=== PATIENT | female | born 1965 | race Caucasian/White ===

== ENCOUNTER 2022-09-21 17:17 | Emergency (ER) | payer OTHER, SELFPAY ==
[2022-09-21 17:24] VITALS: BP 185/97; PULSE 76; RESP 14; TEMP 37.1; O2SAT 98; BMI 38.3
--- NOTE | 2022-09-21 17:30 | ED_ITS ---
HPI - Fall General Chief Complaint: Fall Stated Complaint: RT ANKLE INJURY Time Seen by Provider: 09/21/22 17:30 Source: patient Mode of arrival: Wheelchair History of Present Illness HPI Narrative: Patient presents to emergency department complaining of right ankle pain. Patient states she tripped over a hole and inverted the right foot causing pain and swelling to the lateral malleolus on the right. She denies any pain at the base of the 5th. She denies any paresthesias, weakness. She didn't did not hit her head did not have loss of consciousness. She has an abrasion to the left knee states he does not have any knee pain. Immunizations are up-to-date. Anything at home for pain. Related Data Home Medications Medication Instructions Recorded Confirmed atorvastatin 40 mg tablet 40 mg PO DAILY 09/21/22 09/21/22 clonazepam 1 mg tablet 1 mg PO BID 09/21/22 09/21/22 hyoscyamine sulfate 0.125 mg tablet 0.125 mg sublingual Q4H PRN pain 09/21/22 09/21/22 insulin aspart U-100 100 unit/mL continuous subcutaneous infusion 09/21/22 subcutaneous solution (Novolog DAILY U-100 Insulin aspart) levothyroxine 125 mcg tablet 125 mcg PO DAILY 09/21/22 09/21/22 losartan 100 mg tablet 100 mg PO DAILY 09/21/22 09/21/22 nadolol 20 mg tablet 20 mg PO BID 09/21/22 09/21/22 Previous Rx's Medication Instructions Recorded hydrocodone 5 mg-acetaminophen 325 1 tab PO Q6H PRN pain #10 tabs 09/21/22 mg tablet Allergies Allergy/AdvReac Type Severity Reaction Status Date / Time acetaminophen [From Percocet] Allergy Severe Verified 09/21/22 17:23 adhesive Allergy Severe Verified 09/21/22 17:23 amoxicillin [From Augmentin] Allergy Severe Verified 09/21/22 17:23 clavulanic acid Allergy Severe Verified 09/21/22 17:23 [From Augmentin] oxycodone [From Percocet] Allergy Severe Verified 09/21/22 17:23 pentazocine [From Talwin] Allergy Severe Verified 09/21/22 17:23 sulfamethoxazole Allergy Severe Verified 09/21/22 17:23 [From Bactrim] trimethoprim [From Bactrim] Allergy Severe Verified 09/21/22 17:23 ct dye Allergy Severe Uncoded 09/21/22 17:23 Review of Systems ROS Status of ROS 10 or more systems reviewed and unremarkable except as noted in history and below [facility] Medical History (Updated 09/21/22 @ 18:11 by Acacia Beaulieu MD) Exam Narrative Exam Narrative: Nurses notes and vital signs reviewed and patient is not hypoxic. General: Nontoxic, Well-appearing and in no apparent distress. Skin: Warm, dry, no pallor noted. No Rash Head: Normocephalic, atraumatic. Neck: Supple, non-tender. Eye: Pupils are equal, round and EOMI. No scleral icterus. Ears, Nose, Mouth, and Throat: TM clear, no posterior oropharynx erythema or nasal mucosal hypertrophy, uvula is mid-line Oral mucosa is moist Cardiovascular: Regular Rate and Rhythm without murmur, gallop or rub. Respiratory: No accessory muscle use or respiratory distress. Lungs are clear to auscultation, no wheezing, rales or rhonchi Chest Wall: no tenderness Back: No midline thoracic or lumbar vertebral tenderness. No CVA tenderness Musculoskeletal: Right lateral malleolus with edema, ecchymosis, and tenderness to palpation. There is no pain at the base of the 5th. DP +2, tuberculosis +2, capillary refill is brisk. Range of motion is limited by pain at the ankle only. There is no pain or tenderness to the proximal fibula. Left knee without anterior 2 cm abrasion. No effusion, no tenderness to palpation. normal ROM, no calf or popliteal tenderness, no lower extremity edema/swelling GI: Abdomen is soft, non-distended. Normal bowel sounds. No masses appreciated. No tenderness to palpation. No rebound, guarding, or rigidity noted. Neurological: A&O x4. No cranial nerve dysfunction observed. No truncal ataxia. Moves all extremities. Sensation intact. Psychiatric: Cooperative and interactive. Normal mood and affect. Constitutional Vital Signs - 24 hr 09/21/22 17:24 Temperature 98.7 F Pulse Rate [Monitor] 76 Respiratory Rate 14 Blood Pressure [Left Arm] 185/97 H Pulse Oximetry 98 Oxygen Delivery Method Room Air Course Vital Signs Vital signs: Vital Signs Temperature 98.7 F 09/21/22 17:24 Pulse Rate 76 09/21/22 17:24 Respiratory Rate 14 09/21/22 17:24 Blood Pressure 185/97 H 09/21/22 17:24 Pulse Oximetry 98 09/21/22 17:24 Oxygen Delivery Method Room Air 09/21/22 17:24 Temperature 98.7 F 09/21/22 17:24 Pulse Rate 76 09/21/22 17:24 Respiratory Rate 14 09/21/22 17:24 Blood Pressure 185/97 H 09/21/22 17:24 Pulse Oximetry 98 09/21/22 17:24 Oxygen Delivery Method Room Air 09/21/22 17:24 MDM - Fall MDM Narrative Medical decision making narrative: X-rays were done.She is placed on a walking boot. She is advised to rest, ice, elevate, given Dinosaur, and crutches. She is to follow-up with Dr. murrell.Wound care instructions provided to the abrasion. At this time the patient is without objective evidence of an acute process requiring hospitalization or inpatient management. The patient has remained hemodynamically stable. No additional indication for emergent studies at this time. I answered all questions. Discussed discharge instructions including standard anticipatory guidance and what should prompt a return to the emergency department, including if they get worse are not getting better or develops any new or concerning symptoms. I've given them specific time frame in which to follow-up, and who to follow-up with. The patient demonstrates understanding. Patient is nontoxic and stable for discharge with outpatient follow-up. This note was created with the assistance of a speech recognition program. Although the intention is to generate documents that actually reflects the content of the visit, no guarantees can be provided that every mistake has been identified and corrected by editing. Discharge Plan Discharge Chief Complaint: Fall Clinical Impression: Fracture of lateral malleolus of right ankle Patient Disposition: Home, Self-Care Time of Disposition Decision: 18:10 Condition: Good Mode of Transportation: Private Vehicle Prescriptions / Home Meds: New hydrocodone-acetaminophen 5-325 mg tablet 1 tab PO Q6H PRN (Reason: pain) Qty: 10 0RF Rx Instructions: s82 No Action atorvastatin 40 mg tablet 40 mg PO DAILY clonazepam 1 mg tablet 1 mg PO BID hyoscyamine sulfate 0.125 mg tablet 0.125 mg sublingual Q4H PRN (Reason: pain) insulin aspart U-100 [Novolog U-100 Insulin aspart] 100 unit/mL solution continuous subcutaneous infusion DAILY levothyroxine 125 mcg tablet 125 mcg PO DAILY losartan 100 mg tablet 100 mg PO DAILY nadolol 20 mg tablet 20 mg PO BID Instructions: Ankle Fracture (ED) Additional Instructions: Given discharge instructions with visitor. To car in w/c per her . Has wan and ankle brace. Denies need for crutches. Stand Alone Forms: Portal Instructions Referrals: Ksotas Gauthier MD [Primary Care Provider] - 1 week Kota Murrell MD [Physician] - 1 week Discharge Date/Time: 09/21/22 18:48
--- NOTE | 2022-09-21 17:45 | XR_ITS ---
The [address] [address] Patient Name: LINO SIU MRN: [id number] date: 1965 Sex: F Assigned Patient Location: ER Current Patient Location: .MAIN Accession/Order Number: [id number] Exam Date: 09/21/2022 17:55 Report Date: 09/21/2022 18:30 At the request of: DRE THOMAS Procedure: XR ankle RT min 3V PROCEDURE: XR ankle RT min 3V DATE: 09/21/2022 4:55 PM CDT COMPARISONS: 07/24/2022 CLINICAL INDICATION: ankle pain FINDINGS: Transverse lucency of the distal metaphysis of the fibula is again identified. This suggests that the fracture that was previously noted is not yet healed or that there has been a refracture in the same place. As before, the osseous structures remain in good position and alignment. The ankle mortise is intact. Prominent soft tissue swelling is noted lateral and anterior to the ankle, more than on previous exam. IMPRESSION: Lucency persists of the distal metaphysis of the fibula. This implies that this previously noted fracture is not completely healed. Osseous structures are in perfect alignment and stable. It is possible that there is sufficient osseous bridging across this lucency. There is now prominent soft tissue swelling implying reinjury of this area. Correlation with clinical history and physical exam necessary in this regard.. Electronically authenticated by: KARISSA PERAZA Date: 09/21/2022 18:30
== END 2022-09-21 18:48 | disposition home or self-care (01) ==
PROVIDERS: Emergency Provider Emergency Medicine; PCP Family Medicine
DX: S82.61XA Displaced fracture of lateral malleolus of right fibula, initial encounter for closed fracture (principal); W18.42XA Slipping, tripping and stumbling without falling due to stepping into hole or opening, initial encounter; Z79.899 Other long term (current) drug therapy; Z79.890 Hormone replacement therapy
CPT/HCPCS: 73610; 99283

== ENCOUNTER 2022-09-30 09:51 | Outpatient (OUT) | payer OTHER, SELFPAY ==
--- NOTE | 2022-09-30 10:30 | CT_ITS ---
[address] [address] Patient Name: LINO SIU MRN: [id number] date: 1965 Sex: F Assigned Patient Location: CT Current Patient Location: CT Accession/Order Number: [id number] Exam Date: 09/30/2022 10:23 Report Date: 10/01/2022 06:26 At the request of: KATHY HAMMOND Procedure: CT ankle RT wo con EXAMINATION: CT ankle RT wo con HISTORY: M85.60 COMPARISON: No relevant comparison available. TECHNIQUE: Multi-planar CT images were created without IV contrast. Dose reduction techniques were achieved by using automated exposure control and/or adjustment of mA and/or kV according to patient size and/or use of iterative reconstruction technique. FINDINGS: BONES: Transverse fracture distal fibula/lateral malleolus. Ill-defined fracture margins consistent with a subacute fracture. Incomplete bony bridging. No distraction or angulation. No additional fracture or dislocation. Degenerative changes with marginal osteophyte formation and joint space narrowing SOFT TISSUES: Mild diffuse soft tissue swelling EFFUSION: None visible. OTHER: Vascular calcifications IMPRESSION: Subacute nondisplaced nonangulated transverse distal fibular fracture at the level of the epiphysis with incomplete bony bridging Electronically authenticated by: JAMEY SANDHU Date: 10/01/2022 06:26
== END 2022-09-30 09:52 ==
PROVIDERS: PCP Family Medicine; Visit Provider Physician Assistant
DX: M85.60 Other cyst of bone, unspecified site (principal); S82.831K Other fracture of upper and lower end of right fibula, subsequent encounter for closed fracture with nonunion
CPT/HCPCS: 73700

== ENCOUNTER 2022-10-23 10:12 | Outpatient (OUT) | payer OTHER, SELFPAY ==
--- NOTE | 2022-10-23 10:19 | XR_ITS ---
The [address] [address] Patient Name: LINO SIU MRN: [id number] date: 1965 Sex: F Assigned Patient Location: [facility] Current Patient Location: [facility] Accession/Order Number: [id number] Exam Date: 10/23/2022 10:19 Report Date: 10/23/2022 17:37 At the request of: INDY SIDDIQUI Procedure: XR ankle RT min 3V PROCEDURE: XR ankle RT min 3V HISTORY: RIGHT ANKLE PAIN COMPARISON: XR ankle right 09/21/2022 back through 03/13/2022 FINDINGS: BONES:Persistent thin curvilinear lucency through the lateral malleolus consistent with incomplete osseous healing of remote fracture. No significant size changer past several studies suggesting no significant ongoing healing process. SOFT TISSUES:Mild soft tissue swelling. EFFUSION:None visible. OTHER: Negative. XR/XR ankle RT min 3V IMPRESSION: 1. Stable, normal alignment, chronic incomplete osseous healing of remote lateral malleolus fracture. Electronically authenticated by: ADRIANNE RUANO Date: 10/23/2022 17:37
== END 2022-10-23 10:13 | disposition home or self-care (01) ==
LOC: RAD 10:12
PROVIDERS: PCP Family Medicine; Visit Provider Podiatrist Foot & Ankle Surgery
DX: M25.571 Pain in right ankle and joints of right foot (principal)
CPT/HCPCS: 73610

== ENCOUNTER 2023-01-08 13:52 | Outpatient (OUT) | payer OTHER, SELFPAY ==
[2023-01-08 15:25] LABS: Alanine Aminotransferase 48 U/L (14-59); Albumin Globulin Ratio 0.9; Albumin Level 3.4 g/dL (3.4-5.0); Alkaline Phosphatase 77 U/L (46-116); Anion Gap 10.7; Aspartate Amino Transferase 29 U/L (15-37); BUN Creatinine Ratio 14.3; Bilirubin Total 0.6 mg/dL (0.2-1.0); Calcium 8.5 mg/dL (8.5-10.1); Carbon Dioxide 29.3 mmol/L (21.0-32.0); Chloride 104 mmol/L (98-107); Estimated GFR (African America >60 (>=60); Estimated GFR (Non-African Ame >60 (>=60); Glucose 139 mg/dL (74-106); Sodium 140 mmol/L (136-145); Total Protein 7.4 g/dL (6.4-8.2)
== END 2023-01-08 13:53 | disposition home or self-care (01) ==
LOC: LAB 13:59
PROVIDERS: PCP Family Medicine; Visit Provider Family Medicine
DX: F40.01 Agoraphobia with panic disorder (principal)
CPT/HCPCS: 36415; 80053

== ENCOUNTER 2023-10-10 08:16 | Outpatient (OUT) | payer OTHER, SELFPAY ==
[2023-10-10 08:48] LABS: Basophils Absolute Auto 0.1 10^3/uL (0.0-0.1); Basophils Percent Auto 0.9 % (0.2-2.0); Eosinophils Absolute Auto 0.6 10^3/uL (0.0-0.7); Eosinophils Percent Auto 8.1 % (0.9-7.0); Hematocrit 43.1 % (36.0-48.0); Hemoglobin 13.8 g/dL (12.0-16.0); Immature Granulocytes Abs Auto 0.01 10^3/uL (0.00-0.03); Immature Granulocytes Pct Auto 0.1 % (0.0-0.5); Lymphocytes Absolute Auto 1.6 10^3/uL (1.2-3.8); Lymphocytes Percent Auto 22.9 % (20.5-60.0); Mean Corpuscular Hemoglobin 27.3 pg (26.7-34.0); Mean Corpuscular Volume 85.2 fL (81.0-99.0); Mean Platelet Volume 10.5 fL (9.5-13.5); Monocytes Absolute Auto 0.7 10^3/uL (0.3-0.8); Monocytes Percent Auto 10.7 % (1.7-12.0); Neutrophils Percent Auto 57.3 % (43.0-75.0); Platelet Count 212 10^3/uL (150-450); Red Blood Count 5.06 10^6/uL (4.20-5.40); White Blood Count 6.9 10^3/uL (4.0-11.0)
[2023-10-10 09:06] LABS: Estimated Average Glucose 146 mg/dL; Glycohemoglobin A1C 6.7 % (4.5-6.2)
[2023-10-10 09:31] LABS: Alanine Aminotransferase 36 U/L (14-59); Albumin Globulin Ratio 0.8; Albumin Level 3.3 g/dL (3.4-5.0); Alkaline Phosphatase 73 U/L (46-116); Anion Gap 12.6; Aspartate Amino Transferase 20 U/L (15-37); BUN Creatinine Ratio 13.1; Bilirubin Total 0.7 mg/dL (0.2-1.0); Calcium 8.8 mg/dL (8.5-10.1); Carbon Dioxide 28.2 mmol/L (21.0-32.0); Chloride 104 mmol/L (98-107); Chol HDL Ratio 3.4; Cholesterol 180 mg/dL (<=200); Estimated GFR (African America >60 (>=60); Estimated GFR (Non-African Ame 58 (>=60); Free T3 2.88 pg/mL (2.18-3.98); Globulin 3.9 g/dL; Glucose 168 mg/dL (74-106); HDL Cholesterol 53 mg/dL (40-60); Potassium 3.8 mmol/L (3.5-5.1); Sodium 141 mmol/L (136-145); Thyroid Stimulating Hormone 0.061 uIU/mL (0.358-3.740); Total Protein 7.2 g/dL (6.4-8.2); Triglycerides 221 mg/dL (<=150); VLDL CHOLESTEROL 44.2 mg/dL
== END 2023-10-10 08:17 | disposition home or self-care (01) ==
LOC: LAB 08:19
PROVIDERS: PCP Family Medicine; Visit Provider Family Medicine
DX: D64.9 Anemia, unspecified (principal); E11.9 Type 2 diabetes mellitus without complications; Z79.899 Other long term (current) drug therapy; I48.0 Paroxysmal atrial fibrillation; I10 Essential (primary) hypertension; R53.83 Other fatigue; E55.9 Vitamin D deficiency, unspecified; Z12.11 Encounter for screening for malignant neoplasm of colon
CPT/HCPCS: 36415; 80053; 80061; 83036; 84436; 84443; 84481; 85025

== ENCOUNTER 2023-12-11 15:00 | Outpatient (REF) | payer OTHER, SELFPAY | END 2023-12-11 15:01 | LOC: LAB 15:00 | PROVIDERS: PCP Family Medicine; Visit Provider Family Medicine | DX: L82.1 Other seborrheic keratosis (principal) | CPT/HCPCS: 88305 ==

== ENCOUNTER 2024-02-24 13:12 | Outpatient (OUT) | payer OTHER, SELFPAY ==
--- NOTE | 2024-02-24 13:18 | MM_ITS ---
Patient Name: LINO SIU MR#: [id number] : 1965 Exam Date: 02/24/2024 Ordering Doctor: DR UMA NEGRO . RADIOLOGY REPORT PROCEDURE: MM TOMOSYNTHESIS SCREENING BI COMPARISON: MG MAMM SCREEN KASSANDRA W CAD, 02/16/2019. MG MAMM SCREEN 3D KASSANDRA CAD, 11/23/2020. INDICATIONS: Screening Calculator Name NCI Breast Cancer Risk Assessment Tool 5 Year Breast Cancer Risk 1.80% Lifetime Breast Cancer Risk 10.00% Personal Breast Cancer No Personal Ovarian Cancer No Treatments None Family Cancers None LOCATION: [facility] BREAST COMPOSITION: The breasts are heterogeneously dense,which may obscure small masses. FINDINGS: DIAGNOSTIC CATEGORY 2--BENIGN FINDING. NO CHANGE FROM COMPARISON. Multiple areas of focal asymmetry in both breasts, stable from prior exam. Scattered benign-appearing calcifications are present. Scattered benign-appearing lymph nodes are present. RIGHT BREAST: No significant suspicious finding. LEFT BREAST: No significant suspicious finding. Loop recorder, stable RECOMMENDATIONS: ROUTINE MAMMOGRAM AND CLINICAL EVALUATION IN 12 MONTHS. PLEASE NOTE: A NORMAL MAMMOGRAM DOES NOT EXCLUDE THE POSSIBILITY OF BREAST CANCER. A CLINICALLY SUSPICIOUS PALPABLE LUMP SHOULD BE BIOPSIED. Dictated by: Jj Guerra MD on 02/25/2024 at 08:59 Approved by: Jj Guerra MD on 02/25/2024 at 09:01
--- OUTSIDE RECORDS SUMMARY | 2024-02-24 13:35 | XMS_ITS | CCD ---
Author Organization [facility] CliniSynv Care Team Providers Care Compressor Station Engineer Name Role Phone MARKY ., DR EATON Admitting Unavailable HOY ., DR EATON Attending Unavailable HOY ., DR EATON Primary Care Unavailable HOY ., DR EATON Consulting Unavailable MANISH, KATHY Admitting Unavailable MANISHKATHY Attending Unavailable HOY ., DR EATON Primary Care Unavailable ZIEBER, DR ADRIANNE Daily Consulting Unavailable MANISH, KATHY Consulting Unavailable MANISH, KATHY Admitting Unavailable KATHY HAMMOND Attending Unavailable RADHAY ., DR EATON Primary Care Unavailable SURPRISE, DR JAMEY Mccollum Consulting Unavailable MANISH, KATHY Consulting Unavailable MANISH, KATHY Admitting Unavailable MANISH, KATHY Attending Unavailable HOY ., DR EATON Primary Care Unavailable ALDEN, DR ADRIANNE Dialy Consulting Unavailable KATHY HAMMOND Consulting Unavailable INDY SIDDIQUI Admitting Unavailable INDY SIDDIQUI Attending Unavailable HOY ., DR EATON Primary Care Unavailable ALDEN, DR ADRIANNE Daily Consulting Unavailable INDY SIDDIQUI Consulting Unavailable MARKY ., DR EATON Primary Care Unavailable JUNIE, DR OLIVA Vizcaino Admitting Unavaillucy ZAMAN, DR OLIVA Vizcaino Attending Unavailabl e DEE ., JAYLYN ANDRE Consulting UnavailJAMEY Perales Unavailable MARKY ., DR EATON Admitting Unavailable HOY ., DR EATON Attending Unavailable HOY ., DR EATON Primary Care Unavailable HOY ., DR EATON Consulting Unavailable HOY ., DR EATON Admitting Unavailable HOY ., DR EATON Attending Unavailable MARKY ., DR EATON Primary Care Unavailable Uma Gauthier Primary Care Physician Padmaja Steinberg Attending Alberta Shonna Barahona Attending Unavailable Uma Gauthier Attending Unavailable Uma Gauthier Admitting Unavailable Uma Gauthier MD Primary Care Provider [phone] Isidra Buckley DO Unavailable ARMANDO PEREZ Attending Unavailable DARIO FINNEY Referring Unavailable ISIDRA BUCKLEY Attending Unavailable ISIDRA BUCKLEY Attending Unavailable ISIDRA BUCKLEY Attending Unavailable ISIDRA BUCKLEY Attending Unavailable Allergies Allergy Classification Reported Allergen(s) Allergy Type Date of Onset Reaction(s) Facility (1 source) Adhesive agent Drug allergy (disorder) 7 [facility] (1 source) Codeine Drug Allergy [facility] (1 source) Iodine (And Iodine Containting Drugs) Drug allergy (disorder) 7 [facility] (1 source) Pentazocine Drug Allergy 7 [facility] (2 sources) Sulfamethoxazole / Trimethoprim; Translations: [Bactrim] Drug Allergy 7 [facility] Rep[facility] (5 sources) Sulfamethoxazole / Trimethoprim; Translations: [sulfamethoxazole-tr imethoprim] Drug Allergy 3 [facility] (4 sources) Radiographic iodinated contrast medium (product); Translations: [Radiographic iodinated contrast medium] Drug allergy [facility] (2 sources) Amoxicillin Drug Allergy 3 [facility] (2 sources) levoFLOXacin Drug Allergy 3 [facility] (2 sources) metroNIDAZOLE Drug Allergy 3 [facility] (2 sources) Pentazocine Drug Allergy 3 [facility] (2 sources) Pravastatin Drug Allergy [address] [facility] (2 sources) Iodinated Contrast Media Drug Allergy 3 [facility] (2 sources) Wound Dressing Adhesive Drug Allergy 3 [facility] Medications Current Medications Medication Drug Class(es) Dates Sig (Normalized) Sig (Original) ascorbic acid 60 mg / beta carotene 5000 unt / copper sulfate 40 mg / dl-alpha tocopheryl acetate 30 unt / sodium selenite 0.04 mg / zinc oxide 40 mg oral tablet (2 sources) Vitamin C Multiple Vitamin (Multivitamin Adult) tablet Active aspirin 81 mg delayed release oral tablet (2 sources) Platelet Aggregation Inhibitor, Nonsteroidal Anti-inflammatory Drug aspirin (ASPIR) 81 MG EC tablet 1 (one) time each day at the same time. Active atorvastatin 40 mg oral tablet (5 sources) HMG-CoA Reductase Inhibitor Start: 01-18-2015 take 1 tablet by mouth once daily at bedtime atorvastatin 40 mg Tab 40 mg = 1 tab(s), Oral, Once a day (at bedtime), Refills(s) 0, High cholesterol Start Date: 01/18/15 Status: Ordered biotin 1 mg oral capsule (2 sources) biotin 1 MG caps ule 1 (one) time each day at the same time. Active Blood Glucose Monitoring Suppl (Accu-Chek Guide) w/Device kit (2 sources) Start: 02-17-2024 Blood Glucose Monitoring Suppl (Accu-Chek Guide) w/Device kit Indications: Type 1 diabetes mellitus without complication (CMS/HCC) 1 each See administration instructions 1 kit 02/17/2024 Active Calcium Carbonate / Vitamin D (2 sources) Calcium Carbonate-Vitamin D (CALCIUM PLUS VITAMIN D PO) Take by mouth. Active cholestyramine resin 4000 mg powder for oral suspension (4 sources) Bile Acid Sequestrant Start: 12-19-2023 take 1 dose by mouth once daily cholestyramine (Questran) 4 g packet Take 1 packet by mouth Daily 12/19/2023 Active Start: 12-19-2023 Questran 4 g/9 g oral powder = 1 packet(s), Oral, Daily, # 90 EA, Refills(s) 5, Pharmacy: [facility]/pharmacy #[id number], 159, cm, 12/19/23 10:06:00 EDT, Height/Length Dosing, 89, kg, 12/19/23 10:06:00 EDT, Weight Dosing Start Date: 12/19/23 Status: Ordered clonazePAM 1 mg oral tablet (5 sources) Benzodiazepine Start: 01-18-2015 take 0.5 mg by mouth twice daily clonazepam 1 mg Tab 0.5 mg = 0.5 tab(s), Oral, BID, Refills(s) 0, Anxiety Start Date: 01/18/15 Status: Ordered take 1.5 tablets by mouth in the morning clonazePAM (KlonoPIN) 1 MG tablet Take 1.5 tablets by mouth in the morning and 1.5 tablets before bedtime. Active Continuous Blood Gluc Sensor (Dexcom G6 Sensor) misc (2 sources) Continuous Blood Gluc Sensor (Dexcom G6 Sensor) misc Active dicyclomine hydrochloride 10 mg oral capsule (3 sources) Anticholinergic Start: 01-19-20 Bentyl 10 mg Cap 10 mg = 1 cap(s), Oral, As Directed, Refills(s) 0, Spasm Start Date: 01/18/15 Status: Ordered Elderberry preparation (2 sources) ELDERBERRY PO Elderberry Active fenofibrate 160 mg oral tablet (2 sources) Peroxisome Proliferator Receptor alpha Agonist Start: 10-14-19 take 1 tablet by mouth once daily fenofibrate (Triglide) 160 MG tablet TAKE 1 TABLET BY MOUTH EVERY DAY FOR 30 DAYS 10/14/2023 Active fexofenadine hydrochloride 60 mg oral tablet (2 sources) Histamine-1 Receptor Antagonist fexofenadine (Sindy Allergy) 60 MG tablet prn Active Levsin (4 sources) Start: 12-19-19 Levsin See Instructions, as needed, Refills(s) 0 Start Date: 12/19/23 Status: Ordered hyoscyamine (Lev sin) 0.125 MG tablet every 4 (four) hours if needed Active ibuprofen 800 mg oral tablet (2 sources) Nonsteroidal Anti-inflammatory Drug take 1 tablet by mouth four times daily as needed for pain ibuprofen 800 MG tablet TAKE 1 TABLET BY MOUTH 4 TIMES A DAY NEEDED FOR PAIN Active insulin aspart, human 100 unt/ml injectable solution (5 sources) Insulin Analog Start: 2023 inject 1 dose by subcutaneous injection once Insulin Aspart (NovoLOG) 100 UNIT/ML solution Indications: Type 1 diabetes mellitus without complication (CMS/HCC) INJECT 1 DOSE PER PUMP SUBCUTANEOUSLY SEE ADMINISTRATION INSTRUCTIONS, MAX 150 UNITS DAILY 140 mL 2 02/02/2024 Active Start: 01-19-2015 NovoLog See In structions, THIS IS DONE PER PUMP THAT IS ON THE RIGHT SIDE OF ABD., Refills(s) 0, Blood glucose Start Date: 01/19/15 Status: Ordered Insulin Infusion Pump (T:sli m Insulin Pump) device (4 sources) Start: 02-17-2024 Insulin Infusi on Pump (T:slim Insulin Pump) device Indications: Type 1 diabetes mellitus without complication (CMS/HCC) Basal: 12A 2.4, 6A 2.1, 11A 1.85, ICR: 12A 5, ISF: 50, target: 110 1 each 02/17/2024 Active Start: 10-22-2023 End: 02-17-2024 Insulin Infusion Pump (T:sli m Insulin Pump) device Indications: Type 1 diabetes mellitus without complication ([facility]) Basal: 12A 2.4, 6A 2.1, 11A 1.85, ICR: 12A 3, ISF: 50, target: 110 1 each 10/22/2023 02/17/2024 Discontinued (Dose adjustment) levothyroxine sodium 0.15 mg oral tablet (9 sources) l-Thyroxine Start: 12-19-2023 take 1 tablet by mouth once daily levothyroxine 150 mcg (0.15 mg) Tab mcg tab(s), Oral, Daily, Refills(s) 0 Start Date: 12/19/23 Status: Ordered Start: 01-18-2015 take 1 tablet by jose roberto th once daily levothyroxine 125 mcg (0.125 mg) Tab 125 microgram = 1 tab(s), Oral, Daily, Refills(s) 0, Thyroid Start Date: 01/18/15 Status: Ordered take 1 tablet by jose roberto th every other day levothyroxine (Synthroid, Levoxyl) 125 MCG tablet Take 125 mcg by mouth every other day. Active take 1 tablet by joser oberto th every other day levothyroxine (Synthroid, Levoxyl) 150 MCG tablet Take 150 mcg by mouth every other day. Active losartan potassium 50 mg oral tablet (5 sources) Angiotensin 2 Receptor Baron Start: 01-18-2015 take 1 tablet by mouth once daily losartan 50 mg Tab 50 mg = 1 tab(s), Oral, Daily, Refills(s) 0, High blood pressure Start Date: 01/18/15 Status: Ordered losartan (Cozaar ) 100 MG tablet 1 (one) time each day at the same time. Active magnesium gluconate 500 mg oral tablet (2 sources) magnesium 500 (2 7 Mg) MG tablet Magnesium Active methscopolamine bromide 5 mg oral tablet (3 sources) Anticholinergic Start: 015 take 1 tablet by mouth once daily methscopolamine 5 mg Tab 5 mg = 1 tab(s), Oral, Daily, Refills(s) 0, Control of stomach acid Start Date: 01/18/15 Status: Ordered Multiple Vitamins-Minerals (AIRBORNE PO) (2 sources) Multiple Vitamins-Minerals (AIRBORNE PO) Airborne Active Multiple Vitamins-Minerals (Vitamin D3 Complete) tablet (2 sources) Multiple Vitamins-Minerals (Vitamin D3 Complete) tablet Take by mouth Active nadolol 40 mg oral tablet (5 sources) beta-Adrenergic Baron Start: 015 take 1 tablet by mouth once daily nadolol 40 mg Tab 40 mg = 1 tab(s), Oral, Daily, Refills(s) 0, High blood pressure Start Date: 01/18/15 Status: Ordered nadolol (Corgard ) 40 MG tablet every 12 (twelve) hours. Active pantoprazole 40 mg extended release oral tablet (5 sources) Proton Pump Inhibitor Start: 01-18-2015 take 1 tablet by mouth once daily Protonix 40 mg tablet 40 mg, Oral, Daily, Refills(s) 0, Control of stomach acid Start Date: 01/18/15 Status: Ordered pantoprazole (Pr otoNix) 40 MG EC tablet 40 mg in the morning. Take before meals. Active Probiotic Formula (3 sources) Start: 01-18-2015 take 1 capsule by mouth once daily Probiotic Formula 1 cap(s), Oral, Daily, Refill(s) 0, Prophylaxis Start Date: 01/18/15 Status: Ordered Probiotic Product (PROBIOTIC & ACIDOPHILUS EX ST PO) (2 sources) Probiotic Produc t (PROBIOTIC & ACIDOPHILUS EX ST PO) every 12 (twelve) hours. Active Ozempic (2 sources) Start: 12-19-2023 inject 0.25 mg by subcutaneous injection every week Ozempic 0.25 mg, SubCutaneous, qWeek, Refill(s) 0, Other (see comment) Start Date: 12/19/23 Status: Ordered Start: 12-19-2023 Ozempic SubCut aneous, qWeek, Refill(s) 0 Start Date: 12/19/23 Status: Ordered Semaglutide,0.25 or 0.5MG/DO S, (Ozempic, 0.25 or 0.5 MG/DOSE,) 2 MG/3ML solution pen-injector (4 sources) Start: 02-17-2024 Semaglutide,0. 25 or 0.5MG/DOS, (Ozempic, 0.25 or 0.5 MG/DOSE,) 2 MG/3ML solution pen-injector Indications: Type 2 diabetes mellitus without complication, with long-term current use of insulin (CMS/HCC) Inject 0.5 mg under the skin every 7 (seven) days 6 mL 3 02/17/2024 Active Start: 12-22-2022 End: 02-17-2024 Semaglutide,0.25 or 0.5MG/DO S, (Ozempic, 0.25 or 0.5 MG/DOSE,) 2 MG/3ML solution pen-injector Indications: Type 2 diabetes mellitus without complication, with long-term current use of insulin (CMS/HCC) Inject 0.25 mg under the skin every 7 (seven) days. 12/22/2022 02/17/2024 Discontinued (Dose adjustment) Problems Active Problems Problem Classification Problem Date Documented Da te Episodic/Chronic Abdominal pain (1 source) Abdominal pain; Translations: [Unspecified abdominal pain] Onset: 12-18-2023 Episodic Anxiety disorders (4 sources) Anxiety disorder; Translations: [Anxiety disorder, unspecified] Onset: 03-25-2016 09-13-2022 Chronic Cataract (2 sources) Bilateral age-related nuclear cataracts; Translations: [Age-related nuclear cataract, bilateral] Onset: 05-07-2023 05-07-2023 Chronic Deficiency and other anemia (1 source) Anemia, unspecified; Translations: [ANEMIA UNSPECIFIED] Onset: 08-25-2022 Episodic Diabetes mellitus without complication (11 sources) Type 2 diabetes mellitus without complications; Translations: [Type 1 diabetes mellitus] Onset: 03-25-2016 Resolved: 09-13-2022 02-16-2024 Chronic Disorders of lipid metabolism (2 sources) Hyperlipidemia; Translations: [Hyperlipidemia, unspecified] Onset: 03-25-2016 09-13-2022 Chronic Essential hypertension (2 sources) Hypertensive disorder; Translations: [Essential (primary) hypertension] Onset: 03-25-2016 09-13-2022 Chronic Gastrointestinal hemorrhage (3 sources) Hemorrhage of rectum and anus; Translations: [Hemorrhage of anus and rectum] Onset: 12-19-2023 Episodic Malaise and fatigue (1 source) Other fatigue; Translations: [OTHER FATIGUE] Onset: 08-25-2022 Episodic Other aftercare (1 source) Other [facility] (current) drug therapy; Translations: [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] Onset: 08-25-2022 Episodic Other connective tissue disease (4 sources) Pain in right foot; Translations: [PAIN IN RIGHT FOOT] Onset: 07-24-2022 Episodic Other gastrointestinal disorders (3 sources) Irritable bowel syndrome with diarrhea; Translations: [Irritable bowel syndrome with diarrhea] Onset: 12-19-2023 Chronic Other gastrointestinal disorders (1 source) Abnormal feces; Translations: [Other fecal abnormalities] Onset: 12-19-2023 Episodic Other gastrointestinal disorders (2 sources) Loose stool 12-19-2023 Episodic Other injuries and conditions due to external causes (1 source) Unspecified injury of right ankle, subsequent encounter; Translations: [UNSPECIFIED INJURY RT ANKLE SUBSQT] Onset: 07-30-2022 Episodic Other nervous system disorders (2 sources) Mononeuropathy of lower limb; Translations: [Unspecified mononeuropathy of right lower limb] Onset: 08-16-2022 08-16-2022 Chronic Other non-traumatic joint disorders (4 sources) Pain in right ankle and joints of right foot; Translations: [PAIN IN RIGHT ANKLE] Onset: 05-28-2022 Episodic Other nutritional; endocrine; and metabolic disorders (2 sources) Severe obesity; Translations: [Class 2 severe obesity due to excess calories with serious comorbidity and body mass index (BMI) of 35.0 to 35.9 in adult] Onset: 08-16-2022 03-21-2023 Chronic Other screening for suspected conditions (not mental disorders or infectious disease) (2 sources) Encounter for screening for malignant neoplasm of colon; Translations: [Screening for malignant neoplasm of colon done] Onset: 08-25-2022 Episodic Residual codes; unclassified (4 sources) Obstructive sleep apnea (adult) (pediatric); Translations: [OBSTRUCTIVE SLEEP APNEA] Onset: 02-26-2022 Chronic Residual codes; unclassified (1 source) Acquired absence of organ; Translations: [Acquired absence of other specified parts of digestive tract] Onset: 12-19-2023 Episodic Past or Other Problems Problem Classification Problem Date Documented Da te Episodic/Chronic Conditions associated with dizziness or vertigo (2 sources) Dizziness; Translations: [Dizziness and giddiness] Onset: 10-27-2020 09-13-2022 Episodic E Codes: Fall (1 source) Fall (on) (from) unspecified stairs and steps, initial encounter; Translations: [FALL ON FROM UNS STAIRS STEPS INIT] Onset: 03-17-2022 Episodic Fracture of lower limb (7 sources) Displaced fracture of fifth metatarsal bone, right foot, initial encounter for closed fracture; Translations: [Other fracture of upper and lower end of right fibula, subsequent encounter for closed fracture with routine healing] Onset: 03-17-2022 Episodic Other aftercare (1 source) 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; Translations: [USP CURRENT USE OF ASPIRIN] Onset: 03-17-2022 Episodic Other aftercare (1 source) jail (current) use of insulin; Translations: [E MARKETING SPECIALIST CURRENT USE OF INSULIN] Onset: 03-17-2022 Episodic Results Test Name Value Interpretation Reference Range Facility HbA1c (Bld) [Mass fraction]o n 02-17-2024 Interpretation and review of laboratory results Normal [facility] - Hematology and Cell count[facility] 02-17-2024 HbA1c (Bld) [Mass fraction] 7 % [facility] Ambulatory Visit Summaryon 0 12-19-2023 Ambulatory Visit Summary Ambulatory Visit Summary ROSIO SIU :1965 Visit Date:12/19/2023 Ambulatory Visit Instructions Your Diagnosis Screening for colon cancer Abdominal cramps Hx of cholecystectomy Loose stools Irritable bowel syndrome with diarrhea Rectal bleeding Your Care Team Attending Physician - Shonna Minor MD Primary Care Physician - Uma Gauthier MD This Is Your Medications List cholestyramine (Questran 4 g/9 g oral powder) Contact prescribing physician if questions or concerns atorvastatin (atorvastatin 40 mg Tab) bifidobacterium-lacto bacillus (Probiotic Formula) clonazepam (clonazepam 1 mg Tab) dicyclomine (Bentyl 10 mg Cap) hyoscyamine (Levsin) insulin aspart (NovoLog) levothyroxine (levothyroxine 125 mcg (0.125 mg) Tab) levothyroxine (levothyroxine 150 mcg (0.15 mg) Tab) losartan (losartan 50 mg Tab) methscopolamine (methscopolamine 5 mg Tab) nadolol (nadolol 40 mg Tab) pantoprazole (Protonix 40 mg tablet) semaglutide (Ozempic) Procedures Performed Cataract (05/15/2023), Appendectomy, Breast biopsy sample, Breast reduction, section, Gallbladder, Hysterectomy, Trigger finger. Discharge Vitals Heart Rate (Peripheral) 78 Respiratory Rate 16 Blood Pressure 147/83 Height 159 cm Height 63 in Weight 89 kg Weight 195.8 lb BMI 35.2 Medications What How Much When Why Instructions New cholestyramine (Questran 4 g/ 9 g oral powder) 1 Packets By Mouth Every day Screening for colon cancer Abdominal cramps Hx of cholecystectomy Loose stools Refills: 5 Pickup at [facility]/pharmacy #[id number] Unchanged atorvastatin (atorvastatin 40 mg Tab) 1 Tablets By Mouth Once a day (at bedtime) Contact prescribing physician if questions or concerns Unchanged bifidobacterium-lacto bacillus (Probiotic Formula) 1 Capsules By Mouth Every day Contact prescribing physician if questions or concerns Unchanged clonazepam (clonazepam 1 mg Tab) 0.5 Tablets By Mouth 2 times a day Contact prescribing physician if questions or concerns Unchanged dicyclomine (Bentyl 10 mg Cap) 1 Capsules By Mouth As Directed Contact prescribing physician if questions or concerns Unchanged hyoscyamine (Levsin) See instructions as needed Contact prescribing physician if questions or concerns Unchanged insulin aspart (NovoLog) See instructions THIS IS DONE PER PUMP THAT IS ON THE RIGHT SIDE OF ABD. Contact prescribing physician if questions or concerns Unchanged levothyroxine (levothyroxine 125 mcg (0.125 mg) Tab) 1 Tablets By Mouth Every day Contact prescribing physician if questions or concerns Unchanged levothyroxine (levothyroxine 150 mcg (0.15 mg) Tab) By Mouth Every day Contact prescribing physician if questions or concerns Unchanged losartan (losartan 50 mg Tab) 1 Tablets By Mouth Every day Contact prescribing physician if questions or concerns Unchanged methscopolamine (methscopolamine 5 mg Tab) 1 Tablets By Mouth Every day Contact prescribing physician if questions or concerns Unchanged nadolol (nadolol 40 mg Tab) 1 Tablets By Mouth Every day Contact prescribing physician if questions or concerns Unchanged pantoprazole (Protonix 40 mg tablet) 40 Milligram By Mouth Every day Contact prescribing physician if questions or concerns Unchanged semaglutide (Ozempic) Subcutaneous Every week Contact prescribing physician if questions or concerns Pharmacy Information [facility]/pharmacy #[id number]: [address], [place] [id number] [phone] Allergies Bactrim Radiographic iodinated contrast medium Problems Ongoing - Any problem that you are currently receiving treatment for. Hx of cholecystectomy Irritable bowel syndrome with diarrhea Loose stools Rectal bleeding Patient Survey You may receive a survey via text or e-mail asking about your office visit. Please share your experience with us by completing your survey. We appreciate your feedback and thank you for choosing us for your care. Normal [facility] Gastroenterology Office/Clin ic Noteon 12-19-2023 Gastroenterology Office/Clinic Note Gastroenterology Office/Clinic Note Chief Complaint screening colonoscopy HPI Staff This is a 58 year old female who presents today for a screening colonoscopy with c/o abdominal cramping. Denies Blood Thinners. Ozempic weekly. Denies any family history of colon cancer/polyps or IBD. Denies Dysphagia, constipation, or bloody stools. Denies recent imaging or labs. Abdominal cramping- occurs next day after eating nuts/seeds diarrhea Last visit w/ Dr Forde 12/25/15 History of Present Illness: This is a 50-year-old white female who has a history of diabetes mellitus. She was complaining of a lot of bloating. She has had an extensive evaluation which was negative. Initially she was treated with metoclopramide and she did quite well but she did develop dizziness with that and that was stopped. There also she was treated with erythromycin and she did well with it. However recently she had better control over her diabetes and she did not require any erythromycin. No new GI complaints EGD w/ Dr Forde 01/19/15 Impression and Plan EGD: Diagnosis: Normal EGD status post random biopsies from the duodenum to rule out celiac disease. Final Diagnosis (Verified) DUODENUM, BIOPSY: ?DUODENAL MUCOSA WITH NO SIGNIFICANT PATHOLOGIC CHANGES. Colonoscopy w/ Dr Forde 10/30/12 Diagnosis: Sigmoid polyps, status post snare polypectomy Final Diagnosis (Verified) Sigmoid colon, biopsy Hyperplastic polyp LABS 01/19/15 IgA Quant 161 t-Transglutaminase >2 History of Present Illness I have reviewed HPI staff note, most recent labs and imaging, more than 30 minutes spent reviewing the chart, during encounter, placing orders and counseling the patient. pt here to schedule screening colonoscopy last one in 2012 intermittent diarrhea olga in coffee could make it worse pt with several BMs and some blood after eating nuts x 2 times Review of Systems PHQ Score Initial Depression Screen Score: 0 SCORE All systems reviewed, negative except as mentioned above Physical Exam Vitals & Measurements HR: 78(Peripheral) RR: 16 BP: 147/83 HT: 63 in HT: 159 cm WT: 89 kg WT: 195.8 lb BMI: 35.2 General: alert, no acute distress HEENT: atraumatic normocephalic Extremities: no deformity, no trauma Assessment/Plan 1. Screening for colon cancer (Z12.11: Encounter for screening for malignant neoplasm of colon) Ordered: cholestyramine, = 1 packet(s), Oral, Daily, # 90 EA, Refills(s) 5, [id number] 159, cm, 12/19/23 10:06:00 EDT, Height/Length Dosing, 89, kg, 12/19/23 10:06:00 EDT, Weight Dosing Colonoscopy (Hospital Procedure) 2. Abdominal cramps (R10.9: Unspecified abdominal pain) Ordered: cholestyramine, = 1 packet(s), Oral, Daily, # 90 EA, Refills(s) 5, [id number], 159, cm, 12/19/23 10:06:00 EDT, Height/Length Dosing, 89, kg, 12/19/23 10:06:00 EDT, Weight Dosing Colonoscopy (Hospital Procedure) 3. Hx of cholecystectomy (Z90.49: Acquired absence of other specified parts of digestive tract) Ordered: cholestyramine, = 1 packet(s), Oral, Daily, # 90 EA, Refills(s) 5, [id number], 159, cm, 12/19/23 10:06:00 EDT, Height/Length Dosing, 89, kg, 12/19/23 10:06:00 EDT, Weight Dosing Colonoscopy (Hospital Procedure) 4. Loose stools (R19.5: Other fecal abnormalities) Ordered: cholestyramine, = 1 packet(s), Oral, Daily, # 90 EA, Refills(s) 5, [id number], 159, cm, 12/19/23 10:06:00 EDT, Height/Length Dosing, 89, kg, 12/19/23 10:06:00 EDT, Weight Dosing Colonoscopy (Hospital Procedure) 5. Irritable bowel syndrome with diarrhea (K58.0: Irritable bowel syndrome with diarrhea) 6. Rectal bleeding (K62.5: Hemorrhage of anus and rectum) Obtain colonoscopy for screening purposes and to obtain random biopsies to evaluate diarrhea Start Questran and advised to take before meals that can irritate her bowels Advised to avoid nuts since it has been given her symptoms Further recs to be made after colonoscopy Follow-up No qualifying data available Problem List/Past Medical History Ongoing Hx of cholecystectomy Irritable bowel syndrome with diarrhea Loose stools Rectal bleeding Historical No qualifying data Procedure/Surgical History Cataract (05/15/2023), Appendectomy, Breast biopsy sample, Breast reduction, section, Gallbladder, Hysterectomy, Trigger finger. Medications atorvastatin 40 mg Tab, 40 mg= 1 tab(s), Oral, Once a day (at bedtime) Bentyl 10 mg Cap, 10 mg= 1 cap(s), Oral, As Directed clonazepam 1 mg Tab, 0.5 mg= 0.5 tab(s), Oral, BID levothyroxine 125 mcg (0.125 mg) Tab, 125 mcg= 1 tab(s), Oral, Daily levothyroxine 150 mcg (0.15 mg) Tab, Oral, Daily Levsin, See Instructions losartan 50 mg Tab, 50 mg= 1 tab(s), Oral, Daily methscopolamine 5 mg Tab, 5 mg= 1 tab(s), Oral, Daily nadolol 40 mg Tab, 40 mg= 1 tab(s), Oral, Daily NovoLog, See Instructions Ozempic, SubCutaneous, qWeek Probiotic Formula, 1 (more content not included)... Normal [facility] Comment on above: Result Comment: Elec tronically Signed By: Mily YARBROUGH, Shonna Salazar\.br\Date and Time Signed: 12/19/23 10:26 EDT Felipe 12-11-2023 L Specimen: [id number] Received: 12/12/23 Status: SOUT Req Num: [id number] Spec Type: Surgical Subm Dr: Uma Gauthier MD Tissues: A Skin-Other than Cyst, tag, debridement or plastic repair (LEFT SHOULDER) Procedures: HE, Gross/Micro L4 Age/ Patient Sex Location Account Attending Physician Rosio Siu 25/F LABELL [id number] Uma Gauthier MD SPEC NUM: [id number] RECD: 12/12/23 STATUS: DAVID MCCRARY NUM: [id number] [place]: 12/11/[address]: Uma Gauthier MD ENTERED: 12/12/23 [facility] DR: Mya Brooks SPEC TYPE: Surgical DEPT: MERYL DILLON ORDERED: HE, Gross/Micro L4 ORDERED: HE, Gross/Micro L4 Pathological Diagnosis Skin, left shoulder, shave biopsy: -Benign seborrheic keratosis of the slightly irritated and marked hyperkeratotic types -No malignancy or any nevoid atypia or squamous dysplasia identified Clinical Information Mole enlarging, shave biopsy Gross Description Specimen was received in formalin with the patient's name and left shoulder is a royal raised shave biopsy measuring 0.7 x 0.4 x 0.2 cm. The resection margin is inked black. The specimen is trisected and entirely submitted in cassette A1 in multiple serial sections Microscopic Description Microscopic examinations are performed supporting the above interpretation -------- Specimen: [id number] Received: 12/12/23 [facility] Num: [id number] Spec Type: Surgical Subm Dr: Uma Gauthier MD Tissues: A Skin-Other than Cyst, tag, debridement or plastic repair (LEFT SHOULDER) Procedures: Naseem CHAVEZ/Micro L4 -------- Patient: Rosio Siu [id number] (Continued) -------- Specimen: [id number] Received: 12/12/23 (Continued) Signed (signature on file) Jessica Do MD 12/19/23 1045 -------- Specimen: [id number] Received: 12/12/23 Status: DAVID Walker Num: [id number] Spec Type: Surgical Subm Dr: Uma Gauthier MD Tissues: A Skin-Other than Cyst, tag, debridement or plastic repair (LEFT SHOULDER) Procedures: Naseem CHAVEZ/Bob L4 -------- Patient: Rosio Siu [id number] (Continued) -------- Specimen: [id number] Received: 12/12/23 (Continued) CPT Codes 51962 -------- -------- Specimen: [id number] Received: 12/12/23 Status: JOSELYNGulshan Denise Num: [id number] Spec Type: Surgical Subm Dr: Uma Gauthier MD Tissues: A Skin-Other than Cyst, tag, debridement or plastic repair (LEFT SHOULDER) Procedures: Naseem CHAVEZ/Bob Torrez -------- Patient: Rosio Siu [id number] (Continued) -------- Signed (signature on file) Jessica Do MD 12/19/23 1045 Normal [facility] Physician Orderon 05-07-2023 Physician Order [id number]. [id number] Normal [facility] Patient Letter FTon 2022 Patient Letter FT February 05, [address] [place] [address] : 1965 Dear Rosio, This is a SECOND ATTEMPT to remind you that you are due for an appointment with [facility]. Please contact our office at [phone] to schedule an appointment at your earliest convenience. Thank you, [facility] Reminderson 02-05-2023 Reminders - From: Akosua Barkley MA S To: [facility] - Reminders/Recalls; Sent: 12/19/2022 13:40:54 EDT Show up: 12/19/2022 13:41:00 EDT Subject: colon recall Reminder Message 10 year colon recall Eula 10/30/12 first recall letter second recall letter Normal [facility] Patient Letter FTon 2022 Patient Letter FT December 23, 2022 [place] [address] : 1965 Dear Rosio, This is a reminder that you are due for an appointment with [facility]. Please contact our office at [phone] to schedule an appointment at your earliest convenience. Thank you, [facility] Normal [facility] CBC AUTO DIFFon 08-23-2022 BASO # 0.1 103/ul Normal 0.0-0.1 [facility] Comment on above: Performed By: #### C BC ####[facility] [address] [place] [address]Dr. Anton Do Basophils/100 WBC (Bld) 0.9 % Normal 0.2-2.0 [facility] Comment on above: Performed By: #### C BC ####[facility] [address] [place], [place] [address]Dr. Anton Do EO # 0.2 103/ul Normal 0.0-0.7 [facility] Comment on above: Performed By: #### C BC ####[facility] [address] [place], [place] [address]Dr. Maricelbettye Do Eosinophils/100 WBC (Bld) 3.1 % Normal 0.9-7.0 [facility] Comment on above: Performed By: #### C BC ####[facility] [address] [place], [place] [address]Dr. Maricelbettye Do Erythrocyte distribution width (RBC) [Ratio] 14.2 % Normal 11.0-15.0 [facility] Comment on above: Performed By: #### C BC ####[facility] [address] [place], [place] [address]Dr. Maricelbettye Do Hematocrit (Bld) [Volume fraction] 42.3 % Normal 36.0-48.0 [facility] Comment on above: Performed By: #### C BC ####[facility] [address] [place], [place] [address]Dr. Anton Do Hemoglobin (Bld) [Mass/Vol] 13.8 g/dL Normal 12.0-16.0 [facility] Comment on above: Performed By: #### C BC ####[facility] [address] [place], [place] [address]Dr. Maricelbettye Do IG # 0.01 10e3/ul Normal 0.00-0.03 [facility] Comment on above: Performed By: #### C BC ####[facility] [address] [place], [place] [address]Dr. Anton Do IG % 0.2 % Normal 0.0-0.5 [facility] Comment on above: Performed By: #### C BC ####[facility] [address] [place], [place] [address]Dr. Anton Do LYMPH # 1.6 103/ul Normal 1.2-3.8 [facility] Comment on above: Performed By: #### C BC ####[facility] [address] [place] [address]Dr. Maricelbettye Do Lymphocytes/100 WBC (Bld) 27.6 % Normal 20.5-60.0 [facility] Comment on above: Performed By: #### C BC ####[facility] [address] [place] [address]Dr. Anton Do MANUAL DIFF REQ NO Normal [facility] Comment on above: Performed By: #### C BC ####[facility] [address] [place] [id number]. Anton Do MCH (RBC) [Entitic mass] 27.5 pg Normal 26.7-34.0 [facility] Comment on above: Performed By: #### C BC ####[facility] [address] [place], [place] [address]Dr. Anton Do MCHC (RBC) [Mass/Vol] 32.6 g/dL Normal 29.9-35.2 [facility] Comment on above: Performed By: #### C BC ####[facility] [address] [place], [place] [address]Dr. Anton Do MCV (RBC) [Entitic vol] 84.4 fL Normal 81.0-99.0 [facility] Comment on above: Performed By: #### C BC ####[facility] [address] [place] [address]Dr. Anton Do MONO # 0.7 103/ul Normal 0.3-0.8 [facility] Comment on above: Performed By: #### C BC ####[facility] [address] [place], [place] [address]Dr. Anton Do Monocytes/100 WBC (Bld) 11.7 % Normal 1.7-12.0 [facility] Comment on above: Performed By: #### C BC ####[facility] [address] [place], [place] [address]DrChastity Do NEUT # 3.3 103/ul Normal 1.4-6.5 [facility] Comment on above: Performed By: #### C BC ####[facility] [address] [place] [id number]. Anton Do Neutrophils/100 WBC (Bld) 56.5 % Normal 43.0-75.0 [facility] Comment on above: Performed By: #### C BC ####[facility] [address] [place] [id number] Do Platelet mean volume (Bld) [Entitic vol] 10.2 fL Normal 9.5-13.5 [facility] Comment on above: Performed By: #### C BC ####[facility] [address] [place] [address]DrChastity Do PLT 231 103/ul Normal 150-450 [facility] Comment on above: Performed By: #### C BC ####[facility] [address] [place] [id number]. Anton Do RBC 5.01 106/ul Normal 4.20-5.40 [facility] Comment on above: Performed By: #### C BC ####[facility] [address] [place] [id number] Do WBC 5.8 103/ul Normal 4.0-11.0 [facility] Comment on above: Performed By: #### C BC ####[facility] [address] [place] [id number]. Anton Do FREE THYROXINE INDEX T7on FTI 4.45 Normal 1.30-4.50 [facility] Comment on above: Performed By: #### C MP, LIPID, T7, TSH #### [facility] [address] [address] [address] Anton Do T3U 32.0 % Normal 30.0-39.0 [facility] Comment on above: Performed By: #### C MP, LIPID, T7, TSH #### [facility] [id number] Anton Do T4 [Mass/Vol] 13.90 ug/dL Normal 4.80-13.90 [facility] Comment on above: Performed By: #### C MP, LIPID, T7, TSH #### [facility] [address] [address] [address] Anton Do GLYCOHEMOGLOBIN A1Con 2022 ADA RECOMMENDATION SEE BELOW Normal [facility] Comment on above: Result Comment: ADA RECOMMENDED LIMIT 4.0 - 6.0 ADA THERAPEUTIC TARGET < 7.0 ACTION SUGGESTED > 7.0 Performed By: #### A 1C #### [facility] [address] [address] [address] Anton Do Glucose [Mass/Vol] 160 mg/dL Normal [facility] Comment on above: Performed By: #### A 1C #### [facility] [address] [address] [address] Anton Do HbA1c (Bld) [Mass fraction] 7.2 % Critically high 4.5-6.2 [facility] Comment on above: Performed By: #### A 1C #### [facility] [address] [address] [address] Anton Do IRONon 08-23-2022 Iron [Mass/Vol] 71.0 ug/dL Normal 50.0-170.0 [facility] Comment on above: Performed By: #### I GARCÍA SEGAL ####[facility] [address] [address]Dr. Anton Do LIPID PROFILEon 08-23-2022 CHOL-HDL RATIO NORM SEE BELOW Normal [facility] Comment on above: Result Comment: 3.3 - 4.4 LOW RISK 4.4 - 7.1 AVERAGE RISK 7.1 - 11.0 MODERATE RISK >11.0 HIGH RISK Performed By: #### C MP, LIPID, T7, TSH #### [facility] [address] [address] [address] Anton Do Cholesterol [Mass/Vol] 168 mg/dL Normal <=200 [facility] Comment on above: Performed By: #### C MP, LIPID, T7, TSH #### [facility] [address] [address] [address] Anton Do Cholesterol in HDL [Mass/Vol] 46 mg/dL Normal 40-60 [facility] Comment on above: Performed By: #### C MP, LIPID, T7, TSH #### [facility] [address] [address] [address] Anton Do Cholesterol in LDL [Mass/Vol] 91.6 mg/dL Normal [facility] Comment on above: Performed By: #### C MP, LIPID, T7, TSH #### [facility] [address] [address] [address] Anton Do Cholesterol.total/Cho lesterol in HDL [Mass ratio] 3.7 {ratio} Normal [facility] Comment on above: Performed By: #### C MP, LIPID, T7, TSH #### [facility] [address] [address] [address] Anton Do HDL NORMAL > or = 60 mg/dl - LO W CARDIOVASCULAR RISK <40 mg/dl - HIGH CARDIOVASCULAR RISK Normal [facility] Comment on above: Performed By: #### C MP, LIPID, T7, TSH #### [facility] [address] [address] [address] Anton Do LDL CALC NORMAL SEE BELOW Normal [facility] Comment on above: Result Comment: <100 mg/dl OPTIMAL 100 - 129 mg/dl NEAR OR ABOVE OPTIMAL 130 - 159 mg/dl BORDERLINE HIGH 160 - 189 mg/dl HIGH >190 mg/dl VERY HIGH Performed By: #### C MP, LIPID, T7, TSH #### [facility] [address] [address] [address] Anton Do Triglyceride [Mass/Vol] 152 mg/dL Critically high <=150 [facility] Comment on above: Performed By: #### C MP, LIPID, T7, TSH #### [facility] [address] [address] [address] Anton Do VLDL CALC 30.4 mg/dL Normal [facility] Comment on above: Performed By: #### C MP, LIPID, T7, TSH #### [facility] [address] [address] [address] Anton Do PROF 14(COMP METB)on 023 Albumin [Mass/Vol] 3.4 g/dL Normal 3.4-5.0 [facility] Comment on above: Performed By: #### C MP, LIPID, T7, TSH #### [facility] [address] [address] [address] Anton Do Albumin/Globulin [Mass ratio] 0.8 {ratio} Normal [facility] Comment on above: Performed By: #### C MP, LIPID, T7, TSH #### [facility] [address] [address] [address] Anton Do ALP [Catalytic activity/Vol] 85 U/L Normal 46-116 [facility] Comment on above: Performed By: #### C MP, LIPID, T7, TSH #### [facility] [address] [address] [address] Anton Do ALT [Catalytic activity/Vol] 76 U/L Critically high 14-59 [facility] Comment on above: Performed By: #### C MP, LIPID, T7, TSH #### [facility] [address] [address] [address] Anton Do Anion gap [Moles/Vol] 9.4 mmol/L Normal [facility] Comment on above: Performed By: #### C MP, LIPID, T7, TSH #### [facility] [address] [address] [address] Anton Do AST [Catalytic activity/Vol] 30 U/L Normal 15-37 [facility] Comment on above: Performed By: #### C MP, LIPID, T7, TSH #### [facility] [address] [address] [address] Anton Do Bilirubin [Mass/Vol] 0.6 mg/dL Normal 0.2-1.0 [facility] Comment on above: Performed By: #### C MP, LIPID, T7, TSH #### [facility] [address] [address] [address] Anton Do Calcium [Mass/Vol] 9.1 mg/dL Normal 8.5-10.[address] [facility] Comment on above: Performed By: #### C MP, LIPID, T7, TSH #### [facility] [address] [address] [address] Anton Do Chloride [Moles/Vol] 108 mmol/L Critically high 98-107 [facility] Comment on above: Performed By: #### C MP, LIPID, T7, TSH #### [facility] [address] [address] [address] Anton Do CO2 [Moles/Vol] 28.1 mmol/L Normal 21.0-32.0 [facility] Comment on above: Performed By: #### C MP, LIPID, T7, TSH #### [facility] [address] [place] [address] Dr. Anton Do Creatinine [Mass/Vol] 1.49 mg/dL Critically high 0.55-1.02 [facility] Comment on above: Performed By: #### C MP, LIPID, T7, TSH #### [facility] [address] [place] [address] Dr. Anton Do EGFR-AF GUAMANIAN 44 mL/min/1.73m2 Critically low >=60 [facility] Comment on above: Performed By: #### C MP, LIPID, T7, TSH #### [facility] [address] [place] [address] Dr. Anton Do EGFR-NON AF GUAMANIAN 36 mL/min/1.73m2 Critically low >=60 [facility] Comment on above: Performed By: #### C MP, LIPID, T7, TSH #### [facility] [address] [place] [address] Dr. Anton Do Globulin (S) [Mass/Vol] 4.4 g/dL Normal [facility] Comment on above: Performed By: #### C MP, LIPID, T7, TSH #### [facility] [address] [place] [address] Dr. Anton Do Glucose [Mass/Vol] 253 mg/dL Critically high 74-106 [facility] Comment on above: Performed By: #### C MP, LIPID, T7, TSH #### [facility] [address] [place] [address] Dr. Anton Do Potassium [Moles/Vol] 4.7 mmol/L Normal 3.5-5.1 [facility] Comment on above: Performed By: #### C MP, LIPID, T7, TSH #### [facility] [address] [address] [address] Anton Do Protein [Mass/Vol] 7.8 g/dL Normal 6.4-8.[address] [facility] Comment on above: Performed By: #### C MP, LIPID, T7, TSH #### [facility] [address] [address] [address] Anton Do Sodium [Moles/Vol] 143 mmol/L Normal 136-[address] [facility] Comment on above: Performed By: #### C MP, LIPID, T7, TSH #### [facility] [address] [address] [address] Anton Do Urea nitrogen [Mass/Vol] 26.0 mg/dL Critically high 7.0-18.0 [facility] Comment on above: Performed By: #### C MP, LIPID, T7, TSH #### [facility] [address] [address] [address] Anton Do Urea nitrogen/Creatinine [Mass ratio] 17.5 mg/mg Normal [facility] Comment on above: Performed By: #### C MP, LIPID, T7, TSH #### [facility] [address] [address] [address] Anton Do TSHon 08-23-2022 TSH 0.059 uIU/mL Critically low 0.358-3.740 [facility] Comment on above: Performed By: #### C MP, LIPID, T7, TSH #### [facility] [address] [address] [address] Anton Do VITAMIN D 25 OHon 08-23-2022 VIT D 25-OH 45.9 ng/mL Normal [facility] Comment on above: Performed By: #### I LUZMA, VITAD ####[facility] [address] [place] [address]Dr. Anton Do VIT D RANGES SEE BELOW Normal [facility] Comment on above: Result Comment: <20 ng/mL Vit D deficient 20 - <30 ng/mL Vit D insufficient 30 - 100 ng/mL Vit D sufficient >100 ng/mL Potential Toxicity Performed By: #### I LUZMA VITAD ####[facility] [address] [place], [place] [address]UhChastity Do XR ANKLE RT MIN 3 VIEWSon XR ANKLE RT MIN 3 VIEWS EXAM: XR ANKLE RT MIN 3 VIEWS HISTORY: Pain following fall COMPARISON: X-rays 12/26/2020 TECHNIQUE: 3 views FINDINGS: IMPRESSION: Comminuted essentially nondisplaced intra-articular fracture of the lateral malleolus. Diffuse subcutaneous soft tissue edema. The joint space appears maintained. Small talocrural joint effusion. Small dorsal calcaneal enthesophyte. Orthopedic surgical evaluation is necessary Electronically authenticated by: JAMEY AZUL Date: 2022-03-13 16:24 Normal [facility] Vital Signs Date Time Vital Sign Value Performing Clinician Facility 02-17-2024 14:46-0500 Body height 161.3 cm IsidraGecko Work Phone: [facility] 02-17-2024 14:46-0500 Body mass index (BMI) [Ratio] 34 kg/m2 enGene Work Phone: [facility] 02-17-2024 14:46-0500 Body temperature 97.9 [degF] Isidra [employer] [place] Work Phone: [facility] 02-17-2024 14:46-0500 Body weight 88.45 kg IsidraGecko Work Phone: [facility] 02-17-2024 14:46-0500 Diastolic blood pressure 84 mm[Hg] [employer] Work Phone: [facility] 02-17-2024 14:46-0500 Heart rate 64 /min Isidra [employer] [place] Work Phone: [facility] 02-17-2024 14:46-0500 SaO2% (BldA) [Mass fraction] 96 % IsidraGecko Work Phone: [facility] 02-17-2024 14:46-0500 Systolic blood pressure 122 mm[Hg] Isidra Buckley DO Work Phone: [facility] 12-19-2023 10:00-0400 Blood Pressure Location Shonna Minor [facility] 12-19-2023 10:00-0400 Diastolic blood pressure 83 mm[Hg] Shonna Minor [facility] 12-19-2023 10:00-0400 Heart rate 78 /min Shonna Minor [facility] 12-19-2023 10:00-0400 Respiratory rate 16 /min Shonna Minor [facility] 12-19-2023 10:00-0400 Systolic blood pressure 147 mm[Hg] Shonna Minor [facility] Encounters Encounter Date Encounter Type Care Provider Facility Start: 02-17-2024 End: 02-17-2024 Office outpatient visit 25 minutes Isidra Buckley DO Work Phone: [facility] Comment on above: Type 1 diabetes mahendra itus without complication (CMS/HCC); Type 1 diabetes mellitus without complications ([facility]/HCC); Type 2 diabetes mellitus without complication, with long-term current use of insulin ([facility]) Start: 02-17-2024 End: 02-17-2024 ambulatory ISIDRA BUCKLEY Not Available Start: 12-19-2023 End: 01-02-2024 Pre-admission assessment Shonna Minor [facility] Start: 12-19-2023 End: 12-19-2023 ambulatory Shonna Minor Facility:[facility] Start: 12-19-2023 End: 12-19-2023 Patient encounter procedure Shonna Minor [facility] Start: 12-11-2023 End: 12-11-2023 ambulatory Uma Gauthier Facility:[facility] Start: 10-21-2023 End: 10-21-2023 ambulatory ISIDRA Gonzales PETZNICK Not Available Start: 06-20-2023 End: 06-20-2023 ambulatory ISIDRA M PETZNICK Not Available Start: 05-07-2023 End: 05-15-2023 Pre-admission assessment Armando Perez [facility] Start: 05-07-2023 End: 05-07-2023 ambulatory ARMANDO Chou SUECHACHA Not Available Start: 03-21-2023 End: 03-21-2023 ambulatory ISIDRA Gonzales PETZNICK Not Available Start: 12-19-2022 [facility] Start: 08-25-2022 Encounter for genera l adult medical examination without abnormal findings DR UMA GAUTHIER . [facility] Start: 08-23-2022 End: 08-24-[address] UMA GAUTHIER . Facility:[facility] Start: 08-23-2022 End: 08-24-2022 Encounter for general adult medical examination without abnormal findings DR UMA GAUTHIER . Facility:[facility] Start: 07-24-2022 End: 07-25-2022 ambulatory INDY SIDDIQUI Facility:[facility] Start: 05-28-2022 End: 05-29-2022 ambulatory KATHY HAMMOND Facility:[facility] Start: 04-23-2022 End: 04-24-2022 ambulatory KATHY HAMMOND Facility:[facility] Start: 04-02-2022 End: 04-03-2022 ambulatory KATHY HAMMOND Facility:[facility] Start: 03-19-[address] UMA GAUTHIER . Facili ty:[facility] Start: 03-13-2022 End: 03-13-[address] UMA GAUTHIER . Facility:[facility] Start: 02-26-2022 End: 02-27-[address] UMA GAUTHIER . Facility:[facility] Procedures Date Procedure Procedure Detail Performing Clinician Start: 02-17-2024 Hemoglobin glycosyla césar a1c Isidra Buckley DO Work Phone: Start: 05-15-2023 Cataract (disorder) Amy Minor Acquired trigger fin kaley (disorder) Shonna Minor Appendectomy Shonna Minor section Shonna david Comment on above: x2 Gallbladder structur e (body structure) Shonna Minor History of cholecystectomy Hx of cholecystectomy Shonna Minor Hysterectomy Shonna Minor Reduction mammoplasty Kane Minor Specimen from breast obtained by biopsy (specimen) Shonna [facility] Plan of Treatment Date Care Activity Detail Author Start: 05-07-2025 Glaucoma screening Diabetes: R etinopathy Screening [facility] Start: 06-18-2024 End: 06-18-2024 Patient encounter procedure 06/18/2024 2:00 PM EST Office Visit [facility] [address] [place] [id number] Isidra Buckley, DO [address] [place] [address] [facility] [address] Start: 05-19-2024 Hemoglobin A1c measurement Diabetes: Hemoglobin A1C [facility] Start: 2005 Screening for malign ant neoplasm of breast Mammogram [facility] Start: 1995 Screening for malign ant neoplasm of cervix [facility] Start: 1986 Screening for malign ant neoplasm of cervix Pap Smear [facility] Start: 1984 Urine screening for protein Diabetes: Urine Protein Screening [facility] Start: 1965 Screening for malign ant neoplasm of colon [facility] Immunizations Immunization Date Immunization Notes Care Provider Fa cility 02-06-2024 influenza, injectabl e, madin winnie canine kidney, preservative free Isidra Petznick DO Work Phone: [facility] 01-01-2023 Influenza, injectabl e, Madin Fillmore Canine Kidney, preservative free, quadrivalent Isidra Petznick DO Work Phone: [facility] 02-06-2022 influenza virus vacc ine, unspecified formulation Mohamad Mouch[facility] 02-06-2022 Influenza, injectabl e, Madin Fillmore Canine Kidney, preservative free, quadrivalent Isidra Petznick DO Work Phone: [facility] 02-06-2022 tetanus toxoid, redu francis diphtheria toxoid, and acellular pertussis vaccine, adsorbed Mohamad Mouchli [facility] 04-18-2021 SARS-CoV-2 (COVID-19 ) mRNA-1273 vaccine Mohamad Mouchli [facility] Comment on above: Result Comment: 2023: [id number] 01-10-2021 influenza virus vacc ine, unspecified formulation Mohamad Mouchli [facility] 01-10-2021 Influenza, injectabl e, Madin Winnie Canine Kidney, preservative free, quadrivalent Isidra Petznick DO Work Phone: [facility] 12-13-2020 influenza virus vacc ine, unspecified formulation Mohamad Mouchli [facility] 12-13-2020 influenza, injectabl e, quadrivalent, contains preservative Isidra Petznick DO Work Phone: [facility] 08-16-2020 SARS-CoV-2 (COVID-19 ) mRNA-1273 vaccine Mohamad Mouchli [facility] Comment on above: Result Comment: 2023: [id number] 07-12-2020 SARS-CoV-2 (COVID-19 ) mRNA-7550 vaccine Mohamad Mouchli [facility] Comment on above: Result Comment: 2023: [id number] 02-08-2020 influenza virus vacc ine, unspecified formulation Mohamad Mouch[facility] 02-08-2020 influenza, injectabl e, quadrivalent, preservative free Isidra Petznick DO Work Phone: [facility] 01-26-2020 influenza virus vacc ine, unspecified formulation Mohamad Mouch[facility] 01-26-2020 influenza, seasonal, injectable Isidra Petznick DO Work Phone: [facility] 01-11-2019 influenza virus vacc ine, unspecified formulation Mohamad Mouch[facility] 01-11-2019 influenza, injectabl e, madin winnie canine kidney, preservative free Isidra Petznick DO Work Phone: [facility] 03-21-2018 tetanus toxoid, redu francis diphtheria toxoid, and acellular pertussis vaccine, adsorbed Mohamad Mouchli [facility] 01-01-2017 influenza virus vacc ine, H5N1, A/[place] (national stockpile) Isidra Petznick DO Work Phone: [facility] 01-01-2017 influenza virus vacc ine, unspecified formulation Isidra Petznick DO Work Phone: [facility] 01-01-2017 influenza, unspecifi ed formulation Mohamad Mouchli [facility] 01-01-2017 pneumococcal polysaccharide vaccine, 23 valent Mohamad Mouchli [facility] 02-19-2016 influenza virus vacc ine, H5N1, A/[place]/12006/2003 (national stockpile) Isidra Buckley DO Work Phone: [facility] 02-19-2016 influenza virus vacc ine, unspecified formulation Isidra Buckley DO Work Phone: [facility] 02-19-2016 influenza, unspecifi ed formulation Shonna Minor [facility] Payers Date Payer Category Payer Self-pay 2021 Private Health Insurance [employer] [id number] 2015 Unknown [id number] 2015 Unknown 1965 Unknown [id number]. 2.593 1965 Unknown [id number] .[id number]. 2.593 1965 Unknown [id number] .[id number]. 2.593 1965 Unknown [id number] .[id number]. 2.59 1965 Unknown [id number]. 2.593 1965 Unknown [id number]. 2.593 1965 Unknown [id number] 2.16.840.1.293931.3.579. 2.593 1965 Unknown [id number] [id number]. 2.593 1965 Unknown [id number] 2.16.840.1.732469.3.579. 2.727 1965 Unknown [id number] 2.16.840.1.803871.3.579. 2.727 1965 Unknown [id number] 2.16.840.1.496896.3.579. 2.1259 1965 Unknown [id number] 2.16.840.1.012448.3.579. 2.9 1965 Unknown [id number] 2.16.840.1.497693.3.579. 2.9 1965 Unknown [id number] 2.16.840.1.467585.3.579. 2.9 1965 Unknown [id number]. 2.1259 1959 Unknown [id number] Social History Date Type Detail Facility Tobacco smoking status [facility] Start: 09-13-2022 End: 12-20-2022 Sex Assigned At Female [facility] Start: 09-12-2022 End: 12-19-2023 Tobacco smoking status Never smoked tobacco (finding) [facility] Tobacco smoking status Never [facility] Start: 09-12-2022 Tobacco use and exposure Smokeless tobacco non-user [facility] Start: 02-17-2024 Alcoholic beverage intake Ex-drinker (finding) [facility] Start: 09-13-2022 End: 12-20-2022 History of Social function [facility] Within the last year , have you been afraid of your partner or ex-partner? No [facility] Do you belong to any clubs or organizations such as buddhism groups, unions, fraternal or athletic groups, or school groups? Yes [facility] Are you now , , , , never or living with a partner? [facility] How often to you hav e a drink containing alcohol? Never [facility] (I/We) worried wheth er (my/our) food would run out before (I/we) got money to buy more. Never true [facility] Start: 1965 Sex assigned at Female [facility] Start: 09-13-2022 Gender identity Identifies as female gender (finding) [facility] Medical Equipment Procedure Code Equipment Code Equipment Origin al Text Equipment Identifier Dates [id number], [id number] Start: 10-11-2016 End: 02-17-2024 Functional Status Date Assessment Result Facility 12-19-2023 Functional Status N/A [facility] Clinical Notes 04-03-2022 to 02-17-2024 Isidra Buckley DO - 02/17/2024 7:50 PM Brendan Buckley DO - 02/17/2024 3:00 PM EST Note Date & Type Note Facility 02-17-2024 History of Present illness Narrative Associated Problem(s): Type 1 diabetes mellitus without complication (CMS/[facility]) During the appointment today all pertinent labs, imaging, health maintenance, and glucose readings were reviewed. Encouraged to check blood glucose throughout the day with some fasting and some PP readings. They are to bring their glucose meter/cgm in to all appointments. All of the patients questions, treatment options, and current care plan and goals were discussed. A copy of this along with pertinent instructions were given to the patient at the end of the appointment. The patient voices understanding of all of this and is to call in between appointments if they have any problems or questions. Rosio Siu control is stable overall. , The patient is wearing their cgm on a daily basis and making decisions in regards to adjusting insulin daily as well for at least the last 60 days , Instructions given today include: Pump instructions and Dietary education. She is going to keep working on getting up tot he 0.5 mg dose on ozempic. Will loosen her carb ratio to prevent low bg. Will need to keep adjusting her insulin as she goes up on ozempic. Images from the original note were not included. Rosio Siu is a 58 y.o. female presents with chief complaint of Diabetes HPI: Diabetes Mellitus Follow-up: Rosio Siu is here for follow-up evaluation of diabetes mellitus. The initial diagnosis of Type 1 diabetes was made in 1990 Diabetes complications: none She has been checking her blood glucose with a Tandem pump-LINKED- and Dexcom CGM on a daily basis. Overall bg are running smooth and in range. Will sometimes dip down in the afternoon and occasional rise in the evening but nothing is consistent. She has been lowering the carbs she is eating due to dropping too low if she puts the number of carbs in that she eats. Has a lot going on with her daughter being in a motorcycle accident a few months ago. Last A1c: 6.7 (ordered by PCP) on 10-10-23 Last eye exam: 05/07/2023 Current concerns include: State her bg levels are up and down. On occasion she will have a high, not sure why. Morning readings have improved. Has been trying to increase Ozempic- pt states she tried to increase to all at once, but it gaves her diarrhea. 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 Hypoglycemia: On occasion- over correct with high readings. - Would like meter and strips (accu-chek guide) sent to [employer]- that way she can double check with finger sticks. States using [employer] it would be free to her. SUBJECTIVE: PROBLEM LIST SOCIAL ALLERGIES: Patient Active Problem List Diagnosis Class 2 severe obesity due to excess calories with serious comorbidity and body mass index (BMI) of 35.0 to 35.9 in adult (CMS/[facility]) Type 1 diabetes mellitus without complication (CMS/HCC) Unspecified mononeuropathy of right lower limb Dizziness Hyperlipidemia (CMS/HCC) Hypertensive disorder (CMS/HCC) Anxiety disorder Panic disorder (CMS/[facility]) Age-related nuclear cataract of both eyes Social History Tobacco Use Smoking status: Never Smokeless tobacco: Never Substance Use Topics Alcohol use: Not Currently Allergies Allergen Reactions Amoxicillin Other Reaction(s): Unknown Iodinated Contrast Media Levofloxacin Other Reaction(s): Unknown Metronidazole Pentazocine Other Reaction(s): Unknown Pravastatin Unknown Sulfamethoxazole-Trimethoprim Wound Dressing Adhesive Synopsis [facility] 02/17/2024 02/02/2024 00:00 Antidiabetic medications Insulin Aspart 1 Dose See admin instructions Per pump (max daily 150 units) SC (100 UNIT/ML SOLN) -Discontinued Insulin Aspart INJECT 1 DOSE PER PUMP SUBCUTANEOUSLY SEE ADMINISTRATION INSTRUCTIONS, MAX 150 UNITS DAILY (100 UNIT/ML SOLN) INJECT 1 DOSE PER PUMP SUBCUTANEOUSLY SEE ADMINISTRATION INSTRUCTIONS, MAX 150 UNITS DAILY (100 UNIT/ML SOLN) Semaglutide 0.25 mg q7 days SC (2 MG/3ML SOPN)-Discontinued (Dose adjustm) 0.25 mg q7 days SC (2 MG/3ML SOPN) Semaglutide 0.5 mg q7 days SC (2 MG/3ML SOPN) Labs MHPT A1C 7.0 Outpatient prescription Medication marked as long-term REVIEW OF SYMPTOMS: Review of Systems Constitutional: Positive for fatigue. Negative for appetite change and unexpected weight change. Eyes: Negative for visual disturbance. Respiratory: Negative for cough, shortness of breath and wheezing. Cardiovascular: Negative for chest pain, palpitations and leg swelling. Neurological: Negative for numbness. Endocrine: Negative for polydipsia, polyphagia and polyuria. OBJECTIVE: 02/17/2024 2:46 PM 10/21/2023 2:51 PM 06/20/2023 8:30 AM Vitals BMI 34 kg/m2 34.94 kg/m2 35.57 kg/m2 Systolic 122 124 126 Diastolic 84 78 68 Heart Rate 64 73 Temp 97.9 F 97.3 F 97.8 F Height (in) 5' 3.5 5' 3.5 5' 3.5 Weight (lb) 195 200.4 204 Visit Report Report Report Report Physical Exam Constitutional: General: She is not in acute distress. Appearance: Normal appearance. Cardiovascular: Rate and Rhythm: Normal rate and regular rhythm. Heart sounds: No murmur heard. No friction rub. No gallop. Pulmonary: Breath sounds: Normal breath sounds. No wheezing, rhonchi or rales. Musculoskeletal: General: No swelling. Neurological: Mental Status: She is alert. ASSESSMENT AND PLAN: Problem List Items Addressed This Visit Type 1 diabetes mellitus without complication (CMS/[facility]) During the appointment today all pertinent labs, imaging, health maintenance, and glucose readings were reviewed. Encouraged to check blood glucose throughout the day with some fasting and some PP readings. They are to bring their glucose meter/cgm in to all appointments. All of the patients questions, treatment options, and current care plan and goals were discussed. A copy of this along with pertinent instructions were given to the patient at the end of the appointment. The patient voices understanding of all of this and is to call in between appointments if they have any problems or questions. Rosio Siu control is stable overall. , The patient is wearing their cgm on a daily basis and making decisions in regards to adjusting insulin daily as well for at least the last 60 days , Instructions given today include: Pump instructions and Dietary education. She is going to keep working on getting up tot he 0.5 mg dose on ozempic. Will loosen her carb ratio to prevent low bg. Will need to keep adjusting her insulin as she goes up on ozempic. Relevant Medications Blood Glucose Monitoring Suppl (Accu-Chek Guide) w/Device kit glucose blood (Accu-Chek Guide) test strip Insulin Infusion Pump (T:slim Insulin Pump) device Other Relevant Orders POCT glycosylated hemoglobin (Hb A1C) docked device (Completed) Other Visit Diagnoses Type 1 diabetes mellitus without complications ([facility]) Type 2 diabetes mellitus without complication, with long-term current use of insulin ([facility]) Relevant Medications Semaglutide,0.25 or 0.5MG/DOS, (Ozempic, 0.25 or 0.5 MG/DOSE,) 2 MG/3ML solution pen-injector Follow up in about 4 months (around 06/16/2024) for Recheck. Patient's Medications New Prescriptions BLOOD GLUCOSE MONITORING SUPPL (ACCU-CHEK GUIDE) W/DEVICE KIT 1 each See administration instructions Previous Medications ACETONE, URINE, TEST (KETOSTIX) STRIP ASPIRIN (ASPIR) 81 MG EC TABLET 1 (one) time each day at the same time. ATORVASTATIN (LIPITOR) 40 MG TABLET 1 (one) time each day at the same time. BD INSULIN SYRINGE U/F 31G X 5/16 0.5 ML MISC USE WITH INJECTIONS 3 TIMES DAILY BIOTIN 1 MG CAPSULE 1 (one) time each day at the same time. CALCIUM CARBONATE-VITAMIN D (CALCIUM PLUS VITAMIN D PO) Take by mouth. CHOLESTYRAMINE (QUESTRAN) 4 G PACKET Take 1 packet by mouth Daily CLONAZEPAM (KLONOPIN) 1 MG TABLET Take 1.5 tablets by mouth in the morning and 1.5 tablets before bedtime. CONTINUOUS BLOOD GLUC SENSOR (DEXCOM G6 SENSOR) MISC ELDERBERRY PO Elderberry FENOFIBRATE (TRIGLIDE) 160 MG TABLET TAKE 1 TABLET BY MOUTH EVERY DAY FOR 30 DAYS FEXOFENADINE (SINDY ALLERGY) 60 MG TABLET prn HYOSCYAMINE (LEVSIN) 0.125 MG TABLET every 4 (four) hours if needed IBUPROFEN 800 MG TABLET TAKE 1 TABLET BY MOUTH 4 TIMES A DAY NEEDED FOR PAIN INSULIN ASPART (NOVOLOG) 100 UNIT/ML SOLUTION INJECT 1 DOSE PER PUMP SUBCUTANEOUSLY SEE ADMINISTRATION INSTRUCTIONS, MAX 150 UNITS DAILY LEVOTHYROXINE (SYNTHROID, LEVOXYL) 125 MCG TABLET Take 125 mcg by mouth every other day. LEVOTHYROXINE (SYNTHROID, LEVOXYL) 150 MCG TABLET Take 150 mcg by mouth every other day. LOSARTAN (COZAAR) 100 MG TABLET 1 (one) time each day at the same time. MAGNESIUM 500 (27 MG) MG TABLET Magnesium MULTIPLE VITAMIN (MULTIVITAMIN ADULT) TABLET MULTIPLE VITAMINS-MINERALS (AIRBORNE PO) Airborne MULTIPLE VITAMINS-MINERALS (VITAMIN D3 COMPLETE) TABLET Take by mouth NADOLOL (CORGARD) 40 MG TABLET every 12 (twelve) hours. PANTOPRAZOLE (PROTONIX) 40 MG EC TABLET 40 mg in the morning. Take before meals. PROBIOTIC PRODUCT (PROBIOTIC & ACIDOPHILUS EX ST PO) every 12 (twelve) hours. Modified Medications Modified Medication Previous Medication GLUCOSE BLOOD (ACCU-CHEK GUIDE) TEST STRIP Accu-Chek Guide test strip Fsbs daily USE TO TEST FASTING BLOOD SUGAR 6 TIMES A DAY INSULIN INFUSION PUMP (T:SLIM INSULIN PUMP) DEVICE Insulin Infusion Pump (T:slim Insulin Pump) device Basal: 12A 2.4, 6A 2.1, 11A 1.85, ICR: 12A 5, ISF: 50, target: 110 Basal: 12A 2.4, 6A 2.1, 11A 1.85, ICR: 12A 3, ISF: 50, target: 110 SEMAGLUTIDE,0.25 OR 0.5MG/DOS, (OZEMPIC, 0.25 OR 0.5 MG/DOSE,) 2 MG/3ML SOLUTION PEN-INJECTOR Semaglutide,0.25 or 0.5MG/DOS, (Ozempic, 0.25 or 0.5 MG/DOSE,) 2 MG/3ML solution pen-injector Inject 0.5 mg under the skin every 7 (seven) days Inject 0.25 mg under the skin every 7 (seven) days. Discontinued Medications No medications on file I have reviewed and reconciled the history and medication list with the patient today. documented in this encounter [facility] 07-24-2022 Note PROCEDURE: XR ANKLE RT MIN 3 VIEWS, XR FOOT RT MIN 3 VIEWS HISTORY: Pain of right ankle joint ; right foot pain; follow-up right ankle fracture COMPARISON: XR ankle right 05/28/2022 FINDINGS: BONES:Increasing density of transverse fracture line across lateral malleolus consistent with ongoing bone healing. Alignment is maintained. Intact ankle joint. No acute bone abnormality of the foot or significant degenerative joint disease. SOFT TISSUES:No visible soft tissue swelling. EFFUSION:None visible. OTHER: Negative. IMPRESSION: 1. Stable alignment and ongoing bone healing of lateral malleolus fracture. Electronically authenticated by: ADRIANNE RUANO Date: 2022-07-24 15:00 [facility] 07-24-2022 Note PROCEDURE: XR ANKLE RT MIN 3 VIEWS, XR FOOT RT MIN 3 VIEWS HISTORY: Pain of right ankle joint ; right foot pain; follow-up right ankle fracture COMPARISON: XR ankle right 05/28/2022 FINDINGS: BONES:Increasing density of transverse fracture line across lateral malleolus consistent with ongoing bone healing. Alignment is maintained. Intact ankle joint. No acute bone abnormality of the foot or significant degenerative joint disease. SOFT TISSUES:No visible soft tissue swelling. EFFUSION:None visible. OTHER: Negative. IMPRESSION: 1. Stable alignment and ongoing bone healing of lateral malleolus fracture. Electronically authenticated by: ADRIANNE RUANO Date: 2022-07-24 15:00 [facility] 05-28-2022 Note PROCEDURE: XR ANKLE RT MIN 3 VIEWS HISTORY: Pain of right ankle joint ; follow-up fracture COMPARISON: XR ankle right 04/23/2022 FINDINGS: BONES:Stable alignment and ongoing bone healing of lateral malleolus fracture. Increased density of fracture at base of fifth metatarsal. SOFT TISSUES:No visible soft tissue swelling. EFFUSION:None visible. OTHER: Negative. IMPRESSION: 1. Stable alignment and ongoing bone healing of lateral malleolus/distal fibular fracture. 2. Stable alignment and partial bone healing of base of fifth metatarsal fracture. Electronically authenticated by: ADRIANNE RUANO Date: 2022-05-28 14:43 [facility] 04-23-2022 Note PROCEDURE: XR ANKLE RT MIN 3 VIEWS COMPARISON: 04/02/2022 HISTORY: Pain of right ankle joint FINDINGS: BONES:Stable healing transverse fracture distal fibula with partial bony bridging. Lucency noted at the base of the fifth metatarsal SOFT TISSUES:Negative. No visible soft tissue swelling. EFFUSION:None visible. OTHER: Negative. IMPRESSION: Stable healing distal fibular fracture Fracture at the base of the fifth metatarsal Electronically authenticated by: JAMEY SANDHU Date: 2022-04-23 12:08 [facility] 04-03-2022 Note PROCEDURE: XR ANKLE RT MIN 3 VIEWS HISTORY: Pain of right ankle joint COMPARISON: XR ankle right 03/13/2022 FINDINGS: BONES:Transverse fracture through the lateral malleolus with increased lucency compared to prior study. SOFT TISSUES:No visible soft tissue swelling. EFFUSION:Mild soft tissue swelling surrounding the ankle. OTHER: Negative. IMPRESSION: 1. Nondisplaced lateral malleolus fracture. Increased lucency at the fracture line may represent bone resorption changes as part of early bone healing. Electronically authenticated by: ADRIANNE RUANO Date: 2022-04-03 16:49 [facility] Evaluation + Plan note No data available for this section [facility] Evaluation + Plan note Future Appointments Appointment Date:01/01/2024 01:45:00 PM Scheduled Provider: Location:[facility] Surgical Services Appointment Type:Surgery FT [facility] Evaluation note Diagnosis Severe obesity (BMI 35.0-39.9) with comorbidity (CMS/HCC)- Primary Type 1 diabetes mellitus without complication (CMS/HCC) Type I (juvenile type) diabetes mellitus without mention of complication, not stated as uncontrolled Type 2 diabetes mellitus without complication, with long-term current use of insulin (CMS/HCC) Type 1 diabetes mellitus without complications (CMS/HCC) Class 2 severe obesity due to excess calories with serious comorbidity and body mass index (BMI) of 35.0 to 35.9 in adult (CMS/HCC)- Primary Type 1 diabetes mellitus without complication (CMS/HCC) Type I (juvenile type) diabetes mellitus without mention of complication, not stated as uncontrolled Class 2 severe obesity due to excess calories with serious comorbidity and body mass index (BMI) of 35.0 to 35.9 in adult (CMS/HCC)- Primary Type 1 diabetes mellitus without complication (CMS/HCC) Type I (juvenile type) diabetes mellitus without mention of complication, not stated as uncontrolled Type 1 diabetes mellitus without complication (CMS/HCC) Type I (juvenile type) diabetes mellitus without mention of complication, not stated as uncontrolled Type 1 diabetes mellitus without complication (CMS/HCC) Type I (juvenile type) diabetes mellitus without mention of complication, not stated as uncontrolled Type 1 diabetes mellitus without complications ([facility]/HCC) Type 2 diabetes mellitus without complication, with long-term current use of insulin ([facility]) [facility] No data available for this section [facility] No data available for this section [facility] Summary Purpose Family History No Family History Records Found No data available for this section No Family History Records Found No data available for this section No Family History Records FoundNo Family History Records Found No data available for this section No Family History Records Found Advance Directives No Advanced Directives Records FoundNo Advanced Directives Records FoundNo Advanced Directives Records FoundNo Advanced Directives Records FoundNo Advanced Directives Records Found Additional Source Comments INFORMATION SOURCE (unrecogn ized section and content) DATE CREATED AUTHOR 08/26/2022 [facility] DATE CREATED AUTHOR AUTHOR'S ORGANIZ ATION 12/20/2023 [facility] DATE CREATED AUTHOR AUTHOR'S ORGANIZ ATION 12/21/2023 [facility] DATE CREATED AUTHOR AUTHOR'S ORGANIZ ATION 12/23/2023 [facility] DATE CREATED AUTHOR AUTHOR'S ORGANIZ ATION 02/19/2024 [facility] [employer] Patient Care team informatio n (unrecognized section and content) 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 This clinical summary was aggregated from multiple sources. Caution should be exercised in using it in the provision of clinical care. This summary normalizes information from multiple sources, and as a consequence, information in this document may materially change the coding, format and clinical context of patient data. In addition, data may be omitted in some cases. CLINICAL DECISIONS SHOULD BE BASED ON THE PRIMARY CLINICAL RECORDS. [facility] [employer] provides no warranty or guarantee of the accuracy or completeness of information in this document.
== END 2024-02-24 13:13 | disposition home or self-care (01) ==
LOC: MAMMO 13:12
PROVIDERS: PCP Family Medicine; Visit Provider Family Medicine
DX: Z12.31 Encounter for screening mammogram for malignant neoplasm of breast (principal)
CPT/HCPCS: 77063; 77067

== ENCOUNTER 2024-10-22 08:59 | Outpatient (OUT) | payer OTHER, SELFPAY ==
--- OUTSIDE RECORDS SUMMARY | 2024-10-18 12:45 | XMS_ITS ---
Author Organization The [facility] in [place] Address [address] [place] [address] Care Team Providers Care Job Development Specialist Name Role Phone William Gauthier Primary Care Provider Allergies Allergen (clinical drug ingredient) Drug/Non Drug Allergy documented on EMR Reaction Allergy Type Onset Date Status CT dye (uncoded) Unknown Allergy Act luis eduardo sulfamethoxazole / trimethoprim Bactrim Unknown Drug Allergy Active Levaquin Unknown Drug Allergy Active pravastatin Pravachol Unknown Drug Allergy Activ e Talwin Unknown Drug Allergy Active Adhesive Unknown Allergy Active amoxicillin Amoxicillin Unknown Drug Allergy Act luis eduardo Substance with sulfonamide structure and antibacterial mechanism of action (substance) Sulfa Antibiotics Unknown Drug Allergy A ctive REASON FOR VISIT 6 month med check, patient would like to discuss fibromyalgia, 2 dry spots on right arm she would like like looked at Medications Medication SIG (Take, Route, Frequency, Duration) Notes Start Date End Date Status Multivitamin Adult - 1 tablet Orally Onc e a day Active Ozempic (0.25 or 0.5 MG/DOSE) 2 MG/3ML INJECT 0.25 MG SUBCUTANEOUSLY ONCE A WEEK for 28 Active Pantoprazole Sodium 40 MG TAKE 1 TABLET BY MOUTH EVERY DAY for 90 Active Probiotic Active Vitamin D Active Losartan Potassium 100 MG TAKE 1 TABLET BY MOUTH EVERY DAY for 90 Active Magnesium 250 MG 2 tablets with meal Orally Once a day 06/22/2024 Not-Taking Metoprolol Succinate ER 50 MG TAKE 1 TABLET BY MOUTH EVERY DAY FOR 30 DAYS for 30 Active Levothyroxine Sodium 125 MCG TAKE 1 TABLET BY MOUTH EVERY MORNING OF ODD DAYS ON AN EMPTY STOMACH for 90 Active Levothyroxine Sodium 150 MCG TAKE 1 TABLET BY MOUTH ON EVEN DAYS for 90 days Active Fenofibrate 160 MG 1 tablet Orally Once a day for 30 days 10/14/2023 Not-Taking Hyoscyamine Sulfate 0.125 MG TAKE 1 TABLET BY MOUTH EVERY 4 HOURS NEEDED FOR 30 DAYS for 30 PRN Active Ibuprofen 800 MG 1 tablet with food o r milk as needed Orally every 8 hrs PRN Active Insulin Aspart PUMP Activ e Insulin Pump Disposable max does 150 uni ts daily of insulin lispro Dx: Diabetes Type II Active Biotin 1 MG Take 1 tablet Orally once daily 06/22/2024 Active Cholestyramine 4 GM 1 packet mixed with water or non-carbonated drink Orally Once a day 06/22/2024 Not-Taki ng clonazePAM 1 MG TAKE 1 AND 1/2 TABLE TS BY MOUTH TWICE DAILY NEEDED for 30 09/15/2024 Active Elderberry Active tiZANidine HCl 4 MG 2 tabs Orally qhs fo r 30 days 10/18/2024 Active Sindy Allergy 60 MG 1 tablet Swallow w hole with water; do not take with fruit juices. Orally Once a day Active Aspirin 81 81 MG 1 tablet Orally Once a day Active Atorvastatin Calcium 40 MG TAKE 1 TABLET BY MOUTH EVERY DAY for 90 days Active Social History Tobacco Use: Social History Observation Description Date Details (start date - stop date) Never Smoker NA - NA Tobacco Use/Smoking Question Answer Notes Patient is a nonsmoker AUDIT-C (Standard) Question Answer Notes Did you have a drink containing alcohol in the p ast year? No Points 0 Interpretation Negative Section Notes: never smoker Vital Signs Blood pressure systolic 118 mm Hg 10/19/19 25 Blood pressure diastolic 70 mm Hg 025 Height 63 in 10/18/2024 Weight 193.4 lbs 10/18/2024 BMI 34.26 kg/m2 10/18/2024 Encounters Encounter Location Date Provider Diagnosis [facility] [address] [place] [address] 10/18/2024 William Gauthier Well adult Z00.0 0 Assessments Encounter Date Diagnosis (ICD Code) Assessment Notes Treatment Notes Treatment Clinical Notes Section Notes 10/18/2024 Well adult (ICD-10 - Z00.00) Plan Of Treatment Medication Medication Name Sig Start Date Stop Date Notes tiZANidine HCl 4 MG 2 tabs Orally qhs for 30 days 10/19/19 25 Pending Test Test Name Order Date HEMOGLOBIN A1C (GLYCO) 10/18/2024 IRON, TOTAL 10/18/2024 LIPID PANEL (CHOL/TRIG/HDL/LDL) 10/19/19 25 VITAMIN D, 25 LEVEL (TOTAL) 10/18/2024 RHEUMATOID PANEL 10/18/2024 THYROID PANEL (T4/TSH/FREE T3) 5 CMP (COMP MET LUZ) w/eGFR CKD-EPI 2024 CBC WITH DIFF 10/18/2024 Progress Notes * Rosio [facility] MDOB: [birth year] (59 yo F)Acc No.[id number]:10/18/2024 Progress Note Patient: Gigi LOPEZ Rosio Janet Provider: Effie Gauthier ([facility])MD :1965 A ge:59 Y S ex:Female Date:10/18/2024 Address:[address] [place], [place] [id number] Check In:04:37 PM ESTCheck O ut:05:27 PM EST Subjective: * Chief Complaints: * 6 month med checkPatient would like to discuss fibromyalgia2 dry spots on right arm she would like like looked at * HPI: G eneral: Fibromyalgia - jheat making it wirse well adult check up. * ROS: E ENT: hearing changes d enies. v isual changes d enies.?non-healing mouth sores d enies. s wollen glands or neck lumps d enies. h oarseness d enies. s ore throat d enies. d ifficulty swallowing d enies. n ose bleeds d enies. n elizabeth congestion d enies. e ar ache d enies. e ar discharge?denies. r inging in ears d enies. l ight sensitivity d enies. e ye pain d enies. b lurring d enies. e ye irritation d enies. d ouble vision d enies.?vision loss d enies. G eneral/Constitutional: Sweats: D enies. F atigue d enies. S leep problems d enies. A norexia d enies. M alaise d enies. W eight loss d enies.?Fatigue or Weakness d enies. F ever or Chills d enies. C ardiovascular: Shortness of Breath w/lying flat d enies. L ightheadedness/dizziness d enies. C hest tightness/ heavy pressure d enies. S welling of legs, ankles, or feet d enies. W aking up with shortness of breath d enies. C hest pain denies. P alpitations d enies. W eight gain d enies. R espiratory: Chronic or frequent cough d enies. C oughing up blood?denies. D ifficulty breathing d enies. P roductive cough d enies. S noring?denies. S hortness of breath that awakens from sleep (PND) d enies. C hest pain d enies. S putum production d enies. W heezing d enies. M usculoskeletal: Joint pain d enies. J oint Fluid d enies. B ack pain d enies. K nee pain d enies. N mckenna pain d enies. J oint Stiffness d enies. M uscle cramps d enies. W eakness of muscles d enies. A rthritis d enies. M uscle aches d enies. P ain in shoulder(s) d enies. S wollen joints d enies. 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, bilateral Modified On:08/13/2022 Status:confirmed J01.11 Acute recurrent fron rebecca sinusitis Modified On:08/13/2022 Status:confirmed K30 Functional dyspepsia Modified On:08/13/2022 Status:confirmed N60.99 Unspecified benign m ammary dysplasia of unspecified breast Modified On:08/13/2022 Status:confirmed R00.2 Palpitations Modified On:08/13/2022 Status:confirmed E78.5 Hyperlipidemia Modified On:08/13/2022 Status:confirmed I10 Hypertension Modified On:08/23/2022 Status:confirmed M54.12 Cervical radiculopat hy Modified On:08/13/2022 Status:confirmed E66.9 Obesity Modified On:08/13/2022 Status:confirmed R00.1 Bradycardia Modified On:08/13/2022 Status:confirmed G47.00 Insomnia Modified On:08/13/2022 Status:confirmed K44.9 Hiatal hernia Modified On:08/13/2022 Status:confirmed E55.9 Vitamin D deficiency Modified On:08/13/2022 Status:confirmed I48.0 Paroxysmal atrial fi brillation Modified On:03/20/2023 Status:confirmed L72.3 Sebaceous cyst Modified On:08/13/2022 Status:confirmed Z00.00 Well adult Modified On:08/13/2022 Status:confirmed K58.9 Irritable bowel synd bharat Modified On:08/13/2022 Status:confirmed M41.9 Scoliosis Modified On:08/13/2022 Status:confirmed R47.1 Dysarthria Modified On:08/13/2022 Status:confirmed F41.9 Anxiety disorder Modified On:08/13/2022 Status:confirmed R41.3 Poor short term keily ry Modified On:08/13/2022 Status:confirmed M72.2 Plantar fasciitis Modified On:08/13/2022 Status:confirmed I47.1 PSVT (paroxysmal sup raventricular tachycardia) Modified On:08/13/2022 Status:confirmed K57.32 Diverticulitis large intestine Modified On:08/13/2022 Status:confirmed M25.571 Ankle pain, right Modified On:10/30/2022 Status:confirmed M50.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 Modified On:08/13/2022 Status:confirmed D22.9 Nevus Modified On:08/13/2022 Status:confirmed E06.3 Wandy's thyroidi tis Modified On:08/23/2022 Status:confirmed K21.9 Gastro-esophageal re flux disease Modified On:08/13/2022 Status:confirmed E10.69 Type I (juvenile typ e) diabetes mellitus with other specified manifestations, not stated as uncontrolled Modified On:08/13/2022 Status:confirmed Z51.81 Encounter for medica tion monitoring Modified On:08/13/2022 Status:confirmed H25.9 Senile cataract, uns pecified Modified On:08/13/2022 Status:confirmed M65.342 Acquired trigger fin kaley of left ring finger Modified On:08/13/2022 Status:confirmed R51.9 Headache, unspecifie d Modified On:08/13/2022 Status:confirmed Q21.12 Patent foramen ovale Modified On:08/13/2022 Status:confirmed 790.5 Abnormal liver enzym es Modified On:08/13/2022 Status:confirmed B07.8 Other viral warts Modified On:08/13/2022 Status:confirmed E10.40 Type 1 diabetes mahendra itus with diabetic neuropathy, unspecified Modified On:08/13/2022 Status:confirmed E11.9 Type 2 diabetes mahendra itus without complications Modified On:08/23/2022 Status:confirmed E55.9 Vitamin D deficiency , unspecified Modified On:08/09/2022 Status:confirmed S82.891A Other fracture of ri ght lower leg, initial encounter for closed fracture Modified On:10/25/2022U Status:confirmed S93.491A Sprain of other liga ment of right ankle, initial encounter Modified On:10/30/2022 Status:confirmed F40.01 Agoraphobia with luz ic attacks Modified On:03/20/2023 Status:confirmed U07.1 COVID-19 Modified On:04/09/2023 Status:confirmed J21.9 Acute bronchiolitis Modified On:06/13/2023 Status:confirmed E78.1 Hypertriglyceridemia Modified On:07/02/2024W/U Status:confirmed E78.00 Hypercholesteremia Modified On:10/14/2023W/U Status:confirmed * Medical History: * Surgical History: b reast reduction 1994c-section x2 herniorrhaphy appendectomy cholecystectomy cervical discectomy cervical spine fusion hysterectomy Cataract Surgery- Bilateral * Hospitalization/Major Diagno stic Procedure: s ee above * Family History: F ather: , Hypercholesterolemia, diagnosed with Unspecified heart disease. M other: alive, hypothyroidism, Hypercholesterolemia, diagnosed with Unspecified essential hypertension. Brother(s): alive. S ister(s): alive. D aughter(s): alive. 3 brother(s) , 1 sister(s) - healthy. 2 daughter(s) - healthy. . * Social History: T obacco Use: T obacco Use/Smoking P atient is a n onsmoker D rug/Alcohol: A NARDA-C (Standard) D id you have a drink containing alcohol in the past year? N o P oints 0 I nterpretation N egative n ever smoker. * Medications: T akingAllegra Allergy(Fexofenadine HCl) 60 MG Tablet 1 tablet Swallow whole with water; do not take with fruit juices. Orally Once a day Aspirin 81(Aspirin) 81 MG Tablet Delayed Release 1 tablet Orally Once a day Atorvastatin Calcium 40 MG Tablet TAKE 1 TABLET BY MOUTH EVERY DAY Biotin 1 MG Capsule Take 1 tablet Orally once daily clonazePAM 1 MG Tablet TAKE 1 AND 1/2 TABLETS BY MOUTH TWICE DAILY NEEDED Elderberry Hyoscyamine Sulfate 0.125 MG Tablet TAKE 1 TABLET BY MOUTH EVERY 4 HOURS NEEDED FOR 30 DAYS , Notes to Pharmacist: PRNIbuprofen 800 MG Tablet 1 tablet with food or milk as needed Orally every 8 hrs , Notes to Pharmacist: PRNInsulin Aspart , Notes to Pharmacist: PUMPInsulin Pump Disposable max does 150 units daily of insulin lispro Dx: Diabetes Type II Levothyroxine Sodium 125 MCG Tablet TAKE 1 TABLET BY MOUTH EVERY MORNING OF ODD DAYS ON AN EMPTY STOMACH Levothyroxine Sodium 150 MCG Tablet TAKE 1 TABLET BY MOUTH ON EVEN DAYS Losartan Potassium 100 MG Tablet TAKE 1 TABLET BY MOUTH EVERY DAY Metoprolol Succinate ER 50 MG Tablet Extended Release 24 Hour TAKE 1 TABLET BY MOUTH EVERY DAY FOR 30 DAYS Multivitamin Adult(Multiple Vitamin) - Tablet 1 tablet Orally Once a day Ozempic (0.25 or 0.5 MG/DOSE)(Semaglutide(0.25 or 0.5MG/DOS)) 2 MG/3ML Solution Pen-injector INJECT 0.25 MG SUBCUTANEOUSLY ONCE A WEEK Pantoprazole Sodium 40 MG Tablet Delayed Release TAKE 1 TABLET BY MOUTH EVERY DAY Probiotic Vitamin D Taking Sindy Allergy(Fexofenadine HCl) 60 MG Tablet 1 tablet Swallow whole with water; do not take with fruit juices. Orally Once a day Taking Aspirin 81(Aspirin) 81 MG Tablet Delayed Release 1 tablet Orally Once a day Taking Atorvastatin Calcium 40 MG Tablet TAKE 1 TABLET BY MOUTH EVERY DAY Taking Biotin 1 MG Capsule Take 1 tablet Orally once daily Taking clonazePAM 1 MG Tablet TAKE 1 AND 1/2 TABLETS BY MOUTH TWICE DAILY NEEDED Taking Elderberry Taking Hyoscyamine Sulfate 0.125 MG Tablet TAKE 1 TABLET BY MOUTH EVERY 4 HOURS NEEDED FOR 30 DAYS , Notes to Pharmacist: PRNTaking Ibuprofen 800 MG Tablet 1 tablet with food or milk as needed Orally every 8 hrs , Notes to Pharmacist: PRNTaking Insulin Aspart , Notes to Pharmacist: PUMPTaking Insulin Pump Disposable max does 150 units daily of insulin lispro Dx: Diabetes Type II Taking Levothyroxine Sodium 125 MCG Tablet TAKE 1 TABLET BY MOUTH EVERY MORNING OF ODD DAYS ON AN EMPTY STOMACH Taking Levothyroxine Sodium 150 MCG Tablet TAKE 1 TABLET BY MOUTH ON EVEN DAYS Taking Losartan Potassium 100 MG Tablet TAKE 1 TABLET BY MOUTH EVERY DAY Taking Metoprolol Succinate ER 50 MG Tablet Extended Release 24 Hour TAKE 1 TABLET BY MOUTH EVERY DAY FOR 30 DAYS Taking Multivitamin Adult(Multiple Vitamin) - Tablet 1 tablet Orally Once a day Taking Ozempic (0.25 or 0.5 MG/DOSE)(Semaglutide(0.25 or 0.5MG/DOS)) 2 MG/3ML Solution Pen-injector INJECT 0.25 MG SUBCUTANEOUSLY ONCE A WEEK Taking Pantoprazole Sodium 40 MG Tablet Delayed Release TAKE 1 TABLET BY MOUTH EVERY DAY Taking Probiotic Taking Vitamin D Not-Taking/PRNCholestyramine 4 GM Packet 1 packet mixed with water or non-carbonated drink Orally Once a day Fenofibrate 160 MG Tablet 1 tablet Orally Once a day Magnesium 250 MG Tablet 2 tablets with meal Orally Once a day Medication List reviewed and reconciled with the patientNot- Taking/PRN Cholestyramine 4 GM Packet 1 packet mixed with water or non-carbonated drink Orally Once a day Not-Taking/PRN Fenofibrate 160 MG Tablet 1 tablet Orally Once a day Not-Taking/PRN Magnesium 250 MG Tablet 2 tablets with meal Orally Once a day Medication List reviewed and reconciled with the patient * Allergies: A dhesiveTalwinBactrimCT dyePravachol - Criticality HighSulfa AntibioticsLevaquinAmoxicillinno[Allergies Verified] Objective: * Vitals: W t:193.4lbs, Ht: 63 in, BP:118/70mm Hg, BMI:34.26Index, Ht-cm: 160.02 cm, Wt-k.73 kg. * Examination: P hysical Exam: GENERAL: w ell developed, well nourished, in no acute distress. HEAD: n ormocephalic/atraumatic. EYES: p upils equal, round and reactive to light, conjunctivae and sclerae normal. EARS: n o deformity or lesion of external ear, canals and TM appear normal bilaterally, TM's intact, not inflamed with normal light reflex, hearing grossly normal to conversational speech. NOSE: n o deformity, discharge, inflammation, or lesions.? MOUTH: m ucous membranes moist, normal oropharynx and posterior pharynx without lesions or exudates, tongue normal, dentition normal. NECK: n mckenna supple, no masses or palpable cervical nodes, trachea midline, thyroid without nodules, masses, tenderness, or enlargement. CHEST: n o chest wall deformity, no chest wall tenderness.? LUNGS: n ormal respiratory effort and clear to auscultation, no wheezes, rales, or rhonchi, good air exchange. CARDIO: r egular rate and rhythm, normal S1 and S2, nor murmur, rub, or gallop. PULSES: n ormal capillary refill. ABDOMEN: s oft, non-distended, non-tender, no masses. MUSCULOSKELETAL: n o deformity or scoliosis noted, normal range of motion, joints normal, no erythema, edema, effusion, or ecchymosis. EXTREMITY: n o clubbing, cyanosis, edema, or deformity with normal ROM in both upper and lower bilateral extremities. NEUROLOGIC: g rossly normal. SKIN: n o rashes, ulcerations, or suspicious lesions. LYMPH NODES: n o cervical adenopathy, nodes normal. MENTAL STATUS: a lert and oriented x3, normal mood and affect. Assessment: * Assessment: 1. W ell adult - Z00.00 (Primary) Plan: * Treatment: * Procedure Codes: * Preventive Medicine: Screenings/Counseling: B NC ACTION PLAN Above Normal BMI Follow-up D ietary management education, guidance, and counseling * * Sign off status: Completed Visit Status: C HK (Check Out) true * Provider: Effie Gauthier ([facility])MD Date: 10/18/2024 Generated for Printi ng/Faxing/eTransmitting on: 10/22/2024 09:07 AM EDT History and Physical Notes * HPI (History of Present Illness) Category Sub-Category Detail Notes Category Not es General Fibromyalgia - jheat making it wirse well adult check up Examination Category Sub-Category Detail Notes Category Not es Physical Exam GENERAL: well developed, well nourished, in no acute distress HEAD: normocephalic/atraum atic EYES: pupils equal, round and reactive to light, conjunctivae and sclerae normal EARS: no deformity or lesi on of external ear, canals and TM appear normal bilaterally, TM's intact, not inflamed with normal light reflex, hearing grossly normal to conversational speech NOSE: no deformity, discha rge, inflammation, or lesions MOUTH: mucous membranes paris st, normal oropharynx and posterior pharynx without lesions or exudates, tongue normal, dentition normal NECK: neck supple, no mass es or palpable cervical nodes, trachea midline, thyroid without nodules, masses, tenderness, or enlargement CHEST: no chest wall deform ity, no chest wall tenderness LUNGS: normal respiratory e ffort and clear to auscultation, no wheezes, rales, or rhonchi, good air exchange CARDIO: regular rate and rhy thm, normal S1 and S2, nor murmur, rub, or gallop PULSES: normal capillary ref ill ABDOMEN: soft, non-distended, non-tender, no masses RECTAL: MUSCULOSKELETAL: no deformity or scol iosis noted, normal range of motion, joints normal, no erythema, edema, effusion, or ecchymosis EXTREMITY: no clubbing, cyanosi s, edema, or deformity with normal ROM in both upper and lower bilateral extremities NEUROLOGIC: grossly normal SKIN: no rashes, ulceratio ns, or suspicious lesions LYMPH NODES: no cervical adenopat hy, nodes normal MENTAL STATUS: alert and oriented x 3, normal mood and affect
--- OUTSIDE RECORDS SUMMARY | 2024-10-18 13:21 | XMS_ITS ---
Author Organization The [facility] in [place] Address [address] [place] [address] Care Team Providers Care Cork Cutter Name Role Phone AbrahanWilliam Primary Care Provider [phone] Reason For Referral Diagnosis 1 Screening for colon cancer (Z12.11) Referral Organization [facility] Referring Provider First Name William Referring Provider Last Name Abrahan Referring Provider [facility] tye Referred Provider Dony Garcia Referred Provider Specialty General Surg shona Referral Priority Routine REASON FOR VISIT colonoscopy Encounters Encounter Location Date Provider Diagnosis [facility] [address] [place] [address] 10/18/2024 William Gauthier Screening for colon cancer Z12.11 Assessments Encounter Date Diagnosis (ICD Code) Assessment Notes Treatment Notes Treatment Clinical Notes Section Notes 10/18/2024 Screening for colon cancer (ICD-10 - Z12.11) Plan Of Treatment Referrals Referral Date Details 10/20/2024 10/20/2024Dony Progress Notes * Rosio [facility] MDOB: [birth year] (59 yo F)Acc No.[id number]:10/18/2024 Patient: Gigi LOPEZ Rosio Gonzales :1965 A ge:59 Y S ex:Female Address:[address] [place] [id number] Subjective: * Chief Complaints: * C olonoscopy * Medical History: * Surgical History: * Hospitalization/Major Diagno stic Procedure: * Medications: Objective: * Vitals: * Physical Examination: Assessment: * Assessment: 1. S creening for colon cancer - Z12.11 (Primary) Plan: * Treatment: * Procedure Codes: * true * Date: Generated for Hemant gamble/Luis/Ajit on: 0 10/22/2024 09:06 AM EDT Consultation Request Notes Referral Date Referring Provider Referred Provider Not es 10/20/2024 William Gauthier Michael
--- OUTSIDE RECORDS SUMMARY | 2024-10-19 04:53 | XMS_ITS ---
Author Organization The [facility] in [place] Address [address] [place] [address] Care Team Providers Care Special Librarian Name Role Phone William Gauthier Primary Care Provider REASON FOR VISIT rf Klonopin Medications Medication SIG (Take, Route, Fr equency, Duration) Notes Start Date End Date Status clonazePAM 1 MG TAKE 1 AND 1/2 TABLE TS BY MOUTH TWICE DAILY NEEDED for 30 10/19/2024 Act luis eduardo Encounters Encounter Location Date Provider Diagnosis [facility] [address] [place] [address] 10/19/2024 William Gauthier Plan Of Treatment Medication Medication Name Sig Start Date Stop Date Notes clonazePAM 1 MG TAKE 1 AND 1/2 TABLE TS BY MOUTH TWICE DAILY NEEDED for 30 10/19/2024 Progress Notes * Rosio BRYAN MDOB: [birth year] (59 yo F)Acc No.[id number]:10/19/2024 Patient: Gigi YULIADELORISRosio :1965 A ge:59 Y S ex:Female Address:[address] [place] [id number] * Refills Refill clonazePAM Tablet, 1 MG, 90 Tablet, TAKE 1 AND 1/2 TABLETS BY MOUTH TWICE DAILY NEEDED, 30, Refills=0 * true * Date: Generated for Printi ng/Faxing/eTransmitting on: 0 10/22/2024 09:06 AM EDT
--- OUTSIDE RECORDS SUMMARY | 2024-10-22 09:07 | XMS_ITS | Patient Health Record ---
Author Organization [facility] in [place] Address [address] [place] [address] Care Team Providers Care Community Association Manager Name Role Phone William Negro Primary Care Provider [phone] Jahaira Conway Unavailable [phone] Allergies Allergen (clinical drug ingredient) Drug/Non Drug [...] Sulfa Antibiotics Unknown Drug Allergy A ctive Results Component Value Reference Range Notes MM tomosynthesis screening B I Reviewed date:02/25/2024 07:36:55 PM Interpretation: Performing Lab: Notes/Report: Source Facility: [place] [address] Mammography Report Signed Patient: ROSIO SIU MR#: [id number] : 1965 Acct:[id number] Age/Sex: 58 / F ADM Date: 02/24/24 Loc: MAMMO Attending Dr: Uma Negro M.D. Ordering Physician: Uma Negro M.D. Results: Date of Service: 02/24/24 Follow Up: Procedure(s): MM tomosynthesis screening BI Accession Number(s): [id number] cc: Uma Negro M.D. Patient Name: ROSIO SIU MR#: [id number] : 1965 Exam Date: 02/24/2024 Ordering Doctor: DR UMA NEGRO . RADIOLOGY REPORT PROCEDURE: MM TOMOSYNTHESIS SCREENING BI COMPARISON: MG MAMM SCREEN KASSANDRA W CAD, 02/16/2019. MG MAMM SCREEN 3D KASSANDRA CAD, 11/23/2020. INDICATIONS: Screening Calculator Name NCI Breast Cancer Risk Assessment Tool 5 Year Breast Cancer Risk 1.80% Lifetime Breast Cancer Risk 10.00% Personal Breast Cancer No Personal Ovarian Cancer No Treatments None Family Cancers None LOCATION: [facility] BREAST COMPOSITION: The breasts are heterogeneously dense,which may obscure small masses. FINDINGS: DIAGNOSTIC CATEGORY 2--BENIGN FINDING. NO CHANGE FROM COMPARISON. Multiple areas of focal asymmetry in both breasts, stable from prior exam. Scattered benign-appearing calcifications are present. Scattered benign-appearing lymph nodes are present. RIGHT BREAST: No significant suspicious finding. LEFT BREAST: No significant suspicious finding. Loop recorder, stable RECOMMENDATIONS: ROUTINE MAMMOGRAM AND CLINICAL EVALUATION IN 12 MONTHS. PLEASE NOTE: A NORMAL MAMMOGRAM DOES NOT EXCLUDE THE POSSIBILITY OF BREAST CANCER. A CLINICALLY SUSPICIOUS PALPABLE LUMP SHOULD BE BIOPSIED. Dictated by: Jj Guerra MD on 02/25/2024 at 08:59 Approved by: Jj Guerra MD on 02/25/2024 at 09:01 Dictated By: Jj Guerra M.D. Signed By: 02/25/24901 DD/ 0 TD/TT: Fitness Trainer: [place] [address] Mammography Report Signed Patient: OBDULIO SIU MR#: [id number] : 1965 Acct:[id number] Age/Sex: 58 / F ADM Date: 02/24/24 Loc: MAMMO Attending Dr: Uma Negro M.D. Ordering Physician: Uma Negro M.D. Results: Date of Service: 04/06 Follow Up: Procedure(s): MM delta osynthesis screening BI Accession Number(s): [id number] cc: Uma Negro M.D. Patient Name: ROSIO SIU MR#: [id number] : 1965 Exam Date: 02/24/2024 Ordering Doctor: DR UMA NEGRO . RADIOLOGY REPORT PROCEDURE: MM TOMOSY NTHESIS SCREENING BI COMPARISON: MG MAMM SCREEN KASSANDRA W CAD, 02/16/2019. MG MAMM SCREEN 3D KASSANDRA CAD, 11/23/2020. INDICATIONS: Screening Calculator Name NCI Breast Cancer Risk Assessment Tool 5 Year Breast Cancer Risk 1.80% Lifetime Breast Canc er Risk 10.00% Personal Breast Cancer No Personal Ovarian Cancer No Treatments None Family Cancers None LOCATION: [facility] BREAST COMPOSITION: The breasts are heterogeneously dense,which may obscure small masses. FINDINGS: DIAGNOSTIC CATEGORY 2--BENIGN FINDING. NO CHANGE FROM COMPARISON. Multiple areas of fo chris asymmetry in both breasts, stable from prior exam. Scattered benign-vimal earing calcifications are present. Scattered benign-appearing lym ph nodes are present. RIGHT BREAST: No sig nificant suspicious finding. LEFT BREAST: No sign ificant suspicious finding. Loop recorder, stable RECOMMENDATIONS: ROUTINE MAMMOGRAM AN D CLINICAL EVALUATION IN 12 MONTHS. PLEASE NOTE: A CASEY L MAMMOGRAM DOES NOT EXCLUDE THE POSSIBILITY OF BREAST CANCER. A CLINICALLY SUSPICIOUS PALPABLE LUMP SHOULD BE BIOPSIED. Dictated by: Jj granados MD on 02/25/2024 at 08:59 Approved by: Jj granados MD on 02/25/2024 at 09:01 Dictated By: Jj Guerra M.D. Signed By: 02/25/24901 DD/ 0 TD/TT: Fitness Trainer: [email or web address], Flu A+B IH (Not ye t reviewed by provider) Interpretation: Performing Lab: Notes/Report: COVID - FLU A - FLU B - Control + Reason For Referral Diagnosis 1 Screening for colon cancer (Z12.11) Referral Organization [facility] Medicine Referring Provider First Name William Referring Provider Last Name Abrahan Referring Provider Speciality Family Med tye Referred Provider Dony Garcia Referred Provider Specialty General Surg shona Referral Priority Routine Medications Medication SIG (Take, Route, Frequency, Duration) Notes Start Date End Date Status Biotin 1 MG Take 1 tablet Orally once daily 06/22/2024 Active Losartan Potassium 100 MG TAKE 1 TABLET BY MOUTH EVERY DAY for 90 Active Cholestyramine 4 GM 1 packet mixed with water or non-carbonated drink Orally Once a day 06/22/2024 Not-Taki ng Magnesium 250 MG 2 tablets with meal Orally Once a day 06/22/2024 Not-Taking Metoprolol Succinate ER 50 MG TAKE 1 TABLET BY MOUTH EVERY DAY FOR 30 DAYS for 30 Active Elderberry Active Multivitamin Adult - 1 tablet Orally Onc e a day Active Fenofibrate 160 MG 1 tablet Orally Once a day for 30 days 10/14/2023 Not-Taking Ozempic (0.25 or 0.5 MG/DOSE) 2 MG/3ML INJECT 0.25 MG SUBCUTANEOUSLY ONCE A WEEK for 28 Active Hyoscyamine Sulfate 0.125 MG TAKE 1 TABLET BY MOUTH EVERY 4 HOURS NEEDED FOR 30 DAYS for 30 PRN Active Pantoprazole Sodium 40 MG TAKE 1 TABLET BY MOUTH EVERY DAY for 90 Active Ibuprofen 800 MG 1 tablet with food o r milk as needed Orally every 8 hrs PRN Active Probiotic Active Insulin Aspart PUMP Activ e Vitamin D Active tiZANidine HCl 4 MG 2 tabs Orally qhs fo r 30 days 10/18/2024 Active Levothyroxine Sodium 150 MCG TAKE 1 TABLET BY MOUTH ON EVEN DAYS for 90 days Active Sindy Allergy 60 MG 1 tablet Swallow w hole with water; do not take with fruit juices. Orally Once a day Active Insulin Pump Disposable max does 150 uni ts daily of insulin lispro Dx: Diabetes Type II Active Aspirin 81 81 MG 1 tablet Orally Once a day Active Levothyroxine Sodium 125 MCG TAKE 1 TABLET BY MOUTH EVERY MORNING OF ODD DAYS ON AN EMPTY STOMACH for 90 Active Atorvastatin Calcium 40 MG TAKE 1 TABLET BY MOUTH EVERY DAY for 90 days Active clonazePAM 1 MG TAKE 1 AND 1/2 TABLE TS BY MOUTH TWICE DAILY NEEDED for 30 10/19/2024 Active Immunizations Vaccine Route Administration Date Status Comme nts Flu, Flucelvax (4672-0585) (01857) 6 mos and older, single-dose syringe IM Intramuscular 01/01/2023 Administered Flu, Flucelvax (25364) 6 mos and older, single-dose syringe IM Intramuscular 02/06/2024 Administered Social History Tobacco Use: Social History Observation Description Date Details (start date - stop date) Never Smoker NA - NA Tobacco Use/Smoking Question Answer Notes Patient is a nonsmoker Alcohol Screen (Audit-C) Question Answer Notes Did you have a drink containing alcohol in the p ast year? No Points 0 Interpretation Negative AUDIT-C (Standard) Question Answer Notes Did you have a drink containing alcohol in the p ast year? No Points 0 Interpretation Negative Section Notes: never smoker never smoker never smoker never smoker never smoker never smoker never smoker never smoker never smoker never smoker never smoker never smoker Problems Problem Type SNOMED Code ICD Code Onset Dates Problem Status W/U Status Risk Notes Problem Type II diabetes mellitus without complication (917018801) Type 2 diabetes mellitus without complications (E11.9) Active confirmed Problem Liver enzymes abnormal (101279470) Abnormal liver enzymes (790.5) Active confirmed Problem Viral wart (36300261) Other ramiro l warts (B07.8) Active confirmed Problem Diabetic autonomic neuropathy due to type 1 diabetes mellitus (648615324) Type 1 diabetes mellitus with diabetic neuropathy, unspecified (E10.40) Active confirmed Problem 19661238 Vitamin D defici ency, unspecified (E55.9) Active confirmed Problem Panic disorder with agoraphobia (38830027) 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 Problem Sleep apnea (89185904) Sleep apnea, unspecified (G47.30) Active confirmed Problem Labyrinthine dysfunction (7263341) Labyrinthine dysfunction, 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) Active confirmed Problem Acute frontal sinusitis (30640909) Acute recurrent frontal sinusitis (J01.11) Active confirmed Problem Functional dyspepsia (5489800) Functional dyspepsia (K30) Active confirmed Problem Benign mammary dysplasia (43562584) Unspecified benign mammary dysplasia of unspecified breast (N60.99) Active confirmed Problem Palpitations (67802100) Palpitations (R00.2) Active confirmed Problem 15167156 Other fracture o f right lower leg, initial encounter for closed fracture (S82.891A) Active confirmed Problem 66994771 Sprain of other ligament of right ankle, initial encounter (S93.491A) Active confirmed Problem Hyperlipidemia (46825840) Hyperlipidemia (E78.5) Active confirmed Problem Hypertension (34725551) Hypertension (I10) Active confirmed Problem Cervical radiculopathy (38514213) Cervical radiculopathy (M54.12) Active confirmed Problem Obesity (545606463) Obesity (E66.9) Active conf irmed Problem Bradycardia (38041428) Bradycardia (R00.1) Active confirmed Problem Insomnia (006188568) Insomnia (G47.00) Active c onfirmed Problem Hiatal hernia (09527401) Hiatal hernia (K44.9) Active confirmed Problem Vitamin D deficiency (26510917) Vitamin D deficiency (E55.9) Active confirmed Problem Paroxysmal atrial fibrillation (935303168) Paroxysmal atrial fibrillation (I48.0) Active confirmed Problem Sebaceous cyst (092410025) Sebaceous cyst (L72.3) Active confirmed Problem Hypertriglyceridemia (932033110) Hypertriglyceridemia (E78.1) Active confirmed Problem Well adult (664475602) Well adult (Z00.00) Active confirmed Problem Irritable bowel syndrome (49732433) Irritable bowel syndrome (K58.9) Active confirmed Problem Scoliosis (299828354) Scoliosis (M41.9) Active confirmed Problem Dysarthria (9128104) Dysarthria (R47.1) Active confirmed Problem Anxiety disorder (809634558) Anxiety disorder (F41.9) Active confirmed Problem Amnesia (10890573) Poor short te rm memory (R41.3) Active confirmed Problem Plantar fasciitis (687369454) Plantar fasciitis (M72.2) Active confirmed Problem Paroxysmal supraventricular tachycardia (disorder) (73244496) PSVT (paroxysmal supraventricular tachycardia) (I47.1) Active confirmed Problem Diverticulitis of colon (620482976) Diverticulitis large intestine (K57.32) Active confirmed Problem Arthralgia of the ankle and/or foot (642131010) Ankle pain, right (M25.571) Active confirmed Problem Displacement of cervical intervertebral disc without myelopathy (33331376) Displacement of cervical intervertebral disc without myelopathy (M50.20) Active confirmed Problem Nevus (7670178484) Nevus (D22.9) Active confirm ed Problem Wandy's thyroiditis (46192188) 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) Active confirmed Problem Acute bronchiolitis (9628116) Acute bronchiolitis (J21.9) Active confirmed Problem Agoraphobia with panic attacks (151174588) 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) Active confirmed Problem Gastro-esophageal reflux disease (951229492) Gastro-esophageal reflux disease (K21.9) Active confirmed Problem Type I (juvenile type) diabetes mellitus with other specified manifestations, not stated as uncontrolled (E10.69) Active confirmed Problem Medication monitorin g (regime/therapy) (308161321) Encounter for medication monitoring (Z51.81) Active confirmed Problem Senile cataract (46267566) Senile cataract, unspecified (H25.9) Active confirmed Problem hypercholesterolemia (disorder) (74193888) Hypercholesteremia (E78.00) Active confirmed Problem Acquired trigger finger of left ring finger (478655408659077) Acquired trigger finger of left ring finger (M65.342) Active confirmed Problem 238458104 COVID-19 (U07.1) Active confirmed Problem Headache (94677284) Headache, un specified (R51.9) Active confirmed Problem Patent foramen ovale (761592170) Patent foramen ovale (Q21.12) Active confirmed Vital Signs Temperature 98.3 degrees Fahrenheit 04/16/2024 Blood pressure diastolic 70 mm Hg 10/18/2024 Height 63 in 10/18/2024 Blood pressure systolic 118 mm Hg 10/18/2024 Weight 193.4 lbs 10/18/2024 BMI 34.26 kg/m2 10/18/2024 Procedures Procedure Date Ordered Date Performed Result Body Sit e Biopsy skin single lesion- performed 12/11/2023 N/A Encounters Encounter Location Date Provider Diagnosis [facility] [address] [place] [address] 09/15/2024 William Negro [facility] [address] [place] [address] 10/18/2024 William Negro Screening for colon cancer Z12.11 [facility] [address] [place] [address] 10/19/2024 William Negro [facility] [address] [place] [address] 05/19/2024 William Negro [facility] [address] [place] [address] 06/21/2024 William Negro [facility] [address] [place] [address] 06/22/2024 William Negro [facility] [address] [place] [address] 07/26/2024 William dilcia [facility] [address] [place] [address] 08/09/2024 William dilcia [facility] [address] [place] [address] 09/03/2024 William dilcia [facility] [address] [place] [address] 02/25/2024 William [facility] [address] [place] [address] 03/04/2024 William dilcia [facility] [address] [place] [address] 03/15/2024 William [facility] [address] [place] [address] 04/16/2024 William Negro [facility] [address] [place] [address] 04/22/2024 William Abrahan Acute non-recurrent sinusitis, unspecified location J01.90 [facility] [address] [place] [address] 05/17/2024 William dilcia [facility] [address] [place] [address] 11/06/2023 William [facility] [address] [place] [address] 12/08/2023 William [facility] [address] [place] [address] 12/23/2023 William [facility] [address] [place] [address] 01/08/2024 William dilcia [facility] [address] [place] [address] 02/10/2024 Jahaira Conway [facility] [address] [place] [address] 02/06/2024 William Garzay Encounter for immunization Z23 [facility] [address] [place] [place] [address] 12/05/2023 William Hoy Hypertension I10 and Agoraphobia with panic attacks F40.01 [facility] [address] [place] [place] [address] 12/11/2023 William Garzay Nevus D22.9 [facility] [address] [place] [place] [address] 10/18/2024 William Hoy Well adult Z00.00 [facility] [address] [place] [address] 04/16/2024 William Garzay Acute non-recurrent sinusitis, unspecified location J01.90 ; Nasal congestion R09.81 and Cough R05.9 Assessments Encounter Date Diagnosis (ICD Code) Assessment Notes Treatment Notes Treatment Clinical Notes Section Notes 12/05/2023 Hypertension (ICD-10 - I10) 12/05/2023 Agoraphobia with panic attacks (ICD-10 - F40.01) 12/11/2023 Nevus (ICD-10 - D22.9) 02/06/2024 Encounter for immunization (ICD-10 - Z23) 04/16/2024 Acute non-recurrent sinusitis, unspecified location (ICD-10 - J01.90) Rest and drink more liquids, especially water. You may use a humidifier or vaporizer to help keep the drainage moist. Gsdn-tkq-pmfnxgo Nasal Saline may help the stuffy and runny nose. Use Ibuprofen and or Tylenol as needed for fever, chills, body aches or pain. Children 5 years old should not be given rapq-wbg-gbwmehz cough and cold medications such as guaifenesin and dextromethorphan. If you're over age 5, you may try tool-xxy-dlasrly cold medications such as guaifenesin and dextromethorphan, or multi-symptom cold reliever such as Dayquil to help reduce the symptoms. Antibiotics have been prescribed. You should take these until completed and follow the directions. Antibiotics can sometimes cause upset stomach, and in rare cases, serious allergic reactions or serious gastrointestinal problems. If you start having severe abdominal pain, severe vomiting, or bloody diarrhea, you should be reevaluated by your physician or urgent care immediately. Follow up with your Primary Care Provider or return to clinic if symptoms do not improve within 3-5 days 04/16/2024 Nasal congestion (ICD-10 - R09.81) 10/18/2024 Well adult (ICD-10 - Z00.00) 04/22/2024 Acute non-recurrent sinusitis, unspecified location (ICD-10 - J01.90) 10/18/2024 Screening for colon cancer (ICD-10 - Z12.11) 04/16/2024 Cough (ICD-10 - R05.9) Plan Of Treatment Pending Test Test Name Order Date CMP (COMPLETE METABOLIC PANEL) 3 HEMOGLOBIN A1C (GLYCO) 08/07/2022 HEMOGLOBIN A1C (GLYCO) 10/18/2024 IRON, TOTAL 10/18/2024 IRON, TOTAL 08/07/2022 LIPID PANEL (CHOL/TRIG/HDL/LDL) 08/08/19 23 LIPID PANEL (CHOL/TRIG/HDL/LDL) 10/19/19 25 CBC WITH DIFF 08/07/2022 VITAMIN D, 25 LEVEL (TOTAL) 10/18/2024 VITAMIN D, 25 LEVEL (TOTAL) 08/07/2022 Biopsy skin single lesion- performed CREATININE CLEAR ( 24 HR URINE) (CC) COM :HT/WT 08/25/2022 RHEUMATOID PANEL 10/18/2024 FECAL OCCULT BLOOD 10/06/2023 CMP - Comprehensive Metabolic Panel 09/13 CBC W/AUTO DIFF 10/06/2023 COVID-19, Flu A+B IH 04/16/2024 STOOL OCCULT BLOOD 08/07/2022 LIPID PROFILE 10/12/2023 LIVER PROFILE 10/12/2023 PROF 14(COMP METB) 08/23/2022 THYROID PANEL (T4/TSH/FREE T3) 5 THYROID PANEL (T4/TSH/FREE T3) 3 THYROID PANEL (T4/TSH/FREE T3) 4 CMP (COMP MET BAUMANN) w/eGFR CKD-EPI 2024 CBC WITH DIFF 10/18/2024 Insurance Providers Payer Name Payer Address Payer Phone Subscriber Number Group Number Insured Name Patient Relationship to Insured Coverage Start Date Coverage End Date MMO [address] [place], [place] [id number] IrvinDony Spouse - patient is the spouse of the insured 8 Medical (General) History Medical History History ICD Code Plantar fasciitis M72.2 Ankle pain, right M25.571 Palpitations R00.2 Headache, unspecified R51.9 Patent foramen ovale Q21.12 Sleep apnea, unspecified G47.30 Unspecified benign mammary dysplasia of unspecified breast N60.99 Acquired trigger finger of left ring fin kaley M65.342 Well adult Z00.00 Irritable bowel syndrome K58.9 Nevus D22.9 Sebaceous cyst L72.3 Dysarthria R47.1 Poor short term memory R41.3 Other viral warts B07.8 Acute recurrent frontal sinusitis J01.11 Anxiety disorder F41.9 Labyrinthine dysfunction, bilateral H83. 2X3 Hypertension I10 Diverticulitis large intestine K57.32 Bradycardia R00.1 Senile cataract, unspecified H25.9 Functional dyspepsia K30 Vitamin D deficiency E55.9 Type I (juvenile type) diabe isma mellitus with other specified manifestations, not stated as uncontrolled E10.69 Cervical radiculopathy M54.12 Displacement of cervical intervertebral disc without myelopathy M50.20 Obesity E66.9 Encounter for medication monitoring Z51. 81 Type 1 diabetes mellitus with diabetic n europathy, unspecified E10.40 Insomnia G47.00 Abnormal liver enzymes 790.5 Wandy's thyroiditis E06.3 Irritable bowel syndrome K58.9 Hyperlipidemia E78.5 Agoraphobia with panic disorder F40.01 Scoliosis M41.9 Hiatal hernia K44.9 Gastro-esophageal reflux disease K21.9 Paroxysmal atrial fibrillation I48.0 PSVT (paroxysmal supraventricular tachyc ardia) I47.1 Surgical History Surgery Date(Month/Year) breast reduction 1993 x2 herniorrhaphy appendectomy cholecystectomy cervical discectomy cervical spine fusion hysterectomy Cataract Surgery- Bilateral Hospitalization History Reason Date(Month/Year) see above
--- OUTSIDE RECORDS SUMMARY | 2024-10-22 09:07 | XMS_ITS | Encounter Summary ---
Author Organization [facility] Address [address] [place] [address] Care Team Providers Care Butcher Supervisor Name Role Phone Kostas Gauthier MD Primary Care Provider [phone] Isidra Allred DO Unavailable [phone] Encounter Details Date Type Department Care Team (Late st Contact Info) Description 06/17/2024 Orders Only [facility] [address] [facility] [address] [place] [id number] A, Unknown Practice [address] [place], [place] [id number] Social History Tobacco Use Types Packs/Day Years Used Date Smoking Tobacco: Never Smokeless Tobacco: Never Alcohol Use Standard Drinks/Week Comments Not Currently 0 (1 standard drink = 0.6 oz pur e alcohol) Humiliation, Afraid, Rape, and Kick questionnair e Answer Date Recorded Within the last year, have y ou been afraid of your partner or ex-partner? No 09/13/2022 Within the last year, have y ou been humiliated or emotionally abused in other ways by your partner or ex-partner? No Within the last year, have y ou been kicked, hit, slapped, or otherwise physically hurt by your partner or ex-partner? No 09/13/2022 Within the last year, have y ou been raped or forced to have any kind of sexual activity by your partner or ex-partner? No 09/13/2022 Social Connection and Isolat ion Panel [NHANES] Answer Date Recorded In a typical week, how many times do you talk on the phone with family, friends, or neighbors? More than three times a week 09/13/2022 How often do you get togethe r with friends or relatives? Three times a week 09/13/2022 How often do you attend chur ch or episcopal services? Patient declined 09/13/2022 Do you belong to any clubs o r organizations such as christian groups, unions, fraternal or athletic groups, or school groups? Yes 09/13/2022 How often do you attend meet ings of the clubs or organizations you belong to? Patient declined 09/13/2022 Are you , , di vorced, , never , or living with a partner? 09/13/2022 AUDIT-C Answer Date Recorded Q1: How often do you have a drink containing alcohol? Never 09/13/2022 Q2: How many drinks containi ng alcohol do you have on a typical day when you are drinking? Patient does not drink Q3: How often do you have si x or more drinks on one occasion? Never 09/13/2022 Overall Financial Resource Strain (CARDIA) Answe r Date Recorded How hard is it for you to pa y for the very basics like food, housing, medical care, and heating? Not hard at all 09/13/2022 PHQ-2 Answer Date Recorded Patient Health Questionnaire-2 Score 0 06/18/2024 [facility] - Occupational Stress Questionnaire Answer Date Recorded Do you feel stress - tense, restless, nervous, or anxious, or unable to sleep at night because your mind is troubled all the time - these days? Patient declined 09/13/2022 Exercise Vital Sign Answer Date Recorde d On average, how many days pe r week do you engage in moderate to strenuous exercise (like a brisk walk)? Patient declined On average, how many minutes do you engage in exercise at this level? Patient declined 09/13/2022 Hunger Vital Sign Answer Date Recorded Within the past 12 months, y ou worried that your food would run out before you got the money to buy more. Never true 09/14/19 23 Within the past 12 months, t he food you bought just didn't last and you didn't have money to get more. Never true 09/13/2022 PRAPARE - Transportation Answer Date Re corded In the past 12 months, has l ack of transportation kept you from medical appointments or from getting medications? No 05/2022 In the past 12 months, has l ack of transportation kept you from meetings, work, or from getting things needed for daily living? No 09/13/2022 Housing Stability Vital Sign Answer Regino e Recorded In the last 12 months, was t here a time when you were not able to pay the mortgage or rent on time? No 09/13/2022 Number of Places Lived in the Last Year Not on f ile 09/13/2022 In the last 12 months, was t here a time when you did not have a steady place to sleep or slept in a retirement (including now)? No 09/13/2022 Comments Unknown Sex and Gender Information Value Date Recorded Sex Assigned at Female 09/13/2022 9:07 AM EDT Legal Sex Female 7:13 PM EDT Gender Identity Female 09/13/2022 9:07 AM EDT Sexual Orientation Not on file documented as of this encounter Functional Status * Over the past 2 weeks, how often have you been bothered by any of the following problems? Question Answer Date of Assessment Author Little interest or pleasure in doing things Not at all 06/18/2024 9:51 AM Chelle Hampton LPN Feeling down, depressed, or hopeless Not at all 06/18/2024 9:51 AM Chelle Hampton LPN Patient Health Questionnaire-2 Score 0 06/18/2024 9:51 AM Logan Hampton LPN documented as of this encounter Plan of Treatment Upcoming Encounters Date Type Department Care Team (Late st Contact Info) Description 10/22/2024 10:30 AM EDT Office Visit [facility] [address] [place] [address] Isidra Allred DO [address] [place], [place] [id number] documented as of this encounter Procedures Procedure Name Priority Date/Time Associated Diagnosis Comments DIABETIC RETINOPATHY SCREENING - OU - BOTH EYES Routine 06/14/2024 8:39 AM EST documented in this encounter Results * Diabetic Retinopathy Screening - OU - Both Eyes (06/14/2024 8:39 AM EST) Anatomical Region Laterality Modality Head Other us Unknown Practice A OPHTH PHOTOGRAPHY Final Resul t documented in this encounter Visit Diagnoses Not on filedocumented in this encounter Care Teams Butcher Supervisor Relationship Specialty Start Date End Date Kostas Gauthier MD [address] [place] [facility] [place] [address] PCP - General Family Medicine 09/13/22 Isidra Allred DO [address] [facility] [address] [place] [address] PCP - Medical [place] [employer] 04/14/21 04/13/99 documented as of this encounter
--- OUTSIDE RECORDS SUMMARY | 2024-10-22 09:07 | XMS_ITS | Encounter Summary ---
Author Organization [facility] Address [address] [place] [address] Care Team Providers Care Band Master Name Role Phone Kostas Gauthier MD Primary Care Provider [phone] Isidra Allred DO Unavailable [phone] Encounter Details Date Type Department Care Team (Late st Contact Info) Description 03/29/2024 Abstract [facility] [address] [facility] [address] [place] [phone] Isidra Allred, [address] [facility] [address] [place] [address] Social History Tobacco Use Types Packs/Day Years [...] 09/13/2022 How often do you attend chur or episcopal services? Patient declined 09/13/2022 Do you belong to any clubs o r organizations such as sikhism groups, unions, fraternal or athletic groups, or [...] Date Recorded Patient Health Questionnaire-2 Score 0 12/20/2022 [facility] Occupat ional Health - Occupational Stress [...] place to sleep or slept in a [place] facility (including now)? No 09/13/2022 Comments Unknown Sex and Gender Information Value Date Recorded Sex Assigned at Female 09/13/2022 9:07 AM EDT Legal Sex Female 7:13 PM EDT Gender Identity Female 09/13/2022 9:07 AM EDT Sexual Orientation Not on file documented as of this encounter Plan of Treatment Upcoming Encounters Date Type Department Care Team (Late st Contact Info) Description 10/22/2024 10:30 AM EDT Office Visit [facility] [address] [place] [phone] Isidra Allred DO [address] [place] [address] documented as of this encounter Visit Diagnoses Not on filedocumented in this encounter Care Teams Band Master Relationship Specialty Start Date End Date Kostas Gauthier MD [address] [place] [address] PCP - General Family Medicine 09/13/22 Isidra Allred DO [address] [place] [address] PCP - Medical [place] [employer] 04/14/21 04/13/99 documented as of this encounter
--- OUTSIDE RECORDS SUMMARY | 2024-10-22 09:07 | XMS_ITS | Clinical Summary ---
Author Organization [facility] Address [address] [place] [address] Care Team Providers Care Steam Fitter Name Role Phone Kostas Gauthier MD Primary Care Provider [phone] Isidra Allred DO Unavailable [phone] Allergies Active Allergy Reactions Criticality Noted Date Comments Amoxicillin 12/20/2022 Other Reaction(s): Unknown Iodinated Contrast Media 09/13/2022 Levofloxacin 12/20/2022 Other Reaction(s): Unknown Metronidazole 09/13/2022 Pentazocine 08/16/2022 Other Reaction(s): Unknown Pravastatin Unknown 12/20/2022 Sulfamethoxazole-Trimethoprim 2022 Wound Dressing Adhesive 09/13/2022 Medications Multiple Vitamins-Mineral s (AIRBORNE PO) Airborne Acti ve fexofenadine (Sindy Allergy) 60 MG tablet prn Active aspirin (ASPIR) 81 MG EC tablet 1 (one) time each day at the same time. Active biotin 1 MG capsule 1 (one) time each day at the same time. Active ELDERBERRY PO Elderberry Activ e atorvastatin (Lipitor) 40 MG tablet 1 (one) time each day at the same time. Active magnesium 500 (27 Mg) MG tablet Magnesium Active Probiotic Product (PROBIOTIC & ACIDOPHILUS EX ST PO) every 12 (twelve) hours. Active acetone, urine, test (Ketostix) strip 10/12/19 17 Active clonazePAM (KlonoPIN) 1 MG tablet Take 1.5 tablets by mouth in the morning and 1.5 tablets before bedtime. Active hyoscyamine (Levsin) 0.125 MG tablet every 4 (four) hours if needed Active levothyroxine (Synthroid, Levoxyl) 150 MCG tablet Take 150 mcg by mouth every other day. Active losartan (Cozaar) 100 MG tablet 1 (one) time each day at the same time. Active Multiple Vitamin (Multivitamin Adult) tablet Active pantoprazole (ProtoNix) 40 MG EC tablet 40 mg in the morning. Take before meals. Active levothyroxine (Synthroid, Levoxyl) 125 MCG tablet Take 125 mcg by mouth every other day. Active BD Insulin Syringe U/F 31G X 08/27 0.5 ML misc USE WITH INJECTIONS 3 TIMES DAILY 06/02/19 23 Active Calcium Carbonate-Vitami n D (CALCIUM PLUS VITAMIN D PO) Take by mouth. Activ e Multiple Vitamins-Mineral s (Vitamin D3 Complete) tablet Take by mouth Active fenofibrate (Triglide) 160 MG tablet TAKE 1 TABLET BY MOUTH EVERY DAY FOR 30 DAYS 10/14/19 24 Active Insulin Aspart (NovoLOG) 100 UNIT/ML solutionIndicati ons:Type 1 diabetes mellitus without complication (HCC) INJECT 1 DOSE PER PUMP SUBCUTANEOUSLY SEE ADMINISTRATION INSTRUCTIONS, MAX 150 UNITS DAILY 140 mL 2 02/02/20 24 Active cholestyramine (Questran) 4 g packet Take 1 packet by mouth Daily 12/19/19 24 Active Blood Glucose Monitoring Suppl (Accu-Chek Guide) w/Device kitIndications:T ype 1 diabetes mellitus without complication (HCC) 1 each See administration instructions 1 kit 02/17/20 24 Active glucose blood (Accu-Chek Guide) test stripIndications :Type 1 diabetes mellitus without complication (HCC) Fsbs daily 100 strip 3 02/17/20 24 Active Semaglutide,0.25 or 0.5MG/DOS, (Ozempic, 0.25 or 0.5 MG/DOSE,) 2 MG/3ML solution pen-injectorIndi cations:Type 2 diabetes mellitus without complication, with long-term current use of insulin (HCC) Inject 0.5 mg under the skin every 7 (seven) days 6 mL 3 02/17/20 24 Active metoprolol succinate XL (Toprol-XL) 50 MG 24 hr tablet Take 50 mg by mouth Daily 03/31/20 24 Active Insulin Infusion Pump (T:slim Insulin Pump) deviceIndication s:Type 1 diabetes mellitus without complication (HCC) Basal: 12A 2.4, 6A 2.1, 11A 1.85, ICR: 12A 3, ISF: 50, target: 110 1 each 06/19/19 25 Active Continuous Glucose Sensor (Dexcom G7 Sensor) miscIndications: Type 1 diabetes mellitus without complication (HCC) Inject 1 Device under the skin See administration instructions Change every 10 days 9 each 3 06/22/19 25 Active Active Problems Problem Noted Date Diagnosed Date Age-related nuclear cataract of both eyes 2023 Class 2 severe obesity due t o excess calories with serious comorbidity and body mass index (BMI) of 35.0 to 35.9 in adult 08/16/2022 Type 1 diabetes mellitus without complication Assessment & Plan (06/18/2024 6:13 PM EST): During the appointment today all pertinent labs, [...] they have any problems or questions. Rosio Bryan is doing very well and encouraged on this. , Will stay on current medications. , The patient is wearing their cgm on a daily basis and making decisions in regards to adjusting insulin daily as well for at least the last 60 days , Instructions given today include: Pump instructions. Will work on getting her the dexcom G7 sensors. She is working up to the 0.5 mg dose on ozempic. Assessment & Plan (02/17/2024 7:50 PM EST): During the appointment today all pertinent labs, [...] they have any problems or questions. Rosio Bryan control is stable overall. , The patient [...] insulin as she goes up on ozempic. Assessment & Plan (10/22/2023 8:45 PM EDT): During the appointment today all pertinent labs, [...] they have any problems or questions. Rosio Bryan control is stable overall. , The patient is wearing their cgm on a daily basis and making decisions in regards to adjusting insulin daily as well for at least the last 60 days , Instructions given today include: Pump instructions and Dietary education. Increase basal rate at 3A. Encouraged to get protein in with breakfast. Assessment & Plan (06/20/2023 9:33 AM EST): During the appointment today all pertinent labs, [...] they have any problems or questions. Rosio Bryan is making improvements and encouraged on this. , The patient is wearing their cgm on a daily basis and making decisions in regards to adjusting insulin daily as well for at least the last 60 days , Instructions given today include: Hypoglycemia management and Pump instructions. Increase basal rate at 3A and 7A. Decrease basal rate at 11A. Assessment & Plan (03/23/2023 7:54 PM EST): During the appointment today all pertinent labs, [...] they have any problems or questions. Rosio Bryan control is stable overall. , The patient is wearing their cgm on a daily basis and making decisions in regards to adjusting insulin daily as well for at least the last 60 days , Instructions given today include: Pump instructions. She is going to stay on the 0.25 mg dose of ozempic for a while to see how she tolerates this and see if it helps with her sugars. Will decrease her basal rates at 7A and 1P to help prevent low bg. Assessment & Plan (12/22/2022 10:33 AM EDT): During the appointment today all pertinent labs, [...] they have any problems or questions. Rosio Bryan is making improvements and encouraged on this. , The patient is wearing their cgm on a daily basis and making decisions in regards to adjusting insulin daily as well for at least the last 60 days , Instructions given today include: Pump instructions. Increase basal rate at 3A and decrease at 7A and 1P. She is working on increasing the dose of ozempic and will most likely need to back off more on insulin as her numbers improve. Unspecified mononeuropathy of right lower limb 0 08/16/2022 Dizziness 10/27/2020 Hyperlipidemia 03/25/2016 Hypertensive disorder 03/25/2016 Anxiety disorder 03/25/2016 Panic disorder 03/25/2016 Resolved Problems Problem Noted Date Diagnosed Date Resolved Date Diabetes mellitus 03/25/2016 09/13/2022 Encounters Date Type Department Care Team Description 10/22/2024 10:30 AM EDT Office Visit [facility] [address] [place] [address] Isidra Allred DO from Last 3 Months Immunizations Immunization Administration Dates Next Due Influenza, [id number] 01/01/2017,02/19/2016 Influenza, Injectable, MDCK, preservative free 02/06/2024,01/11/2019 Influenza, Unspecified 02/06/2022,2020,12/13/2020,02/07,01/26/2020,01/11/2019,01/01/2017 ,02/19/2016 Influenza, injectable, MDCK, preservative free, quadrivalent 01/01/2023,02/06/2022,01/10/2021 Influenza, injectable, quadrivalent 12/13/2020 Influenza, injectable, quadr ivalent, preservative free 02/08/2020 Influenza, seasonal, injectable 01/26/2020 Pneumococcal Polysaccharide PPSV23 01/01/2017 Tdap 02/06/2022,03/21/2018 Family History Medical History Relation Name Comments Heart disease Brother Heart disease Father Hypertension Father Hyperlipidemia Mother Hypertension Mother Skin cancer Mother Thyroid disease Mother Hyperlipidemia Sister Relation Name Status Comments Brother Alive 3 Father Mother Alive Sister Alive 1 Social History Tobacco Use Types Packs/Day Years Used Date Smoking Tobacco: Never Smokeless Tobacco: Never Tobacco Cessation:Counseling Given: Not Answered Alcohol Use Standard Drinks/Week Comments Not Currently [...] week 09/13/2022 How often do you attend [facility] or [facility] services? Patient declined 09/13/2022 Do you belong to any clubs o r organizations such as gnosticism groups, unions, fraternal or athletic groups, or [...] Recorded Patient Health Questionnaire-2 Score 0 06/18/2024 [facility] of Occupat ional Health - Occupational Stress [...] place to sleep or slept in a nursing home (including now)? No 09/13/2022 Comments Unknown Sex and Gender Information Value Date Recorded Sex Assigned at Female 09/13/2022 9:07 AM EDT Legal Sex Female 7:13 PM EDT Gender Identity Female 09/13/2022 9:07 AM EDT Sexual Orientation Not on file Last Filed Vital Signs Vital Sign Reading Time Taken Comments Blood Pressure 140/84 06/18/2024 9:50 AM EST Pulse 72 06/18/2024 9:50 AM EST Temperature 36.5 C (97.7 F) 06/18/2024 9:50 AM EST Respiratory Rate - - Oxygen Saturation 94% 06/18/2024 9:50 AM EST Inhaled Oxygen Concentration - - Weight 89.4 kg (197 lb) 06/18/2024 9:50 AM EST Height 161.3 cm (5' 3.5 ) 06/18/2024 9:50 AM EST Body Mass Index 34.35 06/18/2024 9:50 AM EST Plan of Treatment Upcoming Encounters Date Type Department Care Team (Late st Contact Info) Description 10/22/2024 10:30 AM EDT Office Visit [facility] [address] [place] [phone] Isidra Allred DO [address] [place] [address] Health Maintenance Due Date Last Done Comments CT Colonography 1965 Colonoscopy 1965 Colorectal Cancer Screening 1965 FIT-DNA 1965 FIT 1965 FOBT 1965 Sigmoidoscopy 1965 Diabetes: Urine Protein Screening 1984 Pap Smear 1986 Cervical Cancer Screening 1995 HPV/Cotest 1995 Mammogram 2005 Diabetes: Hemoglobin A1C 09/18/2024 025, 02/17/2024, 06/20/2023, Additional history exists Influenza Vaccine (#1) 2024 , 01/01/2023, 02/06/2022, Additional history exists Diabetes: Retinopathy Screening 06/14/2026 06/14/2024, 05/07/2023, 05/07/2023, Additional history exists Procedures Procedure Name Priority Date/Time Associated Diagnosis Comments POCT GLYCOSYLATED HEMOGLOBIN (HGB A1C) Routine 06/18/2024 10:07 AM EST Type 2 diabetes mellitus without complication, with long-term current use of insulin (HCC) DIABETIC RETINOPATHY SCREENING - OU - BOTH EYES Routine 06/14/2024 8:39 AM EST from Last 3 Months or Most Recently Relevant to Health Maintenance Results * POCT glycosylated hemoglobin (Hb A1C) docked device (06/18/2024 10:07 AM EST) Hemoglobin A1C 6.7 Blood Venous blood specimen / Unknown 06/18/2024 10:07 AM EST Isidra Allred DO POINT OF CARE TEST ENTER/E DIT ORDERABLES Final Result * Diabetic Retinopathy Screening - OU - Both Eyes (06/14/2024 8:39 AM EST) Anatomical Region Laterality Modality Head Other us Unknown Practice A OPHTH PHOTOGRAPHY Final Resul t from Last 3 Months or Most Recently Relevant to Health Maintenance Insurance [employer] Care Teams Steam Fitter Relationship Specialty Start Date End Date Kostas Gauthier MD [address] [place] [phone] PCP - General Family Medicine 09/13/22 Isidra Allred DO [address] [facility] [address] [place] [address] PCP - Medical [place] [employer] 04/14/21 04/13/99
--- OUTSIDE RECORDS SUMMARY | 2024-10-22 09:08 | XMS_ITS | Clinical Summary ---
Author Organization [facility] Address [id number] [address] [place] [address] Care Team Providers Care Agricultural Chemicals Inspector Name Role Phone Unavailable Primary Care Provider Unavailabl e Social History Tobacco Use Types Packs/Day Years Used Date Smoking Tobacco: Never Assessed Childcare Answer Date Recorded Childcare Unknown 09/23/2018 Employment Answer Date Recorded Employment Unknown 09/23/2018 Comments Unknown Sex and Gender Information Value Date Recorded Sex Assigned at Not on file Legal Sex Female 11:29 AM EDT Gender Identity Not on file Sexual Orientation Not on file Plan of Treatment Not on file Medical Devices Not on file
--- OUTSIDE RECORDS SUMMARY | 2024-10-22 09:08 | XMS_ITS | Encounter Summary ---
Author Organization [facility] Address [address] [place] [address] Care Team Providers Care Senior Cognos Developer Name Role Phone Kostas Gauthier MD Primary Care Provider [phone] Isidra Allred DO Unavailable [phone] Encounter Details Date Type Department Care Team (Late st Contact Info) Description 09/12/2022 Abstract [facility] [address] [facility] [address] [place] [phone] Isidra Allred, [address] [facility] [address] [place] [address] Social History Tobacco Use Types Packs/Day Years [...] often do you attend chur ch or episcopalian services? Patient declined 09/13/2022 Do you belong to any clubs o r organizations such as episcopalian groups, unions, fraternal or athletic groups, or [...] and heating? Not hard at all 09/13/2022 [facility] Occupat ional Health - Occupational [...] place to sleep or slept in a fdc (including now)? No 09/13/2022 Comments Unknown Sex and Gender Information Value Date Recorded Sex Assigned at Female 09/13/2022 9:07 AM EDT Legal Sex Female 7:13 PM EDT Gender Identity Female 09/13/2022 9:07 AM EDT Sexual Orientation Not on file COVID-19 Exposure Response Date Recorded In the last 10 days, have yo u been in contact with someone who was confirmed or suspected to have Coronavirus/COVID-19? No / Unsure 09/13/2022 9:23 AM EDT documented as of this encounter Functional Status * Audit-C Score Answer Date of Assessment Author 0 09/13/2022 9:21 AM EDT Mychart, Generic * Q1: How often do you have a drink containing alcohol? Answer Date of Assessment Author Never 09/13/2022 9:21 AM EDT Mychart, Generic * Q2: How many drinks containing alcohol do you have on a typical day when you are drinking? Answer Date of Assessment Author Patient does not drink 09/13/2022 9:21 AM EDT My chart, Generic * Q3: How often do you have six or more drinks on one occasion? Answer Date of Assessment Author Never 09/13/2022 9:21 AM EDT Mychart, Generic documented as of this encounter Plan of Treatment Upcoming Encounters Date Type Department Care Team (Late st Contact Info) Description 10/22/2024 10:30 AM EDT Office Visit [facility] [address] [place] [address] Isidra Allred DO [address] [place] [address] documented as of this encounter Visit Diagnoses Not on filedocumented in this encounter Care Teams Senior Cognos Developer Relationship Specialty Start Date End Date Kostas Gauthier MD [address] [place] [phone] PCP - General Family Medicine 09/13/22 Isidra Allred DO [address] [place] [address] PCP - Medical [place] [employer] 04/14/21 04/13/99 documented as of this encounter
--- OUTSIDE RECORDS SUMMARY | 2024-10-22 09:08 | XMS_ITS | Encounter Summary ---
Author Organization [facility] Address [address] [place] [address] Care Team Providers Care Psychologist Experimental Name Role Phone Kostas Gauthier MD Primary Care Provider [phone] Isidra Allred DO Unavailable [phone] Encounter Details Date Type Department Care Team (Late st Contact Info) Description 03/04/2023 Abstract [facility] [address] [facility] 230 [place] [phone] Isidra Allred, [address] [facility] 230 [place] [address] Social History Tobacco Use Types Packs/Day Years [...] How often do you attend chur or sikh services? Patient declined 09/13/2022 Do you belong to any clubs o r organizations such as yarsanism groups, unions, fraternal or athletic groups, or [...] Recorded Patient Health Questionnaire-2 Score 0 12/20/2022 [facility] - Occupational [...] place to sleep or slept in a senior living (including now)? No 09/13/2022 Comments Unknown Sex [...] [address] [place] [phone] Isidra Allred DO [address] [place] 230 [place] [address] documented as of this encounter Visit Diagnoses Not on filedocumented in this encounter Care Teams Psychologist Experimental Relationship Specialty Start Date End Date Kostas Gauthier MD [address] [place] [address] PCP - General Family Medicine 09/13/22 Isidra Allred DO [address] [place] [address] PCP - Medical [employer] 04/14/21 04/13/99 documented as of this encounter
--- OUTSIDE RECORDS SUMMARY | 2024-10-22 09:08 | XMS_ITS | Encounter Summary ---
Author Organization [facility] Address [address] [place] [address] Care Team Providers Care Smocker Name Role Phone Kostas Gauthier MD Primary Care Provider [phone] Isidra Allred DO Unavailable [phone] Encounter Details Date Type Department Care Team (Late st Contact Info) Description 03/24/2023 Abstract [facility] [address] [facility] 230 [place] [phone] Isidra Allred, [address] [facility] 230 [place] [address] Social History Tobacco Use Types Packs/Day Years [...] How often do you attend chur or voodoo services? Patient declined 09/13/2022 Do you belong to any clubs o r organizations such as restorationist groups, unions, fraternal or athletic groups, or [...] Recorded Patient Health Questionnaire-2 Score 0 12/20/2022 [facility]at ional Health - Occupational Stress [...] place to sleep or slept in a fpc (including now)? No 09/13/2022 Comments Unknown Sex [...] suspected to have Coronavirus/COVID-19? No / Unsure 03/20/2023 4:19 PM EST documented as of this encounter Plan of Treatment Upcoming Encounters Date Type Department Care Team (Late st Contact Info) Description 10/22/2024 10:30 AM EDT Office Visit [facility] [address] [facility] 230 [place] [address] Isidra Allred DO [address] [facility] [address] [facility] 230 [place] [address] documented as of this encounter Visit Diagnoses Not on filedocumented in this encounter Care Teams Smocker Relationship Specialty Start Date End Date Kostas Gauthier MD [address] [place] [address] PCP - General Family Medicine 09/13/22 Isidra Allred DO [address] [place] [address] PCP - Medical [place] [employer] 04/14/21 04/13/99 documented as of this encounter
--- OUTSIDE RECORDS SUMMARY | 2024-10-22 09:08 | XMS_ITS | Encounter Summary ---
Author Organization [facility] Address [address] [place] [address] Care Team Providers Care Application Trainer Name Role Phone Kostas Gauthier MD Primary Care Provider [phone] Isidra Allred DO Unavailable [phone] Encounter Details Date Type Department Care Team (Late st Contact Info) Description 04/02/2023 Abstract [facility] [address] [facility] 230 [place] [phone] Isidra Allred, [address] [facility] 230 [place] [address] Social History Tobacco Use Types Packs/Day Years [...] How often do you attend chur or sabianism services? Patient declined 09/13/2022 Do you belong to any clubs o r organizations such as latter-day groups, unions, fraternal or athletic groups, or [...] Patient Health Questionnaire-2 Score 0 12/20/2022 [facility] Occupat ional Health - Occupational [...] [facility] [address] [place] [address] [place] [address] Isidra Allred DO [address] [facility] [address] [facility] 230 [place] [address] documented as of this encounter Visit Diagnoses Not on filedocumented in this encounter Care Teams Application Trainer Relationship Specialty Start Date End Date Kostas Gauthier MD [address] [place] [address] PCP - General Family Medicine 09/13/22 Isidra Allred DO [address] [place] [address] PCP - Medical [place] [employer] 04/14/21 04/13/99 documented as of this encounter
--- OUTSIDE RECORDS SUMMARY | 2024-10-22 10:30 | XMS_ITS | Encounter Summary ---
Author Organization [facility] Address [address] [place] [address] Care Team Providers Care Teacher'S Assistant Name Role Phone Kostas Gauthier MD Primary Care Provider [phone] Isidra Allred DO Unavailable [phone] Reason for Visit * Reason Comments Diabetes Encounter Details Date Type Department Care Team (Late st Contact Info) Description 10/22/2024 10:30 AM EDT Office Visit [facility] [address] [place] [place] [phone] Isidra Allred, DO [address] [place] [address] Social History Tobacco Use Types Packs/Day Years [...] often do you attend chur ch or sabianist services? Patient declined 09/13/2022 Do you belong to any clubs o r organizations such as temple groups, unions, fraternal or athletic groups, or [...] Recorded Patient Health Questionnaire-2 Score 0 06/18/2024 [facility] Occupat ional Health - Occupational [...] place to sleep or slept in a snf (including now)? No 09/13/2022 Comments Unknown Sex and Gender Information Value Date Recorded Sex Assigned at Female 09/13/2022 9:07 AM EDT Legal Sex Female 7:13 PM EDT Gender Identity Female 09/13/2022 9:07 AM EDT Sexual Orientation Not on file documented as of this encounter Plan of Treatment Not on file documented as of this encounter Visit Diagnoses Not on filedocumented in this encounter Care Teams Teacher'S Assistant Relationship Specialty Start Date End Date Kostas Gauthier MD [address] [place] [address] PCP - General Family Medicine 09/13/22 Isidra Allred DO [address] [facility] 230 [place] [address] PCP - Medical [place] [employer] 04/14/21 04/13/99 documented as of this encounter
[2024-10-22 10:45] LABS: Alanine Aminotransferase 33 U/L (14-59); Albumin Globulin Ratio 0.9; Albumin Level 3.6 g/dL (3.4-5.0); Alkaline Phosphatase 84 U/L (46-116); Anion Gap 14.9; Aspartate Amino Transferase 19 U/L (15-37); Blood Urea Nitrogen 16.0 mg/dL (7.0-18.0); Calcium 9.3 mg/dL (8.5-10.1); Carbon Dioxide 28.2 mmol/L (21.0-32.0); Chloride 107 mmol/L (98-107); Cholesterol 135 mg/dL (<=200); Estimated GFR (African America >60 (>=60 mL/min/1.73m^2); Estimated GFR (Non-African Ame >60 (>=60 mL/min/1.73m^2); Free T3 3.02 pg/mL (2.18-3.98); Globulin 3.8 g/dL; Glucose 172 mg/dL (74-106); HDL Cholesterol 53 mg/dL (40-60); Potassium 4.1 mmol/L (3.5-5.1); Sodium 146 mmol/L (136-145); Thyroid Stimulating Hormone 0.008 uIU/mL (0.358-3.740); Total Protein 7.4 g/dL (6.4-8.2); Triglycerides 149 mg/dL (<=150); Uric Acid 3.8 mg/dL (2.6-6.0); VLDL CHOLESTEROL 29.8 mg/dL
[2024-10-22 10:59] LABS: Hematocrit 44.0 % (36.0-48.0); Hemoglobin 14.3 g/dL (12.0-16.0); Immature Granulocytes Abs Auto 0.01 10^3/uL (0.00-0.03); Immature Granulocytes Pct Auto 0.2 % (0.0-0.5); Lymphocytes Absolute Auto 1.6 10^3/uL (1.2-3.8); Mean Corpuscular HGB Conc 32.5 g/dL (29.9-35.2); Mean Corpuscular Hemoglobin 27.3 pg (26.7-34.0); Mean Corpuscular Volume 84.0 fL (81.0-99.0); Platelet Count 200 10^3/uL (150-450); Red Blood Count 5.24 10^6/uL (4.20-5.40); White Blood Count 5.9 10^3/uL (4.0-11.0)
[2024-10-22 11:22] LABS: Iron 66.0 ug/dL (50.0-170.0)
[2024-10-25 09:26] LABS: Antinuclear Antibodies, IFA Negative (.)
== END 2024-10-22 09:00 | disposition home or self-care (01) ==
LOC: LAB 09:04
PROVIDERS: PCP Family Medicine; Visit Provider Family Medicine
DX: Z00.00 Encounter for general adult medical examination without abnormal findings (principal); R73.09 Other abnormal glucose; D64.9 Anemia, unspecified; R53.83 Other fatigue; E55.9 Vitamin D deficiency, unspecified; M25.50 Pain in unspecified joint
CPT/HCPCS: 36415; 80053; 80061; 82306; 83036; 83540; 84436; 84443; 84481; 84550; 85025; 86038; 86060; 86140; 86431

== ENCOUNTER 2025-01-03 16:09 | Outpatient (OUT) | payer OTHER, SELFPAY ==
--- OUTSIDE RECORDS SUMMARY | 2025-01-03 16:12 | XMS_ITS | Encounter Summary ---
Author Organization [facility] Address [address] [place] [address] Care Team Providers Care Project Economist Name Role Phone Kostas Gauthier MD Primary Care Provider [phone] Isidra Allred DO Unavailable [phone] Encounter Details Date Type Department Care Team (Late st Contact Info) Description 06/17/2024 Orders Only [facility] [address] [facility] [place] 230 [place] [phone] A, Unknown Practice [address] [phone] Social History Tobacco Use Types Packs/Day Years [...] How often do you attend chur or synagogue services? Patient declined 09/13/2022 Do you belong to any clubs o r organizations such as methodist groups, unions, fraternal or athletic groups, or [...] Recorded Patient Health Questionnaire-2 Score 0 06/18/2024 [facility] - Occupational [...] place to sleep or slept in a half-way (including now)? No 09/13/2022 Comments Unknown Sex [...] Care Team (Late st Contact Info) Description 01/27/2025 3:00 PM EDT Consult [facility] [address] [facility] [address] [place] [address] Jose Freed DO [address] [facility] 150 [place] [address] 02/25/2025 10:45 AM EST [facility] [address] [place] [address] Isidra Allred DO [address] [address] documented as of this encounter Procedures Procedure [...] on filedocumented in this encounter Care Teams Project Economist Relationship Specialty Start Date End Date Kostas Gauthier MD [address] [place] [address] PCP - General Family Medicine 09/13/22 Isidra Allred DO [address] [address] PCP - Medical [place] [employer] 04/14/21 04/13/99 documented as of this encounter
--- OUTSIDE RECORDS SUMMARY | 2025-01-03 16:12 | XMS_ITS | Clinical Summary ---
Author Organization [facility] Address [address] [place] [address] Care Team Providers Care Plastics Spreading Machine Operator Name Role Phone Unavailable Primary Care Provider Unavailabl e Medications nadolol (Corgard) 40 mg tabletIndication s:Chest pain, unspecified TAKE 1 TABLET BY MOUTH TWICE A DAY 180 tablet 03/05/2022 Active Social History Tobacco Use Types Packs/Day Years Used Date Smoking Tobacco: Never Assessed Comments Unknown Sex and Gender Information Value Date Recorded Sex Assigned at Not on file Legal Sex Female 9:46 PM EDT Gender Identity Not on file Sexual Orientation Not on file Last Filed Vital Signs Vital Sign Reading Time Taken Comments Blood Pressure 157/91 10/27/2020 2:12 PM EDT Pulse 75 05/25/2019 9:30 AM EST Temperature - - Respiratory Rate - - Oxygen Saturation 96% 10/27/2020 2:08 PM EDT Inhaled Oxygen Concentration - - Weight 94.8 kg (209 lb) 10/27/2020 2:04 PM EDT Height 160 cm (5' 3 ) 10/27/2020 2:01 PM EDT Body Mass Index 37.02 10/27/2020 2:01 PM EDT Plan of Treatment Not on file
--- OUTSIDE RECORDS SUMMARY | 2025-01-03 16:13 | XMS_ITS | Encounter Summary ---
Author Organization [facility] Address [address] [place] [address] Care Team Providers Care Inspector Wire Rope Name Role Phone Kostas Gauthier MD Primary Care Provider [phone] Isidra Allred DO Unavailable [phone] Encounter Details Date Type Department Care Team (Late st Contact Info) Description 03/24/2023 Abstract [facility] [address] [facility] [address] [place] [phone] Isidra Allred, [address] [facility] [address] [place] [address] Social History Tobacco Use Types Packs/Day Years [...] often do you attend chur ch or oriental orthodox services? Patient declined 09/13/2022 Do you belong [...] Recorded Patient Health Questionnaire-2 Score 0 12/20/2022 [facility] - Occupational Stress Questionnaire Answer Date Recorded [...] place to sleep or slept in a custodial (including now)? No 09/13/2022 Comments Unknown Sex [...] PM EDT Consult [facility] [address] [facility] 150 [place] [address] Jose Freed, [address] [facility] 150 [place] [address] 02/25/2025 10:45 AM EST Office [facility] [address] [place] [address] Isidra Allred, DO [address] [place] [address] documented as of this encounter Visit Diagnoses Not on filedocumented in this encounter Care Teams Inspector Wire Rope Relationship Specialty Start Date End Date Kostas Gauthier MD [address] [facility] [place] [address] PCP - General Family Medicine 09/13/22 Isidra Allred DO [address] [facility] 230 [place] [address] PCP - Medical [place] [employer] 04/14/21 04/13/99 documented as of this encounter
--- OUTSIDE RECORDS SUMMARY | 2025-01-03 16:13 | XMS_ITS | Patient Health Record ---
Author Organization [facility] in [place] Address [address] [place] [address] Care Team Providers Care Parking Meter Installer Name Role Phone William Negro Primary Care Provider Jahaira Conway Unavailable [phone] Allergies Allergen (clinical drug ingredient) Drug/Non Drug [...] ctive Results Component Value Reference Range Notes COVID-19, Flu A+B IH Reviewed date:10/22/2024 01:05:10 PM Interpretation: Performing Lab: Notes/Report: COVID - FLU A - FLU B - Control + MM tomosynthesis screening B I Reviewed date:02/25/2024 07:36:55 PM Interpretation: Performing Lab: Notes/Report: Source Facility: [place] [address] [place] [address] Mammography Report Signed Patient: ROSIO SIU MR#: [id number] : 1965 Acct:[id number] Age/Sex: 58 / F ADM Date: 02/24/24 Loc: MAMMO Attending Dr: Uma Negro M.D. Ordering Physician: Uma Negro M.D. Results: Date of Service: 02/24/24 Follow Up: Procedure(s): MM tomosynthesis screening BI Accession Number(s): [id number] cc: Uma Negro M.D. Patient Name: ROSIO SIU MR#: [id number] : 1965 Exam Date: 02/24/2024 Ordering Doctor: [...] Treatments None Family Cancers None LOCATION: [facility] BREAST COMPOSITION: The breasts are heterogeneously dense,which [...] M.D. Signed By: 02/25/24901 DD/ 0 TD/TT: Monument Setter Helper: CBC AUTO DIFF Reviewed date:10/22/2024 01:05:10 PM Interpretation: Performing Lab: Notes/Report: [facility] , White Blood Count 5.9 4.0-11.0 10 3/uL Red Blood Count 5.24 4.20-5.40 10 6/uL Hemoglobin 14.3 12.0-16.0 g/dL Hematocrit 44.0 36.0-48.0 % Mean Corpuscular Volume 84.0 81.0-99.0 fL Mean Corpuscular Hemoglobin 27.3 26.7-34.0 pg Mean Corpuscular HGB Conc 32.5 29.9-35.2 g/dL Red Cell Distribution Width 13.8 11.0-15.0 % Platelet Count 200 150-450 10 3/uL Mean Platelet Volume 11.0 9.5-13.5 fL Neutrophils Percent Auto 58.0 43.0-75.0 % Lymphocytes Percent Auto 26.9 20.5-60.0 % Monocytes Percent Auto 10.2 1.7-12.0 % Eosinophils Percent Auto 3.7 0.9-7.0 % Basophils Percent Auto 1.0 0.2-2.0 % Immature Granulocytes Pct Auto 0.2 0.0-0.5 % Neutrophils Absolute Auto 3.4 1.4-6.5 10 3/uL Lymphocytes Absolute Auto 1.6 1.2-3.8 10 3/uL Monocytes Absolute Auto 0.6 0.3-0.8 10 3/uL Eosinophils Absolute Auto 0.2 0.0-0.7 10 3/uL Basophils Absolute Auto 0.1 0.0-0.1 10 3/uL Immature Granulocytes Abs Auto 0.01 0.00-0.03 10 3/uL Performing Lab: see note - [facility] GLYCOHEMOGLOBIN A1C Reviewed date:10/22/2024 01:05:10 PM Interpretation: Performing Lab: Notes/Report: [facility] , Glycohemoglobin A1C 6.8 4.5-6.2 % > 7.0 ADA RECOMMENDED LIMIT 4.0 - 6.0 ADA THERAPEUTIC TARGET < 7.0 ACTION SUGGESTED Estimated Average Glucose 148 Performing Lab: see note - [facility] VITAMIN D 25 [place] Reviewed date:10/24/2024 03:38:54 PM Interpretation: Performing Lab: Notes/Report: [facility] , Vitamin D 55.3 20-<30 ng/mL Vit D insufficient <20 ng/mL Vit D deficient 30-100 ng/mL Vit D sufficient >100 ng/mL Potential Toxicity Performing Lab: see note - [facility] Antistreptolysin O Ab Reviewed date:10/25/2024 12:34:28 PM Interpretation: Performing Lab: Notes/Report: [facility] , Antistreptolysin O Ab 157.8 0.0-200.0 IU/mL Media Professional: Vikram Mcdermott PhD, Phone: [phone] [address] [place], [place] [id number] Performed at: [facility] Performing Lab: see note [facility] RHEUMATOID FACTOR Reviewed date:10/25/2024 12:34:28 PM Interpretation: Performing Lab: Notes/Report: [facility] , Rheumatoid Factor (RF) <10.0 <14.0 IU/mL Performing Lab: see note [facility] DEVIKA by IFA Reviewed date:10/25/2024 12:34:28 PM Interpretation: Performing Lab: Notes/Report: [facility] , Antinuclear Antibodies, IFA Negative . Media Professional: Vikram Mcdermott PhD, Phone: [phone] Patterns (ICAP). For more information about Hep-2 cell patterns use Negative <1:[address] [place] [phone] ICAP nomenclature: AC-0 International Consensus on Antinuclear Antibody (DEVIKA) Positive >1:80 Performed at: [facility] ANApatterns.org, the official website for the Borderline 1:80 Performing Lab: see note [facility] URIC ACID SERUM Reviewed date:10/22/2024 01:05:10 PM Interpretation: Performing Lab: Notes/Report: [facility] , Uric Acid 3.8 2.6-6.0 mg/dL Performing Lab: see note - [facility] LB TSH Reviewed date:10/22/2024 01:05:10 PM Interpretation: Performing Lab: Notes/Report: [facility] , Thyroid Stimulating Hormone 0.008 0.358-3.740 u IU/mL Performing Lab: see note ML - [facility] LB T4 Reviewed date:10/22/2024 01:05:10 PM Interpretation: Performing Lab: Notes/Report: [facility] , T4 Thyroxine 14.90 4.80-13.90 ug/dL Performing Lab: see note - [facility] LB PROF 14(COMP METB) Reviewed date:10/22/2024 01:05:10 PM Interpretation: Performing Lab: Notes/Report: [facility] , Sodium 146 136-145 mmol/L Potassium 4.1 3.5-5.1 mmol/L Chloride 107 98-107 mmol/L Carbon Dioxide 28.2 21.0-32.0 mmol/L Anion Gap 14.9 Glucose 172 74-106 mg/dL Blood Urea Nitrogen 16.0 7.0-18.0 mg/dL Creatinine 0.78 0.55-1.02 mg/dL Estimated GFR ( Mary >60 >=60 mL/min/1.73m 2 Estimated GFR (Non- Mila >60 >=60 mL/min/1.73m 2 BUN Creatinine Ratio 20.5 Calcium 9.3 8.5-10.1 mg/dL Bilirubin Total 1.0 0.2-1.0 mg/dL Aspartate Amino Transferase 19 15-37 U/L Alanine Aminotransferase 33 14-59 U/L Alkaline Phosphatase 84 46-116 U/L Total Protein 7.4 6.4-8.2 g/dL Albumin Level 3.6 3.4-5.0 g/dL Globulin 3.8 Albumin Globulin Ratio 0.9 Performing Lab: see note ML - [facility] LB LIPID PROFILE Reviewed date:10/22/2024 01:05:10 PM Interpretation: Performing Lab: Notes/Report: [facility] , Triglycerides 149 <=150 mg/dL Cholesterol 135 <=200 mg/dL HDL Cholesterol 53 40-60 mg/dL <40 mg/dl - HIGH CARDIOVASCULAR RISK > or =60 mg/dl - LOW CARDIOVASCULAR RISK LDL Cholesterol Calculated 52.2 100-129 mg/dl NEAR OR ABOVE OPTIMAL 130-159 mg/dl BORDERLINE HIGH <100 mg/dl OPTIMAL >190 mg/dl VERY HIGH 160-189 mg/dl HIGH VLDL CHOLESTEROL 29.8 Chol HDL Ratio 2.5 >11.0 HIGH RISK 7.1 - 11.0 MODERATE RISK 3.3 - 4.4 LOW RISK 4.4 - 7.1 AVERAGE RISK Performing Lab: see note ML - [facility] FREE T3 Reviewed date:10/22/2024 01:05:10 PM Interpretation: Performing Lab: Notes/Report: [facility] , Free T3 3.02 2.18-3.98 pg/mL Performing Lab: see note ML - [facility] LB CRP Reviewed date:10/22/2024 01:05:10 PM Interpretation: Performing Lab: Notes/Report: [facility] , C Reactive Protein <0.50 <=0.50 mg/dL Performing Lab: see note ML - [facility] LB IRON Reviewed date:10/22/2024 01:05:10 PM Interpretation: Performing Lab: Notes/Report: [facility] , Iron 66.0 50.0-170.0 ug/dL Performing Lab: see note ML - [facility] LB Reason For Referral Diagnosis 1 Screening for colon cancer (Z12.11) Referral Organization [facility] Referring Provider First Name William Referring Provider Last Name Gregdilcia Referring Provider Speciality Family Med tye Referred Provider Dony Garcia Referred Provider Specialty General Surg shona Referral Priority Routine Medications Medication SIG (Take, Route, Frequency, Duration) Notes Start Date End Date Status Magnesium 250 MG 2 tablets with meal Orally Once a day 06/22/2024 Active Sindy Allergy 60 MG 1 tablet Swallow w hole with water; do not take with fruit juices. Orally Once a day Active Metoprolol Succinate ER 50 MG TAKE 1 TABLET BY MOUTH EVERY DAY FOR 30 DAYS; Duration: 30 Active Losartan Potassium 100 MG TAKE 1 TABLET BY MOUTH EVERY DAY; Duration: 90 Active Atorvastatin Calcium 40 MG TAKE 1 TABLET BY MOUTH EVERY DAY; Duration: 90 days Active Ozempic (0.25 or 0.5 MG/DOSE) 2 MG/3ML INJECT 0.25 MG SUBCUTANEOUSLY ONCE A WEEK; Duration: 28 Active Aspirin 81 81 MG 1 tablet Orally Once a day Active Multivitamin Adult - 1 tablet Orally Once a day Active clonazePAM 1 MG TAKE 1 AND 1/2 TABLE TS BY MOUTH TWICE DAILY NEEDED; Duration: 30 12/24/2024 Active Probiotic Active Biotin 1 MG Take 1 tablet Orally once daily 06/22/2024 Active Pantoprazole Sodium 40 MG TAKE 1 TABLET BY MOUTH EVERY DAY; Duration: 90 Active Vitamin D Active Elderberry Active tiZANidine HCl 4 MG 2 tabs Orally qhs; Duration: 30 days 10/18/2024 Active Insulin Aspart PUMP Activ e Hyoscyamine Sulfate 0.125 MG TAKE 1 TABLET BY MOUTH EVERY 4 HOURS NEEDED FOR 30 DAYS; Duration: 30 PRN Active Levothyroxine Sodium 125 MCG TAKE 1 TABLET BY MOUTH EVERY MORNING ON AN EMPTY STOMACH; Duration: 90 days Activ e Insulin Pump Disposable max does 150 uni ts daily of insulin lispro Dx: Diabetes Type II Active Immunizations Vaccine Route Administration Date Status Comme nts Flu, Flucelvax (0131-4491) (95597) 6 mos and older, single-dose syringe IM Intramuscular 01/01/2023 Administered Flu, Flucelvax (99637) 6 mos and older, single-dose syringe (1387-9793) IM Intramuscular 02/06/2024 Administered Social History Tobacco [...] Problem Type II diabetes mellitus without complication (753229475) Type 2 diabetes mellitus without complications (E11.9) Active confirmed Problem Liver enzymes abnormal (418015646) Abnormal liver enzymes (790.5) Active confirmed Problem Viral wart (60988949) Other ramiro l warts (B07.8) Active confirmed Problem Diabetic autonomic neuropathy due to type 1 diabetes mellitus (466556553) Type 1 diabetes mellitus with diabetic neuropathy, unspecified (E10.40) Active confirmed Problem Vitamin D deficiency (68485402) Vitamin D deficiency, unspecified (E55.9) Active confirmed Problem Panic disorder with agoraphobia (76820956) 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 Problem Sleep apnea (92050530) Sleep apnea, unspecified (G47.30) Active confirmed Problem Labyrinthine dysfunction (4327497) Labyrinthine dysfunction, 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) Active confirmed Problem Acute frontal sinusitis (61261015) Acute recurrent frontal sinusitis (J01.11) Active confirmed Problem Functional dyspepsia (3691945) Functional dyspepsia (K30) Active confirmed Problem Benign mammary dysplasia (88626142) Unspecified benign mammary dysplasia of unspecified breast (N60.99) Active confirmed Problem Palpitations (46634597) Palpitations (R00.2) Active confirmed Problem Closed fracture of ankle (05539053) Other fracture of right lower leg, initial encounter for closed fracture (S82.569J) Active confirmed Problem Sprain of ligament o f ankle joint (76535996) Sprain of other ligament of right ankle, initial encounter (S93.708B) Active confirmed Problem Hyperlipidemia (51339357) Hyperlipidemia (E78.5) Active confirmed Problem Hypertension (52915685) Hypertension (I10) Active confirmed Problem Cervical radiculopathy (33244910) Cervical radiculopathy (M54.12) Active confirmed Problem Obesity (037619988) Obesity (E66.9) Active conf irmed Problem Bradycardia (06820043) Bradycardia (R00.1) Active confirmed Problem Insomnia (707929092) Insomnia (G47.00) Active c onfirmed Problem Hiatal hernia (59762142) Hiatal hernia (K44.9) Active confirmed Problem Vitamin D deficiency (59222166) Vitamin D deficiency (E55.9) Active confirmed Problem Paroxysmal atrial fibrillation (873209636) Paroxysmal atrial fibrillation (I48.0) Active confirmed Problem Sebaceous cyst (091925099) Sebaceous cyst (L72.3) Active confirmed Problem Hypertriglyceridemia (734473273) Hypertriglyceridemia (E78.1) Active confirmed Problem Well adult (695085087) Well adult (Z00.00) Active confirmed Problem Irritable bowel syndrome (71547600) Irritable bowel syndrome (K58.9) Active confirmed Problem Scoliosis (490837212) Scoliosis (M41.9) Active confirmed Problem Dysarthria (9747673) Dysarthria (R47.1) Active confirmed Problem Anxiety disorder (296303161) Anxiety disorder (F41.9) Active confirmed Problem Amnesia (21309953) Poor short te rm memory (R41.3) Active confirmed Problem Plantar fasciitis (408146067) Plantar fasciitis (M72.2) Active confirmed Problem Paroxysmal supraventricular tachycardia (disorder) (28737144) PSVT (paroxysmal supraventricular tachycardia) (I47.1) Active confirmed Problem Diverticulitis of colon (809477958) Diverticulitis large intestine (K57.32) Active confirmed Problem Arthralgia of the ankle and/or foot (439564650) Ankle pain, right (M25.571) Active confirmed Problem Displacement of cervical intervertebral disc without myelopathy (19848303) Displacement of cervical intervertebral disc without myelopathy (M50.20) Active confirmed Problem Nevus (7844955483) Nevus (D22.9) Active confirm ed Problem Wandy's thyroiditis (94758850) 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) Active confirmed Problem Acute bronchiolitis (4202691) Acute bronchiolitis (J21.9) Active confirmed Problem Agoraphobia with panic attacks (746170463) 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) Active confirmed Problem Gastro-esophageal reflux disease (464872154) Gastro-esophageal reflux disease (K21.9) Active confirmed Problem Type I (juvenile type) diabetes mellitus with other specified manifestations, not stated as uncontrolled (E10.69) Active confirmed Problem Medication monitorin g (regime/therapy) (994897165) Encounter for medication monitoring (Z51.81) Active confirmed Problem Senile cataract (84565859) Senile cataract, unspecified (H25.9) Active confirmed Problem hypercholesterolemia (disorder) (39459517) Hypercholesteremia (E78.00) Active confirmed Problem Acquired trigger finger of left ring finger (076206732179627) Acquired trigger finger of left ring finger (M65.342) Active confirmed Problem COVID-19 (196866924) COVID-19 (U07.1) Active co nfirmed Problem Headache (94250259) Headache, un specified (R51.9) Active confirmed Problem Patent foramen ovale (239908988) Patent foramen ovale (Q21.12) Active confirmed Vital Signs Temperature 98.3 degrees Fahrenheit 04/16/2024 Blood pressure diastolic 70 mm Hg 01/03/2025 19 Height 63 in 01/03/2025 19 Blood pressure systolic 118 mm Hg 01/03/2025 19 Weight 192.8 lbs 01/03/2025 19 BMI 34.15 kg/m2 01/03/2025 19 Encounters Encounter Location Date Provider Diagnosis [facility] [address] [place] [address] 01/08/2024 William Negro [facility] [address] [place] [address] 02/10/2024 Jahaira Conway [facility] [address] [place] [address] 02/25/2024 William Negro [facility] [address] [place] [address] 03/04/2024 William Negro [facility] [address] [place] [address] 03/15/2024 William Negro [facility] [address] [place] [address] 04/16/2024 William Negro [facility] [address] [place] [address] 04/22/2024 William Negro Acute non-recurrent sinusitis, unspecified location J01.90 [facility] [address] [place] [address] 05/17/2024 William dilcia [facility] [address] [place] [address] 05/19/2024 William Negro [facility] [address] [place] [address] 06/21/2024 William Negro [facility] [address] [place] [address] 06/22/2024 William Negro [facility] [address] [place] [address] 07/26/2024 William Negro [facility] [address] [place] [address] 08/09/2024 William Negro [facility] [address] [place] [address] 09/03/2024 William Negro [facility] [address] [place] [address] 09/15/2024 Wililam Negro [facility] [address] [place] [address] 10/18/2024 William Negro Screening for colon cancer Z12.11 [facility] [address] [place] [address] 10/19/2024 William Negro [facility] [address] [place] [facility] [place] [address] 10/22/2024 William Negro [facility] [address] [place] [address] 10/25/2024 William Garzay Hypertension I10 ; Fatigue R53.83 and Joint swelling M25.40 [facility] [address] [place] [place] [address] 11/08/2024 William Garzay [facility] [address] [place] [address] 11/22/2024 William Garzay [facility] [address] [place] [address] 12/24/2024 William Garzay [facility] [address] [place] [address] 12/24/2024 William Negro [facility] [address] [place] [address] 10/18/2024 William Gregy Well adult Z00.00 [facility] [address] [place] [address] 01/03/2025 William Hoy Fatigue R53.83 ; Hypertension I10 ; Vitamin D deficiency E55.9 and Wandy's thyroiditis E06.[address] [address] 02/06/2024 William Abrahan Encounter for immunization Z23 [address] [address] 04/16/2024 William Garzay Acute non-recurrent sinusitis, unspecified location J01.90 ; Nasal congestion R09.81 and Cough R05.9 Assessments Encounter Date Diagnosis (ICD Code) Assessment Notes Treatment Notes Treatment Clinical Notes Section Notes 02/06/2024 Encounter for immunization (ICD-10 - Z23) 04/16/2024 Acute non-recurrent sinusitis, unspecified location (ICD-10 - J01.90) Rest and drink more liquids, especially water. You may use a humidifier or vaporizer to help keep the drainage moist. Vpxy-ify-bpyuwcn Nasal Saline may help the stuffy and runny nose. Use Ibuprofen and or Tylenol as needed for fever, chills, body aches or pain. Children 5 years old should not be given bjgh-xbx-pmwvvjb cough and cold medications such as guaifenesin and dextromethorphan. If you're over age 5, you may try fxtl-cws-xrvcvwh cold medications such as guaifenesin and dextromethorphan, [...] R09.81) 10/18/2024 Well adult (ICD-10 - Z00.00) 01/03/2025 Fatigue (ICD-10 - R53.83) 01/03/2025 Hypertension (ICD-10 - I10) 04/22/2024 Acute non-recurrent sinusitis, unspecified location (ICD-10 - J01.90) 10/18/2024 Screening for colon cancer (ICD-10 - Z12.11) 10/25/2024 Hypertension (ICD-10 - I10) 10/25/2024 Fatigue (ICD-10 - R53.83) 10/25/2024 Joint swelling (ICD-10 - M25.40) 01/03/2025 Vitamin D deficiency (ICD-10 - E55.9) 04/16/2024 Cough (ICD-10 - R05.9) 01/03/2025 Wandy's thyroiditis (ICD-10 - E06.3) Plan Of Treatment Pending Test Test Name Order Date CMP (COMPLETE METABOLIC PANEL) 3 SED RATE (ESR) 10/25/2024 HEMOGLOBIN A1C (GLYCO) 08/07/2022 HEMOGLOBIN A1C (GLYCO) 10/18/2024 IRON, TOTAL 10/18/2024 IRON, TOTAL 08/07/2022 LIPID PANEL (CHOL/TRIG/HDL/LDL) 07/07/20 25 LIPID PANEL (CHOL/TRIG/HDL/LDL) 08/08/19 23 CBC WITH DIFF 08/07/2022 VITAMIN D, 25 LEVEL (TOTAL) 10/18/2024 VITAMIN D, 25 LEVEL (TOTAL) 01/03/2025 VITAMIN D, 25 LEVEL (TOTAL) 08/07/2022 Biopsy skin single lesion- performed CREATININE CLEAR ( 24 HR URINE) (CC) COM :HT/WT 08/25/2022 Urinalysis Microscopic 01/03/2025 RHEUMATOID PANEL 10/18/2024 RHEUMATOID PANEL 10/25/2024 FECAL OCCULT BLOOD 10/06/2023 CMP - Comprehensive Metabolic Panel 10/12 CMP - Comprehensive Metabolic Panel 09/13 CBC W/AUTO DIFF 10/06/2023 STOOL OCCULT BLOOD 08/07/2022 AMYLASE 01/03/2025 CBC AUTO DIFF 10/25/2024 CULTURE URINE 01/03/2025 LIPASE 01/03/2025 LIPID PROFILE 10/12/2023 LIVER PROFILE 10/12/2023 MAGNESIUM 01/03/2025 PHOSPHORUS 01/03/2025 PROF 14(COMP METB) 08/23/2022 THYROID PANEL (T4/TSH/FREE T3) 5 THYROID PANEL (T4/TSH/FREE T3) 5 THYROID PANEL (T4/TSH/FREE T3) 4 THYROID PANEL (T4/TSH/FREE T3) 3 CMP (COMP MET BAUMANN) w/eGFR CKD-EPI 2024 CMP (COMP MET BAUMANN) w/eGFR CKD-EPI 2024 CBC WITH DIFF 01/03/2025 CBC WITH DIFF 10/18/2024 Insurance Providers Payer Name Payer Address Payer Phone Subscriber Number Group Number Insured Name Patient Relationship to Insured Coverage Start Date Coverage End Date [facility] [address] [place], [place] [id number] Dony Siu Spouse - patient is the spouse of [...] tachyc ardia) I47.1 Surgical History Surgery Date(Month/Year) Cataract Surgery- Bilateral hysterectomy cervical spine fusion cervical discectomy cholecystectomy appendectomy herniorrhaphy x2 breast reduction 1993 Hospitalization History Reason Date(Month/Year) see above
--- OUTSIDE RECORDS SUMMARY | 2025-01-03 16:13 | XMS_ITS | Encounter Summary ---
Author Organization [facility] Address [address] [place] [address] Care Team Providers Care Bed Operator Name Role Phone Kostas Gauthier MD Primary Care Provider [phone] Isidra Allred DO Unavailable [phone] Encounter Details Date Type Department Care Team (Late st Contact Info) Description 04/02/2023 Abstract [facility] [address] [facility] [address] [place] [address] Isidra Allred, [address] [facility] [address] [place] [address] Social History Tobacco Use Types Packs/Day Years [...] often do you attend chur ch or anglican services? Patient declined 09/13/2022 Do you belong [...] Recorded Patient Health Questionnaire-2 Score 0 12/20[facility]20[facility] - Occupational Stress Questionnaire Answer Date Recorded [...] place to sleep or slept in a chcf (including now)? No 09/13/2022 Comments Unknown Sex [...] EDT Consult [facility] [address] [facility] [address] [place] [address] Jose Freed, [address] [facility] [address] [place] [address] 02/25/2025 10:45 AM EST Office Visit [facility] [address] [place] [address] Isidra Allred, DO [address] [place] [address] documented as of this encounter Visit Diagnoses Not on filedocumented in this encounter Care Teams Bed Operator Relationship Specialty Start Date End Date Kostas Gauthier MD [address] [facility] [place] [address] PCP - General Family Medicine 09/13/22 Isidra Allred DO [address] [facility] [address] [place] [address] PCP - Medical [employer] 04/14/21 04/13/99 documented as of this encounter
--- OUTSIDE RECORDS SUMMARY | 2025-01-03 16:13 | XMS_ITS | Encounter Summary ---
Author Organization [facility] Address [address] [place] [address] Care Team Providers Care Antenna Rigger Name Role Phone Kostas Gauthier MD Primary Care Provider [phone] Isidra Allred DO Unavailable [phone] Encounter Details Date Type Department Care Team (Late st Contact Info) Description 12/17/2024 Orders Only [facility] [address] [place] [address] Bhanu Forde MD [address] [place] [address] [place] [address] Social History Tobacco Use Types Packs/Day Years [...] How often do you attend chur or jainism services? Patient declined 09/13/2022 Do you belong to any clubs o r organizations such as adventism groups, unions, fraternal or athletic groups, or [...] Date Recorded Patient Health Questionnaire-2 Score 0 10/22/2024 [facility] - Occupational Stress Questionnaire Answer [...] PM EDT Consult [facility] [address] [facility] [address] [place] [phone] Jose Freed, DO [address] [facility] 150 [place] [address] 02/25/2025 10:45 AM EST Office Visit [facility] [address] [place] [address] Isidra Allred, [address] [place] [address] documented as of this encounter Procedures Procedure Name Priority Date/Time Associated Diagnosis Comments COLONOSCOPY Routine 10/30/2012 9:45 AM EDT documented in this encounter Results * Colonoscopy (10/30/2012 9:45 AM EDT) Anatomical Region Laterality Modality Endoscopy us Bhanu Forde MD ENDOSCOPY PROCEDURE ORDERABLE S Final Result documented in this encounter Visit Diagnoses Not on filedocumented in this encounter Care Teams Antenna Rigger Relationship Specialty Start Date End Date Kostas Gauthier MD [address] [facility] [place] [address] PCP - General Family Medicine 09/13/22 Isidra Allred DO [address] [facility] 230 [place] [address] PCP - Medical [place] [employer] 04/14/21 04/13/99 documented as of this encounter
--- OUTSIDE RECORDS SUMMARY | 2025-01-03 16:13 | XMS_ITS | Encounter Summary ---
Author Organization [facility] Address [address] [place] [address] Care Team Providers Care Belt Worker Name Role Phone Kostas Gauthier MD Primary Care Provider [phone] Isidra Allred DO Unavailable [phone] Encounter Details Date Type Department Care Team (Late st Contact Info) Description 03/04/2023 Abstract [facility] [address] [facility] [address] [place] [address] Isidra Allred, [address] [facility] [address] [place] [address] Social History Tobacco Use Types Packs/Day Years [...] often do you attend chur ch or buddhist services? Patient declined 09/13/2022 Do you belong to any clubs o r organizations such as confucianism groups, unions, fraternal or athletic groups, or [...] Recorded Patient Health Questionnaire-2 Score 0 12/20/2022 [facility] - Occupational Stress Questionnaire Answer [...] place to sleep or slept in a usp (including now)? No 09/13/2022 Comments Unknown Sex [...] PM EDT Consult [facility] [address] [facility] 150 [place] [address] Jose Freed, 7[address] [facility] 150 [place] [address] 02/25/2025 10:45 AM EST Office Visit [facility] [address] [facility] 230 [place] [address] Isidra Allred, DO [address] [place] [address] documented as of this encounter Visit Diagnoses Not on filedocumented in this encounter Care Teams Belt Worker Relationship Specialty Start Date End Date Kostas Gauthier MD [address] [facility] [place] [address] PCP - General Family Medicine 09/13/22 Isidra Allred DO [address] [place] [address] PCP - Medical [place] [employer] 04/14/21 04/13/99 documented as of this encounter
--- OUTSIDE RECORDS SUMMARY | 2025-01-03 16:13 | XMS_ITS | Clinical Summary ---
Author Organization [employer] [facility] Address [id number] [address] [place] [id number] Care Team Providers Care Foot Cutter Name Role Phone Unavailable Primary Care Provider [...]
--- OUTSIDE RECORDS SUMMARY | 2025-01-03 16:13 | XMS_ITS | Encounter Summary ---
Author Organization [facility] Address [address] [place] [address] Care Team Providers Care Dental Officer Name Role Phone Kostas Gauthier MD Primary Care Provider [phone] Isidra Allred DO Unavailable [phone] Encounter Details Date Type Department Care Team (Late st Contact Info) Description 03/29/2024 Abstract [facility] [address] [facility] [address] [place] [address] Isidra Allred, [address] [facility] [address] [place] [address] Social History Tobacco Use Types Packs/Day Years [...] often do you attend chur ch or confucianism services? Patient declined 09/13/2022 Do you belong [...] Recorded Patient Health Questionnaire-2 Score 0 12/20/2022 [facility] - Occupational Stress Questionnaire Answer Date Recorded [...] PM EDT Consult [facility] [address] [facility] 150 [place] [address] Jose Freed, [address] [facility] 150 [place] [address] 02/25/2025 10:45 AM EST Office Visit [facility] [address] [facility] 230 [place] [address] Isidra Allred, DO [address] [place] [address] documented as of this encounter Visit Diagnoses Not on filedocumented in this encounter Care Teams Dental Officer Relationship Specialty Start Date End Date Kostas Gauthier MD [address] [facility] [place] [address] PCP - General Family Medicine 09/13/22 Isidra Allred DO [address] [place] [address] PCP - Medical [place] [employer] 04/14/21 04/13/99 documented as of this encounter
--- OUTSIDE RECORDS SUMMARY | 2025-01-03 16:13 | XMS_ITS | Clinical Summary ---
Author Organization [facility] Address [address] [place] [address] Care Team Providers Care Traffic Rate Analyst Name Role Phone Kostas Gauthier MD Primary Care Provider [phone] Isidra Allred DO Unavailable [phone] Allergies Active Allergy Reactions Criticality Noted Date [...] Active BD Insulin Syringe U/F 31G X /16 0.5 ML misc USE WITH INJECTIONS 3 TIMES DAILY 06/02/19 23 Active Multiple Vitamins-Mineral s (Vitamin D3 Complete) tablet Take by mouth Active fenofibrate (Triglide) 160 MG tablet TAKE 1 TABLET BY MOUTH EVERY DAY FOR 30 DAYS 10/14/19 24 Active Blood Glucose Monitoring Suppl (Accu-Chek [...] mg by mouth Daily 03/31/20 24 Active tiZANidine (Zanaflex) 4 MG tablet Take 2 tablets by mouth as needed at bedtime 10/19/19 25 Active Insulin Infusion Pump (T:slim Insulin Pump) deviceIndication s:Type 1 diabetes mellitus without complication (HCC) Basal: 12A 2.5, 4A 2.1, 8A 2.2, 11A 1.7, ICR: 12A 3, ISF: 50, target: 110 1 each 10/25/19 25 Active insulin aspart (NovoLOG) 100 UNIT/ML injectionIndicat ions:Type 1 diabetes mellitus without complication (HCC) Per pump (max daily 150 units) 140 mL 3 10/25/19 25 Active Continuous Glucose Sensor (Dexcom G7 Sensor) miscIndications: Type 1 diabetes mellitus without complication (HCC) Inject 1 Device under the skin See administration instructions Change every 10 days 9 each 3 10/26/19 25 Active Continuous Glucose Sensor (Dexcom G7 Sensor) miscIndications: Type 1 diabetes mellitus without complication (HCC) Inject 1 Device under the skin See administration instructions Change every 10 days 9 each 10/26/19 25 Active Active Problems Problem Noted Date Diagnosed Date Age-related nuclear cataract of both eyes 2023 Class 2 severe obesity due t o excess calories with serious comorbidity and body mass index (BMI) of 35.0 to 35.9 in adult 08/16/2022 Type 1 diabetes mellitus without complication Assessment & Plan (10/24/2024 8:05 PM EDT): During the appointment today all [...] if they have any problems or questions. Rosiomarybeth Danielszier control is stable overall. , The patient is wearing their cgm on a daily basis and making decisions in regards to adjusting insulin daily as well for at least the last 60 days , Instructions given today include: Hypoglycemia management and Pump instructions. Will increase basal rate at 12A and 8A, decrease at 11A. Assessment & Plan (06/18/2024 6:13 PM EST): [...] have any problems or questions. Rosio Siu is doing very well and encouraged on [...] have any problems or questions. Rosio Siu is making improvements and encouraged on this. [...] have any problems or questions. Rosio Siu is making improvements and encouraged on this. [...] Encounters Date Type Department Care Team Description 12/21/2024 Travel 12/17/2024 Orders Only [facility] [address] [facility] [address] [place] [phone] Bhanu Forde MD 10/25/2024 Telephone [facility] [address] [place] [address] Chelle Arugeta LPN 10/22/2024 10:30 AM EDT Office Visit [facility] [address] [place] [address] Isidra Allred, Type 1 diabetes mellitus without complication (HCC) (Primary Dx) 10/22/2024 Travel from Last 3 Months Immunizations Immunization Administration Dates Next Due Influenza, [id number] 01/01/2017,02/19/2016 Influenza, Injectable, MDCK, preservative free 02/06/2024,01/11/2019 [...] How often do you attend chur or christianity services? Patient declined 09/13/2022 Do you belong to any clubs o r organizations such as rastafarian groups, unions, fraternal or athletic groups, or [...] Recorded Patient Health Questionnaire-2 Score 0 10/22/2024 [facility] of Occupat ional Health [...] place to sleep or slept in a skilled nursing (including now)? No 09/13/2022 Comments Unknown Sex and Gender Information Value Date Recorded Sex Assigned at Female 09/13/2022 9:07 AM EDT Legal Sex Female 7:13 PM EDT Gender Identity Female 09/13/2022 9:07 AM EDT Sexual Orientation Not on file Last Filed Vital Signs Vital Sign Reading Time Taken Comments Blood Pressure 126/74 10/22/2024 10:36 AM EDT Pulse 71 10/22/2024 10:36 AM EDT Temperature 36.8 C (98.2 F) 10/22/2024 10:36 AM EDT Respiratory Rate - - Oxygen Saturation 95% 10/22/2024 10:36 AM EDT Inhaled Oxygen Concentration - - Weight 87.5 kg (193 lb) 10/22/2024 10:36 AM EDT Height 161.3 cm (5' 3.5 ) 10/22/2024 10:36 AM ED T Body Mass Index 33.65 10/22/2024 10:36 AM EDT Plan of Treatment Upcoming Encounters Date Type Department Care Team (Late st Contact Info) Description 01/27/2025 3:00 PM EDT Consult [facility] [address] [facility] 150 [place] [address] Jose Freed DO [address] [facility] 150 [place] [address] 02/25/2025 10:45 AM EST Office [facility] [address] [place] [address] Isidra Allred, DO [address] [place] [address] Health Maintenance Due Date Last Done Comments CT Colonography 1965 FIT-DNA 1965 FIT 1965 FOBT 1965 Sigmoidoscopy 1965 Diabetes: Urine Protein Screening 1984 Pap Smear 1986 Cervical Cancer Screening 1995 HPV/Cotest 1995 Mammogram 2005 Colonoscopy 10/30/2022 10/30/2012 Colorectal Cancer Screening 10/30/2022 Influenza Vaccine (#1) 2024 , 01/01/2023, 02/06/2022, Additional history exists Diabetes: Hemoglobin A1C 01/22/2025 025, 06/18/2024, 02/17/2024, Additional history exists Diabetes: Retinopathy Screening 06/14/2026 06/14/2024, 05/07/2023, 05/07/2023, Additional history exists Procedures Procedure Name Priority Date/Time Associated Diagnosis Comments POCT GLYCOSYLATED HEMOGLOBIN (HGB A1C) Routine 10/22/2024 10:52 AM EDT Type 1 diabetes mellitus without complication (HCC) DIABETIC RETINOPATHY SCREENING - OU - BOTH EYES Routine 06/14/2024 8:39 AM EST COLONOSCOPY Routine 10/30/2012 9:45 AM EDT from Last 3 Months or Most Recently Relevant to Health Maintenance Results * POCT glycosylated hemoglobin (Hb A1C) docked device (10/22/2024 10:52 AM EDT) Hemoglobin A1C 7.0 Blood Venous blood specimen / Unknown 10/22/2024 10:52 AM EDT Isidra Allred DO POINT OF CARE TEST ENTER/E DIT ORDERABLES Final Result * Diabetic Retinopathy Screening - OU - Both Eyes (06/14/2024 8:39 AM EST) Anatomical Region Laterality Modality Head Other us Unknown Practice A OPHTH PHOTOGRAPHY Final Resul t * Colonoscopy (10/30/2012 9:45 AM EDT) Anatomical Region Laterality Modality Endoscopy us Bhanu Forde MD ENDOSCOPY PROCEDURE ORDERABLE S Final Result from Last 3 Months or Most Recently Relevant to Health Maintenance Insurance [employer] Care Teams Traffic Rate Analyst Relationship Specialty Start Date End Date Kostas Gauthier MD [address] [place] [address] PCP - General Family Medicine 09/13/22 Isidra Allred DO [address] [facility] 230 [place] [address] PCP - Medical [place] [employer] 04/14/21 04/13/99
--- OUTSIDE RECORDS SUMMARY | 2025-01-03 16:13 | XMS_ITS | Encounter Summary ---
Author Organization [facility] Address [address] [place] [address] Care Team Providers Care Midlevel Provider Name Role Phone Kostas Gauthier MD Primary Care Provider [phone] Isidra Allred DO Unavailable [phone] Encounter Details Date Type Department Care Team (Latest Contact Info) Description 12/21/2024 Travel Social History Tobacco Use Types Packs/Day Years [...] week 09/13/2022 How often do you attend [facility] or mormon services? Patient declined 09/13/2022 Do you belong to any clubs o r organizations such as baptism groups, unions, fraternal or athletic groups, or [...] Recorded Patient Health Questionnaire-2 Score 0 10/22/2024 [facility] - Occupational Stress Questionnaire Answer [...] place to sleep or slept in a halfway (including now)? No 09/13/2022 Comments Unknown Sex [...] PM EDT Consult [facility] [address] [facility] 150 [place] [phone] Jose Freed DO 703 [facility] 150 [place] [address] 02/25/2025 10:45 AM EST Office Visit [facility] [address] [place] [phone] Isdira Allred, DO [address] [facility] 230 [place] [address] documented as of this encounter Visit Diagnoses Not on filedocumented in this encounter Care Teams Midlevel Provider Relationship Specialty Start Date End Date Kostas Gauthier MD [address] [facility] [place] [address] PCP - General Family Medicine 09/13/22 Isidra Allred DO [address] [place] [address] PCP - Medical [place] [employer] 04/14/21 04/13/99 documented as of this encounter
--- OUTSIDE RECORDS SUMMARY | 2025-01-03 16:13 | XMS_ITS | Encounter Summary ---
Author Organization [facility] Address [address] [place] [address] Care Team Providers Care Top Lift Cutter Name Role Phone Kostas Gauthier MD Primary Care Provider [phone] Isidra Allred DO Unavailable [phone] Encounter Details Date Type Department Care Team (Late st Contact Info) Description 09/12/2022 Abstract [facility] [address] [facility] [address] [place] [phone] Isidra Allred, [address] [facility] [address] [place] [address] Social History Tobacco Use Types Packs/Day Years [...] often do you attend chur ch or presybeterian services? Patient declined 09/13/2022 Do you belong to any clubs o r organizations such as shinto groups, unions, fraternal or athletic groups, or [...] and heating? Not hard at all 09/13/2022 [facility] Occupat ional Health - Occupational [...] place to sleep or slept in a jail (including now)? No 09/13/2022 Comments Unknown Sex [...] Assessment Author Never 09/13/2022 9:21 AM EDT Prestonhart, Generic * Q2: How many drinks containing alcohol do you have on a typical day when you are drinking? Answer Date of Assessment Author Patient does not drink 09/13/2022 9:21 AM EDT My chart, Generic * Q3: How often do you have six or more drinks on one occasion? Answer Date of Assessment Author Never 09/13/2022 9:21 AM EDT [employer]ot, Generic documented as of this encounter Plan of Treatment Upcoming Encounters Date Type Department Care Team (Late st Contact Info) Description 01/27/2025 3:00 PM EDT Consult [facility] [address] [facility] [address] [place] [address] Jose Freed, DO [address] [facility] 150 [place] [address] 02/25/2025 10:45 AM EST Office Visit [facility] [address] [place] [address] Isidra Allred DO [address] [place] [address] documented as of this encounter Visit Diagnoses Not on filedocumented in this encounter Care Teams Top Lift Cutter Relationship Specialty Start Date End Date Kostas Gauthier MD [address] [facility] [place] [address] PCP - General Family Medicine 09/13/22 Isidra Allred DO [address] [place] [address] PCP - Medical [place] [employer] 04/14/21 04/13/99 documented as of this encounter
--- OUTSIDE RECORDS SUMMARY | 2025-01-03 16:20 | XMS_ITS | CCD ---
Author Organization [facility] Care Team Providers Care Wind Project Manager Name Role Phone MARKY ., DR EATON Admitting Unavailable HOY ., DR EATON Attending Unavailable HOY ., DR EATON Primary Care Unavailable HOY ., DR EATON Consulting Unavailable MANISHKATHY Admitting Unavailable KATHY HAMMOND Attending Unavailable HOY ., DR EATON Primary Care Unavailable ZIEBER, DR ADRIANNE Daily Consulting Unavailable MANISH, KATHY Consulting Unavailable MANISH, KATHY Admitting Unavailable KATHY HAMMOND Attending Unavailable RADHAY ., DR EATON Primary Care Unavailable GREEN BAY, DR JAMEY Mccollum Consulting Unavailable MANISH, KATHY Consulting Unavailable MANISH, KATHY Admitting Unavailable MANISH, KATHY Attending Unavailable HOY ., DR EATON Primary Care Unavailable ALDEN, DR ADRIANNE Daily Consulting Unavailable KATHY HAMMOND Consulting Unavailable INDY SIDDIQUI Admitting Unavailable INDY SIDDIQUI Attending Unavailable RADHAY ., DR EATON Primary Care Unavailable ALDEN, DR ADRIANNE Daily Consulting Unavailable INDY SIDDIQUI Consulting Unavailable MARKY ., DR EATON Primary Care Unavailable JUNIE, DR OLIVA Vizcaino Admitting Unavaillucy ZAMAN, DR OLIVA Vizcaino Attending Unavailabl e DEE ., JAYLYN ANDRE Consulting UnavailJAMEY Perales Unavailable RADHAY ., DR EATON Admitting Unavailable HOY ., DR EATON Attending Unavailable HOY ., DR EATON Primary Care Unavailable HOY ., DR EATON Consulting Unavailable HOY ., DR EATON Admitting Unavailable HOY ., DR EATON Attending Unavailable MARKY ., DR EATON Primary Care Unavailable Uma Gauthier Primary Care Physician Uma Gauthier Attending Unavailable Uma Gauthier Admitting Unavailable Uma Gauthier MD Primary Care Provider Isidra Buckley DO Unavailable Uma Gauthier MD Primary Care Provider [phone] ISIDRA BUCKLEY Attending Unavailable ISIDRA BUCKLEY Attending Unavailable ISIDRA BUCKLEY Attending Unavailable Shonna Minor Attending Unavailable Dony PÉREZ Attending Unavailable Allergies Allergy Classification Reported Allergen(s) Allergy Type Date of Onset Reaction(s) Facility (1 source) Adhesive agent Drug allergy (disorder) [facility] (1 source) Codeine Drug Allergy [facility] (1 source) Iodine (And Iodine Containting Drugs) Drug allergy (disorder) [facility] (2 sources) Pentazocine; Translations: [Talwin] Drug Allergy [facility] (2 sources) Sulfamethoxazole / Trimethoprim; Translations: [Bactrim] Drug Allergy [facility] (8 sources) Sulfamethoxazole / Trimethoprim; Translations: [sulfamethoxazole-t rimethoprim] Drug Allergy Gastrointestinal irritation (disorder) [facility] (5 sources) Radiographic iodinated contrast medium (product); Translations: [Radiographic iodinated contrast medium] Drug allergy Weal (disorder) [facility] (4 sources) Amoxicillin Drug Allergy [facility] (5 sources) levoFLOXacin; Translations: [levofloxacin] Drug Allergy Gastrointestinal irritation (disorder) [facility] (4 sources) metroNIDAZOLE Drug Allergy [facility] (5 sources) Pentazocine; Translations: [pentazocine] Drug Allergy Hallucinosis (finding) [facility] (5 sources) Pravastatin; Translations: [pravastatin] Drug Allergy Unknown, Muscle pain (finding) [facility] (4 sources) Iodinated Contrast Media Drug Allergy [facility] (4 sources) Wound Dressing Adhesive Drug Allergy [facility] (2 sources) Adhesive bandage; Translations: [Adhesive Bandage] Allergy to substance Eruption of skin (disorder) [facility] [place] (1 source) levoFLOXacin; Translations: [Levaquin] Drug Allergy [facility] (1 source) Penicillin; Translations: [penicillin] Drug Allergy [facility] (1 source) Pravastatin; Translations: [Pravachol] Drug Allergy [facility] Rep[facility] Medications Current Medications Medication Drug Class(es) Dates Sig (Normalized) Sig (Original) ascorbic acid 60 mg / beta carotene 5000 unt / copper sulfate 40 mg / dl-alpha tocopheryl acetate 30 unt / sodium selenite 0.04 mg / zinc oxide 40 mg oral tablet (4 sources) Vitamin C Multiple Vitamin (Multivitamin Adult) tablet Active aspirin 81 mg delayed release oral tablet (5 sources) Platelet Aggregation Inhibitor, Nonsteroidal Anti-inflammatory Drug Start: 11-11-2024 take 1 tablet by mouth once daily aspirin 81 mg Oral EC Tab 81 mg = 1 tab(s), Oral, Daily, Refills(s) 0 Start Date: 11/11/24 Status: Ordered Repeat number: 1 aspirin (ASPIR) 81 MG EC tablet 1 (one) time each day at the same time. Active atorvastatin 40 mg oral tablet (8 sources) HMG-CoA Reductase Inhibitor Start: 01-18-2015 take 1 tablet by mouth once daily at bedtime atorvastatin 40 mg Tab 40 mg = 1 tab(s), Oral, Once a day (at bedtime), Refills(s) 0, High cholesterol Start Date: 01/18/15 Status: Ordered Repeat number: 1 biotin 1 mg oral tablet (5 sources) Start: 11-11-2024 take 1 tablet by mouth once daily biotin 1000 mcg oral tablet 1,000 mcg = 1 tab(s), Oral, Daily, Refills(s) 0 Start Date: 11/11/24 Status: Ordered Repeat number: 1 biotin 1 MG caps ule 1 (one) time each day at the same time. Active Blood Glucose Monitoring Sup pl (Accu-Chek Guide) w/Device kit (4 sources) Start: 02-17-2024 Blood Glucose Monitoring Suppl (Accu-Chek Guide) w/Device kit Indications: Type 1 diabetes mellitus without complication (HCC) 1 each See administration instructions 1 kit 02/17/2024 Active Start: 02-17-2024 Blood Glucose Monitoring Suppl (Accu-Chek Guide) w/Device kit Indications: Type 1 diabetes mellitus without complication (CMS/HCC) 1 each See administration instructions 1 kit 02/17/2024 Active clonazePAM 1 mg oral tablet (8 sources) Benzodiazepine Start: 01-18-2015 take 1.5 mg by mouth twice daily clonazepam 1 mg Tab 1.5 mg = 1.5 tab(s), Oral, BID, Refills(s) 0, Anxiety Start Date: 01/18/15 Status: Ordered Repeat number: 1 Start: 01-18-2015 take 0.5 mg by mouth twice daily clonazepam 1 mg Tab 0.5 mg = 0.5 tab(s), Oral, BID, Refills(s) 0, Anxiety Start Date: 01/18/15 Status: Ordered Continuous Blood Gluc Sensor (Dexcom G6 Sensor) misc (2 sources) Continuous Blood Gluc Sensor (Dexcom G6 Sensor) misc Active Continuous Glucose Sensor (Dexcom G7 Sensor) misc (2 sources) Start: 06-21-2024 Continuous Glucose Sensor (Dexcom G7 Sensor) misc Indications: Type 1 diabetes mellitus without complication ([facility]) Inject 1 Device under the skin See administration instructions Change every 10 days 9 each 3 06/21/2024 Active dicyclomine hydrochloride 10 mg oral capsule (3 sources) Anticholinergic Start: 01-18-2015 Bentyl 10 mg Cap 10 mg = 1 cap(s), Oral, As Directed, Refills(s) 0, Spasm Start Date: 01/18/15 Status: Ordered Elderberry preparation (5 sources) Start: 11-11-2024 elderberry Refill(s) 0 Start Date: 11/11/24 Status: Ordered Repeat number: 1 ELDERBERRY PO El derberry Active fenofibrate 160 mg oral tablet (4 sources) Peroxisome Proliferator Receptor alpha Agonist Start: 10-14-2023 take 1 tablet by mouth once daily fenofibrate (Triglide) 160 MG tablet TAKE 1 TABLET BY MOUTH EVERY DAY FOR 30 DAYS 10/14/2023 Active fexofenadine hydrochloride 60 mg oral tablet (5 sources) Histamine-1 Receptor Antagonist Start: 11-11-2024 take 1 tablet by mouth once daily as needed fexofenadine 60 mg Tab 60 mg = 1 tab(s), Oral, Daily, PRN Allergy symptoms, Refills(s) 0 Start Date: 11/11/24 Status: Ordered Repeat number: 1 fexofenadine (Al legra Allergy) 60 MG tablet prn Active hyoscyamine sulfate 0.125 mg oral tablet (7 sources) Start: 11-11-2024 take 1 tablet by mouth four times daily as needed Levsin 0.125 mg SL Tab 0.125 mg = 1 tab(s), Oral, QID, PRN abdominal cramping, Refills(s) 0 Start Date: 11/11/24 Status: Ordered Repeat number: 1 Start: 12-19-2023 Levsin See Ins tructions, as needed, Refills(s) 0 Start Date: 12/19/23 [...] insulin aspart, human 100 unt/ml injectable solution (10 sources) Insulin Analog Start: 10-25-19 insulin aspart (NovoLOG) 100 UNIT/ML injection Indications: Type 1 diabetes mellitus without complication (HCC) Per pump (max daily 150 units) 140 mL 3 10/24/2024 Active Start: 02-02-2024 End: 10-24-2024 inject 1 dose by subcutaneous injection once Insulin Aspart (NovoLOG) 100 UNIT/ML solution Indications: Type 1 diabetes mellitus without complication (HCC) INJECT 1 DOSE PER PUMP SUBCUTANEOUSLY SEE ADMINISTRATION INSTRUCTIONS, MAX 150 UNITS DAILY 140 mL 2 02/02/2024 10/24/2024 Discontinued Start: 01-19-2015 NovoLog See In structions, via pump, Refills(s) 0, Blood glucose Start Date: 01/19/15 Status: Ordered Repeat number: 1 Start: 01-19-2015 NovoLog See In structions, THIS IS DONE PER PUMP THAT IS ON THE RIGHT SIDE OF ABD., Refills(s) 0, Blood glucose Start Date: 01/19/15 Status: Ordered Insulin Infusion Pump (T:sli m Insulin Pump) device (8 sources) Start: 10-24-2024 Insulin Infusi on Pump (T:slim Insulin Pump) device Indications: Type 1 diabetes mellitus without complication (HCC) Basal: 12A 2.5, 4A 2.1, 8A 2.2, 11A 1.7, ICR: 12A 3, ISF: 50, target: 110 1 each 10/24/2024 Active Start: 06-18-2024 End: 10-24-2024 Insulin Infusion Pump (T:sli m Insulin Pump) device Indications: Type 1 diabetes mellitus without complication (HCC) Basal: 12A 2.4, 6A 2.1, 11A 1.85, ICR: 12A 3, ISF: 50, target: 110 1 each 06/18/2024 10/24/2024 Discontinued (Dose adjustment) Start: 02-17-2024 Insulin Infusi on Pump (T:slim [...] adjustment) levothyroxine sodium 0.15 mg oral tablet (14 sources) l-Thyroxine Start: 12-19-2023 take 1 tablet by mouth once daily levothyroxine 150 mcg (0.15 mg) Tab mcg tab(s), Oral, Daily, Refills(s) 0 Start Date: 12/19/23 Status: Ordered Start: 01-18-2015 take 1 tablet by jose roberto th once daily levothyroxine 125 mcg (0.125 mg) Tab 125 mcg = 1 tab(s), Oral, Daily, Refills(s) 0, Thyroid Start Date: 01/18/15 Status: Ordered Repeat number: 1 take 1 tablet by jose roberto th every other day levothyroxine (Synthroid, Levoxyl) 125 MCG tablet Take 125 mcg by mouth every other day. Active take 1 tablet by jose roberto th every other day levothyroxine (Synthroid, Levoxyl) 150 MCG tablet Take 150 mcg by mouth every other day. Active losartan potassium 100 mg oral tablet (8 sources) Angiotensin 2 Receptor Baron Start: 11-11-2024 take 1 tablet by mouth once daily losartan 100 mg Tab 100 mg = 1 tab(s), Oral, Daily, Refills(s) 0 Start Date: 11/11/24 Status: Ordered Repeat number: 1 Start: 01-18-2015 take 1 tablet by jose roberto th once daily losartan 50 mg Tab 50 mg = 1 tab(s), Oral, Daily, Refills(s) 0, High blood pressure Start Date: 01/18/15 Status: Ordered losartan (Cozaar ) 100 MG tablet 1 (one) time each day at the same time. Active magnesium gluconate 500 mg oral tablet (4 sources) magnesium 500 (2 7 Mg) MG tablet Magnesium Active methscopolamine bromide 5 mg oral tablet (3 sources) Anticholinergic Start: 015 take 1 tablet by mouth once daily methscopolamine 5 mg Tab 5 mg = 1 tab(s), Oral, Daily, Refills(s) 0, Control of stomach acid Start Date: 01/18/15 Status: Ordered 24 hr metoprolol succinate 50 mg extended release oral tablet (3 sources) beta-Adrenergic Baron Start: 025 take 1 tablet by mouth once daily metoprolol succinate 50 mg ER Tab 50 mg = 1 tab(s), Oral, Daily, Refills(s) 0 Start Date: 11/11/24 Status: Ordered Repeat number: 1 Start: 03-31-2024 take 1 tablet by jose roberto th once daily metoprolol succinate XL (Toprol-XL) 50 MG 24 hr tablet Take 50 mg by mouth Daily 03/31/2024 Active Multiple Vitamins-Minerals (AIRBORNE PO) (4 sources) Multiple Vitamins-Minerals (AIRBORNE PO) Airborne Active Multiple Vitamins-Minerals (Vitamin D3 Complete) tablet (4 sources) Multiple Vitamins-Minerals (Vitamin D3 Complete) tablet Take by mouth Active Multivitamin preparation (1 source) Start: 11-12-19 25 take 1 tablet by mouth once daily multivitamin 1 tab(s), Oral, Daily, Refill(s) 0 Start Date: 11/11/24 Status: Ordered Repeat number: 1 nadolol 40 mg oral tablet (5 sources) beta-Adrenergic Baron Start: 01-19-20 15 take 1 tablet by mouth once daily nadolol 40 mg Tab 40 mg = 1 tab(s), Oral, Daily, Refills(s) 0, High blood pressure Start Date: 01/18/15 Status: Ordered nadolol (Corgard ) 40 MG tablet every 12 (twelve) hours. Active pantoprazole 40 mg extended release oral tablet (8 sources) Proton Pump Inhibitor Start: 01-18-2015 take 1 tablet by mouth once daily Protonix 40 mg tablet 40 mg, Oral, Daily, Refills(s) 0, Control of stomach acid Start Date: 01/18/15 Status: Ordered Repeat number: 1 pantoprazole (Pr otoNix) 40 MG EC tablet 40 mg in the morning. Take before meals. Active Probiotic Formula (4 sources) Start: 01-18-2015 take 1 capsule by mouth once daily Probiotic Formula 1 cap(s), Oral, Daily, Refill(s) 0, Prophylaxis Start Date: 01/18/15 Status: Ordered Repeat number: 1 Start: 01-18-2015 take 1 capsule by [facility] once daily Probiotic Formula 1 cap(s), Oral, Daily, Refill(s) 0, Prophylaxis Start Date: 01/18/15 Status: Ordered Probiotic Product (PROBIOTIC & ACIDOPHILUS EX ST PO) (4 sources) Probiotic Produc t (PROBIOTIC & ACIDOPHILUS EX ST PO) every 12 (twelve) hours. Active Ozempic (3 sources) Start: 12-19-2023 inject 0.25 mg by subcutaneous injection every week Ozempic 0.25 mg, SubCutaneous, qWeek, Refill(s) 0, Other (see comment) Start Date: 12/19/23 Status: Ordered Repeat number: 1 Start: 12-19-2023 inject 0.25 mg by guzman bcutaneous injection every week Ozempic 0.25 mg, SubCutaneous, qWeek, Refill(s) 0, Other (see comment) Start Date: 12/19/23 Status: Ordered Start: 12-19-2023 Ozempic SubCut aneous, qWeek, Refill(s) 0 Start Date: 12/19/23 Status: Ordered Semaglutide,0.25 or 0.5MG/DO S, (Ozempic, 0.25 or 0.5 MG/DOSE,) 2 MG/3ML solution pen-injector (6 sources) Start: 02-17-2024 Semaglutide,0. 25 or 0.5MG/DOS, (Ozempic, 0.25 or 0.5 MG/DOSE,) 2 MG/3ML solution pen-injector Indications: Type 2 diabetes mellitus without complication, with long-term current use of insulin (HCC) Inject 0.5 mg under the skin every 7 (seven) days 6 mL 3 02/17/2024 Active Start: 02-17-2024 Semaglutide,0. 25 or 0.5MG/DOS, (Ozempic, [...] (seven) days. 12/22/2022 02/17/2024 Discontinued (Dose adjustment) tiZANidine 4 mg oral tablet (3 sources) Central alpha-2 Adrenergic Agonist Start: 11-11-2024 take 2 tablets by mouth at bedtime tiZANidine 4 mg Tab 8 mg = 2 tab(s), Oral, Bedtime, Refills(s) 0 Start Date: 11/11/24 Status: Ordered Repeat number: 1 Start: 10-18-2024 tiZANidine (Za naflex) 4 MG tablet Take 2 tablets by mouth as needed at bedtime 10/18/2024 Active Vitamin D (1 source) Start: 11-11-2024 Vitamin D Refi lls(s) 0 Start Date: 11/11/24 Status: Ordered Repeat number: 1 Completed/Discontinued Medications Medication Drug Class(es) Dates Sig (Normalized) Sig (Original) Calcium Carbonate / Vitamin D (4 sources) End: 10-22-2024 Calcium Carbonate-Vitamin D (CALCIUM PLUS VITAMIN D PO) Take by mouth. 10/22/2024 Discontinued (Therapy completed) Calcium Carbonat e-Vitamin D (CALCIUM PLUS VITAMIN D PO) Take by mouth. Active cholestyramine resin 4000 mg powder for oral suspension (6 sources) Bile Acid Sequestrant Start: 12-19-2023 End: 10-22-2024 take 1 dose by mouth once daily cholestyramine (Questran) 4 g packet Take 1 packet by mouth Daily 12/19/2023 10/22/2024 Discontinued (Therapy completed) Start: 12-19-2023 Questran 4 g/9 g oral powder = 1 packet(s), Oral, Daily, # 90 EA, Refills(s) 5, Pharmacy: [facility]/pharmacy #[id number], 159, cm, 12/19/23 10:06:00 EDT, Height/Length Dosing, 89, kg, 12/19/23 10:06:00 EDT, Weight Dosing Start Date: 12/19/23 Status: Ordered Problems Active Problems Problem Classification Problem Date Documented Da te Episodic/Chronic Abdominal pain (1 source) Abdominal pain; Translations: [Unspecified abdominal pain] Onset: 4 Episodic Anxiety disorders (9 sources) Anxiety disorder; Translations: [Anxiety disorder, unspecified] Onset: 6 09-13-2022 Chronic Cardiac dysrhythmias (2 sources) Atrial fibrillation; Translations: [Paroxysmal supraventricular tachycardia] 11-11-2024 Chronic Cardiac dysrhythmias (1 source) Bradycardia 11-11-2024 Episodic Cataract (4 sources) Bilateral age-related nuclear cataracts; Translations: [Age-related nuclear cataract, bilateral] Onset: 4 05-07-2023 Chronic Deficiency and other anemia (1 source) Anemia, unspecified; Translations: [ANEMIA UNSPECIFIED] Onset: 3 Episodic Diabetes mellitus without complication (19 sources) Type 2 diabetes mellitus without complications; Translations: [Type 1 diabetes mellitus] Onset: 6 Resolved: 5 02-16-2024 Chronic Disorders of lipid metabolism (6 sources) Hyperlipidemia; Translations: [Hyperlipidemia, unspecified] Onset: 6 09-13-2022 Chronic Esophageal disorders (1 source) Gastroesophageal reflux disease 11-11-2024 Chronic Essential hypertension (5 sources) Hypertensive disorder; Translations: [Essential (primary) hypertension] Onset: 6 09-13-2022 Chronic Gastrointestinal hemorrhage (3 sources) Hemorrhage of rectum and anus; Translations: [Hemorrhage of anus and rectum] Onset: 4 Episodic Malaise and fatigue (1 source) Other fatigue; Translations: [OTHER FATIGUE] Onset: 3 Episodic Nutritional deficiencies (1 source) Vitamin D deficiency 11-11-2024 Chronic Other aftercare (1 source) Other alf (current) drug therapy; Translations: [OTH REDEVELOPMENT SPECIALIST CURRENT DRUG THERAPY] Onset: 3 Episodic Other connective tissue disease (4 sources) Pain in right foot; Translations: [PAIN IN RIGHT FOOT] Onset: 3 Episodic Other gastrointestinal disorders (4 sources) Irritable bowel syndrome with diarrhea; Translations: [Irritable bowel syndrome with diarrhea] Onset: 4 Chronic Other gastrointestinal disorders (1 source) Abnormal feces; Translations: [Other fecal abnormalities] Onset: 4 Episodic Other gastrointestinal disorders (2 sources) Loose stool 12-19-2023 Episodic Other injuries and conditions due to external causes (1 source) Unspecified injury of right ankle, subsequent encounter; Translations: [UNSPECIFIED INJURY RT ANKLE SUBSQT] Onset: 3 Episodic Other nervous system disorders (4 sources) Mononeuropathy of lower limb; Translations: [Unspecified mononeuropathy of right lower limb] Onset: 3 08-16-2022 Chronic Other non-traumatic joint disorders (4 sources) Pain in right ankle and joints of right foot; Translations: [PAIN IN RIGHT ANKLE] Onset: 3 Episodic Other nutritional; endocrine; and metabolic disorders (4 sources) Severe obesity; Translations: [Class 2 severe obesity due to excess calories with serious comorbidity and body mass index (BMI) of 35.0 to 35.9 in adult] Onset: 3 03-21-2023 Chronic Other nutritional; endocrine; and metabolic disorders (1 source) Body mass index 30+ - obesity 12-07-2024 Chronic Other nutritional; endocrine; and metabolic disorders (1 source) Obesity caused by energy imbalance 11-11-2024 Chronic Other screening for suspected conditions (not mental disorders or infectious disease) (3 sources) Encounter for screening for malignant neoplasm of colon; Translations: [Screening for malignant neoplasm of colon done] Onset: 3 Episodic Residual codes; unclassified (4 sources) Obstructive sleep apnea (adult) (pediatric); Translations: [OBSTRUCTIVE SLEEP APNEA] Onset: 2 Chronic Residual codes; unclassified (1 source) Sleep apnea 11-11-2024 Chronic Residual codes; unclassified (1 source) Acquired absence of organ; Translations: [Acquired absence of other specified parts of digestive tract] Onset: 4 Episodic Unclassified (1 source) Patient encounter status 12-07-2024 Past or Other Problems Problem Classification Problem Date Documented Da te Episodic/Chronic Conditions associated with dizziness or vertigo (4 sources) Dizziness; Translations: [Dizziness and giddiness] Onset: [...] Onset: 03-17-2022 Episodic Other aftercare (1 source) nursing home (current) use of aspirin; Translations: [PENITENTIARY CURRENT USE OF ASPIRIN] Onset: 03-17-2022 Episodic Other aftercare (1 source) nursing home (current) use of insulin; Translations: [PENITENTIARY CURRENT USE OF INSULIN] Onset: 03-17-2022 Episodic Results Test Name Value Interpretation Reference Range Facility Ambulatory Visit Summaryon 0 12-07-2024 Ambulatory Visit Summary Ambulatory Visit Summary [facility] M :1965 Visit Date:12/07/2024 Ambulatory Visit Instructions Your Care Team Attending Physician - BETO YARBROUGH, Dony Daily Primary Care Physician - Uma Gauthier MD This Is Your Medications List Contact prescribing physician if questions or concerns aspirin (aspirin 81 mg Oral EC Tab) atorvastatin (atorvastatin 40 mg Tab) bifidobacterium-lactobacillu s (Probiotic Formula) biotin (biotin 1000 mcg oral tablet) clonazepam (clonazepam 1 mg Tab) elderberry ergocalciferol (Vitamin D) fexofenadine (fexofenadine 60 mg Tab) hyoscyamine (Levsin 0.125 mg SL Tab) insulin aspart (NovoLog) levothyroxine (levothyroxine 125 mcg (0.125 mg) Tab) losartan (losartan 100 mg Tab) metoprolol (metoprolol succinate 50 mg ER Tab) multivitamin pantoprazole (Protonix 40 mg tablet) semaglutide (Ozempic) tizanidine (tiZANidine 4 mg Tab) Procedures Performed Cataract (05/15/2023), EGD - esophagogastroduodenoscopy (01/2015), Colonoscopy (10/2012), Abdominal hysterectomy, Appendectomy, Breast biopsy sample, Breast reduction, Cervical discectomy, Cervical spinal fusion, section, section, Cholecystectomy, Colonoscopy, Repair of right inguinal hernia, Rotator cuff repair, Trigger finger. Discharge Vitals Heart Rate (Peripheral) 72 Respiratory Rate 16 Blood Pressure 138/82 Height 160 cm Height 63 in Weight 89.3 kg Weight 196.873 lb BMI 34.88 Medications What How Much When Instructions Unchanged aspirin (aspirin 81 mg Oral EC Tab) 1 Tablets By Mouth Every day Contact prescribing physician if questions or concerns Unchanged atorvastatin (atorvastatin 40 mg Tab) 1 Tablets By Mouth Once a day (at bedtime) Contact prescribing physician if questions or concerns Unchanged bifidobacterium-lactobacillu s (Probiotic Formula) 1 Capsules By Mouth Every day Contact prescribing physician if questions or concerns Unchanged biotin (biotin 1000 mcg oral tablet) 1 Tablets By Mouth Every day Contact prescribing physician if questions or concerns Unchanged clonazepam (clonazepam 1 mg Tab) 1.5 Tablets By Mouth 2 times a day Contact prescribing physician if questions or concerns Unchanged elderberry Contact prescribing physician if questions or concerns Unchanged ergocalciferol (Vitamin D) Contact prescribing physician if questions or concerns Unchanged fexofenadine (fexofenadine 60 mg Tab) 1 Tablets By Mouth Every day as needed for Allergy symptoms Contact prescribing physician if questions or concerns Unchanged hyoscyamine (Levsin 0.125 mg SL Tab) 1 Tablets By Mouth 4 times a day as needed for abdominal cramping Contact prescribing physician if questions or concerns Unchanged insulin aspart (NovoLog) See instructions via pump Contact prescribing physician if questions or concerns Unchanged levothyroxine (levothyroxine 125 mcg (0.125 mg) Tab) 1 Tablets By Mouth Every day Contact prescribing physician if questions or concerns Unchanged losartan (losartan 100 mg Tab) 1 Tablets By Mouth Every day Contact prescribing physician if questions or concerns Unchanged metoprolol (metoprolol succinate 50 mg ER Tab) 1 Tablets By Mouth Every day Contact prescribing physician if questions or concerns Unchanged multivitamin 1 Tablets By Mouth Every day Contact prescribing physician if questions or concerns Unchanged pantoprazole (Protonix 40 mg tablet) 40 Milligram By Mouth Every day Contact prescribing physician if questions or concerns Unchanged semaglutide (Ozempic) 0.25 Milligram Subcutaneous Every week Contact prescribing physician if questions or concerns Unchanged tizanidine (tiZANidine 4 mg Tab) 2 Tablets By Mouth At bedtime Contact prescribing physician if questions or concerns Allergies Adhesive Bandage (Rash) Bactrim (Gastrointestinal upset) Levaquin (Gastrointestinal upset) Pravachol (Myalgia) Radiographic iodinated contrast medium (Hives) Talwin (Hallucinosis) Problems Ongoing - Any problem that you are currently receiving treatment for. Anxiety disorder Atrial fibrillation BMI 34.0-34.9,adult Bradycardia Diabetes GERD (gastroesophageal reflux disease) Hypercholesterolemia Hyperlipidemia Hypertension Irritable bowel syndrome with diarrhea Obesity due to excess calories PSVT (paroxysmal supraventricular tachycardia) Sleep apnea Vitamin D deficiency Historical - Any problem that you are no longer receiving treatment for. Diabetes mellitus Patient Survey You may receive a survey via text or e-mail asking about your office visit. Please share your experience with us by completing your survey. We appreciate your feedback and thank you for choosing us for your care. Patient Portal You may access all of your results and other medical record information on our secure patient portal. If you are not signed up for this yet, please contact [employer] at [phone] to get signed up t (more content not included)... Normal [facility] HbA1c (Bld) [Mass fraction]o n 10-22-2024 Interpretation and review of laboratory results Normal [facility] - Hematology and Cell countson 10-22-2024 HbA1c (Bld) [Mass fraction] 7 % [facility] HbA1c (Bld) [Mass fraction]o n 02-17-2024 Interpretation and review of laboratory results Normal [facility] - Hematology and Cell countson 02-17-2024 HbA1c (Bld) [Mass fraction] 7 % [facility] Ambulatory Visit Summaryon 0 12-19-2023 Ambulatory Visit Summary Ambulatory Visit Summary ROSIO SIU :1965 Visit Date:12/19/2023 Ambulatory Visit Instructions Your Diagnosis Screening for colon cancer Abdominal cramps Hx of cholecystectomy Loose stools Irritable bowel syndrome with diarrhea Rectal bleeding Your Care Team Attending Physician - Mily YARBROUGH, Shonna Salazar Primary Care Physician - Uma Gauthier MD This Is Your Medications List cholestyramine (Questran 4 g/9 g oral powder) Contact prescribing physician if questions or concerns atorvastatin (atorvastatin 40 mg Tab) bifidobacterium-lactobacillu s (Probiotic Formula) clonazepam (clonazepam 1 mg Tab) [...] cholecystectomy Loose stools Refills: 5 Pickup at [facility]/pharmacy #[id number] Unchanged atorvastatin (atorvastatin 40 mg Tab) 1 Tablets By Mouth Once a day (at bedtime) Contact prescribing physician if questions or concerns Unchanged bifidobacterium-lactobacillu s (Probiotic Formula) 1 Capsules By Mouth Every [...] physician if questions or concerns Pharmacy Information [facility]/pharmacy #[id number]: [address], [place] [id number] [phone] Allergies Bactrim Radiographic iodinated contrast medium Problems [...] for choosing us for your care. Normal [facility] Gastroenterology Office/Clin ic Noteon 12-19-2023 Gastroenterology Office/Clinic [...] Daily, # 90 EA, Refills(s) 5, Pharmacy: [id number], 159, cm, 12/19/23 10:06:00 EDT, Height/Length Dosing, 89, kg, 12/19/23 10:06:00 EDT, Weight Dosing Colonoscopy (Hospital Procedure) 2. Abdominal cramps (R10.9: Unspecified abdominal pain) Ordered: cholestyramine, = 1 packet(s), Oral, Daily, # 90 EA, Refills(s) 5, Pharmacy: [facility]/pharmacy #[id number], 159, cm, 12/19/23 10:06:00 EDT, Height/Length Dosing, 89, kg, 12/19/23 10:06:00 EDT, Weight Dosing Colonoscopy (Hospital Procedure) 3. Hx of cholecystectomy (Z90.49: Acquired absence of other specified parts of digestive tract) Ordered: cholestyramine, = 1 packet(s), Oral, Daily, # 90 EA, Refills(s) 5, [id number], 159, cm, 12/19/23 10:06:00 EDT, Height/Length Dosing, 89, kg, 12/19/23 10:06:00 EDT, Weight Dosing Colonoscopy (Hospital Procedure) 4. Loose stools (R19.5: Other fecal abnormalities) Ordered: cholestyramine, = 1 packet(s), Oral, Daily, # 90 EA, Refills(s) 5, [id number], 159, cm, 12/19/23 10:06:00 EDT, Height/Length [...] Formula, 1 (more content not included)... Normal [facility] Comment on above: Result Comment: Elec tronically Signed By: Mily YARBROUGH, Shonna Salazar\.br\Date and Time Signed: 12/19/23 10:26 EDT Felipe 12-11-2023 L Specimen: [id number] R eceived: 12/12/23 Status: SOUT Req Num: [id number] Spec Type: Surgical Subm Dr: Uma Gauthier MD Tissues: A Skin-Other than Cyst, tag, debridement or plastic repair (LEFT SHOULDER) Procedures: HE, Gross/Micro L4 Age/ Patient Sex Location Account Attending Physician Rosio Siu 25/F [place] [id number] Uma Gauthier MD SPEC NUM: [id number] RECD: 12/12/23 STATUS: SOUT REQ NUM: [id number] [place]: 12/11/[address]: Uma Gauthier MD ENTERED: 12/12/[address] [address]: Mya Brooks SPEC TYPE: Surgical [...] performed supporting the above interpretation -------- Specimen: [id number] Received: 12/12/23 Status: DAVID Walker Num: [id number] Spec Type: Surgical Subm Dr: Uma Gauthier MD Tissues: A Skin-Other than Cyst, tag, debridement or plastic repair (LEFT SHOULDER) Procedures: Naseem CHAVEZ/Bob L4 -------- Patient: Siu,Rosio [id number] (Continued) -------- Specimen: [id number] Received: 12/12/23 (Continued) Signed (signature on file) Jessica Do MD 12/19/23 1045 -------- Specimen: [id number] Received: 12/12/23 Status: DAVID Walker Num: [id number] Spec Type: Surgical Subm Dr: Uma Gauthier MD Tissues: A Skin-Other than Cyst, tag, debridement or plastic repair (LEFT SHOULDER) Procedures: SCOTT, Gross/Micro L4 -------- Patient: Rosio Siu [id number] (Continued) -------- Specimen: [id number] Received: 12/12/23 (Continued) CPT Codes 93767 -------- -------- Specimen: [id number] Received: 12/12/23 Status: DAVID Walker Num: [id number] Spec Type: Surgical Subm Dr: Uma Gauthier MD Tissues: A Skin-Other than Cyst, tag, debridement or plastic repair (LEFT SHOULDER) Procedures: Naseem CHAVEZ/Bob L4 -------- Patient: Rosio Siu [id number] (Continued) -------- Signed (signature on file) Jakob-Charanjit Do MD 12/19/23 1045 Normal [facility] CBC AUTO DIFFon 08-23-2022 BASO # 0.1 103/ul Normal 0.0-0.1 [facility] Comment on above: Performed By: #### C BC ####[facility] [address] [place] [id number] Do Basophils/100 WBC (Bld) 0.9 % Normal 0.2-2.0 [facility] Comment on above: Performed By: #### C BC ####[facility] [address] [place], [place] [address]ZvChastity Do EO # 0.2 103/ul Normal 0.0-0.7 [facility] Comment on above: Performed By: #### C BC ####[facility] [address] [place] [address]DrChastity Do Eosinophils/100 WBC (Bld) 3.1 % Normal 0.9-7.0 [facility] Comment on above: Performed By: #### C BC ####[facility] [address] [place] [address]Dr. Anton Do Erythrocyte distribution width (RBC) [Ratio] 14.2 % Normal 11.0-15.0 [facility] Comment on above: Performed By: #### C BC ####[facility] Rdc[address] [place], [place] [address]Dr. Anton Do Hematocrit (Bld) [Volume fraction] 42.3 % Normal 36.0-48.0 [facility] Comment on above: Performed By: #### C BC ####[facility] Vpm[address] [place], [place] [address]Dr. Anton Do Hemoglobin (Bld) [Mass/Vol] 13.8 g/dL Normal 12.0-16.0 [facility] Comment on above: Performed By: #### C BC ####[facility] F[address] [place], [place] [address]Dr. Anton Do IG # 0.01 10e3/ul Normal 0.00-0.03 [facility] Comment on above: Performed By: #### C BC ####[facility] Z[address] [place], [place] [address]Dr. Anton Do IG % 0.2 % Normal 0.0-0.5 [facility] Comment on above: Performed By: #### C BC ####[facility] Im[address] [place], [place] [address]Dr. Anton Do LYMPH # 1.6 103/ul Normal 1.2-3.8 [facility] Comment on above: Performed By: #### C BC ####[facility] T[address] [place], [place] [address]Dr. Anton Do Lymphocytes/100 WBC (Bld) 27.6 % Normal 20.5-60.0 [facility] Comment on above: Performed By: #### C BC ####[facility] N[address]vr[address] [place], [place] [address]Dr. Anton Do MANUAL DIFF REQ NO Normal [facility] Comment on above: Performed By: #### C BC ####[facility] [address] [place] [address]Dr. Anton Hi MCH (RBC) [Entitic mass] 27.5 pg Normal 26.7-34.0 [facility] Comment on above: Performed By: #### C BC ####[facility] [address] [place] [address]Dr. Anton Do MCHC (RBC) [Mass/Vol] 32.6 g/dL Normal 29.9-35.2 [facility] Comment on above: Performed By: #### C BC ####[facility] [address] [place] [address]Dr. Anton Do MCV (RBC) [Entitic vol] 84.4 fL Normal 81.0-99.0 [facility] Comment on above: Performed By: #### C BC ####[facility] [address] [place], [place] [address]Dr. Anton Do MONO # 0.7 103/ul Normal 0.3-0.8 [facility] Comment on above: Performed By: #### C BC ####[facility] G[address] [place], [place] [address]Dr. Anton Do Monocytes/100 WBC (Bld) 11.7 % Normal 1.7-12.0 [facility] Comment on above: Performed By: #### C BC ####[facility] J[address] [place], [place] [address]Dr. Anton Do NEUT # 3.3 103/ul Normal 1.4-6.5 [facility] Comment on above: Performed By: #### C BC ####[facility] B[address] [place], [place] [address]DrChastity Do Neutrophils/100 WBC (Bld) 56.5 % Normal 43.0-75.0 [facility] Comment on above: Performed By: #### C BC ####[facility] [address] [place], [place] [address]DrChastity Do Platelet mean volume (Bld) [Entitic vol] 10.2 fL Normal 9.5-13.5 [facility] Comment on above: Performed By: #### C BC ####[facility] [address] [place], [place] [address]Ei. Anton Do PLT 231 103/ul Normal 150-450 [facility] Comment on above: Performed By: #### C BC ####[facility] [address] [place], [place] [address]Au. Anton Do RBC 5.01 106/ul Normal 4.20-5.40 [facility] Comment on above: Performed By: #### C BC ####[facility] [address] [place], [place] [address]Pd. Anton Do WBC 5.8 103/ul Normal 4.0-11.0 [facility] Comment on above: Performed By: #### C BC ####[facility] [address] [place], [place] [address]NmDr. Anton Do FREE THYROXINE INDEX T7on FTI 4.45 Normal 1.30-4.50 [facility] Comment on above: Performed By: #### C MP, LIPID, T7, TSH #### [facility] [address] [place] [address] [address] Anton Do T3U 32.0 % Normal 30.0-39.0 [facility] Comment on above: Performed By: #### C MP, LIPID, T7, TSH #### [facility] [address] [address] [address] Anton Do T4 [Mass/Vol] 13.90 ug/dL Normal 4.80-13.90 [facility] Comment on above: Performed By: #### C MP, LIPID, T7, TSH #### [facility] [address] [address] [address] Anton Do GLYCOHEMOGLOBIN A1Con 2022 ADA RECOMMENDATION SEE BELOW Normal [facility] Comment on above: Result Comment: ADA RECOMMENDED LIMIT 4.0 - 6.0 ADA THERAPEUTIC TARGET < 7.0 ACTION SUGGESTED > 7.0 Performed By: #### A 1C #### [facility] [address] [address] [address] Anton Do Glucose [Mass/Vol] 160 mg/dL Normal [facility] Comment on above: Performed By: #### A 1C #### [facility] [address] [address] [address] Anton Do HbA1c (Bld) [Mass fraction] 7.2 % Critically high 4.5-6.2 [facility] Comment on above: Performed By: #### A 1C #### [facility] [address] [address] [address] Anton Do IRONon 08-23-2022 Iron [Mass/Vol] 71.0 ug/dL Normal 50.0-170.0 [facility] Comment on above: Performed By: #### I GARCÍA SEGAL ####[facility] [address] [place] [address]Dr. Anton Do LIPID PROFILEon 08-23-2022 CHOL-HDL RATIO NORM SEE BELOW Normal [facility] Comment on above: Result Comment: 3.3 - 4.4 LOW RISK 4.4 - 7.1 AVERAGE RISK 7.1 - 11.0 MODERATE RISK >11.0 HIGH RISK Performed By: #### C MP, LIPID, T7, TSH #### [facility] [address] [address] [address] Anton Do Cholesterol [Mass/Vol] 168 mg/dL Normal <=200 [facility] Comment on above: Performed By: #### C MP, LIPID, T7, TSH #### [facility] [address] [address] [address] Anton Do Cholesterol in HDL [Mass/Vol] 46 mg/dL Normal 40-60 [facility] Comment on above: Performed By: #### C MP, LIPID, T7, TSH #### [facility] [address] [address] [address] Anton Do Cholesterol in LDL [Mass/Vol] 91.6 mg/dL Normal [facility] Comment on above: Performed By: #### C MP, LIPID, T7, TSH #### [facility] [address] [address] [address] Anton Do Cholesterol.total/ Cholesterol in HDL [Mass ratio] 3.7 {ratio} Normal [facility] Comment on above: Performed By: #### C MP, LIPID, T7, TSH #### [facility] [address] [address] [address] Anton Do HDL NORMAL > or = 60 mg/dl - LO W CARDIOVASCULAR RISK <40 mg/dl - HIGH CARDIOVASCULAR RISK Normal [facility] Comment on above: Performed By: #### C MP, LIPID, T7, TSH #### [facility] [address] [address] [address] Anton Do LDL CALC NORMAL SEE BELOW Normal [facility] Comment on above: Result Comment: <100 mg/dl OPTIMAL 100 - 129 mg/dl NEAR OR ABOVE OPTIMAL 130 - 159 mg/dl BORDERLINE HIGH 160 - 189 mg/dl HIGH >190 mg/dl VERY HIGH Performed By: #### C MP, LIPID, T7, TSH #### [facility] [address] [address] [address] Anton Do Triglyceride [Mass/Vol] 152 mg/dL Critically high <=150 [facility] Comment on above: Performed By: #### C MP, LIPID, T7, TSH #### [facility] [address] [address] [address] Anton Do VLDL CALC 30.4 mg/dL Normal [facility] Comment on above: Performed By: #### C MP, LIPID, T7, TSH #### [facility] [address] [place] [address] Dr. Anton Do PROF 14(COMP METB)on 023 Albumin [Mass/Vol] 3.4 g/dL Normal 3.4-5.0 [facility] Comment on above: Performed By: #### C MP, LIPID, T7, TSH #### [facility] [address] [place] [address] Dr. Anton Do Albumin/Globulin [Mass ratio] 0.8 {ratio} Normal [facility] Comment on above: Performed By: #### C MP, LIPID, T7, TSH #### [facility] [address] [address] [address] Anton Do ALP [Catalytic activity/Vol] 85 U/L Normal 46-116 [facility] Comment on above: Performed By: #### C MP, LIPID, T7, TSH #### [facility] [address] [place] [address] Dr. Anton Do ALT [Catalytic activity/Vol] 76 U/L Critically high 14-59 [facility] Comment on above: Performed By: #### C MP, LIPID, T7, TSH #### [facility] [address] [place] [address] Dr. Anton Do Anion gap [Moles/Vol] 9.4 mmol/L Normal [facility] Comment on above: Performed By: #### C MP, LIPID, T7, TSH #### [facility] [address] [place] [address] Dr. Anton Do AST [Catalytic activity/Vol] 30 U/L Normal 15-37 [facility] Comment on above: Performed By: #### C MP, LIPID, T7, TSH #### [facility] [address] [place] [address] Dr. Anton Do Bilirubin [Mass/Vol] 0.6 mg/dL Normal 0.2-1.0 [facility] Comment on above: Performed By: #### C MP, LIPID, T7, TSH #### [facility] [address] [place] [address] Dr. Anton Do Calcium [Mass/Vol] 9.1 mg/dL Normal 8.5-10.1 [facility] Comment on above: Performed By: #### C MP, LIPID, T7, TSH #### [facility] [address] [place] [address] Dr. Anton Do Chloride [Moles/Vol] 108 mmol/L Critically high 98-107 [facility] Comment on above: Performed By: #### C MP, LIPID, T7, TSH #### [facility] [address] [place] [address] Dr. Anton Do CO2 [Moles/Vol] 28.1 mmol/L Normal 21.0-32.0 [facility] Comment on above: Performed By: #### C MP, LIPID, T7, TSH #### [facility] [address] [place] [address] Dr. Anton Do Creatinine [Mass/Vol] 1.49 mg/dL Critically high 0.55-1.02 [facility] Comment on above: Performed By: #### C MP, LIPID, T7, TSH #### [facility] [address] [place] [address] Dr. Anton Do EGFR-AF GAMBIAN 44 mL/min/1.73m2 Critically low >=60 [facility] Comment on above: Performed By: #### C MP, LIPID, T7, TSH #### [facility] [address] [place] [address] Dr. Anton Do EGFR-NON AF GAMBIAN 36 mL/min/1.73m2 Critically low >=60 [facility] Comment on above: Performed By: #### C MP, LIPID, T7, TSH #### [facility] [address] [place] [address] Dr. Anton Do Globulin (S) [Mass/Vol] 4.4 g/dL Normal [facility] Comment on above: Performed By: #### C MP, LIPID, T7, TSH #### [facility] [address] [place] [address] Dr. Anton Do Glucose [Mass/Vol] 253 mg/dL Critically high 74-106 T [facility] Comment on above: Performed By: #### C MP, LIPID, T7, TSH #### [facility] [address] [place] [address] Dr. Anton Do Potassium [Moles/Vol] 4.7 mmol/L Normal 3.5-5.1 [facility] Comment on above: Performed By: #### C MP, LIPID, T7, TSH #### [facility] [address] [place] [address] Dr. Anton Do Protein [Mass/Vol] 7.8 g/dL Normal 6.4-8.2 [facility] Comment on above: Performed By: #### C MP, LIPID, T7, TSH #### [facility] [address] [address] [address] Anton Do Sodium [Moles/Vol] 143 mmol/L Normal 136-145 [facility] Comment on above: Performed By: #### C MP, LIPID, T7, TSH #### [facility] [address] [address] [address] Anton Do Urea nitrogen [Mass/Vol] 26.0 mg/dL Critically high 7.0-18.0 [facility] Comment on above: Performed By: #### C MP, LIPID, T7, TSH #### [facility] [address] [address] [address] Anton Do Urea nitrogen/Creatinin e [Mass ratio] 17.5 mg/mg Normal [facility] Comment on above: Performed By: #### C MP, LIPID, T7, TSH #### [facility] [address] [address] [address] Anton Do TSHon 08-23-2022 TSH 0.059 uIU/mL Critically low 0.358-3.740 [facility] Comment on above: Performed By: #### C MP, LIPID, T7, TSH #### [facility] [address] [address] [address] Anton Do VITAMIN D 25 OHon 08-23-2022 VIT D 25-OH 45.9 ng/mL Normal [facility] Comment on above: Performed By: #### I LUZMA VITED ####[facility] [address] [place] [address]Dr. Anton Do VIT D RANGES SEE BELOW Normal [facility] Comment on above: Result Comment: <20 ng/mL Vit D deficient 20 - <30 ng/mL Vit D insufficient 30 - 100 ng/mL Vit D sufficient >100 ng/mL Potential Toxicity Performed By: #### I LUZMA VITAD ####[facility] [address] [place] [address]Dr. Anton Do XR ANKLE RT MIN 3 VIEWSon [...] by: JAMEY AZUL Date: 2022-03-13 16:24 Normal [facility] Vital Signs Date Time Vital Sign Value Performing Clinician Facility 10-22-2024 10:36-0400 Body height 161.3 cm Isidra Petznick DO Work Phone: [facility] 10-22-2024 10:36-0400 Body mass index (BMI) [Ratio] 33.65 kg/m2 Isidra Petznick DO Work Phone: [facility] 10-22-2024 10:36-0400 Body temperature 98.2 [degF] Isidra Petznick DO Work Phone: [facility] 10-22-2024 10:36-0400 Body weight 87.54 kg Isidra Petznick DO Work Phone: [facility] 10-22-2024 10:36-0400 Diastolic blood pressure 74 mm[Hg] Isidra Petznick DO Work Phone: [facility] 10-22-2024 10:36-0400 Heart rate 71 /min Isidra Petznick DO Work Phone: [facility] 10-22-2024 10:36-0400 SaO2% (BldA) [Mass fraction] 95 % Isidra Petznick DO Work Phone: [facility] 10-22-2024 10:36-0400 Systolic blood pressure 126 mm[Hg] Isidra Petznick DO Work Phone: [facility] 02-17-2024 14:46-0500 Body height 161.3 cm Isidra Petznick DO Work Phone: [facility] 02-17-2024 14:46-0500 Body mass index (BMI) [Ratio] 34 kg/m2 Isidra Petznick DO Work Phone: [facility] 02-17-2024 14:46-0500 Body temperature 97.9 [degF] Isidra Petznick DO Work Phone: [facility] 02-17-2024 14:46-0500 Body weight 88.45 kg Isidra Petznick DO Work Phone: [facility] 02-17-2024 14:46-0500 Diastolic blood pressure 84 mm[Hg] Isidra Petznick DO Work Phone: [facility] 02-17-2024 14:46-0500 Heart rate 64 /min Isidra Petznick DO Work Phone: [facility] 02-17-2024 14:46-0500 SaO2% (BldA) [Mass fraction] 96 % Isidra Petznick DO Work Phone: [facility] 02-17-2024 14:46-0500 Systolic blood pressure 122 mm[Hg] Isidra Petznick DO Work Phone: [facility] 12-19-2023 10:00-0400 Blood Pressure Location WISHIkarina [employer] [facility] 12-19-2023 10:00-0400 Diastolic blood pressure 83 mm[Hg] WISHId [facility] 12-19-2023 10:00-0400 Heart rate 78 /min WISHIkarina Napkin Labseduardo [facility] 12-19-2023 10:00-0400 Respiratory rate 16 /min MohREPPkarina Napkin Labsdoeli [facility] 12-19-2023 10:00-0400 Systolic blood pressure 147 mm[Hg] WISHId Napkin Labsuchli [facility] Encounters Encounter Date Encounter Type Care Provider Facility Start: 12-07-2024 End: 12-07-2024 ambulatory Dony PÉREZ Facility:[facility] Start: 12-07-2024 End: 12-07-2024 Patient encounter procedure Dony P[facility]RE[facility] [facility] General Surgery Cecilia Start: 10-25-2024 ambulatory Shonna Minor Facilit y:LAYTON Cecilia Start: 10-22-2024 End: 10-22-2024 Office outpatient visit 25 minutes Isidra Gonzales Petgarthick DO Work Phone: [facility] [phone] Comment on above: Type 1 diabetes mahendra itus without complication (HCC) (Primary Dx) Start: 10-22-2024 End: 10-22-2024 ambulatory ISIDRA Gonzales PETGARTHICK Not Available Start: 06-18-2024 End: 06-18-2024 ambulatory ISIDRA Gonzales PETGARTHICK Not Available Start: 02-17-2024 End: 02-17-2024 Office outpatient visit 25 minutes Isidra Gonzales Petgarthick DO Work Phone: [facility] [phone] Comment on above: Type 1 diabetes mahendra itus without complication (CMS/HCC); Type 1 diabetes mellitus without complications (CMS/HCC); Type 2 diabetes mellitus without complication, with long-term current use of insulin (CMS/HCC) Start: 02-17-2024 End: 02-17-2024 ambulatory ISIDRA BUCKLEY Not Available Start: 12-19-2023 End: 01-02-2024 Pre-admission assessment Shonna Minor [facility] Start: 12-19-2023 End: 12-19-2023 ambulatory Shonna Minor Facility:[facility] Start: 12-19-2023 End: 12-19-2023 Patient encounter procedure Shonna Minor [facility] Start: 12-11-2023 End: 12-11-2023 ambulatory Uma Gauthier Facility:[facility] Start: 05-07-2023 End: 05-15-2023 Pre-admission assessment Shashank Perez [facility] Start: 08-25-2022 Encounter for genera l adult medical examination without abnormal findings DR UMA GAUTHIER . [facility] Start: 08-23-2022 End: 08-24-[address] UMA GAUTHIER . Facility:[facility] Start: 08-23-2022 End: 08-24-2022 Encounter for general adult medical examination without abnormal findings DR UMA GAUTHIER . Facility:[facility] Start: 07-24-2022 End: 07-25-2022 ambulatory INDY Chou [facility] Facility:[facility] Start: 05-28-2022 End: 05-29-2022 ambulatory KATHY MANISH Facility:[facility] Start: 04-23-2022 End: 04-24-2022 ambulatory KATHY HAMMOND Facility:[facility] Start: 04-02-2022 End: 04-03-2022 ambulatory KATHY HAMMOND Facility:[facility] Start: 03-19-[address] UMA GAUTHIER . Facili ty:[facility]1 Start: 03-13-2022 End: 03-13-[address] UMA GAUTHIER . Facility:[facility] Start: 02-26-2022 End: 02-27-[address] UMA GAUTHIER . Facility: Procedures Date Procedure Procedure Detail Performing Clinician Start: 10-22-2024 Hemoglobin glycosylated a1c Isidra Buckley DO Work Phone: Start: 02-17-2024 Hemoglobin glycosylated a1c Isidra Buckley DO Work Phone: Start: 05-15-2023 Cataract (disorder) Shonna Minor Start: 01-12-2015 Esophagogastroduodenoscopy Dony PÉREZ Start: 10-12-2012 Colonoscopy Dony PÉREZ Abdominal hysterectomy Jovanni magno PÉREZ Acquired trigger fin kaley (disorder) Shonna Minor Appendectomy Shonna Minor Cervical arthrodesis Dony PÉREZ section Shonna david Comment on above: x2 section Dony Smith Cholecystectomy Dony PÉREZ Colonoscopy Dony DONNELLYL Excision of cervical intervertebral disc Dony PÉREZ Gallbladder structur e (body structure) Shonna Minor History of cholecystectomy Hx of cholecys tectomy Shonna Minor Hysterectomy Shonna Minor Reduction mammoplasty Kane Minor Repair of musculoten dinous cuff of shoulder Dony PÉREZ Comment on above: x 2 Repair of right inguinal hernia Dony PÉREZ Specimen from breast obtained by biopsy (specimen) Shonna Minor Plan of Treatment Date Care Activity Detail Author Start: 06-14-2026 Glaucoma screening Diabetes: R etinopathy Screening [facility] Start: 05-07-2025 Glaucoma screening Diabetes: R etinopathy Screening [facility] Start: 02-25-2025 End: 02-25-2025 Patient encounter procedure 02/25/2025 10:45 AM EST Office Visit [facility] [address] [place] [address] Isidra Buckley DO [address] [place] [address] [facility] [address] Start: 01-22-2025 Hemoglobin A1c measurement Diabetes: Hemoglobin A1C [facility] Start: 12-13-2024 Influenza vaccination Influenza Vacc ine (#1) [facility] Start: 06-18-2024 End: 06-18-2024 Patient encounter procedure 06/18/2024 2:00 PM EST Office Visit [facility] [address] [place] [address] Isidra Buckley M, DO [address] [place] [address] [facility] [address] Start: 05-19-2024 Hemoglobin A1c measurement Diabetes: Hemoglobin A1C [facility] Start: 2005 Screening for malign ant neoplasm of breast Mammogram [facility] Start: 1995 Screening for malign ant neoplasm of cervix [facility] Start: 1986 Screening for malign ant neoplasm of cervix Pap Smear [facility] Start: 1984 Urine screening for protein Diabetes: Urine Protein Screening [facility] Start: 1965 Screening for malign ant neoplasm of colon [facility] Immunizations Immunization Date Immunization Notes Care Provider Fa cili 02-06-2024 influenza, injectabl e, madin winnie canine kidney, preservative free Isidra Petznick DO Work Phone: [facility] 02-06-2024 influenza virus vacc ine, unspecified formulation Isidra Petznick DO Work Phone: [facility] 01-01-2023 Influenza, injectabl e, Madin Winnie Canine Kidney, preservative free, quadrivalent Isidra Petznick DO Work Phone: [facility] 02-06-2022 influenza virus vacc ine, unspecified formulation Mohamad Moeduardo [facility] 02-06-2022 Influenza, injectabl e, Madin Winnie Canine Kidney, preservative free, quadrivalent Isidra Petznick DO Work Phone: [facility] 02-06-2022 tetanus toxoid, redu francis diphtheria toxoid, and acellular pertussis vaccine, adsorbed Mohamad Napkin Labseduardo [facility] 04-18-2021 SARS-CoV-2 (COVID-19 ) mRNA-1273 vaccine Mohamad Moeduardo [facility] Comment on above: Result Comment: 2023: [id number] 01-10-2021 influenza virus vacc ine, unspecified formulation Mohamad Mouchli [facility] 01-10-2021 Influenza, injectabl e, Madin Winnie Canine Kidney, preservative free, quadrivalent Isidra Petznick DO Work Phone: [facility] 12-13-2020 influenza virus vacc ine, unspecified formulation Mohamad Mouchli [facility] 12-13-2020 influenza, injectabl e, quadrivalent, contains preservative Isidra Petznick DO Work Phone: [facility] 08-16-2020 SARS-CoV-2 (COVID-19 ) mRNA-1273 vaccine Mohamad Mouchli [facility] Comment on above: Result Comment: 2023: [id number] 07-12-2020 SARS-CoV-2 (COVID-19 ) mRNA-1273 vaccine Mohamad Mouchli [facility] Comment on above: Result Comment: 2023: [id number] 02-08-2020 influenza virus vacc ine, unspecified formulation Mohamad Mouchli [facility] 02-08-2020 influenza, injectabl e, quadrivalent, preservative free Isidra Petznick DO Work Phone: [facility] 01-26-2020 influenza virus vacc ine, unspecified formulation Mohamad Mouchli [facility] 01-26-2020 influenza, seasonal, injectable Isidra Petznick DO Work Phone: [facility] 01-11-2019 influenza virus vacc ine, unspecified formulation Mohamad Mouchli [facility] 01-11-2019 influenza, injectabl e, madin winnie canine kidney, preservative free Isidra Petznick DO Work Phone: [facility] 03-21-2018 tetanus toxoid, redu francis diphtheria toxoid, and acellular pertussis vaccine, adsorbed Mohamad Mouchli [facility] 01-01-2017 influenza virus vacc ine, H5N1, A/ (national stockpile) Isidra Petznick DO Work Phone: [facility] 01-01-2017 influenza virus vacc ine, unspecified formulation Isidra Petznick DO Work Phone: [facility] 01-01-2017 influenza, unspecifi ed formulation Mohamad Mouchli [facility] 01-01-2017 pneumococcal polysaccharide vaccine, 23 valent Mohamad Mouchli [facility] 02-19-2016 influenza virus vacc ine, H5N1, A/ (national stockpile) Isidra Petznick DO Work Phone: [facility] 02-19-2016 influenza virus vacc ine, unspecified formulation Isidra Petznick DO Work Phone: [facility] 02-19-2016 influenza, unspecifi ed formulation Mohamad Mouchli [facility] Payers Date Payer Category Payer Self-pay 2021 Private Health Insurance [id number] 1965 Unknown [id number] 2.16.84 [id number] 1965 Unknown [id number] 2.16.84 [id number] 1965 Unknown [id number] 2.16.84 [id number] 1965 Unknown [id number] 2.16.84 [id number] 1965 Unknown [id number] 2.16.84 [id number] 1965 Unknown [id number] 2.16.84 [id number] 1965 Unknown [id number] 2.16.84 [id number] 1965 Unknown [id number] 2.16.84 [id number] 1965 Unknown [id number] 2.16.8 [id number] 1965 Unknown [id number] 2.16.84 [id number] 1965 Unknown [id number] 2.16.84 [id number] 1965 Unknown [id number] 2.16.8 [id number] 1965 Unknown [id number] 2.16.8 [id number] 1959 Unknown [id number] Social History Date Type Detail Facility Tobacco smoking status [facility] Start: 09-13-2022 End: 10-22-2024 Sex Assigned At Female [facility] Start: 12-19-2023 End: 12-07-2024 Tobacco smoking status Never smoked tobacco (finding) [facility] Tobacco smoking status Never [facility] Start: 09-12-2022 Tobacco use and exposure Smokeless tobacco non-user [facility] Start: 02-17-2024 End: 10-22-2024 Alcoholic beverage intake Ex-drinker (finding) [facility] Start: 09-13-2022 End: 10-22-2024 History of Social function [facility] Within the last year , have you been afraid of your partner or ex-partner? No [facility] Do you belong to any clubs or organizations such as samaritan groups, unions, fraternal or athletic groups, or school groups? Yes [facility] Are you now , , , , never or living with a partner? [facility] How often to you hav e a drink containing alcohol? Never [facility] (I/We) worried wheth er (my/our) food would run out before (I/we) got money to buy more. Never true [facility] Start: 1965 Sex assigned at Female [facility] Start: 09-13-2022 Gender identity Identifies as female gender (finding) [facility] Start: 07-26-2009 Sex Female (finding) [facility] Medical Equipment Procedure Code Equipment Code Equipment Origin al Text Equipment Identifier Dates [id number], [id number] Start: 10-11-2016 End: 02-17-2024 Functional Status Date Assessment Result Facility 10-22-2024 Patient Health Quest ionnaire 2 item (PHQ-2) [Reported] [facility] 12-19-2023 Functional Status N/A [facility] Clinical Notes 04-03-2022 to 12-07-2024 Isidra Buckley, DO - 10/24/2024 8:05 PM Dario Buckley, DO - 10/22/2024 10:30 AM Dario Buckley, DO - 02/17/2024 7:50 PM Brendan Buckley, DO - 02/17/2024 3:00 PM EST Note Date & Type Note Facility 12-07-2024 Note General Surgery Offi ce/Clinic Note Chief Complaint consultation for colonoscopy HPI Staff 59 year old female presents on consultation from Dr. Gauthier for screening colonoscopy. Denies abdominal or rectal pain. Denies rectal bleeding or change in bowel habits. Denies nausea, vomiting or weight loss. Last colonoscopy completed 10/2012- hyperplastic polyp. No known family history of colon cancer. History of Present Illness 59 yo female with h/o DMI, htn, hyperlipidemia, PSVT, atrial fibrillation, MARIJA, GERD, referred for colorectal screening; denies change in bms or blood in stools, no abd complaints; last colonoscopy 2012 with removal of small hyperplastic sigmoid polyp; abd operations significant for x 2, cholecystectomy, appendectomy, RIHR, and abd hysterectomy; on baby asa, no NSAID use; no tobacco use; no fmhx of colon cancer or IBD. Review of Systems PHQ Score Initial Depression Screen Score: 0 SCORE ROS - Provider Constitutional: no fever, no sweats, no weight loss. Eyes: no glasses, no blurred vision, no visual loss. ENMT: no dentures, no hoarseness, no swallowing difficulties, no hearing loss, no ear infection(s), no nose bleeds. Cardiovascular: normal blood pressure, no chest pain, regular heartbeat, no heart murmur. Respiratory: no shortness of breath, no cough, no asthma, no wheezing. Gastrointestinal: no nausea, no vomiting, no diarrhea, no constipation, no blood in stool, no change in bowel habits, no abdominal pain, no hepatitis. Genitourinary: no kidney stones, no urine infection, no dysuria. Musculoskeletal: no pain, no weakness. Skin: no changing moles, no rash, no skin lumps. Neurologic: no seizures, no epilepsy, no headache. Psychiatric: no emotional or psychiatric problem. Heme/Lymph: no bleeding problems, no anemia, no blood clots, no transfusions. Allergy/Immunologic: no swollen lymph nodes/glands, no IV drug abuse. Other: Additional ROS info: Except as noted in the above Review of Systems and in the History of Present Illness, all other systems have been reviewed and are negative or noncontributory. Physical Exam Vitals & Measurements HR: 72(Peripheral) RR: 16 BP: 138/82 HT: 160 cm HT: 63 in WT: 196.873 lb WT: 89.3 kg BMI: 34.88 HEENT: normal conjunctiva, sclera clear, no scleral icterus, EOM intact, PERRLA, oral mucosa moist without lesions. Neck: trachea midline, no mass, symmetric, no thyromegaly or nodules, no adenopathy Respiratory: lungs CTA, respirations non labored. Cardiovascular: regular rate and rhythm, no murmur, no pedal edema or varicosities. Gastrointestinal: obese, soft, non distended, no tenderness, no masses, no palpable hernias, diastasis recti no, no hepatosplenomegaly; normal bs Musculoskeletal: normal gait, digits and nails without infection, nodes, cyanosis, clubbing. Skin: no rashes, no lesions, no ulcers, no subcutaneous nodules, induration. Psychiatric/Neuro: oriented to time, place, person, judgement normal, affect appropriate for age, insight intact, no focal deficits. Tests: , review of old records completed , Discussed surgical options, risks, and possible complications with patient. Assessment/Plan 1. Screening for malignant neoplasm of colon (Z12.11: Encounter for screening for malignant neoplasm of colon) plan colonoscopy under anesthesia, informed consent obtained. Follow-up No qualifying data available Problem List/Past Medical History Ongoing Anxiety disorder Atrial fibrillation BMI 34.0-34.9,adult Bradycardia Diabetes GERD (gastroesophageal reflux disease) Hypercholesterolemia Hyperlipidemia Hypertension Irritable bowel syndrome with diarrhea Obesity due to excess calories PSVT (paroxysmal supraventricular tachycardia) Screening for malignant neoplasm of colon Sleep apnea Vitamin D deficiency Historical Diabetes mellitus Procedure/Surgical History Cataract (05/15/2023), EGD - esophagogastroduodenoscopy (01/2015), Colonoscopy (10/2012), Abdominal hysterectomy, Appendectomy, Breast biopsy sample, Breast reduction, Cervical discectomy, Cervical spinal fusion, section, section, Cholecystectomy, Colonoscopy, Repair of right inguinal hernia, Rotator cuff repair, Trigger finger. Medications aspirin 81 mg Oral EC Tab, 81 mg= 1 tab(s), Oral, Daily atorvastatin 40 mg Tab, 40 mg= 1 tab(s), Oral, Once a day (at bedtime) biotin 1000 mcg oral tablet, 1000 mcg= 1 tab(s), Oral, Daily clonazepam 1 mg Tab, 1.5 mg= 1.5 tab(s), Oral, BID elderberry fexofenadine 60 mg Tab, 60 mg= 1 tab(s), Oral, Daily, PRN levothyroxine 125 mcg (0.125 mg) Tab, 125 mcg= 1 tab(s), Oral, Daily Levsin 0.125 mg SL Tab, 0.125 mg= 1 tab(s), Oral, QID, PRN losartan 100 mg Tab, 100 mg= 1 tab(s), Oral, Daily metoprolol succinate 50 mg ER Tab, 50 mg= 1 tab(s), Oral, Daily multivitamin, 1 tab(s), Oral, Daily NovoLog, See Instructions Ozempic, 0.25 mg, SubCutaneous, qWeek Probiotic Formula, 1 cap(s), Oral, Daily Prot (more content not included)... [facility] Comment on above: Result Comment: Elec tronically Signed By: BETO YARBROUGH, Dony Farias\Date and Time Signed: 12/07/24 13:41 EDT 10-24-2024 History of Present illness Narrative Associated Problem(s): Type 1 diabetes mellitus without complication (HCC) During the appointment today all pertinent labs, [...] at 12A and 8A, decrease at 11A. Images from the original note were not included. Rosio Siu is a 59 y.o. female presents with chief complaint of Diabetes HPI: Diabetes Mellitus Follow-up: Rosio Siu is here for follow-up evaluation of diabetes mellitus. The initial diagnosis of Type 1 diabetes was made in 1990 Diabetes complications: none Hx of diabetes medications tried: none She has been checking her blood glucose with a Tandem pump-LINKED- and Dexcom CGM on a daily basis. BG running higher overnight but then will drop some throughout the day. Last A1c: 6.7 (06/18/24) Last eye exam: 06/14/2024 Current concerns include: Had annual labs today from Dr Gauthier Lost 4 lbs since her last visit. Ozempic is working well to suppress her appetite Bg levels: improving overall Diet: counting carbs and calories limiting portion sizes Drinks: water, coffee with a little sweetened creamer, sugar free ice tea, occasional diet pop Exercise: none Hypoglycemia: on occasion SUBJECTIVE: PROBLEM LIST SOCIAL ALLERGIES: Patient Active Problem List Diagnosis Class 2 severe obesity due to excess calories with serious comorbidity and body mass index (BMI) of 35.0 to 35.9 in adult ([facility]) Type 1 diabetes mellitus without complication (HCC) Unspecified mononeuropathy of right lower limb Dizziness Hyperlipidemia Hypertensive disorder Anxiety disorder Panic disorder Age-related nuclear cataract of both eyes Social History Tobacco Use Smoking status: Never Smokeless tobacco: Never Substance Use Topics Alcohol use: Not Currently Drug use: Never Allergies Allergen Reactions Amoxicillin Other Reaction(s): Unknown Iodinated Contrast Media Levofloxacin Other Reaction(s): Unknown Metronidazole Pentazocine Other Reaction(s): Unknown Pravastatin Unknown Sulfamethoxazole-Trimethoprim Wound Dressing Adhesive Synopsis SmartLink 10/24/2024 00:00 10/22/2024 10:52 Antidiabetic medications Insulin Aspart INJECT 1 DOSE PER PUMP SUBCUTANEOUSLY SEE ADMINISTRATION INSTRUCTIONS, MAX 150 UNITS DAILY (100 UNIT/ML SOLN)-Discontinued INJECT 1 DOSE PER PUMP SUBCUTANEOUSLY SEE ADMINISTRATION INSTRUCTIONS, MAX 150 UNITS DAILY (100 UNIT/ML SOLN) Insulin Aspart Per pump (max daily 150 units) (100 UNIT/ML SOLN) Semaglutide 0.5 mg q7 days SC (2 MG/3ML SOPN) 0.5 mg q7 days SC (2 MG/3ML SOPN) Labs [facility] HEMOGLOBIN A1C/HEMOGLOBIN.TOTAL:MFR:PT:BLD:QN: 7.0 Outpatient prescription Medication marked as long-term The ASCVD Risk score (Jamison DK, et al., 2019) failed to calculate for the following reasons: Cannot find a previous HDL lab Cannot find a previous total cholesterol lab REVIEW OF SYMPTOMS: Review of Systems Constitutional: Positive for fatigue. Negative for appetite change and unexpected weight change. Eyes: Negative for visual disturbance. Respiratory: Negative for cough, shortness of breath and wheezing. Cardiovascular: Negative for chest pain, palpitations and leg swelling. Neurological: Negative for numbness. Endocrine: Negative for polydipsia, polyphagia and polyuria. OBJECTIVE: 10/22/2024 10:36 AM 06/18/2024 9:50 AM 02/17/2024 2:46 PM Vitals BMI 33.65 kg/m2 34.35 kg/m2 34 kg/m2 Systolic 126 140 122 Diastolic 74 84 84 Heart Rate 71 72 64 Temp 98.2 F 97.7 F 97.9 F Height (in) 5' 3.5 5' 3.5 5' 3.5 Weight (lb) 193 197 195 Visit Report Report Report Report Physical Exam [...] Visit Type 1 diabetes mellitus without complication (HCC) - Primary During the appointment today all pertinent labs, [...] if they have any problems or questions. Rosiodale Danielszier control is stable overall. , The patient is wearing their cgm on a daily basis and making decisions in regards to adjusting insulin daily as well for at least the last 60 days , Instructions given today include: Hypoglycemia management and Pump instructions. Will increase basal rate at 12A and 8A, decrease at 11A. Relevant Medications Insulin Infusion Pump (T:slim Insulin Pump) device insulin aspart (NovoLOG) 100 UNIT/ML injection Other Relevant Orders POCT glycosylated hemoglobin (Hb A1C) docked device (Completed) Follow up in about 4 months (around 02/22/2025) for Recheck. Patient's Medications New Prescriptions INSULIN ASPART (NOVOLOG) 100 UNIT/ML INJECTION Per pump (max daily 150 units) Previous Medications ACETONE, URINE, TEST (KETOSTIX) STRIP [...] time each day at the same time. BLOOD GLUCOSE MONITORING SUPPL (ACCU-CHEK GUIDE) W/DEVICE KIT 1 each See administration instructions CLONAZEPAM (KLONOPIN) 1 MG TABLET Take 1.5 tablets by mouth in the morning and 1.5 tablets before bedtime. CONTINUOUS GLUCOSE SENSOR (DEXCOM G7 SENSOR) MISC Inject 1 Device under the skin See administration instructions Change every 10 days ELDERBERRY PO Elderberry FENOFIBRATE (TRIGLIDE) 160 MG TABLET TAKE 1 TABLET BY MOUTH EVERY DAY FOR 30 DAYS FEXOFENADINE (DEONNA ALLERGY) 60 MG TABLET prn GLUCOSE BLOOD (ACCU-CHEK GUIDE) TEST STRIP Fsbs daily HYOSCYAMINE (LEVSIN) 0.125 MG TABLET every 4 (four) hours if needed LEVOTHYROXINE (SYNTHROID, LEVOXYL) 125 MCG TABLET Take 125 mcg by mouth every other day. LEVOTHYROXINE (SYNTHROID, LEVOXYL) 150 MCG TABLET Take 150 mcg by mouth every other day. LOSARTAN (COZAAR) 100 MG TABLET 1 (one) time each day at the same time. MAGNESIUM 500 (27 MG) MG TABLET Magnesium METOPROLOL SUCCINATE XL (TOPROL-XL) 50 MG 24 HR TABLET Take 50 mg by mouth Daily MULTIPLE VITAMIN (MULTIVITAMIN ADULT) TABLET MULTIPLE VITAMINS-MINERALS (AIRBORNE PO) Airborne MULTIPLE VITAMINS-MINERALS (VITAMIN D3 COMPLETE) TABLET Take by mouth PANTOPRAZOLE (PROTONIX) 40 MG EC TABLET 40 mg in the morning. Take before meals. PROBIOTIC PRODUCT (PROBIOTIC & ACIDOPHILUS EX ST PO) every 12 (twelve) hours. SEMAGLUTIDE,0.25 OR 0.5MG/DOS, (OZEMPIC, 0.25 OR 0.5 MG/DOSE,) 2 MG/3ML SOLUTION PEN-INJECTOR Inject 0.5 mg under the skin every 7 (seven) days TIZANIDINE (ZANAFLEX) 4 MG TABLET Take 2 tablets by mouth as needed at bedtime Modified Medications Modified Medication Previous Medication INSULIN INFUSION PUMP (T:SLIM INSULIN PUMP) DEVICE Insulin Infusion Pump (T:slim Insulin Pump) device Basal: 12A 2.5, 4A 2.1, 8A 2.2, 11A 1.7, ICR: 12A 3, ISF: 50, target: 110 Basal: 12A 2.4, 6A 2.1, 11A 1.85, ICR: 12A 3, ISF: 50, target: 110 Discontinued Medications CALCIUM CARBONATE-VITAMIN D (CALCIUM PLUS VITAMIN D PO) Take by mouth. CHOLESTYRAMINE (QUESTRAN) 4 G PACKET Take 1 packet by mouth Daily INSULIN ASPART (NOVOLOG) 100 UNIT/ML SOLUTION INJECT 1 DOSE PER PUMP SUBCUTANEOUSLY SEE ADMINISTRATION INSTRUCTIONS, MAX 150 UNITS DAILY I have reviewed and reconciled the history and medication list with the patient today. documented in this encounter [facility] 02-17-2024 History of Present illness Narrative Associated Problem(s): Type 1 diabetes mellitus without complication (CMS/[facility]) During the appointment today all pertinent labs, [...] meter and strips (accu-chek guide) sent to [facility]- that way she can double check with finger sticks. States using [place] Products it would be free to her. SUBJECTIVE: PROBLEM LIST SOCIAL ALLERGIES: Patient Active Problem List Diagnosis Class 2 severe obesity due to excess calories with serious comorbidity and body mass index (BMI) of 35.0 to 35.9 in adult ([facility]) Type 1 diabetes mellitus without complication ([facility]) Unspecified mononeuropathy of right lower limb Dizziness Hyperlipidemia ([facility]) Hypertensive disorder ([facility]) Anxiety disorder Panic disorder ([facility]) Age-related nuclear cataract of both eyes Social [...] Visit Type 1 diabetes mellitus without complication (CMS/HCC) During the appointment today all pertinent labs, [...] Diagnoses Type 1 diabetes mellitus without complications ([facility]) Type 2 diabetes mellitus without complication, with long-term current use of insulin ([facility]) Relevant Medications Semaglutide,0.25 or 0.5MG/DOS, (Ozempic, 0.25 [...] MOUTH EVERY DAY FOR 30 DAYS FEXOFENADINE (DEONNA ALLERGY) 60 MG TABLET prn HYOSCYAMINE (LEVSIN) [...] the patient today. documented in this encounter [facility] 07-24-2022 Note PROCEDURE: XR ANKLE RT [...] authenticated by: ADRIANNE RUANO Date: 2022-07-24 15:00 [facility] 07-24-2022 Note PROCEDURE: XR ANKLE RT [...] authenticated by: ADRIANNE RUANO Date: 2022-07-24 15:00 [facility] 05-28-2022 Note PROCEDURE: XR ANKLE RT MIN [...] authenticated by: ADRIANNE RUANO Date: 2022-05-28 14:43 [facility] 04-23-2022 Note PROCEDURE: XR ANKLE RT MIN [...] authenticated by: JAMEY SANDHU Date: 2022-04-23 12:08 [facility] 04-03-2022 Note PROCEDURE: XR ANKLE RT MIN [...] authenticated by: ADRIANNE RUANO Date: 2022-04-03 16:49 [facility] Evaluation + Plan note No data available for this section [facility] Evaluation + Plan note Future Appointments Appointment Date:01/01/2024 01:45:00 PM Scheduled Provider: Location:[facility] Surgical Services Appointment Type:[facility]gery [facility] Digestive Health Evaluation + Plan note Future Appointments Appointment Date:12/31/2024 09:30:00 AM Scheduled Provider: Location:[facility] Surgical Services Appointment Type:Surgery [facility] General Surgery [place] Evaluation note Diagnosis Severe obesity (BMI 35.0-39.9) with comorbidity ([facility])- Primary Type 1 diabetes mellitus without complication ([facility]) Type I (juvenile type) diabetes mellitus without mention of complication, not stated as uncontrolled Type 2 diabetes mellitus without complication, with long-term current use of insulin (CMS/[facility]) Type 1 diabetes mellitus without complications ([facility]) Class 2 severe obesity due to excess calories with serious comorbidity and body mass index (BMI) of 35.0 to 35.9 in adult (CMS/[facility])- Primary Type 1 diabetes mellitus without complication (CMS/[facility]) Type I (juvenile type) diabetes mellitus without [...] uncontrolled Type 1 diabetes mellitus without complications (CMS/HCC) Type 2 diabetes mellitus without complication, with long-term current use of insulin (CMS/HCC) documented in this encounter [facility] HealthcareEvaluation note* Diagnosis Severe obesity (BMI 35.0-39.9) with comorbidity (CMS-HCC)- Primary Type 1 diabetes mellitus without complication (HCC) Type I (juvenile type) diabetes mellitus without mention of complication, not stated as uncontrolled Type 2 diabetes mellitus without complication, with long-term current use of insulin (HCC) Type 1 diabetes mellitus without complications (HCC) Class 2 severe obesity due to excess calories with serious comorbidity and body mass index (BMI) of 35.0 to 35.9 in adult (CMS-HCC)- Primary Type 1 diabetes mellitus without complication (HCC) Type I (juvenile type) diabetes mellitus without mention of complication, not stated as uncontrolled Class 2 severe obesity due to excess calories with serious comorbidity and body mass index (BMI) of 35.0 to 35.9 in adult (CMS-HCC)- Primary Type 1 diabetes mellitus without complication (HCC) Type I (juvenile type) diabetes mellitus without mention of complication, not stated as uncontrolled Type 1 diabetes mellitus without complication (HCC) Type I (juvenile type) diabetes mellitus without mention of complication, not stated as uncontrolled Type 1 diabetes mellitus without complication (HCC) Type I (juvenile type) diabetes mellitus without mention of complication, not stated as uncontrolled Type 1 diabetes mellitus without complications (HCC) Type 2 diabetes mellitus without complication, with long-term current use of insulin (HCC) Type 1 diabetes mellitus without complication (HCC)- Primary Type I (juvenile type) diabetes mellitus without mention of complication, not stated as uncontrolled Type 2 diabetes mellitus without complication, with long-term current use of insulin (HCC) Type 1 diabetes mellitus without complication (HCC)- Primary Type I (juvenile type) diabetes mellitus without mention of complication, not stated as uncontrolled documented in this encounter [facility] Discharge instructions No data available for this section [facility] No data available for this section [facility] Summary Purpose Family History No Family History Records Found No data available for this section No data available for this section No [...] and content) DATE CREATED AUTHOR 08/26/2022 [facility] pital DATE CREATED AUTHOR AUTHOR'S ORGANIZ ATION 12/21/2023 [facility] y[facility]ician Group DATE CREATED AUTHOR AUTHOR'S ORGANIZ ATION 12/23/2023 [facility] DATE CREATED AUTHOR AUTHOR'S ORGANIZ ATION 10/26/[address] [facility] dical Specialists EPIC DATE CREATED AUTHOR AUTHOR'S ORGANIZ ATION 12/09/2024 [facility] Patient Care team informatio n (unrecognized section and content) Wind Project Manager Relationship Specialty Start Date End Date Uma Gauthier MD [address] [place] [address] PCP - General Family Medicine 09/13/22 Isidra Buckley, DO [address] [facility] [address] [place] [address] PCP - Medical [place] [employer] 04/14/21 04/13/99 Wind Project Manager Relationship Specialty Start Date End Date Uma Gauthier MD [address] [place] [address] PCP - General Family Medicine 09/13/22 Isidra Buckley, [address] [place] [address] PCP - Medical [place] [employer] 04/14/21 04/13/99 Reason for Visit (unrecogniz [...] BE BASED ON THE PRIMARY CLINICAL RECORDS. [facility]. provides no warranty or guarantee of the accuracy or completeness of information in this document.
[2025-01-03 16:33] LABS: Hematocrit 41.8 % (36.0-48.0); Hemoglobin 13.7 g/dL (12.0-16.0); Mean Corpuscular HGB Conc 32.8 g/dL (29.9-35.2); Mean Corpuscular Hemoglobin 27.8 pg (26.7-34.0); Mean Corpuscular Volume 85.0 fL (81.0-99.0); Platelet Count 165 10^3/uL (150-450); Red Blood Count 4.92 10^6/uL (4.20-5.40); White Blood Count 6.3 10^3/uL (4.0-11.0)
[2025-01-03 16:49] LABS: Glucose Urine UA NEGATIVE (NEGATIVE)
[2025-01-03 17:01] LABS: Cast Seen? NONE SEEN #/LPF (NONE SEEN); Crystals Seen? None Seen #/HPF (None Seen)
[2025-01-03 17:02] LABS: Urine Culture Indicated ALREADY ORDERED
[2025-01-03 17:17] LABS: Atypical Lymphocytes % Manual 6.0 %; Atypical Lymphocytes Abs Man 0.37; Basophils Abs Manual 0.06 10^3/uL (0.00-0.10); Basophils Percent Manual 1.0 % (0.2-2.0); Eosinophils Absolute Manual 0.06 10^3/uL (0.00-0.70); Eosinophils Percent Manual 1.0 % (0.9-7.0); Lymphocytes Absolute Manual 2.01 10^3/uL (1.20-3.80); Lymphocytes Percent Manual 32.0 % (20.5-60.0); Monocytes Absolute Manual 0.44 10^3/uL (0.30-0.80); Monocytes Percent Manual 7.0 % (1.7-12.0); Segmented Neut Absolute Manual 3.27 10^3/uL (1.4-6.5); Segmented Neutrophils % Manual 52.0 (43.0-75.0)
[2025-01-03 17:19] LABS: Metamyelocytes Absolute Manual 0.06
[2025-01-03 17:35] LABS: Alanine Aminotransferase 58 U/L (14-59); Albumin Globulin Ratio 0.9; Albumin Level 3.6 g/dL (3.4-5.0); Alkaline Phosphatase 108 U/L (46-116); Amylase 19 U/L (25-115); Anion Gap 11.1; Aspartate Amino Transferase 41 U/L (15-37); Blood Urea Nitrogen 9.0 mg/dL (7.0-18.0); Calcium 8.7 mg/dL (8.5-10.1); Carbon Dioxide 30.4 mmol/L (21.0-32.0); Chloride 103 mmol/L (98-107); Estimated GFR (African America >60 (>=60 mL/min/1.73m^2); Estimated GFR (Non-African Ame >60 (>=60 mL/min/1.73m^2); Free T3 2.12 pg/mL (2.18-3.98); Globulin 4.2 g/dL; Glucose 205 mg/dL (74-106); Lipase 26.0 U/L (16.0-77.0); Magnesium 2.0 mg/dL (1.8-2.4); Potassium 3.5 mmol/L (3.5-5.1); Sodium 141 mmol/L (136-145); Thyroid Stimulating Hormone 0.058 uIU/mL (0.358-3.740); Total Protein 7.8 g/dL (6.4-8.2)
== END 2025-01-03 16:10 | disposition home or self-care (01) ==
LOC: LAB 16:11
PROVIDERS: PCP Family Medicine; Visit Provider Family Medicine
DX: E55.9 Vitamin D deficiency, unspecified (principal); R53.83 Other fatigue; I10 Essential (primary) hypertension; E06.3 Autoimmune thyroiditis
CPT/HCPCS: 36415; 80053; 81001; 82150; 82306; 83690; 83735; 84100; 84436; 84443; 84481; 85007; 85027; 87086

== ENCOUNTER 2025-01-31 09:31 | Outpatient (OUT) | payer OTHER, SELFPAY ==
--- OUTSIDE RECORDS SUMMARY | 2025-01-28 09:45 | XMS_ITS | Encounter Summary ---
Author Organization [facility] Address [address] [place] [address] Care Team Providers Care Synthetic Filament Spinner Name Role Phone Kostas Gauthier MD Primary Care Provider [phone] Isidra Allred DO Unavailable [phone] Reason for Visit * Reason Comments Schedule colonoscopy Last one was done b y Dr Ray and was normal. On her first one she had polyps. No family hx. Encounter Details Date Type Department Care Team (Late st Contact Info) Description 01/28/2025 9:45 AM EDT Consult [facility] [address] [facility] [address] [place] [phone] Jose Freed DO [address] [facility] [address] [place] [address] Encounter for screening colonoscopy (Primary Dx) Social History Tobacco Use Types Packs/Day Years [...] or ex-partner? No 09/13/2022 Social Connection and Isolation Panel Answer Date Recorded In a typical week, how many times do you talk on the phone with family, friends, or neighbors? More than three times a week 09/13/2022 How often do you get togethe r with friends or relatives? Three times a week 09/13/2022 How often do you attend [facility] or mandaen services? Patient declined 09/13/2022 Do you belong to any clubs o r organizations such as nondenominational groups, unions, fraternal or athletic groups, or [...] Recorded Patient Health Questionnaire-2 Score 0 10/22/2024 [facility] - Occupational [...] money to buy more. Never true 09/14/19 Within the past 12 months, t he [...] on file documented as of this encounter Last Filed Vital Signs Vital Sign Reading Time Taken Comments Blood Pressure 120/76 01/28/2025 9:23 AM EDT Pulse - - Temperature - - Respiratory Rate - - Oxygen Saturation - - Inhaled Oxygen Concentration - - Weight 88.5 kg (195 lb) 01/28/2025 9:23 AM EDT Height 160 cm (5' 3 ) 01/28/2025 9:23 AM EDT Body Mass Index 34.54 01/28/2025 9:23 AM EDT documented in this encounter Progress Notes * Jose Freed, DO - 01/28/2025 9:45 AM EDT Images from the original note were not included. Rosio Bryan 1965 Rosio Bryan is a 59 y.o. female presents with [...] APPENDECTOMY 2009 SECTION, CLASSIC SECTION, LOW TRANSVERSE 03/25/91 CHOLECYSTECTOMY FIBULA FRACTURE SURGERY Right 03/2020 HERNIA REPAIR 2012 HYSTERECTOMY NECK SURGERY release pinched nerve ROTATOR CUFF REPAIR 2012 x2 TRIGGER FINGER RELEASE Left 2020 ring finger documented in this encounter Plan of Treatment Upcoming Encounters Date Type Department Care Team (Late st Contact Info) Description 02/25/2025 10:45 AM EST Office Visit [facility] [address] [place] [address] Isidra Allred DO [address] [place] [address] 03/15/2025 4:00 PM EST Office Visit [facility] [address] [facility] [address] [place] [phone] Jose Freed DO [address] [facility] [address] [place] [address] documented as of this encounter Visit Diagnoses Diagnosis Encounter for screening colonoscopy- Primary documented in this encounter Care Teams Synthetic Filament Spinner Relationship Specialty Start Date End Date Kostas Gauthier MD [address] [place] [facility] [place] [address] PCP - General Family Medicine 09/13/22 Isidra Allred DO [address] [place] [address] PCP - Medical [place] [employer] 04/14/21 04/13/99 documented as of this encounter
--- OUTSIDE RECORDS SUMMARY | 2025-01-31 09:40 | XMS_ITS | Encounter Summary ---
Author Organization [facility] Address [address] [place] [address] Care Team Providers Care Lidding Machine Operator Name Role Phone Unavailable Primary Care Provider Unavailabl e Reason for Visit * Reason Comments Med Refill Encounter Details Date Type Department Care Team (Late st Contact Info) Description 05/30/[address] [facility] Cardiology [address] [place] [phone] Elizabeth Bhardwaj CNP [address] [place] [address] Chest pain, unspecified Social History Tobacco Use Types Packs/Day Years Used Date Smoking Tobacco: Never Assessed Comments Unknown Sex and Gender Information Value Date Recorded Sex Assigned at Not on file Legal Sex Female 9:46 PM EDT Gender Identity Not on file Sexual Orientation Not on file documented as of this encounter Plan of Treatment Not on file documented as of this encounter Visit Diagnoses Diagnosis Chest pain, unspecified documented in this encounter
--- OUTSIDE RECORDS SUMMARY | 2025-01-31 09:41 | XMS_ITS | Clinical Summary ---
Author Organization [facility] Address [address] [place] [address] Care Team Providers Care Store Host Name Role Phone Kostas Gauthier MD Primary Care Provider [phone] Isidra Allred DO Unavailable [phone] Allergies Active Allergy Reactions Criticality Noted Date Comments Amoxicillin 12/20/2022 Other Reaction(s): Unknown Iodinated Contrast Media 09/13/2022 Levofloxacin 12/20/2022 Other Reaction(s): Unknown Metronidazole 09/13/2022 Pentazocine 08/16/2022 Other Reaction(s): Unknown Pravastatin Unknown 12/20/2022 Sulfamethoxazole-Trimethoprim 2022 Wound Dressing Adhesive 09/13/2022 Medications Multiple Vitamins-Mineral s (AIRBORNE PO) Acti ve fexofenadine (Sindy Allergy) 60 MG tablet prn Active aspirin (ASPIR) 81 MG EC tablet 1 (one) time each day at the same time Active biotin 1 MG capsule 1 (one) time each day at the same time Active ELDERBERRY PO Active atorvastatin (Lipitor) 40 MG tablet 1 (one) time each day at the same time Active magnesium 500 (27 Mg) MG tablet Active Probiotic Product (PROBIOTIC & ACIDOPHILUS EX ST PO) every 12 (twelve) hours Active clonazePAM (KlonoPIN) 1 MG tablet Take 1.5 tablets by mouth in the morning and 1.5 tablets before bedtime. Active hyoscyamine (Levsin) 0.125 MG tablet every 4 (four) hours if needed Active levothyroxine (Synthroid, Levoxyl) 100 MCG tablet Take 100 mcg by mouth in the morning. Take before meals. Active losartan (Cozaar) 100 MG tablet 1 (one) time each day at the same time Active pantoprazole (ProtoNix) 40 MG EC tablet 40 mg in the morning. Take before meals. Active BD Insulin Syringe U/F 31G X /16 0.5 ML misc 06/02/19 23 Active Multiple Vitamins-Mineral s (Vitamin D3 Complete) tablet Take by mouth Active Blood Glucose Monitoring Suppl (Accu-Chek Guide) [...] days 9 each 3 10/26/19 25 Active Cranberry 125 MG tablet Active acetone, urine, test (Ketostix) strip 10/12/19 17 025 Discontin ued(Thera py completed ) Multiple Vitamin (Multivitamin Adult) tablet Discontin ued(Thera py completed ) levothyroxine (Synthroid, Levoxyl) 125 MCG tablet Take 125 mcg by mouth every other day 025 Discontin ued(Thera py completed ) fenofibrate (Triglide) 160 MG tablet 10/14/19 24 025 Discontin ued(Thera py completed ) Active Problems Problem Noted Date Diagnosed Date Encounter for screening colonoscopy 01/28/2025 Age-related nuclear cataract of both eyes 2023 Class 2 severe obesity due t o excess calories with serious comorbidity and body mass index (BMI) of 35.0 to 35.9 in adult 08/16/2022 Type 1 diabetes mellitus without complications 0 08/16/2022 Assessment & Plan (10/24/2024 8:05 PM EDT): [...] Encounters Date Type Department Care Team Description 01/28/2025 9:45 AM EDT Consult [facility] [address] [place] [address] Jose Freed DO Encounter for screening colonoscopy (Primary Dx) 01/28/2025 Travel 01/27/2025 Travel 01/24/2025 Travel 01/05/2025 Travel 12/21/2024 Travel 12/17/2024 Orders Only [facility] [address] [place] [address] Bhanu Forde MD from Last 3 Months Immunizations Immunization Administration Dates Next Due Influenza, [id number] 01/01/2017,02/19/2016 Influenza, Injectable, MDCK, preservative free 02/06/2024,01/11/2019 Influenza, Unspecified 02/06/2022,2020,12/13/2020,02/07,01/26/2020,01/11/2019,01/01/2017 ,02/19/2016 Influenza, injectable, MDCK, preservative free, quadrivalent 01/01/2023,02/06/2022,01/10/2021 Influenza, injectable, quadrivalent 12/13/2020 Influenza, injectable, quadr ivalent, preservative free 02/08/2020 Influenza, seasonal, injectable 01/26/2020 Pneumococcal Polysaccharide PPSV23 01/01/2017 Tdap 02/06/2022,03/21/2018 Family History Medical History Relation Name Comments Heart disease Brother Heart disease Father Denilson Clarke Hypertension Father Denilson Clarke Cancer Mother Shannon Quaintance Hyperlipidemia Mother Shannon Quaintance Hypertension Mother Shannon Quaintance Skin cancer Mother Shannon Quaintance Thyroid disease Mother Shannon Quaintance Hyperlipidemia Sister 1 Hypertension Sister 2 Ana Lonsway Relation Name Status Comments Brother Alive 3 Father Denilson Clarke Mother Shannon Quaintance Alive Sister 1 Alive 1 Sister 2 Ana Longabriela Alive Social History Tobacco Use Types Packs/Day Years [...] How often do you attend chur or jewish services? Patient declined 09/13/2022 Do you belong to any clubs o r organizations such as sabianism groups, unions, fraternal or athletic groups, or [...] Score 0 10/22/2024 [facility] - Occupational Stress Questionnaire Answer [...] Pressure 120/76 01/28/2025 9:23 AM EDT Pulse 71 10/22/2024 10:36 AM EDT Temperature 36.8 C (98.2 F) 10/22/2024 10:36 AM EDT Respiratory Rate - - Oxygen Saturation 95% 10/22/2024 10:36 AM EDT Inhaled Oxygen Concentration - - Weight 88.5 kg (195 lb) 01/28/2025 9:23 AM EDT Height 160 cm (5' 3 ) 01/28/2025 9:23 AM EDT Body Mass Index 34.54 01/28/2025 9:23 AM EDT Plan of Treatment Upcoming Encounters Date Type Department Care Team (Late st Contact Info) Description 02/25/2025 10:45 AM EST Office Visit [facility] [address] [place] [address] Petznick, Isidra M, DO [address] [place] [address] 03/15/2025 4:00 PM EST Office Visit [facility] [address] [facility] [address] [place] [address] Jose Freed, DO 703 [facility] 150 [place] [address] Health Maintenance Due Date Last Done Comments CT Colonography 1965 FIT-DNA 1965 FIT 1965 FOBT 1965 Sigmoidoscopy 1965 Diabetes: Urine Protein Screening 1984 Pap Smear 1986 Cervical Cancer Screening 1995 HPV/Cotest 1995 Mammogram 2005 Colonoscopy 10/30/2022 10/30/2012 Colorectal Cancer Screening 10/30/2022 Influenza Vaccine (#1) 2024 4, 01/01/2023, 02/06/2022, Additional history exists Diabetes: Hemoglobin [...] specimen / Unknown 10/22/2024 10:52 AM EDT us Isidra Allred DO POINT OF CARE TEST [...] Health Maintenance Insurance [employer] Care Teams Store Host Relationship Specialty Start Date End Date Kostas Gauthier MD [address] [place] [address] PCP - General Family Medicine 09/13/22 Isidra Allred DO [address] [facility] 230 [place] [address] PCP - Medical [place] [employer] 04/14/21 04/13/99
--- OUTSIDE RECORDS SUMMARY | 2025-01-31 09:41 | XMS_ITS | Encounter Summary ---
Author Organization [facility] Address [address] [place] [address] Care Team Providers Care Voice Intercept Technician Name Role Phone Kostas Gauthier MD Primary Care Provider [phone] Isidra Allred DO Unavailable [phone] Encounter Details Date Type Department Care Team (Late st Contact Info) Description 06/17/2024 Orders Only [facility] [address] [facility] [address] [place] [address] A, Unknown Practice [address] [phone] Social History Tobacco Use Types Packs/Day Years [...] often do you attend chur ch or baptism services? Patient declined 09/13/2022 Do you belong to any clubs o r organizations such as baptist groups, unions, fraternal or athletic groups, or [...] Recorded Patient Health Questionnaire-2 Score 0 06/18/2024 [facility] of Occupat ional Health - Occupational [...] place to sleep or slept in a mcc (including now)? No 09/13/2022 Comments Unknown Sex [...] [address] [place] [address] Isidra Allred DO [address] [place] [address] 03/15/2025 4:00 PM EST Office [facility] [address] [place] [address] Jose Freed DO 703 [facility] 150 [place] [address] documented as of this encounter Procedures Procedure [...] on filedocumented in this encounter Care Teams Voice Intercept Technician Relationship Specialty Start Date End Date Kostas Gauthier MD [address] [facility] [place] [address] PCP - General Family Medicine 09/13/22 Isidra Allred DO [address] [facility] [address] [place] [address] PCP - Medical [place] [employer] 04/14/21 04/13/99 documented as of this encounter
--- OUTSIDE RECORDS SUMMARY | 2025-01-31 09:41 | XMS_ITS | Encounter Summary ---
Author Organization [facility] Address [address] [place] [address] Care Team Providers Care Electric Pile Driver Operator Name Role Phone Kostas Gauthier MD Primary Care Provider [phone] Isidra Allred DO Unavailable [phone] Encounter Details Date Type Department Care Team (Latest Contact Info) Description 01/24/2025 Travel Social History Tobacco Use Types Packs/Day [...] week 09/13/2022 How often do you attend [facility] or sabianism services? Patient declined 09/13/2022 Do you belong to any clubs o r organizations such as presybeterian groups, unions, fraternal or athletic groups, or [...] Recorded Patient Health Questionnaire-2 Score 0 10/22/2024 [facility] of Occupat ional Health - Occupational [...] Family Practice [address] [facility] 230 [place] [address] Isidra Allred, [address] [facility] 230 [place] [address] 03/15/2025 4:00 PM EST Office Visit [facility] [address] [facility] 150 [place] [phone] Jose Freed, DO 703 [facility] 150 [place] [address] documented as of this encounter Visit Diagnoses Not on filedocumented in this encounter Care Teams Electric Pile Driver Operator Relationship Specialty Start Date End Date Kostas Gauthier MD [address] [facility] [place] [address] PCP - General Family Medicine 09/13/22 Isidra Allred DO [address] [place] [address] PCP - Medical [place] [employer] 04/14/21 04/13/99 documented as of this encounter
--- OUTSIDE RECORDS SUMMARY | 2025-01-31 09:41 | XMS_ITS | Clinical Summary ---
Author Organization [facility] Address [address] [address] Care Team Providers Care Modern Languages Professor Name Role Phone Unavailable Primary Care Provider [...]
--- OUTSIDE RECORDS SUMMARY | 2025-01-31 09:41 | XMS_ITS | Encounter Summary ---
Author Organization [facility] Address [address] [place] [address] Care Team Providers Care Performance Consultant Name Role Phone Kostas Gauthier MD Primary Care Provider [phone] Isidra Allred DO Unavailable [phone] Encounter Details Date Type Department Care Team (Late st Contact Info) Description 03/29/2024 Abstract [facility] [address] [facility] [address] [place] [address] Isidra Allred, [address] [facility] [address] [place] [address] Social History Tobacco Use Types Packs/Day Years [...] How often do you attend chur or nondenominational services? Patient declined 09/13/2022 Do you belong [...] Recorded Patient Health Questionnaire-2 Score 0 12/20/2022 [facility] - Occupational Stress Questionnaire Answer Date Recorded [...] place to sleep or slept in a long-term (including now)? No 09/13/2022 Comments Unknown Sex [...] Family Practice [address] [facility] 230 [place] [address] Isidra Allred, DO [address] [place] [address] 03/15/2025 4:00 PM EST Office Visit [facility] [address] [facility] 150 [place] [address] Jose Freed, DO [address] [facility] 150 [place] [address] documented as of this encounter Visit Diagnoses Not on filedocumented in this encounter Care Teams Performance Consultant Relationship Specialty Start Date End Date Kostas Gauthier MD [address] [facility] [place] [address] PCP - General Family Medicine 09/13/22 Isidra Allred DO [address] [place] [address] PCP - Medical [place] [employer] 04/14/21 04/13/99 documented as of this encounter
--- OUTSIDE RECORDS SUMMARY | 2025-01-31 09:42 | XMS_ITS | Encounter Summary ---
Author Organization [facility] Address [address] [place] [address] Care Team Providers Care Heavy Equipment Operator Name Role Phone Kostas Gauthier MD Primary Care Provider [phone] Isidra Allred DO Unavailable [phone] Encounter Details Date Type Department Care Team (Late st Contact Info) Description 03/04/2023 Abstract [facility] [address] [facility] [address] [place] [address] Isidra Allred, [address] [facility] [address] [place] [address] Social History Tobacco Use Types Packs/Day Years [...] How often do you attend chur or mandaen services? Patient declined 09/13/2022 Do [...] Recorded Patient Health Questionnaire-2 Score 0 12/20/2022 [facility] - Occupational Stress Questionnaire Answer [...] Family Practice [address] [facility] 230 [place] [address] Isidra Allred, DO [address] [place] [address] 03/15/2025 4:00 PM EST Office Visit [facility] [address] [facility] 150 [place] [address] Jose Freed, DO 703 [facility] 150 [place] [address] documented as of this encounter Visit Diagnoses Not on filedocumented in this encounter Care Teams Heavy Equipment Operator Relationship Specialty Start Date End Date Kostas Gauthier MD [address] [facility] [place] [address] PCP - General Family Medicine 09/13/22 Isidra Allred DO [address] [place] [address] PCP - Medical [place] [employer] 04/14/21 04/13/99 documented as of this encounter
--- OUTSIDE RECORDS SUMMARY | 2025-01-31 09:42 | XMS_ITS | Encounter Summary ---
Author Organization [facility] Address [address] [place] [address] Care Team Providers Care Cane Burner Name Role Phone Kostas Gauthier MD Primary Care Provider [phone] Isidra Allred DO Unavailable [phone] Encounter Details Date Type Department Care Team (Latest Contact Info) Description 01/28/2025 Travel Social History Tobacco Use Types Packs/Day [...] week 09/13/2022 How often do you attend [facility] or jewish services? Patient declined 09/13/2022 Do you belong to any clubs o r organizations such as gnosticist groups, unions, fraternal or athletic groups, or [...] Recorded Patient Health Questionnaire-2 Score 0 10/22/2024 [facility] of Occupat ional Health - Occupational [...] [address] [facility] 230 [place] [address] Isidra Allred, [address] [facility] [address] [facility] 230 [place] [address] 03/15/2025 4:00 PM EST Office [facility] [address] [facility] 150 [place] [phone] Jose Freed, DO 703 [facility] 150 [place] [address] documented as of this encounter Visit Diagnoses Not on filedocumented in this encounter Care Teams Cane Burner Relationship Specialty Start Date End Date Kostas Gauthier MD [address] [facility] [place] [address] PCP - General Family Medicine 09/13/22 Isidra Allred DO [address] [place] [address] PCP - Medical [place] [employer] 04/14/21 04/13/99 documented as of this encounter
--- OUTSIDE RECORDS SUMMARY | 2025-01-31 09:42 | XMS_ITS | Encounter Summary ---
Author Organization [facility] Address [address] [place] [address] Care Team Providers Care Systems Applications Programming Lead Name Role Phone Kostas Gauthier MD Primary Care Provider [phone] Isidra Allred DO Unavailable [phone] Encounter Details Date Type Department Care Team (Late st Contact Info) Description 12/17/2024 Orders Only [facility] [address] [place] [address] Bhanu Forde MD [address] [place] [address] [place] [address] Social History Tobacco Use Types Packs/Day Years [...] How often do you attend chur or mosque services? Patient declined 09/13/2022 Do you belong to any clubs o r organizations such as islam groups, unions, fraternal or athletic groups, or [...] Recorded Patient Health Questionnaire-2 Score 0 10/22/2024 [facility] - Occupational Stress Questionnaire Answer [...] [address] [place] [address] Isidra Allred, DO [address] [place], [place] [address] 03/15/2025 4:00 PM EST Office [facility] [address] [place] [address] Jose Freed, DO 703 [facility] 150 [place] [address] documented as of this encounter Procedures Procedure Name Priority Date/Time Associated Diagnosis Comments COLONOSCOPY Routine 10/30/2012 9:45 AM EDT documented in this encounter Results * Colonoscopy (10/30/2012 9:45 AM EDT) Anatomical Region Laterality Modality Endoscopy Bhanu Forde MD ENDOSCOPY PROCEDURE ORDERABLE S Final Result documented in this encounter Visit Diagnoses Not on filedocumented in this encounter Care Teams Systems Applications Programming Lead Relationship Specialty Start Date End Date Kostas Gauthier MD [address] [facility] [place] [address] PCP - General Family Medicine 09/13/22 Isidra Allred DO [address] [facility] 230 [place] [address] PCP - Medical [place] [employer] 04/14/21 04/13/99 documented as of this encounter
--- OUTSIDE RECORDS SUMMARY | 2025-01-31 09:42 | XMS_ITS | Clinical Summary ---
Author Organization [facility] Address [id number] [address] [place] [address] Care Team Providers Care Barrel Finisher Name Role Phone Unavailable Primary Care Provider [...]
--- OUTSIDE RECORDS SUMMARY | 2025-01-31 09:42 | XMS_ITS | Encounter Summary ---
Author Organization [facility] Address [address] [place] [address] Care Team Providers Care Diamond Polisher Name Role Phone Kostas Gauthier MD Primary Care Provider [phone] Isidra Allred DO Unavailable [phone] Encounter Details Date Type Department Care Team (Latest Contact Info) Description 01/27/2025 Travel Social History Tobacco Use Types Packs/Day [...] week 09/13/2022 How often do you attend [facility] or samaritan services? Patient declined 09/13/2022 Do you belong to any clubs o r organizations such as synagogue groups, unions, fraternal or athletic groups, or [...] Recorded Patient Health Questionnaire-2 Score 0 10/22/2024 [facility] of Occupat ional Health - [...] place to sleep or slept in a assisted (including now)? No 09/13/2022 Comments Unknown Sex [...] Family Practice [address] [facility] 230 [place] [address] Isidra Allred, [address] [facility] 230 [place] [address] 03/15/2025 4:00 PM EST [facility] [facility] 150 [place] [phone] Jose Freed, DO 703 [facility] 150 [place] [address] documented as of this encounter Visit Diagnoses Not on filedocumented in this encounter Care Teams Diamond Polisher Relationship Specialty Start Date End Date Kostas Gauthier MD [address] [facility] [place] [address] PCP - General Family Medicine 09/13/22 Isidra Allred DO [address] [place] [address] PCP - Medical [place] [employer] 04/14/21 04/13/99 documented as of this encounter
--- OUTSIDE RECORDS SUMMARY | 2025-01-31 09:43 | XMS_ITS | Encounter Summary ---
Author Organization [facility] Address [address] [place] [address] Care Team Providers Care Physician Office Secretary Name Role Phone Kostas Gauthier MD Primary Care Provider [phone] Isidra Allred DO Unavailable [phone] Encounter Details Date Type Department Care Team (Late st Contact Info) Description 04/02/2023 Abstract [facility] [address] [facility] [address] [place] [address] Isidra Allred, [address] [facility] [address] [place] [address] Social History Tobacco Use Types Packs/Day Years [...] How often do you attend chur or hoahaoism services? Patient declined 09/13/2022 Do you belong to any clubs o r organizations such as jainism groups, unions, fraternal or athletic groups, or [...] Recorded Patient Health Questionnaire-2 Score 0 12/20/2022 [facility] - Occupational Stress Questionnaire Answer Date [...] 02/25/2025 10:45 AM EST Office Visit [facility] [address] [place] [address] Isidra Allred, DO [address] [place] [address] 03/15/2025 4:00 PM EST [facility] [address] [facility] 150 [place] [address] Jose Freed, DO 703 [facility] 150 [place] [address] documented as of this encounter Visit Diagnoses Not on filedocumented in this encounter Care Teams Physician Office Secretary Relationship Specialty Start Date End Date Hoy, Kostas M, MD [address] [place] [address] PCP - General Family Medicine 09/13/22 Isidra Allred DO [address] [facility] 230 [place] [address] PCP - Medical [place] [employer] 04/14/21 04/13/99 documented as of this encounter
--- OUTSIDE RECORDS SUMMARY | 2025-01-31 09:43 | XMS_ITS | Encounter Summary ---
Author Organization [facility] Address [address] [place] [address] Care Team Providers Care Sailing Master Name Role Phone Kostas Gauthier MD Primary Care Provider [phone] Isidra Allred DO Unavailable [phone] Encounter Details Date Type Department Care Team (Late st Contact Info) Description 09/12/2022 Abstract [facility] [address] [facility] 230 [place] [address] Isidra Allred, [address] [facility] [address] [place] [address] Social History Tobacco Use Types Packs/Day Years [...] often do you attend chur ch or gnosticist services? Patient declined 09/13/2022 Do you belong to any clubs o r organizations such as scientologist groups, unions, fraternal or athletic groups, or [...] and heating? Not hard at all 09/13/2022 [facility] of Occupat ional Health - Occupational Stress [...] place to sleep or slept in a prison (including now)? No 09/13/2022 Comments Unknown Sex [...] as of this encounter Functional Status * AUDIT-C Score Answer Date of Assessment Author 0 [...] [facility] [address] [place] [address] Isidra Allred, [address] [place] [address] 03/15/2025 4:00 PM EST [facility] [address] [facility] 150 [place] [address] Jose Freed, 703 [facility] 150 [place] [address] documented as of this encounter Visit Diagnoses Not on filedocumented in this encounter Care Teams Sailing Master Relationship Specialty Start Date End Date Kostas Gauthier MD [address] [place] [address] PCP - General Family Medicine 09/13/22 Isidra Allred DO [address] [place] [address] PCP - Medical [place] [employer] 04/14/21 04/13/99 documented as of this encounter
--- OUTSIDE RECORDS SUMMARY | 2025-01-31 09:43 | XMS_ITS | Encounter Summary ---
Author Organization [facility] Address [address] [place] [address] Care Team Providers Care Paste Up Copy Camera Operator Name Role Phone Kostas Gauthier MD Primary Care Provider [phone] Isidra Allred DO Unavailable [phone] Encounter Details Date Type Department Care Team (Late st Contact Info) Description 03/24/2023 Abstract [facility] [address] [facility] [address] [place] [phone] Isidra Allred, [address] [facility] [address] [place] [address] Social History Tobacco Use Types Packs/Day Years [...] How often do you attend chur or yazdanism services? Patient declined 09/13/2022 Do you belong to any clubs o r organizations such as rastafari groups, unions, fraternal or athletic groups, or [...] Recorded Patient Health Questionnaire-2 Score 0 12/20/2022 [facility] - Occupational Stress Questionnaire Answer Date [...] 02/25/2025 10:45 AM EST Office Visit [facility] [address] [place] [phone] Isidra Allred, DO [address] [place] [address] 03/15/2025 4:00 PM EST Office Visit [facility] [address] [facility] [address] [place] [address] Jose Freed, DO [address] [facility] [address] [place] [address] documented as of this encounter Visit Diagnoses Not on filedocumented in this encounter Care Teams Paste Up Copy Camera Operator Relationship Specialty Start Date End Date Hoy, Kostas M, MD [address] [place] [address] PCP - General Family Medicine 09/13/22 Isidra Allred DO [address] [facility] [address] [place] [address] PCP - Medical [place] [employer] 04/14/21 04/13/99 documented as of this encounter
--- OUTSIDE RECORDS SUMMARY | 2025-01-31 09:48 | XMS_ITS | CCD ---
Author Organization [facility] Care Team Providers Care First Aid Teacher Name Role Phone ABRAHAN ., DR EATON Admitting Unavailable HOY ., DR EATON Attending Unavailable HOY ., DR EATON Primary Care Unavailable HOY ., DR EATON Consulting Unavailable MANISH, KATHY Admitting Unavailable MANISH, KATHY Attending Unavailable RADHAY ., DR EATON Primary Care Unavailable ALDEN, DR ADRIANNE Daily Consulting Unavailable MANISHKATHY Consulting Unavailable MANISH, KATHY Admitting Unavailable KATHY HAMMOND Attending Unavailable ABRAHAN ., DR EATON Primary Care Unavailable SHELBY, DR JAMEY Mccollum Consulting Unavailable MANISH, KATHY Consulting Unavailable MANISH, KATHY Admitting Unavailable MANISH, KATHY Attending Unavailable RADHAY ., DR EATON Primary Care Unavailable ALDEN, DR ADRIANNE Daily Consulting Unavailable KATHY HAMMOND Consulting Unavailable INDY SIDDIQUI Admitting Unavailable INDY SIDDIQUI Attending Unavailable ABRAHAN ., DR EATON Primary Care Unavailable ALDEN, DR ADRIANNE Daily Consulting Unavailable INDY SIDDIQUI Consulting Unavailable ABRAHAN ., DR EATON Primary Care Unavailable JUNIE, DR OLIVA Vizcaino Admitting Unavaillucy ZAMAN, DR OLIVA Vizcaino Attending Unavailabl e DEE ., JAYLYN ANDRE Consulting UnavailJAMEY Perales Unavailable ABRAHAN ., DR EATNO Admitting Unavailable HOY ., DR EATON Attending Unavailable RADHAY ., DR EATON Primary Care Unavailable RADHAY ., DR EATON Consulting Unavailable RADHAY ., DR EATON Admangelic Unavailable HOY ., DR EATON Attending Unavailable ABRAHAN Haywood, DR EATON Primary Care Unavailable Uma Gauthier Primary Care Physician [phone] Uma Gauthier Attending Unavailable Uma Gauthier Admitting Unavailable Uma Gauthier MD Primary Care Provider [phone] Isidra Buckley DO Unavailable Uma Gauthier MD Primary Care Provider [phone] Shonna Minor Attending Unavailable Dony PÉREZ Attending Unavailable Uma Gauthier MD Attending Provider [phone] Uma Gauthier Attending Unavailable Uma Gauthier Admitting Unavailable Uam Gauthier MD Primary Care Provider [phone] ISIDRA BUCKLEY Attending Unavailable ISIDRA BUCKLEY Attending Unavailable ISIDRA BUCKLEY Attending Unavailable JOSE MCCARTHY Attending Unavailable Allergies Allergy Classification Reported Allergen(s) Allergy Type Date of Onset Reaction(s) Facility (1 source) Adhesive agent Drug allergy (disorder) 017 [facility] (1 source) Codeine Drug Allergy [facility] (1 source) Iodine (And Iodine Containting Drugs) Drug allergy (disorder) [facility] (2 sources) Pentazocine; Translations: [Talwin] Drug Allergy 017 [facility] (2 sources) Sulfamethoxazole / Trimethoprim; Translations: [Bactrim] Drug Allergy 017 [facility] (9 sources) Sulfamethoxazole / Trimethoprim; Translations: [sulfamethoxazole-t rimethoprim] Drug Allergy 023 Gastrointestinal irritation (disorder) [facility] (5 sources) Radiographic iodinated contrast medium (product); Translations: [Radiographic iodinated contrast medium] Drug allergy Weal (disorder) [facility] (5 sources) Amoxicillin Drug Allergy 023 [facility] (6 sources) levoFLOXacin; Translations: [levofloxacin] Drug Allergy 023 Gastrointestinal irritation (disorder) [facility] (5 sources) metroNIDAZOLE Drug Allergy 023 [facility] (6 sources) Pentazocine; Translations: [pentazocine] Drug Allergy 023 Hallucinosis (finding) [facility] (6 sources) Pravastatin; Translations: [pravastatin] Drug Allergy 023 Unknown, Muscle pain (finding) [facility] (5 sources) Iodinated Contrast Media Drug Allergy 023 [facility] (5 sources) Wound Dressing Adhesive Drug Allergy 023 [facility] (2 sources) Adhesive bandage; Translations: [Adhesive Bandage] Allergy to substance Eruption of skin (disorder) [facility] [place] (1 source) levoFLOXacin; Translations: [Levaquin] Drug Allergy [facility] (1 source) Penicillin; Translations: [penicillin] Drug Allergy [facility] (1 source) Pravastatin; Translations: [Pravachol] Drug Allergy [facility] Medications Current Medications Medication Drug Class(es) Dates Sig (Normalized) Sig (Original) ascorbic acid 60 mg / beta carotene 5000 unt / copper sulfate 40 mg / dl-alpha tocopheryl acetate 30 unt / sodium selenite 0.04 mg / zinc oxide 40 mg oral tablet (5 sources) Vitamin C End: 01-28-2025 Multiple Vitamin (Multivitamin Adult) tablet 01/28/2025 Discontinued (Therapy completed) aspirin 81 mg delayed release oral tablet (6 sources) Platelet Aggregation Inhibitor, Nonsteroidal Anti-inflammatory Drug Start: 11-11-2024 take 1 tablet by mouth once daily aspirin 81 mg Oral EC Tab 81 mg = 1 tab(s), Oral, Daily, Refills(s) 0 Start Date: 11/11/24 Status: Ordered Repeat number: 1 atorvastatin 40 mg oral tablet (9 sources) HMG-CoA Reductase Inhibitor Start: 01-18-2015 take 1 tablet by mouth once daily at bedtime atorvastatin 40 mg Tab 40 mg = 1 tab(s), Oral, Once a day (at bedtime), Refills(s) 0, High cholesterol Start Date: 01/18/15 Status: Ordered Repeat number: 1 biotin 1 mg oral tablet (6 sources) Start: 11-11-2024 take 1 tablet by mouth once daily biotin 1000 mcg oral tablet 1,000 mcg = 1 tab(s), Oral, Daily, Refills(s) 0 Start Date: 11/11/24 Status: Ordered Repeat number: 1 biotin 1 MG caps ule 1 (one) time each day at the same time Active Blood Glucose Monitoring Sup pl (Accu-Chek Guide) w/Device kit (5 sources) Start: 02-17-2024 Blood Glucose Monitoring Suppl (Accu-Chek Guide) w/Device kit Indications: Type 1 diabetes mellitus without complication (HCC) 1 each See administration instructions 1 kit 02/17/2024 Active Start: 02-17-2024 Blood Glucose Monitoring Suppl (Accu-Chek Guide) w/Device kit Indications: Type 1 diabetes mellitus without complication (CMS/HCC) 1 each See administration instructions 1 kit 02/17/2024 Active clonazePAM 1 mg oral tablet (9 sources) Benzodiazepine Start: 01-18-2015 take 1.5 mg [...] Continuous Glucose Sensor (Dexcom G7 Sensor) misc (4 sources) Start: 10-25-2024 Continuous Glu cose Sensor (Dexcom G7 Sensor) misc Indications: Type 1 diabetes mellitus without complication (HCC) Inject 1 Device under the skin See administration instructions Change every 10 days 9 each 3 10/25/2024 Active Start: 06-21-2024 Continuous Glu cose Sensor (Dexcom G7 Sensor) misc Indications: Type 1 diabetes mellitus without complication (HCC) Inject 1 Device under the skin See administration instructions Change every 10 days 9 each 3 06/21/2024 Active Cranberry preparation (1 source) Non-Standardized Food Allergenic Extract, Non-Standardized Plant Allergenic Extract Cranberry 125 MG tablet Active dicyclomine hydrochloride 10 mg oral capsule (3 sources) Anticholinergic Start: 01-18-2015 Bentyl 10 mg Cap 10 mg = 1 cap(s), Oral, As Directed, Refills(s) 0, Spasm Start Date: 01/18/15 Status: Ordered Elderberry preparation (6 sources) Start: 11-11-2024 elderberry Refill(s) 0 Start Date: 11/11/24 Status: Ordered Repeat number: 1 ELDERBERRY PO Ac tive ELDERBERRY PO El derberry Active fenofibrate 160 mg oral tablet (5 sources) Peroxisome Proliferator Receptor alpha Agonist Start: 10-14-2023 End: 01-28-2025 fenofibrate (Triglide) 160 MG tablet 10/14/2023 01/28/2025 Discontinued (Therapy completed) fexofenadine hydrochloride 60 mg oral tablet (6 sources) Histamine-1 Receptor Antagonist Start: 11-11-2024 take 1 tablet by mouth once daily as needed fexofenadine 60 mg Tab 60 mg = 1 tab(s), Oral, Daily, PRN Allergy symptoms, Refills(s) 0 Start Date: 11/11/24 Status: Ordered Repeat number: 1 hyoscyamine sulfate 0.125 mg oral tablet (8 sources) Start: 11-11-2024 take 1 tablet by [...] insulin aspart, human 100 unt/ml injectable solution (11 sources) Insulin Analog Start: 10-25-19 25 insulin aspart (NovoLOG) 100 UNIT/ML injection Indications: [...] Infusion Pump (T:sli m Insulin Pump) device (9 sources) Start: 10-24-2024 Insulin Infusi on Pump [...] adjustment) levothyroxine sodium 0.15 mg oral tablet (16 sources) l-Thyroxine Start: 12-19-2023 take 1 tablet [...] take 1 tablet by jose roberto th before mealtime levothyroxine (Synthroid, Levoxyl) 100 MCG tablet Take 100 mcg by mouth in the morning. Take before meals. Active End: 01-28-2025 take 1 tablet by mouth every other day levothyroxine (Synthroid, Levoxyl) 125 MCG tablet Take 125 mcg by mouth every other day 01/28/2025 Discontinued (Therapy completed) take 1 tablet by jose roberto th every other day levothyroxine (Synthroid, Levoxyl) 150 MCG tablet Take 150 mcg by mouth every other day. Active losartan potassium 100 mg oral tablet (9 sources) Angiotensin 2 Receptor Baron Start: 11-11-2024 [...] blood pressure Start Date: 01/18/15 Status: Ordered magnesium gluconate 500 mg o ral tablet (5 sources) magnesium 500 (2 7 Mg) MG tablet Active magnesium 500 (2 7 Mg) MG tablet Magnesium Active methscopolamine bromide 5 mg oral tablet (3 sources) Anticholinergic Start: 01-18-2015 take 1 tablet by mouth once daily methscopolamine 5 mg Tab 5 mg = 1 tab(s), Oral, Daily, Refills(s) 0, Control of stomach acid Start Date: 01/18/15 Status: Ordered 24 hr metoprolol succinate 50 mg extended release oral tablet (4 sources) beta-Adrenergic Baron Start: 03-31-2024 take 1 tablet by mouth once daily metoprolol succinate 50 mg ER Tab 50 mg = 1 tab(s), Oral, Daily, Refills(s) 0 Start Date: 11/11/24 Status: Ordered Repeat number: 1 Multiple Vitamins-Minerals (AIRBORNE PO) (5 sources) Multiple Vitamins-Minerals (AIRBORNE PO) Active Multiple Vitamin s-Minerals (AIRBORNE PO) Airborne Active Multiple Vitamins-Minerals (Vitamin D3 Complete) tablet (5 sources) Multiple Vitamins-Minerals (Vitamin D3 Complete) tablet Take by mouth Active Multivitamin preparation (1 source) Start: 11-12-19 25 take 1 tablet by mouth once daily multivitamin 1 tab(s), Oral, Daily, Refill(s) 0 Start Date: 11/11/24 Status: Ordered Repeat number: 1 nadolol 40 mg oral tablet (5 sources) beta-Adrenergic Baron Start: 01-19-20 take 1 tablet by mouth once daily nadolol 40 mg Tab 40 mg = 1 tab(s), Oral, Daily, Refills(s) 0, High blood pressure Start Date: 01/18/15 Status: Ordered nadolol (Corgard ) 40 MG tablet every 12 (twelve) hours. Active pantoprazole 40 mg extended release oral tablet (9 sources) Proton Pump Inhibitor Start: 01-18-2015 take [...] 1 Start: 01-18-2015 take 1 capsule by [facility] once daily Probiotic Formula 1 cap(s), Oral, Daily, Refill(s) 0, Prophylaxis Start Date: 01/18/15 Status: Ordered Probiotic Product (PROBIOTIC & ACIDOPHILUS EX ST PO) (5 sources) Probiotic Produc t (PROBIOTIC & ACIDOPHILUS EX ST PO) every 12 (twelve) hours Active Probiotic Produc t (PROBIOTIC & ACIDOPHILUS EX [...] or 0.5 MG/DOSE,) 2 MG/3ML solution pen-injector (7 sources) Start: 02-17-2024 Semaglutide,0. 25 or 0.5MG/DOS, (Ozempic, 0.25 or 0.5 MG/DOSE,) 2 MG/3ML solution pen-injector Indications: Type 2 diabetes mellitus without complication, with long-term current use of insulin ([facility]) Inject 0.5 mg under the skin every [...] (Dose adjustment) tiZANidine 4 mg oral tablet (4 sources) Central alpha-2 Adrenergic Agonist Start: 10-18-2024 take 2 tablets by mouth at bedtime tiZANidine 4 mg Tab 8 mg = 2 tab(s), Oral, Bedtime, Refills(s) 0 Start Date: 11/11/24 Status: Ordered Repeat number: 1 Vitamin D (1 source) Start: 11-11-2024 Vitamin D Refills(s) 0 Start Date: 11/11/24 Status: Ordered [...] Daily, # 90 EA, Refills(s) 5, Pharmacy: [facility]/pharmacy #[id number], 159, cm, 12/19/23 10:06:00 EDT, Height/Length Dosing, 89, kg, 12/19/23 10:06:00 EDT, Weight Dosing Start Date: 12/19/23 Status: Ordered Problems Active Problems Problem Classification Problem Date Documented Da te Episodic/Chronic Abdominal pain (1 source) Abdominal pain; Translations: [Unspecified abdominal pain] Onset: 4 Episodic Anxiety disorders (11 sources) Anxiety disorder; Translations: [Anxiety disorder, unspecified] Onset: 6 09-13-2022 Chronic Cardiac dysrhythmias (2 sources) Atrial fibrillation; Translations: [Paroxysmal supraventricular tachycardia] 11-11-2024 Chronic Cardiac dysrhythmias (1 source) Bradycardia 11-11-2024 Episodic Cataract (5 sources) Bilateral age-related nuclear cataracts; Translations: [Age-related nuclear cataract, bilateral] Onset: 4 05-07-2023 Chronic Deficiency and other anemia (1 source) Anemia, unspecified; Translations: [ANEMIA UNSPECIFIED] Onset: 3 Episodic Diabetes mellitus without complication (20 sources) Type 2 diabetes mellitus without complications; Translations: [Type 1 diabetes mellitus] Onset: 6 Resolved: 5 02-16-2024 Chronic Disorders of lipid metabolism (7 sources) Hyperlipidemia; Translations: [Hyperlipidemia, unspecified] Onset: 6 09-13-2022 Chronic Esophageal disorders (1 source) Gastroesophageal reflux disease 11-11-2024 Chronic Essential hypertension (6 sources) Hypertensive disorder; Translations: [Essential (primary) hypertension] Onset: 6 09-13-2022 Chronic Gastrointestinal hemorrhage (3 sources) Hemorrhage of rectum and anus; Translations: [Hemorrhage of anus and rectum] Onset: 4 Episodic Malaise and fatigue (1 source) Other fatigue; Translations: [OTHER FATIGUE] Onset: 3 Episodic Nutritional deficiencies (1 source) Vitamin D deficiency 11-11-2024 Chronic Other aftercare (1 source) Other assisted (current) drug therapy; Translations: [OTH INTERMEDIATE CURRENT DRUG THERAPY] Onset: 3 Episodic Other [...] Onset: 3 Episodic Other nervous system disorders (5 sources) Mononeuropathy of lower limb; Translations: [Unspecified mononeuropathy of right lower limb] Onset: 3 08-16-2022 Chronic Other non-traumatic joint disorders (4 sources) Pain in right ankle and joints of right foot; Translations: [PAIN IN RIGHT ANKLE] Onset: 3 Episodic Other nutritional; endocrine; and metabolic disorders (5 sources) Severe obesity; Translations: [Class 2 severe [...] conditions (not mental disorders or infectious disease) (5 sources) Encounter for screening for malignant neoplasm [...] Episodic/Chronic Conditions associated with dizziness or vertigo (5 sources) Dizziness; Translations: [Dizziness and giddiness] Onset: [...] Onset: 03-17-2022 Episodic Other aftercare (1 source) 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; Translations: [INTERMEDIATE CURRENT USE OF ASPIRIN] Onset: 03-17-2022 Episodic Other aftercare (1 source) 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; Translations: [INTERMEDIATE CURRENT USE OF INSULIN] Onset: 03-17-2022 Episodic Results Test Name Value Interpretation Reference Range Facility Urine Cultureon 01-03-2025 Bacteria identified Cx Nom (U) <9,000 colonies/ml mixed bacterial skin contaminants 2 Days PERFORMED BY: [place] [address] PATHOLOGIST CUSTOM MILLER BOSTON Zelaya [facility] Comment on above: Performed By: #### C UU #### [address] Ambulatory Visit Summaryon 0 12-07-2024 Ambulatory Visit Summary Ambulatory Visit Summary ROSIO SIU :1965 Visit Date:12/07/2024 Ambulatory Visit Instructions Your Care Team Attending Physician - BETO YARBROUGH, Dony Daily Primary Care Physician - Abrahan YARBROUGH, mUa This Is Your Medications List Contact prescribing [...] signed up for this yet, please contact [employer] at [phone] to get signed up t (more content not included)... Normal [facility] HbA1c (Bld) [Mass fraction]o n 10-22-2024 Interpretation and review of laboratory results Normal [facility] - Hematology and Cell countson 10-22-2024 HbA1c (Bld) [Mass fraction] 7 % [facility] HbA1c (Bld) [Mass fraction]o n 02-17-2024 Interpretation and review of laboratory results Normal [facility] - Hematology and Cell countson 02-17-2024 HbA1c (Bld) [Mass fraction] 7 % [facility] Ambulatory Visit Summaryon 0 12-19-2023 Ambulatory Visit [...] cholecystectomy Loose stools Refills: 5 Pickup at [facility]/pharmacy #[id number] Unchanged atorvastatin (atorvastatin 40 mg Tab) [...] physician if questions or concerns Pharmacy Information [facility]/pharmacy #[id number]: [address], [place] [id number] [phone] Allergies Bactrim Radiographic iodinated contrast medium Problems [...] for choosing us for your care. Normal [facility] Gastroenterology Office/Clin ic Noteon 12-19-2023 Gastroenterology Office/Clinic [...] Daily, # 90 EA, Refills(s) 5, [id number], 159, cm, 12/19/23 10:06:00 EDT, Height/Length Dosing, 89, kg, 12/19/23 10:06:00 EDT, Weight Dosing Colonoscopy (Hospital Procedure) 2. Abdominal cramps (R10.9: Unspecified abdominal pain) Ordered: cholestyramine, = 1 packet(s), Oral, Daily, # 90 EA, Refills(s) 5, [id number], 159, cm, 12/19/23 10:06:00 EDT, Height/Length Dosing, 89, kg, 12/19/23 10:06:00 EDT, Weight Dosing Colonoscopy (Hospital Procedure) 3. Hx of cholecystectomy (Z90.49: Acquired absence of other specified parts of digestive tract) Ordered: cholestyramine, = 1 packet(s), Oral, Daily, # 90 EA, Refills(s) 5, [id number], 159, cm, 12/19/23 10:06:00 EDT, Height/Length Dosing, 89, kg, 12/19/23 10:06:00 EDT, Weight Dosing Colonoscopy (Hospital Procedure) 4. Loose stools (R19.5: Other fecal abnormalities) Ordered: cholestyramine, = 1 packet(s), Oral, Daily, # 90 EA, Refills(s) 5, [facility]: [id number], 159, cm, 12/19/23 10:06:00 EDT, Height/Length [...] Formula, 1 (more content not included)... Normal [facility] Comment on above: Result Comment: Elec tronically Signed By: Mily YARBROUGH, Shonna Salazar\.br\Date and Time Signed: 12/19/23 10:26 EDT Felipe 12-11-2023 L Specimen: [id number] R eceived: 12/12/23 Status: SOUT Re Num: [id number] Spec Type: Surgical Subm Dr: Uma Gauthier MD Tissues: A Skin-Other than Cyst, tag, debridement or plastic repair (LEFT SHOULDER) Procedures: HE, Gross/Micro L4 Age/ Patient Sex Location Account Attending Physician Rosio Siu 25/F [place]ELL [id number] Uma Gauthier MD SPEC NUM: [id number] RECD: 12/12/23 STATUS: DAVID WALKER NUM: [id number] [place]: 12/11/[address]: Uma Gauthier MD ENTERED: 12/12/23 [facility] DR: Mya Brooks SPEC TYPE: Surgical [...] performed supporting the above interpretation -------- Specimen: [id number] Received: 12/12/23 Status: DAVID Walker Num: [id number] Spec Type: Surgical Subm Dr: Uma Gauthier MD Tissues: A Skin-Other than Cyst, tag, debridement or plastic repair (LEFT SHOULDER) Procedures: SCOTT Gross/Micro L4 -------- Patient: Rosio Siu [id number] (Continued) -------- Specimen: [id number] Received: 12/12/23 (Continued) Signed (signature on file) Jessica Do MD 12/19/23 1045 -------- Specimen: [id number] Received: 12/12/23 Status: DAVID Walker Num: [id number] Spec Type: Surgical Subm Dr: Uma Gauthier MD Tissues: A Skin-Other than Cyst, tag, debridement or plastic repair (LEFT SHOULDER) Procedures: Naseem CHAVEZ/Bob Torrez -------- Patient: Rosio Siu [id number] (Continued) -------- Specimen: [id number] Received: 12/12/23 (Continued) CPT Codes 05154 -------- -------- Specimen: [id number] Received: 12/12/23 Status: DAVID Walker Num: [id number] Spec Type: Surgical Subm Dr: Uma Gauthier MD Tissues: A Skin-Other than Cyst, tag, debridement or plastic repair (LEFT SHOULDER) Procedures: Naseem CHAVEZ/Bob Torrez -------- Patient: Rosio Siu [id number] (Continued) -------- Signed (signature on file) Jessica Do MD 12/19/23 1045 Normal [facility] CBC AUTO DIFFon 08-23-2022 BASO # 0.1 103/ul Normal 0.0-0.1 [facility] Comment on above: Performed By: #### C BC ####[facility] [address] [place] [address]Dr. Anton Do Basophils/100 WBC (Bld) 0.9 % Normal 0.2-2.0 [facility] Comment on above: Performed By: #### C BC ####[facility] [address] [place], [place] [address]Dr. Anton Do EO # 0.2 103/ul Normal 0.0-0.7 [facility] Comment on above: Performed By: #### C BC ####[facility] [address] [place], [place] [address]Dr. Anton Do Eosinophils/100 WBC (Bld) 3.1 % Normal 0.9-7.0 [facility] Comment on above: Performed By: #### C BC ####[facility] [address] [place], [place] [address]Dr. Anton Do Erythrocyte distribution width (RBC) [Ratio] 14.2 % Normal 11.0-15.0 [facility] Comment on above: Performed By: #### C BC ####[facility] [address] [place], [place] [address]Dr. Anton Do Hematocrit (Bld) [Volume fraction] 42.3 % Normal 36.0-48.0 [facility] Comment on above: Performed By: #### C BC ####[facility] [address] [place], [place] [address]Dr. Anton Do Hemoglobin (Bld) [Mass/Vol] 13.8 g/dL Normal 12.0-16.0 [facility] Comment on above: Performed By: #### C BC ####[facility] [address] [place], [place] [address]Dr. Anton Do IG # 0.01 10e3/ul Normal 0.00-0.03 [facility] Comment on above: Performed By: #### C BC ####[facility] [address] [place] [address]Dr. Maricelbettye Do IG % 0.2 % Normal 0.0-0.5 [facility] Comment on above: Performed By: #### C BC ####[facility] [address] [place] [id number] Do LYMPH # 1.6 103/ul Normal 1.2-3.8 [facility] Comment on above: Performed By: #### C BC ####[facility] [address] [place] [address]DrChastity Maricelbettye Do Lymphocytes/100 WBC (Bld) 27.6 % Normal 20.5-60.0 [facility] Comment on above: Performed By: #### C BC ####[facility] [address] [place], [place] [address]DrChastity Do MANUAL DIFF REQ NO Normal [facility] Comment on above: Performed By: #### C BC ####[facility] [address] [place] [id number]. Anton Hi MCH (RBC) [Entitic mass] 27.5 pg Normal 26.7-34.0 [facility] Comment on above: Performed By: #### C BC ####[facility] [address] [place], [place] [id number] Anton Hi MCHC (RBC) [Mass/Vol] 32.6 g/dL Normal 29.9-35.2 [facility] Comment on above: Performed By: #### C BC ####[facility] [address] [place], [place] [address]DrChastity Maricelbettye Do MCV (RBC) [Entitic vol] 84.4 fL Normal 81.0-99.0 [facility] Comment on above: Performed By: #### C BC ####[facility] [address] [place] [id number] Do MONO # 0.7 103/ul Normal 0.3-0.8 [facility] Comment on above: Performed By: #### C BC ####[facility] [address] [place] [id number]. Anton Do Monocytes/100 WBC (Bld) 11.7 % Normal 1.7-12.0 [facility] Comment on above: Performed By: #### C BC ####[facility] [address] [place] [id number]. Anton Do NEUT # 3.3 103/ul Normal 1.4-6.5 [facility] Comment on above: Performed By: #### C BC ####[facility] [address] [place] [id number]. Anton Do Neutrophils/100 WBC (Bld) 56.5 % Normal 43.0-75.0 [facility] Comment on above: Performed By: #### C BC ####[facility] [address] [place] [address]Dr. Anton Do Platelet mean volume (Bld) [Entitic vol] 10.2 fL Normal 9.5-13.5 [facility] Comment on above: Performed By: #### C BC ####[facility] [address] [place] [id number]. Anton Do PLT 231 103/ul Normal 150-450 [facility] Comment on above: Performed By: #### C BC ####[facility] [address] [place] [id number]. Anton Do RBC 5.01 106/ul Normal 4.20-5.40 [facility] Comment on above: Performed By: #### C BC ####[facility] [address] [place] [id number]. Anton Do WBC 5.8 103/ul Normal 4.0-11.0 [facility] Comment on above: Performed By: #### C BC ####[facility] [address] [place] [id number]. Anton Do FREE THYROXINE INDEX T7on FTI 4.45 Normal 1.30-4.50 [facility] Comment on above: Performed By: #### C MP, LIPID, T7, TSH #### [facility] [address] [address] [address] Anton Do T3U 32.0 % Normal 30.0-39.0 [facility] Comment on above: Performed By: #### C MP, LIPID, T7, TSH #### [facility] [address] [address] [address] Anton Do T4 [Mass/Vol] 13.90 ug/dL Normal 4.80-13.90 [facility] Comment on above: Performed By: #### C MP, LIPID, T7, TSH #### [facility] [address] [address] [address] Anton Do GLYCOHEMOGLOBIN A1Con 2022 ADA RECOMMENDATION SEE BELOW Normal [facility] Comment on above: Result Comment: ADA RECOMMENDED LIMIT 4.0 - 6.0 ADA THERAPEUTIC TARGET < 7.0 ACTION SUGGESTED > 7.0 Performed By: #### A 1C #### [facility] [address] [address] [address] Anton Do Glucose [Mass/Vol] 160 mg/dL Normal [facility] Comment on above: Performed By: #### A 1C #### [facility] [address] [address] [address] Anton Do HbA1c (Bld) [Mass fraction] 7.2 % Critically high 4.5-6.2 [facility] Comment on above: Performed By: #### A 1C #### [facility] [address] [address] [address] Anton Do IRONon 08-23-2022 Iron [Mass/Vol] 71.0 ug/dL Normal 50.0-170.0 [facility] Comment on above: Performed By: #### I GARCÍA SEGAL ####[facility] [id number] [address]Dr[address] Anton Do LIPID PROFILEon 08-23-2022 CHOL-HDL RATIO NORM SEE BELOW Normal [facility] Comment on above: Result Comment: 3.3 - 4.4 LOW RISK 4.4 - 7.1 AVERAGE RISK 7.1 - 11.0 MODERATE RISK >11.0 HIGH RISK Performed By: #### C MP, LIPID, T7, TSH #### [facility] [address] [address] [address] Anton Do Cholesterol [Mass/Vol] 168 mg/dL Normal <=200 [facility] Comment on above: Performed By: #### C MP, LIPID, T7, TSH #### [facility] [address] [address] [address] Anton Do Cholesterol in HDL [Mass/Vol] 46 mg/dL Normal 40-60 [facility] Comment on above: Performed By: #### C MP, LIPID, T7, TSH #### [facility] [address] [place] [address] Dr. Anton Do Cholesterol in LDL [Mass/Vol] 91.6 mg/dL Normal [facility] Comment on above: Performed By: #### C MP, LIPID, T7, TSH #### [facility] [address] [place] [address] Dr. Anton Do Cholesterol.total/ Cholesterol in HDL [Mass ratio] 3.7 {ratio} Normal [facility] Comment on above: Performed By: #### C MP, LIPID, T7, TSH #### [facility] [address] [place] [address] Dr. Anton Do HDL NORMAL > or = 60 mg/dl - LO W CARDIOVASCULAR RISK <40 mg/dl - HIGH CARDIOVASCULAR RISK Normal [facility] Comment on above: Performed By: #### C MP, LIPID, T7, TSH #### [facility] [address] [place] [address] Dr. Anton Do LDL CALC NORMAL SEE BELOW Normal [facility] Comment on above: Result Comment: <100 mg/dl OPTIMAL 100 - 129 mg/dl NEAR OR ABOVE OPTIMAL 130 - 159 mg/dl BORDERLINE HIGH 160 - 189 mg/dl HIGH >190 mg/dl VERY HIGH Performed By: #### C MP, LIPID, T7, TSH #### [facility] [address] [place] [address] Dr. Anton Do Triglyceride [Mass/Vol] 152 mg/dL Critically high <=150 [facility] Comment on above: Performed By: #### C MP, LIPID, T7, TSH #### [facility] [address] [address] [address] Anton Do VLDL CALC 30.4 mg/dL Normal [facility] Comment on above: Performed By: #### C MP, LIPID, T7, TSH #### [facility] [address] [address] [address] Anton Do PROF 14(COMP METB)on 023 Albumin [Mass/Vol] 3.4 g/dL Normal 3.4-5.0 [facility] Comment on above: Performed By: #### C MP, LIPID, T7, TSH #### [facility] [address] [place] [address] Dr. Anton Do Albumin/Globulin [Mass ratio] 0.8 {ratio} Normal [facility] Comment on above: Performed By: #### C MP, LIPID, T7, TSH #### [facility] [address] [place] [address] Dr. Anton Do ALP [Catalytic activity/Vol] 85 U/L Normal 46-116 [facility] Comment on above: Performed By: #### C MP, LIPID, T7, TSH #### [facility] [address] [place] [address] Dr. Anton Do ALT [Catalytic activity/Vol] 76 U/L Critically high 14-59 [facility] Comment on above: Performed By: #### C MP, LIPID, T7, TSH #### [facility] [address] [place] [address] Dr. Anton Do Anion gap [Moles/Vol] 9.4 mmol/L Normal [facility] Comment on above: Performed By: #### C MP, LIPID, T7, TSH #### [facility] [address] [place] [address] Dr. Anton Do AST [Catalytic activity/Vol] 30 U/L Normal 15-37 [facility] Comment on above: Performed By: #### C MP, LIPID, T7, TSH #### [facility] [address] [address] [address] Anton Do Bilirubin [Mass/Vol] 0.6 mg/dL Normal 0.2-1.0 [facility] Comment on above: Performed By: #### C MP, LIPID, T7, TSH #### [facility] [address] [address] [address] Anton Do Calcium [Mass/Vol] 9.1 mg/dL Normal 8.5-10.1 [facility] Comment on above: Performed By: #### C MP, LIPID, T7, TSH #### [facility] [address] [address] [address] Atnon Do Chloride [Moles/Vol] 108 mmol/L Critically high 98-107 [facility] Comment on above: Performed By: #### C MP, LIPID, T7, TSH #### [facility] [address] [place] [address] Dr. Anton Do CO2 [Moles/Vol] 28.1 mmol/L Normal 21.0-32.[address] [facility] Comment on above: Performed By: #### C MP, LIPID, T7, TSH #### [facility] [address] [address] [address] Anton Do Creatinine [Mass/Vol] 1.49 mg/dL Critically high 0.55-1.02 [facility] Comment on above: Performed By: #### C MP, LIPID, T7, TSH #### [facility] [address] [place] [address] Dr. Anton Do EGFR-AF GAMBIAN 44 mL/min/1.73m2 Critically low >=60 [facility] Comment on above: Performed By: #### C MP, LIPID, T7, TSH #### [facility] [address] [place] [address] Dr. Anton Do EGFR-NON AF GAMBIAN 36 mL/min/1.73m2 Critically low >=60 [facility] Comment on above: Performed By: #### C MP, LIPID, T7, TSH #### [facility] [address] [place] [address] Dr. Anton Do Globulin (S) [Mass/Vol] 4.4 g/dL Normal [facility] Comment on above: Performed By: #### C MP, LIPID, T7, TSH #### [facility] [address] [address] [address] Anton Do Glucose [Mass/Vol] 253 mg/dL Critically high 74-106 T [facility] Comment on above: Performed By: #### C MP, LIPID, T7, TSH #### [facility] [address] [address] [address] Anton Do Potassium [Moles/Vol] 4.7 mmol/L Normal 3.5-5.1 [facility] Comment on above: Performed By: #### C MP, LIPID, T7, TSH #### [facility] [address] [place] [address] Dr. Anton Do Protein [Mass/Vol] 7.8 g/dL Normal 6.4-8.2 [facility] Comment on above: Performed By: #### C MP, LIPID, T7, TSH #### [facility] [address] [place] [address] Dr. Anton Do Sodium [Moles/Vol] 143 mmol/L Normal 136-145 [facility] Comment on above: Performed By: #### C MP, LIPID, T7, TSH #### [facility] [address] [address] [address] Anton Do Urea nitrogen [Mass/Vol] 26.0 mg/dL Critically high 7.0-18.0 [facility] Comment on above: Performed By: #### C MP, LIPID, T7, TSH #### [facility] [address] [place] [address] Dr. Anton Do Urea nitrogen/Creatinin e [Mass ratio] 17.5 mg/mg Normal [facility] Comment on above: Performed By: #### C MP, LIPID, T7, TSH #### [facility] [address] [address] [address] Anton Do TSHon 08-23-2022 TSH 0.059 uIU/mL Critically low 0.358-3.740 [facility] Comment on above: Performed By: #### C MP, LIPID, T7, TSH #### [facility] [address] [place], [place] [address] Dr. Anton Do VITAMIN D 25 OHon 08-23-2022 VIT D 25-OH 45.9 ng/mL Normal [facility] Comment on above: Performed By: #### I LUZMA VITAD ####[facility] [id number] [place], [place] [address]Z[address]. Anton Do VIT D RANGES SEE BELOW Normal [facility] Comment on above: Result Comment: <20 ng/mL Vit D deficient 20 - <30 ng/mL Vit D insufficient 30 - 100 ng/mL Vit D sufficient >100 ng/mL Potential Toxicity Performed By: #### I LUZMA VITAD ####[facility] [address] [place], [place] [address]ObDr. Anton Do XR ANKLE RT MIN 3 [...] by: JAMEY AZUL Date: 2022-03-13 16:24 Normal [facility] Vital Signs Date Time Vital Sign Value Performing Clinician Facility 01-28-2025 09:040 Body height 160 cm Jose Peterdarell [facility] Work Phone: [facility] 01-28-2025 09:23-0400 Body mass index (BMI) [Ratio] 34.54 kg/m2 Jose Mccarthy [facility] Work Phone: [facility] 01-28-2025 09:23040 Body weight 88.45 kg Jose Mccarthy [place] Work Phone: [facility] 01-28-2025 09:23-0400 Diastolic blood pressure 76 mm[Hg] Jose Mccarthy [place] Work Phone: [facility] 01-28-2025 09:23-0400 Systolic blood pressure 120 mm[Hg] Jose Mccarthy DO Work Phone: [facility] 10-22-2024 10:36-0400 Body height 161.3 cm Isidra Petznick DO Work Phone: [facility] 10-22-2024 10:36-0400 Body mass index (BMI) [Ratio] 33.65 kg/m2 Isidra Petznick DO Work Phone: [facility] 10-22-2024 10:36-0400 Body temperature 98.2 [degF] Isidra Petznick DO Work Phone: [facility] 10-22-2024 10:36-0400 Body weight 87.54 kg Isidra Petznick DO Work Phone: [facility] 10-22-2024 10:36-0400 Diastolic blood pressure 74 mm[Hg] Isidra Petznick DO Work Phone: [facility] 10-22-2024 10:36-0400 Heart rate 71 /min Isidra Petznick DO Work Phone: [facility] 10-22-2024 10:36-0400 SaO2% (BldA) [Mass fraction] 95 % Isidra Petznick DO Work Phone: [facility] 10-22-2024 10:36-0400 Systolic blood pressure 126 mm[Hg] Isidra Petznick DO Work Phone: [facility] 02-17-2024 14:46-0500 Body height 161.3 cm Isidra Petznick DO Work Phone: [facility] 02-17-2024 14:46-0500 Body mass index (BMI) [Ratio] 34 kg/m2 Isidra Petznick DO Work Phone: [facility] 02-17-2024 14:46-0500 Body temperature 97.9 [degF] Isidra Petznick DO Work Phone: [facility] 02-17-2024 14:46-0500 Body weight 88.45 kg Isidra Petznick DO Work Phone: [facility] 02-17-2024 14:46-0500 Diastolic blood pressure 84 mm[Hg] Isidra Petznick DO Work Phone: [facility] 02-17-2024 14:46-0500 Heart rate 64 /min Isidra Petznick DO Work Phone: [facility] 02-17-2024 14:46-0500 SaO2% (BldA) [Mass fraction] 96 % Isidra Petznick DO Work Phone: [facility] 02-17-2024 14:46-0500 Systolic blood pressure 122 mm[Hg] Isidra Petznick DO Work Phone: [facility] 12-19-2023 10:00-0400 Blood Pressure Location [facility] 12-19-2023 10:00-0400 Diastolic blood pressure 83 mm[Hg] [employer] [facility] 12-19-2023 10:00-0400 Heart rate 78 /min [facility] 12-19-2023 10:00-0400 Respiratory rate 16 /min [facility] 12-19-2023 10:00-0400 Systolic blood pressure 147 mm[Hg] [employer] [facility] Encounters Encounter Date Encounter Type Care Provider Facility Start: 01-28-2025 End: 01-28-2025 Patient encounter procedure Jose Mccarthy DO Work Phone: [facility] Comment on above: Encounter for screen ing colonoscopy (Primary Dx) Start: 01-28-2025 End: 01-28-2025 ambulatory JOSE MCCARTHY Not Available Start: 01-03-2025 End: 01-03-2025 [facility] Start: 01-03-2025 End: 01-03-2025 Departed Referred Uma Gonzales MD -[facility] Start: 12-07-2024 End: 12-07-2024 ambulatory Dony PÉREZ Facility:[facility] Start: 12-07-2024 End: 12-07-2024 Patient encounter procedure Dony PÉREZ [facility] [place] Start: 10-25-2024 ambulatory Shonna Minor Facilit y:[facility] Start: 10-22-2024 End: 10-22-2024 Office outpatient visit 25 minutes Isidra Gonzales Brigida DO [phone] Comment on above: Type 1 diabetes mahendra itus without complication (HCC) (Primary Dx) Start: 10-22-2024 End: 10-22-2024 ambulatory ISIDRA GARCIAICK Not Available Start: 06-18-2024 End: 06-18-2024 ambulatory ISIDRA Gonzales PETESTRELLAICK Not Available Start: 02-17-2024 End: 02-17-2024 Office outpatient visit 25 minutes Isidra Garciaick DO Work Phone: [facility] [phone] Comment on above: Type 1 diabetes mahendra itus without complication (CMS/HCC); Type 1 diabetes mellitus without complications (CMS/HCC); Type 2 diabetes mellitus without complication, with long-term current use of insulin (CMS/HCC) Start: 02-17-2024 End: 02-17-2024 ambulatory ISIDRA GARCIAICK Not Available Start: 12-19-2023 End: 01-02-2024 Pre-admission assessment Shonna Minor [facility] Start: 12-19-2023 End: 12-19-2023 ambulatory Shonna Minor Facility:[facility] Start: 12-19-2023 End: 12-19-2023 Patient encounter procedure Shonna Minor [facility] Start: 12-11-2023 End: 12-11-2023 ambulatory Uma Gauthier Facility:[facility] Start: 05-07-2023 End: 05-15-2023 Pre-admission assessment Shashank Perez [facility] Start: 08-25-2022 Encounter for genera l adult medical examination without abnormal findings DR UMA GAUTHIER . [facility] Start: 08-23-2022 End: 08-24-[address] [...] Start: 02-26-2022 End: 02-27-[address] UMA GAUTHEIR . Facility: Procedures Date Procedure Procedure Detail Performing Clinician Start: 10-22-2024 Hemoglobin glycosylated a1c Isidra Buckley DO Work Phone: Start: 02-17-2024 Hemoglobin glycosylated a1c Isidra Buckley DO Work Phone: Start: 05-15-2023 Cataract (disorder) Shnona Minor Start: 01-12-2015 Esophagogastroduodenoscopy Dony PÉREZ Start: 10-30-2012 Colonoscopy Jose Laffay DO Work Phone: Start: 10-12-2012 Colonoscopy Dony DONNELLYL Abdominal hysterectomy Jovanni PÉREZ Acquired trigger fin kaley (disorder) Shonna Minor Appendectomy Shonna Carrollli Cervical arthrodesis Dony DONNELLYL section Shonna Mckee chli Comment on above: x2 section Dony DONNELLY L Cholecystectomy Dony DONNELLYL Colonoscopy Dony DONNELLYL Excision of cervical intervertebral disc Dony DONNELLYL Gallbladder structur e (body structure) Shonna Minor History of cholecystectomy Hx of cholecys tectomy Shonna Carrollli Hysterectomy Shonna Minor Reduction mammoplasty Kane Minor Repair of musculoten dinous cuff of shoulder Dony PÉREZ Comment on above: x 2 Repair of right inguinal hernia Dony PÉREZ Specimen from breast obtained by biopsy (specimen) Shonna Minor Plan of Treatment Date Care Activity Detail Author Start: 06-14-2026 Glaucoma screening Diabetes: R etinopathy Screening [facility] Start: 05-07-2025 Glaucoma screening Diabetes: R etinopathy Screening [facility] Start: 02-25-2025 End: 02-25-2025 Patient encounter procedure [facility] 230 Start: 01-22-2025 Hemoglobin A1c measurement Diabetes: Hemoglobin A1C [facility] Start: 01-03-2025 Urine culture [facility] Start: 01-03-2025 Bacteria identified in Urine by Culture Urine Culture [facility] Start: 12-13-2024 Influenza vaccination Influenza Vacc ine (#1) [facility] Start: 06-18-2024 End: 06-18-2024 Patient encounter procedure 06/18/2024 2:00 PM EST Office Visit [facility] [address] [place] [id number] Isidra Buckley DO [address] [place] [address] [facility] [address] Start: 05-19-2024 Hemoglobin A1c measurement Diabetes: Hemoglobin A1C [facility] Start: 10-30-2022 Screening for malign ant neoplasm of colon [facility] Start: 2005 Screening for malign ant neoplasm of breast Mammogram [facility] Start: 1995 Screening for malign ant neoplasm of cervix [facility] Start: 1986 Screening for malign ant neoplasm of cervix Pap Smear [facility] Start: 1984 Urine screening for protein Diabetes: Urine Protein Screening [facility] Start: 1965 Screening for malign ant neoplasm of colon [facility] Immunizations Immunization Date Immunization Notes Care Provider Fa [facility] 02-06-2024 influenza, injectabl e, madin winnie canine kidney, preservative free Isidra Petznick DO Work Phone: [facility] 02-06-2024 influenza virus vacc ine, unspecified formulation Isidra Petznick DO Work Phone: [facility] 01-01-2023 Influenza, injectabl e, Madin Winnie Canine Kidney, preservative free, quadrivalent Isidra Petznick DO Work Phone: [facility] 02-06-2022 influenza virus vacc ine, unspecified formulation Mohamad Mouchli [facility] 02-06-2022 Influenza, injectabl e, Madin Winnie Canine Kidney, preservative free, quadrivalent Isidra Petznick DO Work Phone: [facility] 02-06-2022 tetanus toxoid, redu francis diphtheria toxoid, and acellular pertussis vaccine, adsorbed Mohamad Mouchli [facility] 04-18-2021 SARS-CoV-2 (COVID-19 ) mRNA-1273 vaccine Mohamad Mouchli [facility] Comment on above: Result Comment: 2023: [id number] 01-10-2021 influenza virus vacc ine, unspecified formulation Mohamad Mouchli [facility] 01-10-2021 Influenza, injectabl e, Madin [place] Canine Kidney, preservative free, quadrivalent Isidra Petznick DO Work Phone: [facility] 12-13-2020 influenza virus vacc ine, unspecified formulation Mohamad Mouchli [facility] 12-13-2020 influenza, injectabl e, quadrivalent, contains preservative Isidra Petznick DO Work Phone: [facility] 08-16-2020 SARS-CoV-2 (COVID-19 ) mRNA-1273 vaccine Mohamad Mouchli [facility] Comment on above: Result Comment: 2023: [id number] 07-12-2020 SARS-CoV-2 (COVID-19 ) mRNA-1273 vaccine Mohamad Mouchli [facility] Comment on above: Result Comment: 2023: [id number] 02-08-2020 influenza virus vacc ine, unspecified formulation Mohamad Mouchli [facility] 02-08-2020 influenza, injectabl e, quadrivalent, preservative free Isidra Petznick DO Work Phone: [facility] 01-26-2020 influenza virus vacc ine, unspecified formulation Mohamad Mouchli [facility] 01-26-2020 influenza, seasonal, injectable Isidra Petznick DO Work Phone: [facility] 01-11-2019 influenza virus vacc ine, unspecified formulation Mohamad Mouchli [facility] 01-11-2019 influenza, injectabl e, madin winnie canine kidney, preservative free Isidra Petznick DO Work Phone: [facility] 03-21-2018 tetanus toxoid, redu francis diphtheria toxoid, and acellular pertussis vaccine, adsorbed Mohamad Mouchli [facility] 01-01-2017 influenza virus vacc ine, H5N1, A/ (national stockpile) Isidra Petznick DO Work Phone: [facility] 01-01-2017 influenza virus vacc ine, unspecified formulation Isidra Petznick DO Work Phone: [facility] 01-01-2017 influenza, unspecifi ed formulation Mohamad Mouchli [facility] 01-01-2017 pneumococcal polysaccharide vaccine, 23 valent Mohamad Mouchli [facility] 02-19-2016 influenza virus vacc ine, H5N1, A/ (national stockpile) Isidra Petznick DO Work Phone: [facility] 02-19-2016 influenza virus vacc ine, unspecified formulation Isidra Petznick DO Work Phone: [facility] 02-19-2016 influenza, unspecifi ed formulation Mohamad Mouchli [facility] Payers Date Payer Category Payer Self-pay 2021 Private Health Insurance [id number] 1965 Unknown [id number] 1965 Unknown [id number] 1965 Unknown [id number] 1965 Unknown [id number] 1965 Unknown [id number] 1965 Unknown [id number] [id number] 1965 Unknown [id number] [id number] 1965 Unknown [id number] [id number] 1965 Unknown [id number] [id number] 1965 Unknown [id number] [id number] 1965 Unknown [id number] [id number] 1965 Unknown [id number] [id number] 1965 Unknown [id number] [id number] 1965 Unknown [id number] [id number] 1959 Unknown [id number] [place] [facility] [id number] Unknown [employer] BC/BS [id number] Unknown [id number] Unknown [id number] Social History Date Type Detail Facility Tobacco smoking status [facility] Start: 09-13-2022 End: 10-22-2024 Sex Assigned At Female [facility] Start: 09-12-2022 End: 12-19-2023 Tobacco smoking status Never smoked tobacco (finding) [facility] Start: 06-26-2022 Tobacco smoking status Never [facility] Start: 09-12-2022 Tobacco use and exposure Smokeless tobacco non-user [facility] Start: 02-17-2024 End: 01-28-2025 Alcoholic beverage intake Ex-drinker (finding) [facility] Start: 09-13-2022 End: 10-22-2024 History of Social function [facility] Within the last year , have you been afraid of your partner or ex-partner? No [facility] Do you belong to any clubs or organizations such as taoism groups, unions, fraternal or athletic groups, or [...] Gender identity Identifies as female gender (finding) [facility] Start: 07-26-2009 Sex Female (finding) [facility] Tobacco smoking stat [facility] Unknown if ever smoked [facility] Work Phone: Medical Equipment Procedure Code Equipment Code Equipment Origin al Text Equipment Identifier Dates [id number], [id number] Start: 10-11-2016 End: 01-28-2025 Functional Status Date Assessment Result Facility 10-22-2024 Patient Health Quest ionnaire 2 item (PHQ-2) [Reported] [facility] 12-19-2023 Functional Status N/A [facility] Clinical Notes 04-03-2022 to [...] Oral, Daily Prot (more content not included)... [facility] Comment on above: Result Comment: Elec tronically Signed By: BETO YARBROUGH, Dony Allen.lio\Date and Time Signed: 12/07/24 13:41 EDT 10-24-2024 [...] (BMI) of 35.0 to 35.9 in adult ([facility]) Type 1 diabetes mellitus without complication (HCC) [...] q7 days SC (2 MG/3ML SOPN) Labs [facility] [place] HEMOGLOBIN A1C/HEMOGLOBIN.TOTAL:MFR:PT:BLD:QN: 7.0 Outpatient prescription Medication marked as long-term The ASCVD Risk score (Jamison NEUMANN, et al., 2019) failed to calculate for [...] FEXOFENADINE (SINDY ALLERGY) 60 MG TABLET prn GLUCOSE BLOOD [...] the patient today. documented in this encounter [facility] 02-17-2024 History of Present illness Narrative Associated Problem(s): Type 1 diabetes mellitus without complication ([facility]) During the appointment today all pertinent labs, [...] meter and strips (accu-chek guide) sent to [facility]- that way she can double check with finger sticks. States using [employer] it would be free to her. SUBJECTIVE: PROBLEM LIST SOCIAL ALLERGIES: Patient Active Problem List Diagnosis Class 2 severe obesity due to excess calories with serious comorbidity and body mass index (BMI) of 35.0 to 35.9 in adult ([facility]) Type 1 diabetes mellitus without complication ([facility]) Unspecified mononeuropathy of right lower limb Dizziness Hyperlipidemia ([facility]) Hypertensive disorder ([facility]) Anxiety disorder Panic disorder ([facility]) Age-related nuclear cataract of both eyes Social [...] Diagnoses Type 1 diabetes mellitus without complications (CMS/HCC) Type 2 diabetes mellitus without complication, with long-term current use of insulin (CMS/HCC) Relevant Medications Semaglutide,0.25 or 0.5MG/DOS, (Ozempic, 0.25 [...] the patient today. documented in this encounter [facility] 07-24-2022 Note PROCEDURE: XR ANKLE RT MIN [...] authenticated by: ADRIANNE RUANO Date: 2022-07-24 15:00 [facility] 07-24-2022 Note PROCEDURE: XR ANKLE RT MIN [...] authenticated by: ADRIANNE RUANO Date: 2022-07-24 15:00 [facility] 05-28-2022 Note PROCEDURE: XR ANKLE RT MIN [...] authenticated by: ADRIANNE RUANO Date: 2022-05-28 14:43 [facility] 04-23-2022 Note PROCEDURE: XR ANKLE [...] authenticated by: JAMEY SANDHU Date: 2022-04-23 12:08 [facility] 04-03-2022 Note PROCEDURE: XR ANKLE RT MIN [...] authenticated by: ADRIANNE RUANO Date: 2022-04-03 16:49 [facility] Evaluation + Plan note No data available for this section [facility] Evaluation + Plan note Future Appointments Appointment Date:01/01/2024 01:45:00 PM Scheduled Provider: Location:[facility] Appointment Type:Surgery [facility] Evaluation + Plan note Future Appointments Appointment Date:12/31/2024 09:30:00 AM Scheduled Provider: Location:[facility] Appointment Type:Surgery [facility] [place] Evaluation note Diagnosis Severe obesity (BMI 35.0-39.9) with comorbidity (CMS/HCC)- Primary Type 1 diabetes mellitus without complication ([facility]/HCC) Type I (juvenile type) diabetes mellitus without [...] of insulin (CMS/HCC) documented in this encounter [facility] HealthcareEvaluation note* Diagnosis Severe obesity (BMI 35.0-39.9) [...] stated as uncontrolled documented in this encounter [facility] HealthcareEvaluation noteNo assessment information availableHolzer Health System Work Phone: Evaluation note* Diagnosis Severe obesity (BMI 35.0-39.9) with [...] index (BMI) of 35.0 to 35.9 in adult- Primary Type 1 diabetes mellitus without complication (HCC) Type I (juvenile type) diabetes mellitus without mention of complication, not stated as uncontrolled Class 2 severe obesity due to excess calories with serious comorbidity and body mass index (BMI) of 35.0 to 35.9 in adult- Primary Type 1 diabetes mellitus without complication [...] mention of complication, not stated as uncontrolled Encounter for screening colonoscopy- Primary documented in this [facility] N[facility]ative* Jose Mccarthy, - 01/28/2025 9:45 AM EDT Images from the original note were not included. Rosio Siu 1965 Rosio Siu is a 59 y.o. female [...] hours BD Insulin Syringe U/F 31G X 08/27 0.5 ML misc biotin 1 MG capsule [...] 5' 3 Wt 195 lb BMI 34.54 kg/m Smoking Status Never BSA 1.98 m Physical Exam Constitutional: Appearance: Normal appearance. HENT: [...] SURGERY release pinched nerve ROTATOR CUFF REPAIR 2011 x2 TRIGGER FINGER RELEASE Left 2020 ring finger [facility] No data available for this section [facility] No data available for this section [facility] ClinicReason for referral (narrative)No reason for referral information availableWadsworth-[facility] Work Phone: Summary Purpose Family History No Family History Records Found No data available for this section No data available for this section No Family History Records Found No data available for this section No data available for this section No Family History Records FoundNo Family History Records FoundNo Family History Records Found Advance Directives No Advanced Directives Records Found Advance Directive Response Recorded Date/ Time Advance Directives No March 2:47pm Additional Source Comments INFORMATION SOURCE (unrecogn ized section and content) DATE CREATED AUTHOR 08/26/2022 [facility] [place] DATE CREATED AUTHOR AUTHOR'S ORGANIZ ATION 12/21/2023 [facility] DATE CREATED AUTHOR AUTHOR'S ORGANIZ ATION 12/09/2024 [facility] DATE CREATED AUTHOR AUTHOR'S ORGANIZ ATION 01/07/2025 [facility] DATE CREATED AUTHOR AUTHOR'S ORGANIZ ATION 01/30/2025 [facility] EPIC Patient Care team informatio n (unrecognized section and content) First Aid Teacher Relationship Specialty Start Date End Date Uma Gauthier MD [address] [facility] [place] [address] PCP - General Family Medicine 09/13/22 Isidra Buckley DO [address] [place] [address] PCP - [facility] 04/14/21 04/13/99 First Aid Teacher Relationship Specialty Start Date End Date Uma Gauthier MD [address] [facility] [place] [address] PCP - General Family Medicine 09/13/22 Isidra Buckley, [address] [place] [address] PCP - [facility] 04/14/21 04/13/99 Team Status: Inactive Member Role Status Dates Uma Gauthier MD Attending Provider Active Sta rt: January 03, 2025 End: January 03, 2025 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 On her first one she had polyps. No family hx. Goals (unrecognized section and content) Goals may be documented in a n alternate section FOR RECORDS PERTAINING TO PATIENTS WHO ARE [...] BE BASED ON THE PRIMARY CLINICAL RECORDS. [facility] [employer] [facility]. provides no warranty or guarantee of the accuracy or completeness of information in this document.
[2025-01-31 10:41] LABS: Hematocrit 43.2 % (36.0-48.0); Hemoglobin 14.1 g/dL (12.0-16.0); Immature Granulocytes Abs Auto 0.01 10^3/uL (0.00-0.03); Immature Granulocytes Pct Auto 0.2 % (0.0-0.5); Lymphocytes Absolute Auto 2.6 10^3/uL (1.2-3.8); Mean Corpuscular HGB Conc 32.6 g/dL (29.9-35.2); Mean Corpuscular Hemoglobin 28.2 pg (26.7-34.0); Mean Corpuscular Volume 86.4 fL (81.0-99.0); Platelet Count 205 10^3/uL (150-450); Red Blood Count 5.00 10^6/uL (4.20-5.40); White Blood Count 6.1 10^3/uL (4.0-11.0)
[2025-01-31 10:58] LABS: Glucose Urine UA NEGATIVE (NEGATIVE)
[2025-01-31 11:10] LABS: Iron 71.0 ug/dL (50.0-170.0)
[2025-01-31 11:19] LABS: Cast Seen? NONE SEEN #/LPF (NONE SEEN); Crystals Seen? None Seen #/HPF (None Seen)
[2025-01-31 11:25] LABS: Alanine Aminotransferase 58 U/L (14-59); Albumin Globulin Ratio 0.8; Albumin Level 3.5 g/dL (3.4-5.0); Alkaline Phosphatase 93 U/L (46-116); Anion Gap 12.1; Aspartate Amino Transferase 36 U/L (15-37); Blood Urea Nitrogen 11.0 mg/dL (7.0-18.0); Calcium 8.4 mg/dL (8.5-10.1); Carbon Dioxide 30.4 mmol/L (21.0-32.0); Chloride 102 mmol/L (98-107); Creatine Kinase 61 U/L (26-192); Estimated GFR (African America >60 (>=60 mL/min/1.73m^2); Estimated GFR (Non-African Ame 56 (>=60 mL/min/1.73m^2); Free T3 3.31 pg/mL (2.18-3.98); Globulin 4.4 g/dL; Glucose 184 mg/dL (74-106); Potassium 3.5 mmol/L (3.5-5.1); Sodium 141 mmol/L (136-145); Thyroid Stimulating Hormone 0.115 uIU/mL (0.358-3.740); Total Protein 7.9 g/dL (6.4-8.2); Uric Acid 4.2 mg/dL (2.6-6.0)
[2025-02-01 17:08] LABS: Antinuclear Antibodies, IFA Negative (.)
== END 2025-01-31 09:32 | disposition home or self-care (01) ==
LOC: LAB 09:34
PROVIDERS: PCP Family Medicine; Visit Provider Family Medicine
DX: K30 Functional dyspepsia (principal); I10 Essential (primary) hypertension; E10.69 Type 1 diabetes mellitus with other specified complication; D64.9 Anemia, unspecified; E03.9 Hypothyroidism, unspecified; D50.9 Iron deficiency anemia, unspecified
CPT/HCPCS: 36415; 80053; 81001; 82550; 82553; 83540; 83874; 84436; 84443; 84481; 84484; 84550; 85025; 86038; 86060; 86140; 86431; 87086

== ENCOUNTER 2025-02-03 08:23 | Outpatient (OUT) | payer OTHER, SELFPAY ==
--- OUTSIDE RECORDS SUMMARY | 2025-01-28 09:45 | XMS_ITS | Encounter Summary ---
Author Organization [facility] Address [address] [place] [address] Care Team Providers Care Warble Saw Operator Name Role Phone Kostas Gauthier MD Primary Care Provider [phone] Isidra Allred DO Unavailable [phone] Reason for Visit * ReasonCommentsSchedule colonoscopyLast one was done by Dr Ray and was normal. On her first one she had polyps. No family hx. Encounter Details DateTypeDepartmentCare Team (Latest Contact Info)Kgbulghvliv75/17/2025 9:45 AM LAURENTCjean carlos [facility] [address] [facility] [address] [place] [phone] Jose Freed DO [address] [facility] [address] [place] [address] Encounter for screening colonoscopy (Primary Dx) Social History Tobacco UseTypesPacks/DayYears UsedDateSmoking Tobacco: NeverSmokeless Tobacco: NeverAlcohol UseStandard Drinks/WeekCommentsNot Currently0 (1 standard drink = 0.6 oz pure alcohol)Humiliation, Afraid, Rape, and Kick questionnaireAnswerDate RecordedWithin the last year, have you been afraid of your partner or ex-partner?No09/13/2022Within the last year, have you been humiliated or emotionally abused in other ways by your partner or ex-partner?No09/13/2022 Within the last year, have you been kicked, hit, slapped, or otherwise physically hurt by your partner or ex-partner?No09/13/2022Within the last year, have you been raped or forced to have any kind of sexual activity by your part ner or ex-partner?No09/13/2022Social Connection and Isolation PanelAnswerDate RecordedIn a typical week, how many times do you talk on the phone with family, friends, or neighbors?More than three times a week09/13/2022How often do you get together with friends or relatives?Three times a week09/13/2022How often do you attend cheondoism or mandaen services?Patient mrcqjeun75/02/2023o you belong to any clubs or organizations such as cheondoism groups, unions, [employer] or athletic groups, or school groups?Yes09/13/2022How often do you attend meetings of the clubs or organizations you belong to?Patient xovouqux57/02/2023re you , , , , never , or living with a partner? 09/13/2022UDIT-CAnswerDate RecordedQ1: How often do you have a drink containing alcohol?Never09/13/2022Q2: How many drinks containing alcohol do you have on a typical day when you are drinking?Patient does not drink09/13/2022Q3: How often do you have six or more drinks on one occasion?Never09/13/2022Overall Financial Resource Strain (CARDIA)AnswerDate RecordedHow hard is it for you to pay for the very basics like food, housing, medical care, and heating?Not hard at all 09/13/2022HQ-2AnswerDate RecordedPatient Health Questionnaire-2 Score0 10/22/2024[facility] [place] [facility] - Occupational Stress QuestionnaireAnswerDate RecordedDo you feel stress - tense, restless, nervous, or anxious, or unable to sleep at night because yourmind is troubled all the time - these days?Patient cdeswozh88/02/2023Exercise Vital SignAnswerDate RecordedOn average, how many days per week do you engage in moderate to strenuous exercise (like a brisk walk)?Patient kgppdogs05/02/2023On average, how many minutes do you engage in exercise at this level?Patient vmkldzez39/02/2023 Hunger Vital SignAnswerDate RecordedWithin the past 12 months, you worried that your food would run out before you got the money to buymore.Never true09/13/2022 Within the past 12 months, the food you bought just didn't last and you didn't have money to get more.Never true09/13/2022RAPARE - TransportationAnswerDate RecordedIn the past 12 months, has lack of transportation kept you from medical appointments or from getting medications?No09/13/2022In the past 12 months, has lack of transportation kept you from meetings, work, or from getting things needed for daily living?No09/13/2022Housing Stability Vital SignAnswerDate RecordedIn the last 12 months, was there a time when you were not able to pay the mortgage or rent on time?No09/13/2022Number of Places Lived in the Last Year Not on file09/13/2022In the last 12 months, was there a time when you did not have a steady place to sleep or slept in [facility] (including now)?No09/13/2022 CommentsUnknownSex and Gender InformationValueDate RecordedSex Assigned at UpclzGkchlx84/02/2023 9:07 AM EDTLegal PjsObbqpb25/15/2023 7:13 PM EDTGender ExcvxldiGduula58/02/2023 9:07 AM EDTSexual OrientationNot on filedocumented as of this encounter Last Filed Vital Signs Vital SignReadingTime TakenCommentsBlood Kgjfqwfr621/7601/28/2025 9:23 AM EDT Pulse--Temperature--Respiratory Rate--Oxygen Saturation--Inhaled Oxygen Concentration--Ujzisa41.5 kg (195 lb)01/28/2025 9:23 AM KBOCcgtil173 cm (5' 3 ) 01/28/2025 9:23 AM EDTBody Mass Index34.5401/28/2025 9:23 AM EDTdocumented in this encounter Progress Notes * Jose Freed, DO - 01/28/2025 9:45 AM EDT Images from the original note were not included. Rosio Janet Bryan 1965 Rosio M Irvin is a 59 y.o. female presents with chief complaint of Schedule colonoscopy (Last one was done by Dr Ray and was normal. On her first one she had polyps. No family hx.) HPI: HPI patient last had a colonoscopy in 2012. She had several colonoscopies previously because of irritable bowel syndrome. Generally her symptoms are pretty stable, if she drinks a cup of coffee she might have some diarrhea afterwards. She has not having any blood in his stool. She has not having any change in her bowel habits. She has not having any abdominal pain. There is no family members withcolon cancer. She has never had any diagnosis of inflammatory bowel disease or Crohn's disease etcetera. SUBJECTIVE: MEDICATIONS: ALLERGIES Current Outpatient Medications Medication Instructions aspirin (ASPIR) 81 MG EC tablet Every 24 hours atorvastatin (Lipitor) 40 MG tablet Every 24 hours BD Insulin Syringe U/F 31G X 5/16 0.5 ML misc biotin 1 MG capsule Every 24 hours Blood Glucose Monitoring Suppl (Accu-Chek Guide) w/Device kit 1 each, Does not apply, See admin instructions clonazePAM (KlonoPIN) 1 MG tablet 1.5 tablets, 2 times daily Continuous Glucose Sensor (Dexcom G7 Sensor) misc 1 Device, Subcutaneous, See admin instructions, Change every 10 days Continuous Glucose Sensor (Dexcom G7 Sensor) misc 1 Device, Subcutaneous, See admin instructions, Change every 10 days Cranberry 125 MG tablet ELDERBERRY PO fexofenadine (Sindy Allergy) 60 MG tablet prn glucose blood (Accu-Chek Guide) test strip Fsbs daily hyoscyamine (Levsin) 0.125 MG tablet Every 4 hours PRN insulin aspart (NovoLOG) 100 UNIT/ML injection Per pump (max daily 150 units) Insulin Infusion Pump (T:slim Insulin Pump) device Basal: 12A 2.5, 4A 2.1, 8A 2.2, 11A 1.7, ICR: 12A 3, ISF: 50, target: 110 levothyroxine (SYNTHROID, LEVOXYL) 100 mcg, Daily before breakfast losartan (Cozaar) 100 MG tablet Every 24 hours magnesium 500 (27 Mg) MG tablet metoprolol succinate XL (TOPROL-XL) 50 mg, Daily Multiple Vitamins-Minerals (AIRBORNE PO) Multiple Vitamins-Minerals (Vitamin D3 Complete) tablet Take by mouth Ozempic (0.25 or 0.5 MG/DOSE) 0.5 mg, Subcutaneous, Every 7 days pantoprazole (PROTONIX) 40 mg, Daily before breakfast Probiotic Product (PROBIOTIC & ACIDOPHILUS EX ST PO) Every 12 hours tiZANidine (Zanaflex) 4 MG tablet 2 tablets, Nightly PRN Allergies[1] PAST MEDICAL HISTORY: SOCIAL HISTORY SURGICAL HISTORY: Medical History[2] Social History[3] Surgical History[4] REVIEW OF SYMPTOMS: Review of Systems Constitutional: Negative for appetite change, fatigue and fever. HENT: Negative for trouble swallowing. Respiratory: Negative for cough and shortness of breath. Cardiovascular: Negative for chest pain. Gastrointestinal: Negative for abdominal pain. Genitourinary: Negative for hematuria. Musculoskeletal: Negative for back pain. Skin: Negative for wound. Neurological: Negative for seizures. OBJECTIVE: Visit Vitals BP 120/76 Ht 5' 3 Wt 195 lb BMI 34.54 kg/m?? Smoking Status Never BSA 1.98 m?? Physical Exam Constitutional: Appearance: Normal appearance. HENT: Head: Atraumatic. Eyes: General: No scleral icterus. Cardiovascular: Rate and Rhythm: Regular rhythm. Pulmonary: Effort: No respiratory distress. Abdominal: General: There is no distension. Tenderness: There is no abdominal tenderness. Skin: Findings: No bruising. Neurological: Mental Status: She is alert. Gait: Gait normal. ASSESSMENT AND PLAN: Assessment/Plan Diagnoses and all orders for this visit: Encounter for screening colonoscopy Screening colonoscopy, patient had 1 polyp many years ago but none after that. Last scope in 2012. Plan is for colonoscopy. We discussed the prep, the procedure, the risks and the benefits and the potential complications including, but not limited to, perforation and bleeding. They would like to proceed. [1] Allergies Allergen Reactions Amoxicillin Other Reaction(s): Unknown Iodinated Contrast Media Levofloxacin Other Reaction(s): Unknown Metronidazole Pentazocine Other Reaction(s): Unknown Pravastatin Unknown Sulfamethoxazole-Trimethoprim Wound Dressing Adhesive [2] Past Medical History: Diagnosis Date Anxiety 11/1987 Cataract COVID 09/23/2023 treated with paxlovid Diabetes (HCC) 1990 Disease of thyroid gland Fibromyalgia Foot fracture, left GERD (gastroesophageal reflux disease) Hyperlipidemia Hypertension Inflammatory bowel disease Obesity [3] Social History Tobacco Use Smoking status: Never Smokeless tobacco: Never Substance Use Topics Alcohol use: Not Currently Drug use: Never [4] Past Surgical History: Procedure Laterality Date APPENDECTOMY 2009 SECTION, CLASSIC SECTION, LOW TRANSVERSE 07/06/90 CHOLECYSTECTOMY FIBULA FRACTURE SURGERY Right 03/2020 HERNIA REPAIR 2012 HYSTERECTOMY NECK SURGERY release pinched nerve ROTATOR CUFF REPAIR 2012 x2 TRIGGER FINGER RELEASE Left 2020 ring finger documented in this encounter Plan of Treatment DateTypeDepartmentCare Team (Latest Contact Info)Gyupawzwdui67/14/2025 10:45 AM ESTOffice Visit [facility] [address] [place] [address] Isidra Allred DO [address] [place] [address] 03/15/2025 4:00 PM ESTOffice Visit [facility] [address] [facility] [address] [place] [phone] Jose Freed DO [address] [facility] [address] [place] [address] documented as of this encounter Visit Diagnoses Diagnosis Encounter for screening colonoscopy- Primary documented in this encounter Care Teams Team MemberRelationshipSpecialtyStart DateEnd Date Kostas Gauthier MD [address] [facility] [place] [address] PCP - GeneralFamily Medicine09/13/22 Isidra Allred DO [address] [place] [address] PCP - Medical [place] [employer]04/14/2211documented as of this encounter
--- OUTSIDE RECORDS SUMMARY | 2025-01-31 20:46 | XMS_ITS | Continuity of Care Document ---
Author Organization [facility] Address [address] [place] [address] Phone Care Team Providers Care Hog Pusher Name Role Phone Kostas Gauthier MD Attending Provider Care Teams Visit Care Team Team Status: Inactive Member Role/Relationship Status Dates Kostas Gauthier MD Attending Provider Active Sta rt: January 03, 2025 End: January 03, 2025 Patient Care Team Team Status: Inactive Member Role/Relationship Status Dates Kostas Gauthier MD Attending Provider Active Sta rt: January 31, 2025 End: January 31, 2025 Chief Complaint and Reason for Visit Chief Complaint Admit Date Unknown January 03, 2025 4:16pm Unknown January 31, 2025 9 :43am Social History Smoking Status Unknown if ever smoked Observation Status Observation Response Date of Response Legal Sex Female (finding) [facility] 1965 Procedures Procedure Date Performed Status Urine Culture January 03, 2025 completed Urine Culture January 31, 2025 active Relevant Diagnostic Tests and/or Laboratory Data Microbiology Results Procedure Source Result Collection Date/Time Result Date/Time Result Comment Performing Site Urine Culture Urine, Not Otherwise Specified 2 Days January 03, 2025 4:16pm January 06, 2025 10:51am [facility] [id number] [address] [place] [id number] Advance Directives Advance Directive Response Recorded Date/ Time Advance Directives No March 2:47pm Insurance Providers Guarantor Janet Mckee Address [address] [facility] [id number] Info.Home Phone: Payer Group Member ID Coverage Type Subscriber Relationship to Subscriber Effective Date Expiration Date MMO Id: [id number] Charis Irvin Id: [id number] [address] [place] [phone] Home Phone: anthem BC/BS Id: [id number] Charis Irvin Id: [id number] [address] [place] [id number] Home Phone: [employer] Id: [id number]: [id number] [address] [place] [phone] Home Phone: Email: [email or web address] Encounters Encounter Location(s) Arrival/Admit Date Discharge/Departure Date Discharge/Departure Disposition Provider(s) Departed Referred -[facility] January 03, 2025 4:16pm January 03, 2025 4:17pm Discharged to home care or self care (routine discharge) Janet Suh MD Departed Referred -[facility] January 31, 2025 9:43am January 31, 2025 9:44am Discharged to home care or self care (routine discharge) Janet Suh MD Plan of Treatment Future Tests Future scheduled test information is unavailable Pending Tests Test Name Ordered Date Scheduled Date Urine Culture January 31, 2025 9:43am Future Visits Future appointment information is unavailable Future Procedures Procedure Name Ordered Date Scheduled Date Urine Culture January 31, 2025 12:51pm Octob 2024 9:43am Future Medications Future medication information is unavailable Patient Instructions Patient instructions are unavailable
--- OUTSIDE RECORDS SUMMARY | 2025-02-03 08:26 | XMS_ITS | Clinical Summary ---
Author Organization [facility] Address [address] [place] [address] Care Team Providers Care Manager Product Marketing Name Role Phone Kostas Gauthier MD Primary Care Provider [phone] Isidra Allred DO Unavailable [phone] Allergies Active AllergyReactionsCriticalityNoted XugvKpkolgroKytasebrfmf62/08/2023 Other Reaction(s): Unknown Iodinated Contrast Media09/13/20223266Iecnjrfdhtji66/08/2023 Other Reaction(s): Unknown Feryvkayvbfje00/02/5975Hiaryvtsgth97/05/2023 Other Reaction(s): Unknown KwvhavsmmjfLrnpggp59/08/2023Sulfamethoxazole-Uyboyotkagpd35/02/2023Wound Dressing Jcjzemej83/02/2023 Medications MedicationSigDispense QuantityRefillsLast FilledStart DateEnd DateStatus Multiple Vitamins-Minerals (AIRBORNE PO) Active fexofenadine (Sindy Allergy) 60 MG tablet prnActive aspirin (ASPIR) 81 MG EC tablet 1 (one) time each day at the same timeActive biotin 1 MG capsule 1 (one) time each day at the same timeActive ELDERBERRY PO Active atorvastatin (Lipitor) 40 MG tablet 1 (one) time each day at the same timeActive magnesium 500 (27 Mg) MG tablet Active Probiotic Product (PROBIOTIC & ACIDOPHILUS EX ST PO) every 12 (twelve) hoursActive clonazePAM (KlonoPIN) 1 MG tablet Take 1.5 tablets by mouth in the morning and 1.5 tablets before bedtime.Active hyoscyamine (Levsin) 0.125 MG tablet every 4 (four) hours if neededActive levothyroxine (Synthroid, Levoxyl) 100 MCG tablet Take 100 mcg by mouth in the morning. Take before meals.Active losartan (Cozaar) 100 MG tablet 1 (one) time each day at the same timeActive pantoprazole (ProtoNix) 40 MG EC tablet 40 mg in the morning. Take before meals.Active BD Insulin Syringe U/F 31G X /16 0.5 ML [facility] 06/02/2022ctive Multiple Vitamins-Minerals (Vitamin D3 Complete) tablet Take by mouthActive Blood Glucose Monitoring Suppl (Accu-Chek Guide) w/Device kit Indications:Type 1 diabetes mellitus without complication (HCC)1 each See administration instructions 1 kit 02/17/2024ctive glucose blood (Accu-Chek Guide) test strip Indications:Type 1 diabetes mellitus without complication (HCC)Fsbs daily 100 strip ctive Semaglutide,0.25 or 0.5MG/DOS, (Ozempic, 0.25 or 0.5 MG/DOSE,) 2 MG/3ML solution pen-injector Indications:Type 2 diabetes mellitus without complication, with long-term current use of insulin (HCC)Inject 0.5 mg under the skin every 7 (seven) days 6 mL ctive metoprolol succinate XL (Toprol-XL) 50 MG 24 hr tablet Take 50 mg by mouth Daily03/31/2024ctive tiZANidine (Zanaflex) 4 MG tablet Take 2 tablets by mouth as needed at dyynkfm0910/18/2024tive Insulin Infusion Pump (T:slim Insulin Pump) device Indications:Type 1 diabetes mellitus without complication (HCC)Basal: 12A 2.5, 4A 2.1, 8A 2.2, 11A 1.7, ICR: 12A 3, ISF: 50, target: 110 1 each 5Active insulin aspart (NovoLOG) 100 UNIT/ML injection Indications:Type 1 diabetes mellitus without complication (HCC)Per pump (max daily 150 units) 140 mL 5Active Continuous Glucose Sensor (Dexcom G7 Sensor) [facility] Indications:Type 1 diabetes mellitus without complication (HCC)Inject 1 Device under the skin See administration instructions Change every 10 days 9 each 5Active Continuous Glucose Sensor (Dexcom G7 Sensor) [facility] Indications:Type 1 diabetes mellitus without complication (HCC)Inject 1 Device under the skin See administration instructions Change every 10 days 9 each 5Active Cranberry 125 MG tablet Active acetone, urine, test (Ketostix) strip Discontinued(Therapy completed) Multiple Vitamin (Multivitamin Adult) tablet 01/28/2025Discontinued(Therapy completed) levothyroxine (Synthroid, Levoxyl) 125 MCG tablet Take 125 mcg by mouth every other day01/28/2025Discontinued(Therapy completed) fenofibrate (Triglide) 160 MG tablet Discontinued(Therapy completed) Active Problems ProblemNoted DateDiagnosed DateEncounter for screening fqkwlftdime72/17/2025ge- related nuclear cataract of both eyes05/07/2023lass 2 severe obesity due to excess calories with serious comorbidity and body mass index (BMI) of35.0 to 35.9 in adult08/16/2022Type 1 diabetes mellitus without njhmlckcgdvgo17/05/2023 Assessment & Plan (10/24/2024 8:05 PM EDT): During the appointment today all pertinent labs, imaging, health maintenance, and glucose readings were reviewed. Encouraged to check blood glucose throughout the day with some fasting and some PP readings. They are to bring their glucose meter/cgm in to all appointments. All of the patients questions, treatment options, and current care plan and goals were discussed. Acopy of this along with pertinent instructions were given to the patient at the end of the appointment. The patient voices understanding of all of this and is to call in between appointments if they have any problems or questions. Rosio Siu control is stable overall. , The patient is wearing their cgm on a daily basis andmaking decisions in regards to adjusting insulin daily [...] current care plan and goals were discussed. Acopy of this along with pertinent instructions were [...] days , Instructions given today include: Pump instructions.Will work on getting her the dexcom G7 [...] current care plan and goals were discussed. Acopy of this along with pertinent instructions were given to the patient at the end of the appointment. The patient voices understanding of all of this and is to call in between appointments if they have any problems or questions. Rosio Siu control is stable overall. , The patient is wearing their cgm on a daily basis andmaking decisions in regards to adjusting insulin daily as well for at least the last 60 days , Instructions given today include: Pump instructions and Dietary education. She is going to keep working on getting up tot he 0.5 mg dose on ozempic. Will loosen her carb ratio to prevent low bg. Will needto keep adjusting her insulin as she goes [...] current care plan and goals were discussed. Acopy of this along with pertinent instructions were given to the patient at the end of the appointment. The patient voices understanding of all of this and is to call in between appointments if they have any problems or questions. Rosio Siu control is stable overall. , The patient is wearing their cgm on a daily basis andmaking decisions in regards to adjusting insulin daily [...] current care plan and goals were discussed. Acopy of this along with pertinent instructions were [...] insulin daily as well for at least thelast 60 days , Instructions given today include: [...] current care plan and goals were discussed. Acopy of this along with pertinent instructions were given to the patient at the end of the appointment. The patient voices understanding of all of this and is to call in between appointments if they have any problems or questions. Rosio Siu control is stable overall. , The patient is wearing their cgm on a daily basis andmaking decisions in regards to adjusting insulin daily as well for at least the last 60 days , Instructions given today include: Pump instructions. She is going to stay on the 0.25 mg dose of ozempicfor a while to see how she tolerates [...] current care plan and goals were discussed. Acopy of this along with pertinent instructions were [...] insulin daily as well for at least thelast 60 days , Instructions given today include: Pump instructions. Increase basal rate at 3A and decrease at 7A and 1P. She is working on increasing the dose of ozempic and will most likely need to b ack off more on insulin as her numbers improve. Unspecified mononeuropathy of right lower limb3102Lirbadokp95/16/2021 Xfieifgowiqreh07/12/2016Hypertensive eowrebqw70/12/2016Anxiety disorder 03/25/2016Panic liprjwbl65/12/2016 Resolved Problems ProblemNoted DateDiagnosed DateResolved DateDiabetes niedepby95/12/2016 09/13/2022 Encounters DateTypeDepartmentCare VwbwMnewsaynnkg17/20/2025Orders Only [facility] [address] [facility] [address] [place] [address] Bhanu Forde MD 01/28/2025 9:45 AM EDTConsult [facility] [address] [place] [address] Jose Freed, Encounter for screening colonoscopy (Primary Dx)01/28/20259641Azljtt77/16/2025Travel 01/24/20252442Umpjxr18/24/8797Ullvpy74/09/6910Rvsmha64/05/2025Orders Only [facility] [address] [address] [place] [address] Bhanu Forde MD from Last 3 Months Immunizations ImmunizationAdministration DatesNext DueInfluenza, A7H3-150841/20/2017, 02/19/2016Influenza, Injectable, MDCK, preservative free02/06/2024,01/11/2019 Influenza, Ivupwpvdovj94/26/2022,01/10/2021,12/13/2020,02/08/2020,01/26/2020, 01/11/2019,01/01/2017,02/19/2016Influenza, injectable, MDCK, preservative free, /20/2023,02/06/2022,01/10/2021Influenza, injectable, quadrivalent 12/13/2020Influenza, injectable, quadrivalent, preservative free02/08/2020 Influenza, seasonal, ewtsbsxufn27/14/2020Pneumococcal Polysaccharide PPSV23 01/01/2017Tdap1,03/21/2018 Family History Medical HistoryRelationNameCommentsHeart diseaseBrotherHeart diseaseFatherRay RonskiHypertensionFatherRay RonskiCancerMotherBarb QuaintanceHyperlipidemia MotherBarb QuaintanceHypertensionMotherBarb QuaintanceSkin cancerMotherBarb QuaintanceThyroid diseaseMotherBarb QuaintanceHyperlipidemiaSister 1Hypertension Sister 2Patti HediykuGdijltmnFsctRduitpHecvslbiSbluzxvYhwxb4QfeadpPjy Ronski DeceasedMotherBarb QuaintanceAliveSister 5Ikrtd9Bxezeg 2Patti LonswayAlive Social History Tobacco UseTypesPacks/DayYears UsedDateSmoking Tobacco: NeverSmokeless Tobacco: Never Tobacco Cessation:Counseling Given: Not Answered Alcohol UseStandard Drinks/WeekCommentsNot Currently0 (1 standard drink = [...] week09/13/2022How often do you attend cheondoism or denominational services?Patient eyqugcfr05/02/2023o you belong to any clubs or organizations such as cheondoism groups, unions, fraternal or athletic groups, or school groups?Yes09/13/2022How often do you attend meetings of the clubs or organizations you belong to?Patient hxbpiswr90/02/2023re you , , , , never , [...] at all 09/13/2022HQ-2AnswerDate RecordedPatient Health Questionnaire-2 Score0 10/22/2024[facility] [place] [facility] Occupational Health - Occupational Stress QuestionnaireAnswerDate RecordedDo you feel stress - tense, restless, nervous, or anxious, or unable to sleep at night because yourmind is troubled all the time - these days?Patient wkgjxook17/02/2023Exercise Vital SignAnswerDate RecordedOn average, how many days per week do you engage in moderate to strenuous exercise (like a brisk walk)?Patient ivsplwci28/02/2023On average, how many minutes do you engage in exercise at this level?Patient egidpfcq78/02/2023 Hunger Vital SignAnswerDate RecordedWithin the past 12 [...] steady place to sleep or slept in [facility] (including now)?No09/13/2022 CommentsUnknownSex and Gender InformationValueDate RecordedSex Assigned at GjuliAujnps88/02/2023 9:07 AM EDTLegal KxqYqbsrx63/15/2023 7:13 PM EDTGender NtawtlxzEjuolx96/02/2023 9:07 AM EDTSexual OrientationNot on file Last Filed Vital Signs Vital SignReadingTime TakenCommentsBlood Bnwtjsja575/7610 9:23 AM EDT Ybrlj336510/22/2024 10:36 AM FJGVwfljhzmmim70.8 ??C (98.2 ??F)10/22/2024 10:36 AM EDTRespiratory Rate--Oxygen Lmpbvxvrqf33%10/22/2024 10:36 AM EDTInhaled Oxygen Concentration--Pryvih01.5 kg (195 lb)01/28/2025 9:23 AM HJICtdais802 cm (5' 3 ) 01/28/2025 9:23 AM EDTBody Mass Index34.5401/28/2025 9:23 AM EDT Plan of Treatment DateTypeDepartmentCare Team (Latest Contact Info)Jploosvjkvn98/14/2025 10:45 AM ESTOffice Visit [facility] [address] [place] [address] Isidra Allred, DO [address] [place] [address] 03/15/2025 4:00 PM ESTOffice Visit [facility] [address] [facility] [address] [place] [address] Jose Freed, DO [address] [facility] [address] [place] [address] Health MaintenanceDue DateLast DoneCommentsCT Lduzdgicmovn40/04/1966FIT-DNA 1965FIT1965FOBT1965 6492Gumzwzvaclunv88/04/1966Diabetes: Urine Protein Kvwcnwdlo59/04/1985Pap Smear1986Cervical Cancer Screening 1995HPV/Mipemy7205/18/19955820Bkstfvqit98/04/6693Qbcrmmccsdi17/19/2023 10/30/2012, 10/30/2012Colorectal Cancer Odbzaxifj43/19/2023Influenza Vaccine (#1), 01/01/2023, 02/06/2022, Additional history exists Diabetes: Hemoglobin A1C5010/22/2024, 06/18/2024, 02/17/2024, Additional history existsDiabetes: Retinopathy Rchdtprkc99, 05/07/2023, 05/07/2023, Additional history exists Procedures Procedure NamePriorityDate/TimeAssociated DiagnosisCommentsPOCT GLYCOSYLATED HEMOGLOBIN (HGB A1C)Fsqjwtm2810/22/2024 10:52 AM EDT Type 1 diabetes mellitus without complication (HCC) DIABETIC RETINOPATHY SCREENING - OU - BOTH KKEZNksmywp29/03/2025 8:39 AM EST OGOCQJQUDVPZcghhsr43/19/2013 9:45 AM EDTfrom Last 3 Months or Most Recently Relevant to Health Maintenance Results * POCT glycosylated hemoglobin (Hb A1C) docked device (10/22/2024 10:52 AM EDT) ComponentValueRef RangeTest MethodAnalysis TimePerformed AtPathologist SignatureHemoglobin A1C7.0Specimen (Source)Anatomical Location / Laterality Collection Method / VolumeCollection TimeReceived TimeBloodVenous blood specimen / Phipgja7510/22/2024 10:52 AM EDT Narrative Authorizing ProviderResult TypeResult StatusIsidra Allred DOPOINT OF CARE TEST ENTER/EDIT ORDERABLESFinal Result * Diabetic Retinopathy Screening - OU - Both Eyes (06/14/2024 8:39 AM EST) Anatomical RegionLateralityModalityHeadOther Narrative Authorizing ProviderResult TypeResult StatusUnknown Practice AOPHTH PHOTOGRAPHY Final Result * Colonoscopy (10/30/2012 9:45 AM EDT)Anatomical RegionLateralityModality Endoscopy Narrative Authorizing ProviderResult TypeResult StatusAlfred A Eula YARBROUGHENDOSCOPY PROCEDURE ORDERABLESFinal Result from Last 3 Months or Most Recently Relevant to Health Maintenance Insurance Care Teams Team MemberRelationshipSpecialtyStart DateEnd Date Kostas Gauthier MD [address] [place] [address] PCP - GeneralFamily Medicine09/13/22 Isidra Allred DO [address] [place] [address] PCP - Medical [place] [facility]04/14/2211
--- OUTSIDE RECORDS SUMMARY | 2025-02-03 08:26 | XMS_ITS | Encounter Summary ---
Author Organization [facility] Address [address] [place] [address] Care Team Providers Care Osteologist Name Role Phone Kostas Gauthier MD Primary Care Provider [phone] Isidra Allred DO Unavailable [phone] Encounter Details DateTypeDepartmentCare Team (Latest Contact Info)Xrkqfoojqwj84/13/2025Travel Social History Tobacco UseTypesPacks/DayYears UsedDateSmoking Tobacco: NeverSmokeless [...] times a week09/13/2022How often do you attend anabaptism or synagogue services?Patient uhocrhrm55/02/2023Do you belong to any clubs or organizations such as anabaptism groups, unions, fraternal or athletic groups, or school groups?Yes09/13/2022How often do you attend meetings of the clubs or organizations you belong to?Patient bebqsxqc71/02/2023re you , , , , never , [...] at all 09/13/2022HQ-2AnswerDate RecordedPatient Health Questionnaire-2 Score0 10/22/2024[facility] - Occupational Stress QuestionnaireAnswerDate RecordedDo you feel stress - tense, restless, nervous, or anxious, or unable to sleep at night because yourmind is troubled all the time - these days?Patient xtqhvsyk05/02/2023Exercise Vital SignAnswerDate RecordedOn average, how many days per week do you engage in moderate to strenuous exercise (like a brisk walk)?Patient bsuqjfzy19/02/2023On average, how many minutes do you engage in exercise at this level?Patient ezxduzcj85/02/2023 Hunger Vital SignAnswerDate RecordedWithin the past 12 [...] steady place to sleep or slept in ashelter (including now)?No09/13/2022 CommentsUnknownSex and Gender InformationValueDate RecordedSex Assigned at XfpxaWifjio35/02/2023 9:07 AM EDTLegal DqrHzpdxn65/15/2023 7:13 PM EDTGender TvmxdhlwBdjxlc57/02/2023 9:07 AM EDTSexual OrientationNot on filedocumented as of this encounter Plan of Treatment DateTypeDepartmentCare Team (Latest Contact Info)Mklsyoihfrj99/14/2025 10:45 AM ESTOffice Visit [facility] [address] [place] [address] Isidra Allred DO [address] [place], [place] [id number] 03/15/2025 4:00 PM ESTOffice Visit [facility] [address] [facility] 150 [place] [phone] Jose Freed, DO [address]03 [facility] 150 [place] [address] documented as of this encounter Visit Diagnoses Not on filedocumented in this encounter Care Teams Team MemberRelationshipSpecialtyStart DateEnd Date Kostas Gauthier MD [address] [place] [address] PCP - GeneralFamily Medicine09/13/22 Isidra Allred DO [address] [place] [address] PCP - Medical [place] [employer]04/14/2211documented as of this encounter
--- OUTSIDE RECORDS SUMMARY | 2025-02-03 08:26 | XMS_ITS | Clinical Summary ---
Author Organization [facility] Address [address] [place] [address] Care Team Providers Care Heel Slugger Name Role Phone Unavailable Primary Care Provider Unavailabl e Medications MedicationSigDispense QuantityRefillsLast FilledStart DateEnd DateStatus nadolol (Corgard) 40 mg tablet Indications:Chest pain, unspecifiedTAKE 1 TABLET BY MOUTH TWICE A DAY 180 tablet 03/05/2022ctive Social History Tobacco UseTypesPacks/DayYears UsedDateSmoking Tobacco: Never Assessed CommentsUnknownSex and Gender InformationValueDate RecordedSex Assigned at Not on fileLegal TmrNdwebt51/29/2022 9:46 PM EDTGender IdentityNot on fileSexual OrientationNot on file Last Filed Vital Signs Vital SignReadingTime TakenCommentsBlood Ibxomrcu025/9107 2:12 PM EDT Jdaiw1493 9:30 AM ESTTemperature--Respiratory Rate--Oxygen Erngjwjcye99% 10/27/2020 2:08 PM EDTInhaled Oxygen Concentration--Jvkihe87.8 kg (209 lb) 10/27/2020 2:04 PM BVKDbkimo699 cm (5' 3 )10/27/2020 2:01 PM EDTBody Mass Index 37.02010/27/2020 2:01 PM EDT Plan of Treatment Not on file
--- OUTSIDE RECORDS SUMMARY | 2025-02-03 08:26 | XMS_ITS | Encounter Summary ---
Author Organization [facility] Address [address] [place] [address] Care Team Providers Care Temper Mill Operator Name Role Phone Kostas Gauthier MD Primary Care Provider [phone] Isidra Allred DO Unavailable [phone] Encounter Details DateTypeDepartmentCare Team (Latest Contact Info)Aoykrycmbip85/20/2025Orders Only [facility] [address] [facility] [address] [place] [address] Bhanu Forde MD [address] [place] [address] [place] [address] Social History Tobacco UseTypesPacks/DayYears UsedDateSmoking Tobacco: NeverSmokeless [...] times a week09/13/2022How often do you attend judaism or judaism services?Patient izzrajlv84/02/2023o you belong to any clubs or organizations such as judaism groups, unions, fraternal or athletic groups, or school groups?Yes09/13/2022How often do you attend meetings of the clubs or organizations you belong to?Patient zbhpqory41/02/2023re you , , , , never , [...] at all 09/13/2022HQ-2AnswerDate RecordedPatient Health Questionnaire-2 Score0 10/22/2024[facility] [place] of Occupational Health - Occupational Stress QuestionnaireAnswerDate RecordedDo you feel stress - tense, restless, nervous, or anxious, or unable to sleep at night because yourmind is troubled all the time - these days?Patient xsqpavfi57/02/2023Exercise Vital SignAnswerDate RecordedOn average, how many days per week do you engage in moderate to strenuous exercise (like a brisk walk)?Patient hawqxyeb74/02/2023On average, how many minutes do you engage in exercise at this level?Patient eytneesm07/02/2023 Hunger Vital SignAnswerDate RecordedWithin the past 12 [...] CommentsUnknownSex and Gender InformationValueDate RecordedSex Assigned at WtbugZysucq40/02/2023 9:07 AM EDTLegal FwaQytmkq61/15/2023 7:13 PM EDTGender SrfyiymySerlsd77/02/2023 9:07 AM EDTSexual OrientationNot on filedocumented as of this encounter Plan of Treatment DateTypeDepartmentCare Team (Latest Contact Info)Mixpeanekhj06/14/2025 10:45 AM ESTOffice Visit [facility] [address] [place] [address] Isidra Allred, DO [address] [place] [address] 03/15/2025 4:00 PM ESTOffice Visit [facility] [address] [place] [address] Jose Freed DO [address] [facility] 150 [place] [address] documented as of this encounter Procedures Procedure NamePriorityDate/TimeAssociated DiagnosisCommentsGENERAL PATHOLOGY Natvecx6310/30/2012 3:58 PM ARJAJSQSSJZEUDYhbvwwr12/19/2013 3:56 PM EDTGENERAL MCBMBVUSBXvcqlor74/22/2008 4:00 PM ESTdocumented in this encounter Results * GENERAL PATHOLOGY (10/30/2012 3:58 PM EDT) Narrative Authorizing ProviderResult TypeResult StatusAlfred A Eula MDCLINISYNCFinal Result * Colonoscopy (10/30/2012 3:56 PM EDT)Anatomical RegionLateralityModality Endoscopy Narrative Authorizing ProviderResult TypeResult StatusAlfred A Vinitadilcia MDENDOSCOPY PROCEDURE ORDERABLESFinal Result * GENERAL PATHOLOGY (06/05/2007 4:00 PM EST) Narrative Authorizing ProviderResult TypeResult StatusAlfred A Vinitay MDCLINISYNCFinal Result documented in this encounter Visit Diagnoses Not on filedocumented in this encounter Care Teams Team MemberRelationshipSpecialtyStart DateEnd Date Kostas Gauthier MD [address] [place] [address] PCP - GeneralFamily Medicine09/13/22 Isidra Allred DO [address] [facility] 230 [place] [address] PCP - Medical [place] [employer]04/14/2211documented as of this encounter
--- OUTSIDE RECORDS SUMMARY | 2025-02-03 08:27 | XMS_ITS | Encounter Summary ---
Author Organization [facility] Address [address] [place] [address] Care Team Providers Care Banquet Bartender Name Role Phone Kostas Gauthier MD Primary Care Provider [phone] Isidra Allred DO Unavailable [phone] Encounter Details DateTypeDepartmentCare Team (Latest Contact Info)Aggjknlmluw20/16/2025Travel Social History Tobacco UseTypesPacks/DayYears UsedDateSmoking Tobacco: NeverSmokeless [...] times a week09/13/2022How often do you attend rastafari or congregational services?Patient /02/2023Do you belong to any clubs or organizations such as rastafari groups, unions, fraternal or athletic groups, or school groups?Yes09/13/2022How often do you attend meetings of the clubs or organizations you belong to?Patient othedewo87/02/2023re you , , , , never , [...] at all 09/13/2022HQ-2AnswerDate RecordedPatient Health Questionnaire-2 Score0 10/22/2024Fin[facility] of Occupational [facility] - Occupational Stress QuestionnaireAnswerDate RecordedDo you feel stress - tense, restless, nervous, or anxious, or unable to sleep at night because yourmind is troubled all the time - these days?Patient kpzdmhif15/02/2023Exercise Vital SignAnswerDate RecordedOn average, how many days per week do you engage in moderate to strenuous exercise (like a brisk walk)?Patient rolohcth55/02/2023On average, how many minutes do you engage in exercise at this level?Patient jxynokkz55/02/2023 Hunger Vital SignAnswerDate RecordedWithin the past 12 [...] CommentsUnknownSex and Gender InformationValueDate RecordedSex Assigned at BjjxvPgozgt98/02/2023 9:07 AM EDTLegal QluLtombz03/15/2023 7:13 PM EDTGender PwatlxfeDvifhe12/02/2023 9:07 AM EDTSexual OrientationNot on filedocumented as of this encounter Plan of Treatment DateTypeDepartmentCare Team (Latest Contact Info)Wefgtabcqhi96/14/2025 10:45 AM ESTOffice Visit [facility] [address] [place] [phone] Isidra Allred DO [address] [place], [place] [address] 03/15/2025 4:00 PM ESTOffice Visit [facility] 7[address] [facility] 150 [place] [phone] Jose Freed, DO [address] [facility] 150 [place] [address] documented as of this encounter Visit Diagnoses Not on filedocumented in this encounter Care Teams Team MemberRelationshipSpecialtyStart DateEnd Date Kostas Gauthier MD [address] [place] [address] PCP - GeneralFamily Medicine09/13/22 Isidra Allred DO [address] [place] [address] PCP - Medical [place] [employer]04/14/2211documented as of this encounter
--- OUTSIDE RECORDS SUMMARY | 2025-02-03 08:27 | XMS_ITS | Encounter Summary ---
Author Organization [facility] Address [address] [place] [address] Care Team Providers Care Bass Viol Repairer Name Role Phone Kostas Gauthier MD Primary Care Provider [phone] Isidra Allred DO Unavailable [phone] Encounter Details DateTypeDepartmentCare Team (Latest Contact Info)Zsfyilamrtu77/17/2025Travel Social History Tobacco UseTypesPacks/DayYears UsedDateSmoking Tobacco: NeverSmokeless [...] times a week09/13/2022How often do you attend baptism or judaism services?Patient ywwiflsc66/02/2023Do you belong to any clubs or organizations such as baptism groups, unions, fraternal or athletic groups, or school groups?Yes09/13/2022How often do you attend meetings of the clubs or organizations you belong to?Patient vdrzhoka04/02/2023re you , , , , never , [...] at all 09/13/2022HQ-2AnswerDate RecordedPatient Health Questionnaire-2 Score0 10/22/2024Fin[facility] of Occupational Health - Occupational Stress QuestionnaireAnswerDate RecordedDo you feel stress - tense, restless, nervous, or anxious, or unable to sleep at night because yourmind is troubled all the time - these days?Patient sjuqemge19/02/2023Exercise Vital SignAnswerDate RecordedOn average, how many days per week do you engage in moderate to strenuous exercise (like a brisk walk)?Patient /02/2023On average, how many minutes do you engage in exercise at this level?Patient yphnqkoa71/02/2023 Hunger Vital SignAnswerDate RecordedWithin the past 12 [...] CommentsUnknownSex and Gender InformationValueDate RecordedSex Assigned at IarozOdaqtx09/02/2023 9:07 AM EDTLegal GrnNwqibo68/15/2023 7:13 PM EDTGender EzcuqmfqEanziw11/02/2023 9:07 AM EDTSexual OrientationNot on filedocumented as of this encounter Plan of Treatment DateTypeDepartmentCare Team (Latest Contact Info)Dmhzsqfhlqu52/14/2025 10:45 AM ESTOffice Visit [facility] [address] [place] [phone] Isidra Allred DO [address] [place], [place] [phone] 03/15/2025 4:00 PM ESTOffice Visit [facility] 7[address] [facility] 150 [place] [address] Jose Freed, DO 703 [facility] 150 [place] [address] documented as of this encounter Visit Diagnoses Not on filedocumented in this encounter Care Teams Team MemberRelationshipSpecialtyStart DateEnd Date Kostas Gauthier MD [address] [place] [address] PCP - GeneralFamily Medicine09/13/22 Isidra Allred DO [address] [place] [address] PCP - Medical [place] [employer]04/14/2211documented as of this encounter
--- OUTSIDE RECORDS SUMMARY | 2025-02-03 08:27 | XMS_ITS | Clinical Summary ---
Author Organization [employer] [facility] Address [id number] [place] [address] Care Team Providers Care Bowling Ball Mold Assembler Name Role Phone Unavailable Primary Care Provider Unavailabl e Social History Tobacco UseTypesPacks/DayYears UsedDateSmoking Tobacco: Never AssessedChildcare AnswerDate JvnoujpzBlgjvyablUyczqxi66/12/2019EmploymentAnswerDate Recorded FnnebmgpaeYxcmjfk75/12/2019CommentsUnknownSex and Gender Information ValueDate RecordedSex Assigned at BirthNot on fileLegal BefMwxsri73/06/2015 11:29 AM EDTGender IdentityNot on fileSexual OrientationNot on file Plan of Treatment Not on file Medical Devices Not on file
--- OUTSIDE RECORDS SUMMARY | 2025-02-03 08:29 | XMS_ITS | CCD ---
Author Organization [facility] Care Team Providers Care Vat House Supervisor Name Role Phone ABRAHAN ., DR EATON [...] HOY ., DR EATON Primary Care Unavailable KAWKAWLIN, DR JAMEY cMcollum Consulting Unavailable MANISH, KATHY Consulting Unavailable MANISH, KATHY Admitting Unavailable MANISH, KATHY Attending Unavailable HOY ., DR EATON Primary Care Unavailable ALDEN, DR ADRIANNE Daily Consulting Unavailable MANISH, KATHY Consulting Unavailable INDY SIDDIQUI Admitting Unavailable INDY SIDDIQUI Attending Unavailable HOY ., DR EATON Primary Care Unavailable ALDEN, DR ADRIANNE Daily Consulting Unavailable INDY SIDDIQUI Consulting Unavailable RADHAY ., DR EATON Primary Care Unavailable JUNIE, DR OLIVA Vizcaino Admitting Unavailabl e JUNIE, DR OLIVA Vizcaino Attending Unavailabl e DEE ., JAYLYN ANDRE Consulting UnavailJAMEY Perales Consulting Unavailable HOY ., DR EATON Admitting Unavailable HOY ., DR EATON Attending Unavailable HOY ., DR EATON Primary Care Unavailable HOY ., DR EATON Consulting Unavailable HOY ., DR EATON Admitting Unavailable HOY ., DR EATON Attending Unavailable RADHAY ., DR EATON Primary Care Unavailable Uma Gauthier Primary Care Physician Uma Gauthier Attending Unavailable Uma Gauthier Admitting Unavailable Uma Gauthier MD Primary Care Provider [phone] Isidra Buckley DO Unavailable Uma Gauthier MD Primary Care Provider [phone] Shonna Minor Attending Unavailable Dony PÉREZ Attending Unavailable Uma Gauthier MD Attending Provider Uma Gauthier MD Primary Care Provider [phone] ISIDRA BUCKLEY Attending Unavailable ISIDRA BUCKLEY Attending Unavailable ISIDRA BUCKLEY Attending Unavailable JOSE MCCARTHY Attending Unavailable Uma Gauthier Admitting Unavailable Uma Gauthier Attending Unavailable Uma Gauthier Attending Unavailable Uma Gauthier Admitting Unavailable Allergies Allergy ClassificationReported Allergen(s)Allergy TypeDate of OnsetReaction(s) Facility (1 source)Adhesive agentDrug allergy (disorder)86-88-2537Itj [facility] (1 source)CodeineDrug AllergyThe [facility] (1 source)Iodine (And Iodine Containting Drugs)Drug allergy (disorder)05-28-2016 [facility] (2 sources)Pentazocine; Translations: [Talwin]Drug Atqstqd24-33-4976Wkg [facility] (2 sources)Sulfamethoxazole / Trimethoprim; Translations: [Bactrim]Drug Allergy 08-77-6692Xdp [facility] (9 sources)Sulfamethoxazole / Trimethoprim; Translations: [sulfamethoxazole-trimethoprim]Drug Tzhenuw21-76-0073Wfplwduqqeturmjy irritation (disorder)[facility] (5 sources)Radiographic iodinated contrast medium (product); Translations: [Radiographic iodinated contrast medium]Drug allergyWeal (disorder)[facility] (5 sources)AmoxicillinDrug Kbivvmi92-35-6479[facility] (6 sources)levoFLOXacin; Translations: [levofloxacin]Drug Auxkwbh42-82-4431 Gastrointestinal irritation (disorder)[facility] (5 sources)metroNIDAZOLEDrug Ddxjvdo18-48-3685[facility] (6 sources)Pentazocine; Translations: [pentazocine]Drug Bzjxvbs96-93-6381 Hallucinosis (finding)[facility] (6 sources)Pravastatin; Translations: [pravastatin]Drug Yojdlbm23-80-3623 Unknown, Muscle pain (finding)[facility] (5 sources)Iodinated Contrast MediaDrug Kwdovpo97-59-0202[facility] (5 sources)Wound Dressing AdhesiveDrug Tatsbvm15-38-7571[facility] (2 sources)Adhesive bandage; Translations: [Adhesive Bandage]Allergy to substanceEruption of skin (disorder)[facility] [place] (1 source)levoFLOXacin; Translations: [Levaquin][facility] ([facility] source)Penicillin; Translations: [penicillin][facility]rug [facility] (1 source)Pravastatin; Translations: [Pravachol][facility]rug [facility] Medications Current Medications MedicationDrug Class(es)DatesSig (Normalized)Sig (Original)ascorbic acid 60 mg / beta carotene 5000 unt / copper sulfate 40 mg / dl-alpha tocopheryl acetate 30 unt / sodium selenite 0.04 mg / zinc oxide 40 mg oral tablet (5 sources)Vitamin C End: 63-62-9317Dpgfjios Vitamin (Multivitamin Adult) tablet 01/28/2025 Discontinued (Therapy completed)aspirin 81 mg delayed release oral tablet (6 sources)Platelet Aggregation Inhibitor, Nonsteroidal Anti-inflammatory Drug Start: 24-69-7395lkit 1 tablet by mouth once dailyaspirin 81 mg Oral EC Tab 81 mg = 1 tab(s), Oral, Daily, Refills(s) 0 Start Date: 11/11/24 Status: Ordered Repeat number: 1atorvastatin 40 mg oral tablet (9 sources)HMG-CoA Reductase InhibitorStart: 09-72-2903zkbx 1 tablet by mouth once daily at bedtimeatorvastatin 40 mg Tab 40 mg = 1 tab(s), Oral, Once a day (at bedtime), Refills(s) 0, High cholesterol Start Date: 01/18/15 Status: Ordered Repeat number: 1biotin 1 mg oral tablet (6 sources)Start: 93-95-8558nbmk 1 tablet by mouth once dailybiotin 1000 mcg oral tablet 1,000 mcg = 1 tab(s), Oral, Daily, Refills(s) 0 Start Date: 11/11/24 Status: Ordered Repeat number: 1biotin 1 MG capsule 1 (one) time each day at the same time ActiveBlood Glucose Monitoring Suppl (Accu-Chek Guide) w/Device kit (5 sources)Start: 34-15-9677Utrwk Glucose Monitoring Suppl (Accu-Chek Guide) w/Device kit Indications: Type 1 diabetes mellituswithout complication (HCC) 1 each See administration instructions 1 kit 02/17/2024 ActiveStart: 02-17-2024 Blood Glucose Monitoring Suppl (Accu-Chek Guide) w/Device kit Indications: Type 1 diabetes mellituswithout complication (CMS/HCC) 1 each See administration instructions 1 kit 02/17/2024 ActiveclonazePAM 1 mg oral tablet (9 sources)BenzodiazepineStart: 36-10-5709gnya 1.5 mg by mouth twice daily clonazepam 1 mg Tab 1.5 mg = 1.5 tab(s), Oral, BID, Refills(s) 0, Anxiety Start Date: 01/18/15 Status: Ordered Repeat number: 1Start: 75-31-2088iqtj 0.5 mg by mouth twice dailyclonazepam 1 mg Tab 0.5 mg = 0.5 tab(s), Oral, BID, Refills(s) 0, Anxiety Start Date: 01/18/15 Status: OrderedContinuous Blood Gluc Sensor (Dexcom G6 Sensor) misc (2 sources)Continuous Blood Gluc Sensor (Dexcom G6 Sensor) misc ActiveContinuous Glucose Sensor (Dexcom G7 Sensor) misc (4 sources)Start: 20-44-7561Qwfegzsofk Glucose Sensor (Dexcom G7 Sensor) misc Indications: Type 1 diabetes mellitus without complication (HCC) Inject 1 Device under the skin See administration instructions Change every 10 days 9 each 3 10/25/2024 ActiveStart: 56-98-8879Xowhqoosnh Glucose Sensor (Dexcom G7 Sensor) misc Indications: Type 1 diabetes mellitus without complication (HCC) Inject 1 Device under the skin See administration instructions Change every 10 days 9 each 3 06/21/2024 ActiveCranberry preparation (1 source)Non-Standardized Food Allergenic Extract, Non-Standardized Plant Allergenic ExtractCranberry 125 MG tablet Activedicyclomine hydrochloride 10 mg oral capsule (3 sources)AnticholinergicStart: 20-64-2100Iubryf 10 mg Cap 10 mg = 1 cap(s), Oral, As Directed, Refills(s) 0, Spasm Start Date: 01/18/15 Status: Ordered Elderberry preparation (6 sources)Start: 37-00-0773bfueubpnqs Refill(s) 0 Start Date: 11/11/24 Status: Ordered Repeat number: 1ELDERBERRY PO ActiveELDERBERRY PO Elderberry Active fenofibrate 160 mg oral tablet (5 sources)Peroxisome Proliferator Receptor alpha AgonistStart: 10-14-2023 End: 53-78-7685pxfrzgunmnv (Triglide) 160 MG tablet 10/14/2023 01/28/2025 Discontinued (Therapy completed)fexofenadine hydrochloride 60 mg oral tablet (6 sources)Histamine-1 Receptor AntagonistStart: 55-27-5209yubw 1 tablet by mouth once daily as neededfexofenadine 60 mg Tab 60 mg = 1 tab(s), Oral, Daily, PRN Allergy symptoms, Refills(s) 0 Start Date: 11/11/24 Status: Ordered Repeat number: 1hyoscyamine sulfate 0.125 mg oral tablet (8 sources)Start: 49-39-5693oolv 1 tablet by mouth four times daily as needed Levsin 0.125 mg SL Tab 0.125 mg = 1 tab(s), Oral, QID, PRN abdominal cramping, Refills(s) 0 Start Date: 11/11/24 Status: Ordered Repeat number: 1Start: 82-28-4133Lplpvm See Instructions, as needed, Refills(s) 0 Start Date: 12/19/23 Status: Orderedhyoscyamine (Levsin) 0.125 MG tablet every 4 (four) hours if needed Activeibuprofen 800 mg oral tablet (2 sources)Nonsteroidal Anti-inflammatory Drugtake 1 tablet by mouth four times daily as needed for painibuprofen 800 MG tablet TAKE 1 TABLET BY MOUTH 4 TIMES A DAY NEEDED FOR PAIN Activeinsulin aspart, human 100 unt/ml injectable solution (11 sources)Insulin AnalogStart: 89-31-7203hltlduc aspart (NovoLOG) 100 UNIT/ML injection Indications: Type 1 diabetes mellitus without complication (HCC) Per pump (max daily 150 units) 140 mL 3 10/24/2024 ActiveStart: 02-02-2024 End: 14-83-7767ywjhle 1 dose by subcutaneous injection onceInsulin Aspart (NovoLOG) 100 UNIT/ML solution Indications: Type 1 diabetes mellitus without complication (HCC) INJECT 1 DOSE PER PUMP SUBCUTANEOUSLY SEE ADMINISTRATION INSTRUCTIONS, MAX 150 UNITS DAILY 140 mL 2 02/02/2024 10/24/2024 Discontinued Start: 66-55-6048EsusToa See Instructions, via pump, Refills(s) 0, Blood glucose Start Date: 01/19/15 Status: OrderedRepeat number: 1Start: 16-81-6240VdasTnw See Instructions, THIS IS DONE PER PUMP THAT IS ON THE RIGHT SIDE OF ABD., Refills(s) 0, Blood glucose Start Date: 01/19/15 Status: OrderedInsulin Infusion Pump (T:slim Insulin Pump) device (9 sources)Start: 34-66-3729Bgvpyxm Infusion Pump (T:slim Insulin Pump) device Indications: Type 1 diabetes mellitus without complication (HCC) Basal: 12A 2.5, 4A 2.1, 8A 2.2, 11A 1.7, ICR: 12A 3, ISF: 50, target: 110 1 each 10/24/2024 ActiveStart: 06-18-2024 End: 02-80-7722Dtmafcp Infusion Pump (T:slim Insulin Pump) device Indications: Type 1 diabetes mellitus without complication (HCC) Basal: 12A 2.4, 6A 2.1, 11A 1.85, ICR: 12A 3, ISF: 50, target: 110 1 each 06/18/2024 10/24/2024 Discontinued (Dose adjustment)Start: 00-62-5062Jikynfx Infusion Pump (T:slim Insulin Pump) device Indications: Type 1 diabetes mellitus without complication (CMS/HCC) Basal: 12A 2.4, 6A 2.1, 11A 1.85, ICR: 12A 5, ISF: 50, target: 110 1 each 2023 ActiveStart: 10-22-2023 End: 01-80-0728Lfuzart Infusion Pump (T:slim Insulin Pump) device Indications: Type 1 diabetes mellitus without complication (CMS/HCC) Basal: 12A 2.4, 6A 2.1, 11A 1.85, ICR: 12A 3, ISF: 50, target: 110 1 each 10/22/2023 02/17/2024 Discontinued (Dose adjustment)levothyroxine sodium 0.15 mg oral tablet (16 sources)l-ThyroxineStart: 14-17-6390zoen 1 tablet by mouth once daily levothyroxine 150 mcg (0.15 mg) Tab mcg tab(s), Oral, Daily, Refills(s) 0 Start Date: 12/19/23 Status: OrderedStart: 59-84-3103qzxn 1 tablet by mouth once daily levothyroxine 125 mcg (0.125 mg) Tab 125 mcg = 1 tab(s), Oral, Daily, Refills(s) 0, Thyroid Start Date: 01/18/15 Status: Ordered Repeat number: 1take 1 tablet by mouth before mealtimelevothyroxine (Synthroid, Levoxyl) 100 MCG tablet Take 100 mcg by mouth in the morning. Take beforemeals. Active End: 70-13-4870xuyf 1 tablet by mouth every other daylevothyroxine (Synthroid, Levoxyl) 125 MCG tablet Take 125 mcg by mouth every other day 01/28/2025 D iscontinued (Therapy completed)take 1 tablet by mouth every other day levothyroxine (Synthroid, Levoxyl) 150 MCG tablet Take 150 mcg by mouth every other day. Activelosartan potassium 100 mg oral tablet (9 sources)Angiotensin 2 Receptor BlockerStart: 21-67-5208wolz 1 tablet by mouth once dailylosartan 100 mg Tab 100 mg = 1 tab(s), Oral, Daily, Refills(s) 0 Start Date: 11/11/24 Status: Ordered Repeat number: 1Start: 75-62-5163hmgr 1 tablet by mouth once dailylosartan 50 mg Tab 50 mg = 1 tab(s), Oral, Daily, Refills(s) 0, High blood pressure Start Date: 01/18/15 Status: Orderedmagnesium gluconate 500 mg oral tablet (5 sources)magnesium 500 (27 Mg) MG tablet Activemagnesium 500 (27 Mg) MG tablet Magnesium Activemethscopolamine bromide 5 mg oral tablet (3 sources)AnticholinergicStart: 20-19-2604ifpq 1 tablet by mouth once daily methscopolamine 5 mg Tab 5 mg = 1 tab(s), Oral, Daily, Refills(s) 0, Control of stomach acid Start Date: 01/18/15 Status: Jhtcnmf25 hr metoprolol succinate 50 mg extended release oral tablet (4 sources)beta-Adrenergic BlockerStart: 11-18-4815nphq 1 tablet by mouth once dailymetoprolol succinate 50 mg ER Tab 50 mg = 1 tab(s), Oral, Daily, Refills(s) 0 Start Date: 11/11/24 Status: Ordered Repeat number: 1Multiple Vitamins- Minerals (AIRBORNE PO) (5 sources)Multiple Vitamins-Minerals (AIRBORNE PO) ActiveMultiple Vitamins- Minerals (AIRBORNE PO) Airborne ActiveMultiple Vitamins-Minerals (Vitamin D3 Complete) tablet (5 sources)Multiple Vitamins-Minerals (Vitamin D3 Complete) tablet Take by mouth ActiveMultivitamin preparation (1 source)Start: 71-24-4435frbq 1 tablet by mouth once dailymultivitamin 1 tab(s), Oral, Daily, Refill(s) 0 Start Date: 11/11/24 Status: Ordered Repeat number: 1nadolol 40 mg oral tablet (5 sources)beta-Adrenergic BlockerStart: 12-79-8554apvf 1 tablet by mouth once dailynadolol 40 mg Tab 40 mg = 1 tab(s), Oral, Daily, Refills(s) 0, High blood pressure Start Date: 01/18/15 Status: Orderednadolol (Corgard) 40 MG tablet every 12 (twelve) hours. Activepantoprazole 40 mg extended release oral tablet (9 sources)Proton Pump InhibitorStart: 21-33-6258xdwk 1 tablet by mouth once dailyProtonix 40 mg tablet 40 mg, Oral, Daily, Refills(s) 0, Control of stomach acid Start Date: 01/18/15Status: Ordered Repeat number: 1pantoprazole (ProtoNix) 40 MG EC tablet 40 mg in the morning. Take before meals. ActiveProbiotic Formula (4 sources)Start: 84-11-7198zjdf 1 capsule by mouth once dailyProbiotic Formula 1 cap(s), Oral, Daily, Refill(s) 0, Prophylaxis Start Date: 01/18/15 Status: Ordered Repeat number: 1Start: 25-93-0957yebk 1 capsule by mouth once daily Probiotic Formula 1 cap(s), Oral, Daily, Refill(s) 0, Prophylaxis Start Date: 01/18/15 Status: OrderedProbiotic Product (PROBIOTIC & ACIDOPHILUS EX ST PO) (5 sources)Probiotic Product (PROBIOTIC & ACIDOPHILUS EX ST PO) every 12 (twelve) hours ActiveProbiotic Product (PROBIOTIC & ACIDOPHILUS EX ST PO) every 12 (twelve) hours. ActiveOzempic (3 sources)Start: 84-39-5972hmbogz 0.25 mg by subcutaneous injection every week Ozempic 0.25 mg, SubCutaneous, qWeek, Refill(s) 0, Other (see comment) Start Date: 12/19/23 Status: Ordered Repeat number: 1Start: 06-96-4107jnrchg 0.25 mg by subcutaneous injection every weekOzempic 0.25 mg, SubCutaneous, qWeek, Refill(s) 0, Other (see comment) Start Date: 12/19/23 Status: OrderedStart: 12-19-2023 Ozempic SubCutaneous, qWeek, Refill(s) 0 Start Date: 12/19/23 Status: Ordered Semaglutide,0.25 or 0.5MG/DOS, (Ozempic, 0.25 or 0.5 MG/DOSE,) 2 MG/3ML solution pen-injector (7 sources)Start: 57-72-6023Iqbpyyssldm,0.25 or 0.5MG/DOS, (Ozempic, 0.25 or 0.5 MG/DOSE,) 2 MG/3ML solution pen-injector Indications: Type 2 diabetes mellitus without complication, with long-term current use of insulin (HCC) Inject 0.5 mg under the skin every 7 (seven) days 6 mL 3 02/17/2024 ActiveStart: 02-17-2024 Semaglutide,0.25 or 0.5MG/DOS, (Ozempic, 0.25 or 0.5 MG/DOSE,) 2 MG/3ML solution pen-injector Indications: Type 2 diabetes mellitus without complication, with long-term current use of insulin (CMS/HCC) Inject 0.5 mg under the skin every 7 (seven) days 6 mL 3 02/17/2024 ActiveStart: 12-22-2022 End: 22-00-1583Pdadmrzpoud,0.25 or 0.5MG/DOS, (Ozempic, 0.25 or 0.5 MG/DOSE,) 2 MG/3ML solution pen-injector Indications: Type 2 diabetes mellitus without complication, with long-term current use of insulin (CMS/HCC) Inject 0.25 mg under the skin every 7 (seven) days. 12/22/2022 02/17/2024 Discontinued (Dose adjustment)tiZANidine 4 mg oral tablet (4 sources)Central alpha-2 Adrenergic AgonistStart: 39-62-5076kqot 2 tablets by mouth at bedtimetiZANidine 4 mg Tab 8 mg = 2 tab(s), Oral, Bedtime, Refills(s) 0 Start Date: 11/11/24 Status: Ordered Repeat number: 1Vitamin D (1 source)Start: 19-25-5846Misodbh D Refills(s) 0 Start Date: 11/11/24 Status: Ordered Repeat number: 1 Completed/Discontinued Medications MedicationDrug Class(es)DatesSig (Normalized)Sig (Original)Calcium Carbonate / Vitamin D (4 sources) End: 90-34-1016Fyrjeip Carbonate-Vitamin D (CALCIUM PLUS VITAMIN D PO) Take by mouth. 10/22/2024 Discontinued (Therapy completed)Calcium Carbonate-Vitamin D (CALCIUM PLUS VITAMIN D PO) Take by mouth. Activecholestyramine resin 4000 mg powder for oral suspension (6 sources)Bile Acid SequestrantStart: 12-19-2023 End: 53-89-0741ucib 1 dose by mouth once dailycholestyramine (Questran) 4 g packet Take 1 packet by mouth Daily 12/19/2023 10/22/2024 Discontinued (Therapy completed)Start: 38-19-8654Exudgcga 4 g/9 g oral powder = 1 packet(s), Oral, Daily, # 90 EA, Refills(s) 5, Pharmacy: [facility]/pharmacy #[id number], 159, cm, 12/19/23 10:06:00 EDT, Height/Length Dosing, 89, kg, 12/19/23 10:06:00 EDT, Weight Dosing Start Date: 12/19/23 Status: Ordered Problems Active Problems Problem ClassificationProblemDateDocumented DateEpisodic/ChronicAbdominal pain (1 source)Abdominal pain; Translations: [Unspecified abdominal pain]Onset: 46-59-1936AoauaietHnduemt disorders (11 sources)Anxiety disorder; Translations: [Anxiety disorder, unspecified] Onset: 381824-77-7951UzhdimgKptusvd dysrhythmias (2 sources)Atrial fibrillation; Translations: [Paroxysmal supraventricular tachycardia]98-70-7665TpptzxhOjueeww dysrhythmias (1 source)Ejrzrnjfpws79-11-8274IlohjposBdhmvpic (5 sources)Bilateral age-related nuclear cataracts; Translations: [Age-related nuclear cataract, bilateral]Onset: 002879-37-1187MkkwucrWjzwujsyul and other anemia (1 source)Anemia, unspecified; Translations: [ANEMIA UNSPECIFIED]Onset: 30-55-4168PjiidamsCmdqndqc mellitus without complication (20 sources)Type 2 diabetes mellitus without complications; Translations: [Type 1 diabetes mellitus]Onset: 03-25-2016 Resolved: 666449-52-5585FrgzohrTwpygebah of lipid metabolism (7 sources)Hyperlipidemia; Translations: [Hyperlipidemia, unspecified]Onset: 677662-79-3245RrrezvvJquarpoyig disorders (1 source)Gastroesophageal reflux gyjowxe85-63-1768FcczvshOwogbkavg hypertension (6 sources)Hypertensive disorder; Translations: [Essential (primary) hypertension]Onset: 735701-03-7247JazhneyCroiidyxkwbodmtb hemorrhage (3 sources)Hemorrhage of rectum and anus; Translations: [Hemorrhage of anus and rectum]Onset: 08-06-6117IbmojikrFttsltw and fatigue (1 source)Other fatigue; Translations: [OTHER FATIGUE]Onset: 89-32-6675Zbpfuhmq Nutritional deficiencies (1 source)Vitamin D mtlpqowgeb15-27-2111TejjglkHugpb aftercare (1 source)Other usp (current) drug therapy; Translations: [OTH NURSING HOME CURRENT DRUG THERAPY]Onset: 30-12-1971BbovnllvXlavr connective tissue disease (4 sources)Pain in right foot; Translations: [PAIN IN RIGHT FOOT]Onset: 63-53-2737WzjmbpmiKvjao gastrointestinal disorders (4 sources)Irritable bowel syndrome with diarrhea; Translations: [Irritable bowel syndrome with diarrhea]Onset: 70-41-3037DmqeueiOlcag gastrointestinal disorders (1 source)Abnormal feces; Translations: [Other fecal abnormalities]Onset: 60-35-8737GrmqoxcgSnjbk gastrointestinal disorders (2 sources)Loose -79-7131MehnvcunTvtru injuries and conditions due to external causes (1 source)Unspecified injury of right ankle, subsequent encounter; Translations: [UNSPECIFIED INJURY RT ANKLESUBSQT]Onset: 63-85-3186WsazybkgPoerf nervous system disorders (5 sources)Mononeuropathy of lower limb; Translations: [Unspecified mononeuropathy of right lower limb]Onset: 399895-00-0992PmvylacSuvvo non- traumatic joint disorders (4 sources)Pain in right ankle and joints of right foot; Translations: [PAIN IN RIGHT ANKLE]Onset: 50-19-3636TxbrcjatXoqcl nutritional; endocrine; and metabolic disorders (5 sources)Severe obesity; Translations: [Class 2 severe obesity due to excess calories with serious comorbidity and body mass index (BMI) of 35.0 to 35.9 in adult]Onset: 376461-91-7197GiulocmYazab nutritional; endocrine; and metabolic disorders (1 source)Body mass index 30+ - zabrxnw62-08-9158IziialdFgsav nutritional; endocrine; and metabolic disorders (1 source)Obesity caused by energy djuljlpcy45-12-7286TnedoxuNwxdn screening for suspected conditions (not mental disorders or infectious disease) (5 sources)Encounter for screening for malignant neoplasm of colon; Translations: [Screening for malignant neoplasm of colon done]Onset: 08-25-2022 EpisodicResidual codes; unclassified (4 sources)Obstructive sleep apnea (adult) (pediatric); Translations: [OBSTRUCTIVE SLEEP APNEA]Onset: 64-77-7338IousafdTgaxdifl codes; unclassified (1 source)Sleep ngefs97-06-6954IeismzcAvendohw codes; unclassified (1 source)Acquired absence of organ; Translations: [Acquired absence of other specified parts of digestive tract]Onset: 12-33-2945CuxxhgcyMkbiuibkgozm (1 source)Patient encounter jzeqdq96-91-7321 Past or Other Problems Problem ClassificationProblemDateDocumented DateEpisodic/ChronicConditions associated with dizziness or vertigo (5 sources)Dizziness; Translations: [Dizziness and giddiness]Onset: 10-27-2020 17-33-6042FlkprgxlH Codes: Fall (1 source)Fall (on) (from) unspecified stairs and steps, initial encounter; Translations: [FALL ON FROM UNS STAIRS STEPS INIT]Onset: 60-20-3587Bssnvujw Fracture of lower limb (7 sources)Displaced fracture of fifth metatarsal bone, right foot, initial encounter for closed fracture; Translations: [Other fracture of upper and lower end of right fibula, subsequent encounter for closed fracture with routine healing]Onset: 96-36-3754YiqqpjxiGbykd aftercare (1 source)half-way (current) use of aspirin; Translations: [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 OF ASPIRIN]Onset: 86-42-6849SvhxhqsyGiahv aftercare (1 source)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; Translations: [NURSING HOME CURRENT USE OF INSULIN]Onset: 38-65-6221Pgwjtjwb Results Test NameValueInterpretationReference RangeFacilityUrine Cultureon 01-31-2025 Bacteria identified Cx Nom (U)20,000 colonies/ml mixed bacterial skin contaminants 2 Days PERFORMED BY: [place] [address] PATHOLOGIST C SOFTWARE ENGINEER BOSTON CALLE M.D.[facility] Physician GroupComment on above: Performed By: #### CUU #### [facility] [address] [place] [address] USAUrine Cultureon 16-07-1881Nnfddcoi identified Cx Nom (U) <9,000 colonies/ml mixed bacterial skin contaminants 2 Days PERFORMED BY: [place] [address] PATHOLOGIST C SOFTWARE ENGINEER BOSTON CALLE M.D.[facility] Physician GroupComment on above: Performed By: #### CUU #### [facility] [address] [place] [address] USAUrine cultureOrdered By: Uma Gauthier on 79-00-4700Wkzmwxel identified Cx Nom (U)2 DaysAvita Health System Ontario HospitalAmbulatory Visit Summaryon 51-93-5565Cqjrfjdjon Visit SummaryAmbulatory Visit Summary ROSIO SIU :1965 Visit Date:12/07/2024 Ambulatory Visit Instructions Your Care Team Attending Physician - BETO YARBROUGH, Dony Daily Primary Care Physician - Abrahan YARBROUGH, Uma This Is Your Medications List Contact prescribing physician if questions or concerns aspirin (aspirin 81 mg Oral EC Tab) atorvastatin (atorvastatin 40 mg Tab) bifidobacterium-lactobacillus (Probiotic Formula) biotin (biotin 1000 mcg oral [...] (05/15/2023), EGD - esophagogastroduodenoscopy (01/2015), Colonoscopy (10/2012), Abdominalhysterectomy, Appendectomy, Breast biopsy sample, Breast reduction, Cervical [...] prescribing physician if questions or concerns Unchanged bifidobacterium-lactobacillus (Probiotic Formula) 1 Capsules By Mouth Every [...] Tab) 1 Tablets By Mouth Every day Contactprescribing physician if questions or concerns Unchanged losartan (losartan 100 mg Tab) 1 Tablets By Mouth Every day Contact prescribing physicianif questions or concerns Unchanged metoprolol (metoprolol succinate [...] signed up for this yet, please contact [employer] at [phone] to get signed up t (more content not included)...[facility] CenterHbA1c (Bld) [[facility] fraction]on 13-18-5596Uxusnrxefammgk and review of laboratory resultsNoRiver Woods Urgent Care Center– MilwaukeeLaboratory - Hematology and Cell countson 53-16-9988ZyT3s (Bld) [Mass fraction]7 %[facility] CenterHbA1c (Bld) [Mass fraction]on 02-17-2024 Interpretation and review of laboratory resultsNormalNOCox SouthNORI HealthcareLaboratory - Hematology and Cell countson [id number] (Bld) [Mass fraction]7 %[facility] HealthcareAmbulatory Visit Summaryon 51-94-7607Hgvvcktlak Visit SummaryAmbulatory Visit Summary ROSIO SIU :1965 Visit Date:12/19/2023 [...] or concerns atorvastatin (atorvastatin 40 mg Tab) bifidobacterium-lactobacillus (Probiotic Formula) clonazepam (clonazepam 1 mg Tab) [...] Packets By Mouth Every day Screening for coloncancer Abdominal cramps Hx of cholecystectomy Loose stools Refills: 5 Pickup at [facility]/pharmacy #[id number] Unchanged atorvastatin (atorvastatin 40 mg Tab) 1 Tablets By Mouth Once a day (at bedtime) Contact prescribing physician if questions or concerns Unchanged bifidobacterium-lactobacillus (Probiotic Formula) 1 Capsules By Mouth Every [...] PER PUMP THAT IS ON THE RIGHT SIDEOF ABD. Contact prescribing physician if questions or concerns Unchanged levothyroxine (levothyroxine 125 mcg (0.125 mg) Tab) 1 Tablets By Mouth Every day Contactprescribing physician if questions or concerns Unchanged levothyroxine [...] By Mouth Every day Contact prescribing physician ifquestions or concerns Unchanged pantoprazole (Protonix 40 mg tablet) 40 Milligram By Mouth Every day Contact prescribing physician if questions or concerns Unchanged semaglutide (Ozempic) Subcutaneous Every week Contact prescribing physician if questions or concerns Pharmacy Information [facility]/pharmacy #[id number]: [address], [place] [id number] [phone] Allergies Bactrim Radiographic iodinated contrast medium Problems [...] you for choosing us for your care. [facility] Office/Clinic Noteon 30-76-0594Wloezolckhzzlwss Office/Clinic NoteGastroenterology Office/Clinic Note Chief Complaint screening colonoscopy HPI [...] of diabetes mellitus. She was complaining of alot of bloating. She has had an extensive evaluation which was negative. Initially she was treated with metoclopramide and she did quite well but she did develop dizziness with that and that was stopped. There also she was treated with erythromycin and she did well with it. However recently she hadbetter control over her diabetes and she did [...] one in 2012 intermittent diarrhea olga in 1990s coffee could make it worse pt with [...] Daily, # 90 EA, Refills(s) 5, Pharmacy: [facility]/pharmacy #[id number], 159, cm, 12/19/23 10:06:00 EDT, Height/Length Dosing, 89, kg, 12/19/23 10:06:00 EDT, Weight Dosing Colonoscopy (Hospital Procedure) 2. Abdominal cramps (R10.9: Unspecified abdominal pain) Ordered: cholestyramine, = 1 packet(s), Oral, Daily, # 90 EA, Refills(s) 5, [id number] 159, cm, 12/19/23 10:06:00 EDT, Height/Length Dosing, 89, kg, 12/19/23 10:06:00 EDT, Weight Dosing Colonoscopy (Hospital Procedure) 3. Hx of cholecystectomy (Z90.49: Acquired absence of other specified parts of digestive tract) Ordered: cholestyramine, = 1 packet(s), Oral, Daily, # 90 EA, Refills(s) 5, [id number], 159, cm, 12/19/23 10:06:00 EDT, Height/Length Dosing, 89, kg, 12/19/23 10:06:00 EDT, Weight Dosing Colonoscopy (Hospital Procedure) 4. Loose stools (R19.5: Other fecal abnormalities) Ordered: cholestyramine, = 1 packet(s), Oral, Daily, # 90 EA, Refills(s) 5, [id number], 159, cm, 12/19/23 10:06:00 EDT, Height/Length [...] qWeek Probiotic Formula, 1 (more content not included)...[facility] CenterComment on above:Result Comment: Electronically Signed By: Mily YARBROUGH, Shonna Salazar\.br\Date and Time Signed: 12/18/2409:26 EDTLon 60-40-9133NCqpjuyyk: [id number] Received: 12/12/23 Status: DAVID Walker Num: [id number] Spec Type: Surgical Subm Dr: Uma Gauthier MD Tissues: A Skin-Other than Cyst, tag, debridement or plastic repair (LEFT SHOULDER) Procedures: HE, Gross/Micro L4 Age/ Patient Sex Location Account Attending Physician Rosio Siu 25/F LABELL [id number] Uma Gauthier MD SPEC NUM: [id number] RECD: 12/12/23 STATUS: DAVID WALKER NUM: [id number] [place]: 12/11/[address]: Uma Gauthier MD ENTERED: 12/12/[address] [facility] DR: Mya Brooks SPEC [...] examinations are performed supporting the above interpretation Specimen: [id number] Received: 12/12/23 Status: DAVID Reynoldsrenee Num: [id number] Spec Type: Surgical Subm Dr: Uma Gauthier MD Tissues: A Skin-Other than Cyst, tag, debridement or plastic repair (LEFT SHOULDER) Procedures: Naseem CHAVEZ/Bob L4 Patient: Rosio Siu [id number] (Continued) Specimen: [id number] Received: 12/12/23 (Continued) Signed (signature on file) Jessica Do MD 12/19/23 1045 Specimen: [id number] Received: 12/12/23 Status: DAVID Walker Num: [id number] Spec Type: Surgical Subm Dr: Uma Gauthier MD Tissues: A Skin-Other than Cyst, tag, debridement or plastic repair (LEFT SHOULDER) Procedures: Naseem CHAVEZ/Bob L4 Patient: Rosio Siu [id number] (Continued) Specimen: [id number] Received: 12/12/23 (Continued) CPT Codes 62107 Specimen: [id number] Received: 12/12/23 Status: DAVID Walker Num: [id number] Spec Type: Surgical Subm Dr: Uma Gauthier MD Tissues: A Skin-Other than Cyst, tag, debridement or plastic repair (LEFT SHOULDER) Procedures: Naseem CHAVEZ/Bob L4 Patient: Rosio Siu [id number] (Continued) Signed (signature on file) Jessica Do MD 12/19/[address] [place] [address] Physician GroupC AUTO DIFFon 36-51-5948XOEA #0.1 103/ulNormal0.0-0.1W[facility]oster Community HospitalComment on above:Performed By: #### CBC ####[facility] [place] [facility] [address] [address]DrChastity Dongsophils/100 WBC (Bld)0.9 %Normal0.2-2.0[facility] Community HospitalComment on above:Performed By: #### CBC ####[facility] [place] [facility] [address] [address]Dr.Yilan ChangEO #0.2 103/ulNormal0.0-0.7The [facility] Beach HospitalComment on above:Performed By: #### CBC ####[facility] Zh[address] [place], [place] [address]Dr.Yilan ChangEosinophils/100 WBC (Bld)3.1 %Normal0.9-7.0The [facility] [place] HospitalComment on above:Performed By: #### CBC ####[facility] Xoudoltfbl[address] [place], [place] [address]Dr.Yilan ChangErythrocyte distribution width (RBC) [Ratio]14.2 %Normal 11.0-15.0The [facility] [place] HospitalComment on above:Performed By: #### CBC ####[facility] Ehaqipxfbu[address] [place], [place] [address]Dr. Maricellan ChangHematocrit (Bld) [Volume fraction]42.3 %Huvtcg27.0-48.0The [facility] [place] HospitalComment on above:Performed By: #### CBC ####[facility] Wevt[address] [place], [place] [address]Dr.Maricellan ChangHemoglobin (Bld) [Mass/Vol]13.8 g/xOSnmrtn79.0-16.0The [facility] [place] HospitalComment on above: Performed By: #### CBC ####[facility] Bpeaqeaizw[address] [place], [place] [address]Dr.Yilan ChangIG #0.01 10e3/ulNormal0.00-0.03The [facility] [place] HospitalComment on above:Performed By: #### CBC ####[facility] Ldobzzbrno[address] [place], [place] [address]Dr.Yilan ChangIG %0.2 %Normal 0.0-0.5The [facility] [place] HospitalComment on above:Performed By: #### CBC ####[facility] Lxslherkqi[address] [place], [place] [address]Dr.Yilan ChangLYMPH #1.6 103/ulNormal1.2-3.8The [facility] [place] HospitalComment on above:Performed By: #### CBC ####[facility] [place] [facility] [address]pts[address] [address]Dr.Anton DoLymphocytes/100 WBC (Bld)27.6 %Glgetz50.5-60.0The [facility] [place] HospitalComment on above:Performed By: #### CBC ####[facility] [address] [place] [address]Dr.Anton DoMANUAL DIFF REQ NONormalThe [facility] [place] HospitalComment on above:Performed By: #### CBC ####[facility] Pcqjwgkexj[address] [place], [place] [address]Dr. Anton DoH (RBC) [Entitic mass]27.5 haBvanfk72.7-34.0The [facility] Comment on above:Performed By: #### CBC ####[facility] Eaqsaullkq[address] [place], [place] [address]Dr.Anton DoMCHC (RBC) [Mass/Vol]32.6 g/dL Ucxeiv11.9-35.2The [facility] [place] HospitalComment on above:Performed By: #### CBC ####[facility] Cmtgkjhsyi[address] [place], [place] [address]Dr. Anton DoMCV (RBC) [Entitic vol]84.4 xYVrjggd30.0-99.0The [facility] Comment on above:Performed By: #### CBC ####[facility] Gksputatks[address] [place], [place] [address]Dr.Anton DoMONO #0.7 103/ulNormal0.3-0.8 The [facility] [place] HospitalComment on above:Performed By: #### CBC ####[facility] Zgakyutyvq[address] [place], [place] [address]Dr.Anton Do Monocytes/100 WBC (Bld)11.7 %Normal1.7-12.0The [facility] [place] HospitalComment on above:Performed By: #### CBC ####[facility] Llblsfuepx[address] [place], [place] [address]Dr.Anton HiNEUT #3.3 103/ulNormal1.4-6.5The [facility] [place] HospitalComment on above:Performed By: #### CBC ####[facility] [address] [place] [address]Dr.Anton DoNeutrophils/100 WBC (Bld)56.5 %Avlcob39.0-75.0The [facility] on above:Performed By: #### CBC ####[facility] [address] [address]Dr.Anton Morrowlet mean volume (Bld) [Entitic vol]10.2 fLNormal9.5-13.5 The [facility] [place] HospitalComment on above:Performed By: #### CBC ####[facility] [address] [address]Dr.Anton DoPLT231 103/isVardlz760-941Ksa [facility] on above:Performed By: #### CBC ####[facility] [address] [place] [address]Dr. Anton DoRBC5.01 106/ulNormal4.20-5.40The [facility] on above: Performed By: #### CBC ####[facility] [address] [address]Dr.Anton DoWBC5.8 103/ulNormal4.0-11.0The [facility] on above:Performed By: #### CBC ####[facility] [address] [place] [address]DrRichar DoFREE THYROXINE INDEX T7on 92-84-7843XIJ3.99Egjsbg6.30-4.50The [facility] on above:Performed By: #### CMP, LIPID, T7, TSH #### [facility] [address] [address] [address] Anton DoT3U32.0 %Sulzig38.0-39.0The [facility] on above: Performed By: #### CMP, LIPID, T7, TSH #### [facility] [address] [address] [address] Anton DoT4 [Mass/Vol]13.90 ug/dLNormal4.80-13.90[facility] Comment on above:Performed By: #### CMP, LIPID, T7, TSH #### [facility] [address] [address] [address] Anton DoGLYCOHEMOGLOBIN A1Con 76-70-4214AWL RECOMMENDATIONSEE BELOWHocking Valley Community HospitalComment on above:Result Comment: ADA RECOMMENDED LIMIT 4.0 - 6.0 ADA THERAPEUTIC TARGET < 7.0 ACTION SUGGESTED > 7.0Performed By: #### A1C #### [facility] [address] [address] [address] Anton DoGlucose [Mass/Vol]160 mg/dLNoFort [place] HospitalComment on above:Performed By: #### A1C #### [facility] [address] [address] [address] Anton DoHbA1c (Bld) [Mass fraction]7.2 %Critically high4.5-6.2The [facility] [place] HospitalComment on above:Performed By: #### A1C #### [facility] [address] [address] [address] Anton DoIROLexie 63-54-7414Cdbj [Mass/Vol]71.0 ug/vINcuani36.0-170.0[facility] HospitalComment on above:Performed By: #### IRON, VITAD ####[facility] [address] [address]Dr. Anton DoLIPID PROFILEon 69-73-7747BOON-HDL RATIO NORMSEE [facility] Comment on above:Result Comment: 3.3 - 4.4 LOW RISK 4.4 - 7.1 AVERAGE RISK 7.1 - 11.0 MODERATE RISK >11.0 HIGH RISKPerformed By: #### CMP, LIPID, T7, TSH #### [facility] [address] [address] [address] Anton DoCholesterol [Mass/Vol]168 mg/dLNormal<=200The [facility] Comment on above:Performed By: #### CMP, LIPID, T7, TSH #### [facility] [address] [address] [address] Anton Mcbrideesterol in HDL [Mass/Vol]46 mg/eRNjyqlp59-52Ypk [facility] on above:Performed By: #### CMP, LIPID, T7, TSH #### [facility] [address] [address] [address] Anton Mcbrideesterol in LDL [Mass/Vol]91.6 mg/dLNoFort [place] HospitalCommary free bed rehabilitation hospital on above:Performed By: #### CMP, LIPID, T7, TSH #### [facility] [address] [place] [address] Dr. Anton Mcqueen.total/Cholesterol in HDL [Mass ratio]3.7 {ratio} NormalThe [facility] [place] HospitalCommary free bed rehabilitation hospital on above:Performed By: #### CMP, LIPID, T7, TSH #### [facility] [address] [place] [address] Dr. Anton Ma NORMAL> or = 60 mg/dl - LOW CARDIOVASCULAR RISK <40 mg/dl - HIGH CARDIOVASCULAR RISKMemorial Health System [facility] on above:Performed By: #### CMP, LIPID, T7, TSH #### [facility] [address] [place] [address] Dr. Anton Velazquez CALC NORMALSEE BELOWOhioHealth Shelby HospitalCommary free bed rehabilitation hospital on above:Result Comment: <100 mg/dl OPTIMAL 100 - 129 mg/dl NEAR OR ABOVE OPTIMAL 130 - 159 mg/dl BORDERLINE HIGH 160 - 189 mg/dl HIGH >190 mg/dl VERY HIGH Performed By: #### CMP, LIPID, T7, TSH #### [facility] [address] [address] [address] Anton DoTriglyceride [Mass/Vol]152 mg/dLCritically high<=150The [facility] on above:Performed By: #### CMP, LIPID, T7, TSH #### [facility] [address] [address] [address] Anton PooleLDL CALC30.4 mg/dLNoFort [place] HospitalComment on above: Performed By: #### CMP, LIPID, T7, TSH #### [facility] [address] [place] [address] Dr. Anton Marinelli 14(COMP METB)on 78-51-4701Ywehhcy [Mass/Vol]3.4 g/dLNormal 3.4-5.0The [facility] [place] HospitalComment on above:Performed By: #### CMP, LIPID, T7, TSH #### [facility] [address] [place] [address] Dr. Anton DoAlbumin/Globulin [Mass ratio]0.8 {ratio}NormalThe [facility] [place] HospitalComment on above:Performed By: #### CMP, LIPID, T7, TSH #### [facility] [address] [place] [address] Dr. Anton Mejia [Catalytic activity/Vol]85 U/FPepvpt94-030Xcb [facility] [place] HospitalComment on above:Performed By: #### CMP, LIPID, T7, TSH #### [facility] [address] [place] [address] Dr. Anton Shay [Catalytic activity/Vol]76 U/LCritically ppjt63-92Cum [facility] [place] HospitalComment on above:Performed By: #### CMP, LIPID, T7, TSH #### [facility] [address] [place] [address] Dr. Anton Brady gap [Moles/Vol]9.4 mmol/LNormalThe [facility] [place] HospitalComment on above:Performed By: #### CMP, LIPID, T7, TSH #### [facility] [address] [place] [address] Dr. Anton Vasquez [Catalytic activity/Vol]30 U/BFzyldj98-30Xgq [facility] [place] HospitalComment on above:Performed By: #### CMP, LIPID, T7, TSH #### [facility] [address] [place] [address] Dr. Anton DoBilirubin [Mass/Vol]0.6 mg/dLNormal0.2-1.0The [facility] Comment on above:Performed By: #### CMP, LIPID, T7, TSH #### [facility] [address] [place], [place] [address] Dr. Anton DoCalcium [Mass/Vol]9.1 mg/dLNormal8.5-10.1The [facility] Comment on above:Performed By: #### CMP, LIPID, T7, TSH #### [facility] [address] [address] [address] Anton DoChloride [Moles/Vol]108 mmol/LCritically upmt10-514Vyj [facility] [place] HospitalComment on above:Performed By: #### CMP, LIPID, T7, TSH #### [facility] [address] [address] [address] Anton DoCO2 [Moles/Vol]28.1 mmol/NKeaqex92.0-32.0The [facility] Comment on above:Performed By: #### CMP, LIPID, T7, TSH #### [facility] [address] [place] [address] Dr. Anton DoCreatinine [Mass/Vol]1.49 mg/dLCritically high0.55-1.02The [facility] [place] HospitalComment on above:Performed By: #### CMP, LIPID, T7, TSH #### [facility] [address] [address] [address] Anton VirkGFR-AF QHKSUMQI09 mL/min/1.04c4Ydkxxyynaq low>=60The [facility] [place] HospitalComment on above:Performed By: #### CMP, LIPID, T7, TSH #### [facility] [address] [address] [address] Anton VirkGFR-NON AF MDHNEUNI24 mL/min/1.77u2Bzpisdrfmf low>=60The [facility] [place] HospitalComment on above:Performed By: #### CMP, LIPID, T7, TSH #### [facility] [address] [place] [address] Dr. Anton DoGlobulin (S) [Mass/Vol]4.4 g/dLNormalThe [facility] [place] HospitalComment on above:Performed By: #### CMP, LIPID, T7, TSH #### [facility] [address] [place] [address] Dr. Anton DoGlucose [Mass/Vol]253 mg/dLCritically robc98-806Ybs [facility] [place] HospitalComment on above:Performed By: #### CMP, LIPID, T7, TSH #### [facility] [address] [address] [address] Anton DoPotassium [Moles/Vol]4.7 mmol/LNormal3.5-5.1The [facility] Comment on above:Performed By: #### CMP, LIPID, T7, TSH #### [facility] [address] [address] [address] Anton DoProtein [Mass/Vol]7.8 g/dLNormal6.4-8.2The [facility] Comment on above:Performed By: #### CMP, LIPID, T7, TSH #### [facility] [place] [facility] [address] [place] [address] Dr. Anton DoSodium [Moles/Vol]143 mmol/ODeqkkd948-298Swt [facility] Comment on above:Performed By: #### CMP, LIPID, T7, TSH #### [facility] [place] [facility] [address] [place] [address] Dr. Anton DoUrea nitrogen [Mass/Vol]26.0 mg/dLCritically high7.0-18.0The [facility] [place] HospitalComment on above:Performed By: #### CMP, LIPID, T7, TSH #### [facility] [address] [place] [address] Dr. Anton Tovar nitrogen/Creatinine [Mass ratio]17.5 mg/mgNormalThe [facility] [place] HospitalComment on above:Performed By: #### CMP, LIPID, T7, TSH #### [facility] [address] [place] [address] Dr. Anton DoTSHocam 14-37-5166AOQ6.059 uIU/mLCritically low0.358-3.740The [facility] [place] HospitalComment on above:Performed By: #### CMP, LIPID, T7, TSH #### [facility] [address] [place] [address] Dr. Anton DoVITAMIN D 25 OHon 76-70-7214XGW D 25-OH45.9 ng/mLNVeterans Health AdministrationComment on above:Performed By: #### IRON, VITAD ####[facility] [address] [place], [place] [address]Oj. Anton TejedaT Effie RANGESSEE BELOWOhioHealth Shelby HospitalComment on above:Result Comment: <20 ng/mL Vit D deficient 20 - <30 ng/mL Vit D insufficient 30 - 100 ng/mL Vit D sufficient >100 ng/mL Potential ToxicityPerformed By: #### IRON, VITAD ####[facility] [address] [place], [place] [address]Uu. Maricelbettye DoXR ANKLE RT MIN 3 VIEWSon 84-26-2333PF ANKLE RT MIN 3 VIEWSEXAM: XR ANKLE RT MIN 3 VIEWS HISTORY: Pain following fall COMPARISON: X-rays 12/26/2020 TECHNIQUE: 3 views FINDINGS: IMPRESSION: Comminuted essentially nondisplaced intra-articular fracture of the lateral malleolus. Diffuse subcutaneous soft tissue edema. The joint space appears maintained. Small talocrural joint effusion. Small dorsal calcaneal enthesophyte. Orthopedic surgical evaluation is necessary Electronically authenticated by: JAMEY AZUL Date: 2022-03-13 16:24[facility] Vital Signs Date TimeVital SignValuePerforming UktfknrxxFdpefkqf05-85-2070 09:23-0400Body cmPaul [employer] Work Phone: [facility] CenterSddahgmlng13-02-7724 09:23-0400Body mass index (BMI) [Ratio]34.54 kg/m2Paul Complexa DO Work Phone: [facility] CenterJjqjprzabi46-31-1399 09:23-0400Body kffkom41.45 kgPaul [facility] HospitalAutoMedx Work Phone: [phone] CenterQzfalpuoiz98-12-6836 09:23-0400Diastolic blood jjgomhxc99 mm[Hg]Jose Abdiaziz [employer] Work Phone: [facility] CenterLtntguqqdt28-76-5118 09:23-0400Systolic blood ewigztqb688 mm[Hg]Jose Abdiaziz [employer] Work Phone: [facility] CenterDopunoqeau26-62-7611 10:36-0400Body .3 cmAllison Petznick DO Work Phone: [phone] [place], [place] [address]Donhrxcmnm28-67-7402 10:36-0400Body mass index (BMI) [Ratio]33.65 kg/k7Uegdzpv Petznick DO Work Phone: [phone] [place], [place] [address]Fnyrkdxufn85-07-0714 10:36-0400Body temperature 98.2 [degF]Isidra Petznick DO Work Phone: [phone] [place], [place] [address]Olgngeyxgt43-27-8119 10:36-0400Body .54 kgAllison Petznick DO Work Phone: [phone] [place] [address]-11-2025 10:36-0400Diastolic blood mm[Hg]Isidra Petznick DO Work Phone: [phone] [place], [place] [address]Vzccyvyjou18-79-6088 10:36-0400Heart rate71 /min Isidra Petznick DO Work Phone: [phone] [place], [place] [address]Aigkkcqizv22-58-4429 10:36-2077MpN8% (BldA) [Mass fraction]95 %Isidra Petznick DO Work Phone: [phone] [place], [place] [address]Rshqvouisk65-30-6127 10:36-0400Systolic blood uenryilm030 mm[Hg]Isidra Petznick DO Work Phone: [phone] [place], [place] [address]Ilwemupyrc36-25-9745 14:46-0500Body khtgiq932.3 cmAllison Petznick DO Work Phone: [phone] [place] [address]-05-2024 14:46-0500Body mass index (BMI) [Ratio]34 kg/k7Buaitmc Petznick DO Work Phone: [phone] [place] [address]-05-2024 14:46-0500Body temperature 97.9 [degF]Isidra Petznick DO Work Phone: [phone] [place] [address]-05-2024 14:46-0500Body ujxrvi85.45 kgAllison Petznick DO Work Phone: [phone] [place] [address]-05-2024 14:46-0500Diastolic blood teklrsrd31 mm[Hg]Isidra Petznick DO Work Phone: noCox SouthXrwrxoyeqj17-01-1685 14:46-0500Heart rate64 /min Isidra Petznick DO Work Phone: noCox SouthHnrlmemkpf53-00-6524 14:46-1591DqV1% (BldA) [Mass fraction]96 %Isidra Petznick DO Work Phone: noCox SouthMbthhlvqxv10-06-1988 14:46-0500Systolic blood orzixnmb692 mm[Hg]Isidra Petznick DO Work Phone: noCox SouthZglrkhfdrz66-27-5001 10:00-0400Blood Pressure LocationMohamad Alfredouchli [phone]-DomdvAshtabula [facility] Center [facility]est[facility] Zbuymc20-11-9680 10:00-0400Diastolic blood npenvmji73 mm[Hg]Shonna Minor [phone]-LwenkAshtabula County Medical Center [facility]est[facility] Lplrox03-21-1359 10:00-0400Heart rate78 /minMohamad Mouchli [phone]-YzbtmAshtabula County Medical Center [facility] Zzmwlx54-55-6215 10:00-0400Respiratory rate16 /minMohamad Mouchli [phone]-ZmuqbPremier Health [facility]09-06-2024 10:00-0400Systolic blood ihquieha412 mm[Hg]Shonna Tow Choiceeduardo [phone]-ZfvpsAshtabula County Medical Center [facility]est[facility] Health Encounters Encounter DateEncounter TypeCare ProviderFacilityStart: 01-31-2025 End: 83-52-0033twksxpvbqiEqihmuy M Hoy-LAB [facility]ospStart: 01-31-2025 End: 15-04-5836Vsnabeel ReferredUma Gonzales MD-LAB [facility] Start: 01-28-2025 End: 25-13-1546Zdrnvad encounter procedurePaul Daniel Mccarthy DO Work Phone: [facility] Surgical AssociatesComment on above:Encounter for screening colonoscopy (Primary Dx)Start: 01-28-2025 End: 43-46-3572tsofvhwnzzOXBN C LAFFAYNot AvailableStart: 01-03-2025 End: 92-15-4410uwsrulryeaBxcfyes M HoyFirUniversity Hospitals Elyria Medical Center Work Phone: Start: 01-03-2025 End: 05-67-5833Behuprgq ReferredUma Gonzales MD-[facility] Start: 12-07-2024 End: 42-31-7940ndwjwclphcRsozdfy R NILLFacility: BellueStart: 12-07-2024 End: 31-61-2882Gmvzobo encounter procedureMichael R NILL [phone]-LmoqjAshtabula [facility] [place] Start: 94-04-0860akbrsqbfpqEkifvcl MouchliFacility:Virtua VoorheesueStart: 10-22-2024 End: 59-70-6776Lsdedu outpatient visit 25 minutesAlljevon Mcdowellick DO Work Phone: [facility] 230Comment on above:Type 1 diabetes mellitus without complication (HCC) (Primary Dx)Start: 10-22-2024 End: 52-83-5262eevzikzgioSAGRALK M PETZNICKNot AvailableStart: 06-18-2024 End: 84-75-1851dcyywcjfiiYXHMVWV M PETZNICKNot AvailableStart: 02-17-2024 End: 83-20-9790Ehyvig outpatient visit 25 minutesAlljevon Gonzales Petznick DO Work Phone: [facility] 230Comment on above:Type 1 diabetes mellitus without complication (CMS/HCC); Type 1 diabetes mellitus without complications (CMS/HCC); Type 2 diabetes mellitus without complication, with long-term current use of insulin (CMS/HCC)Start: 02-17-2024 End: 41-25-1236eqyrjbelwuWCODJJE M PETZNICKNot AvailableStart: 12-19-2023 End: 00-41-1512Htw-admission assessmentShonna Minor [facility] Start: 12-19-2023 End: 23-35-4753jzqkcaxuhkZboyazd A. MouchliFacility:[facility] DHStart: 12-19-2023 End: 13-13-7029Ggvnbrs encounter procedureShonna SaminaChastity Minor [phone]-GeghxAshtabula [facility] Start: 12-11-2023 End: 62-77-3986rvudikkawdBbjztyv M HoyFacility:[facility] Start: 05-07-2023 End: 77-37-1751Hbn-admission assessmentShashank Perez [facility] Start: 69-92-4076Bifkepaiz for general adult medical examination without abnormal findingsDR UMA HOY .[facility]tart: 08-23-2022 End: 85-02-1538hqglwoknjeGO UMA HOY .Facility:M4Osqwt: 08-23-2022 End: 94-49-9877Zfplmnqmn for general adult medical examination without abnormal findingsDR UMA HOY .Facility:S7Xaltg: 07-24-2022 End: 95-20-5074fqtgtmdsprWRKUR D [facility]ENTERFacility:D3Ntsby: 05-28-2022 End: 39-99-1566jtjrurewfzREHYRIBR CULLENFacility:M6Qfbvg: 04-23-2022 End: 32-33-5740fengqxamcfDHHFWDBZ CULLENFacility:S7Kpeho: 04-02-2022 End: 80-39-7935vycnaldabxWYQGUOMX CULLENFacility:B7Rbsyz: 27-10-8601zmqcgbowdzYO UMA HOY .Facility:E4Tveex: 03-13-2022 End: 96-26-7461qdfykfhtftJT UMA HOY .Facility:J5Taqrl: 02-26-2022 End: 81-47-8660bavaetmfnjQR UMA HOY .Facility:H1 Procedures DateProcedureProcedure DetailPerforming ClinicianStart: 55-82-1330Vcmmt culture Uma Gauthier MD Work Phone: Start: 08-00-9133Dsbuurhkaw glycosylated o8aKwsqfhujevon Mcdowellick DO Work Phone: Start: 85-58-3781Osiyhhhbfv glycosylated a4zVuryzxsjevon Buckley DO Work Phone: Start: 76-20-1778Pehulcua (disorder)Mohamad Mouchli Start: 97-85-5904KbtrwqhyknuededzakkorhjkzwYkanrmv NILL Start: 70-56-5974KxiajsxezwlVgij Laffay DO Work Phone: Start: 99-12-7852HeeioygfiyqXxmbbek NILL Abdominal hysterectomyMichael NILL Acquired trigger finger (disorder)Mohamad Mouchli AppendectomyMohamad Mouchli Cervical arthrodesisMichael NILL Cesarean sectionMohamad Mouchli Comment on above:v2Qaalvpts sectionMichael NILL CholecystectomyMichael NILL ColonoscopyMichael NILL Excision of cervical intervertebral discMichael NILL Gallbladder structure (body structure)Mohamad Mouchli History of cholecystectomyHx of cholecystectomyMohamad Mouchli HysterectomyMohamad Mouchli Reduction mammoplastyMohamad Mouchli Repair of musculotendinous cuff of shoulderMichael NILL Comment on above:x 2Repair of right inguinal hernia Dony PÉREZ Specimen from breast obtained by biopsy (specimen) Shonna Minor Plan of Treatment DateCare ActivityDetailAuthorStart: 42-62-6867Evwajwmc screeningDiabetes: Retinopathy ScreeningLDS HOSPITAL HealthcareStart: 23-28-5488Lgpsvvna screeningDiabetes: Retinopathy ScreeningLDS HOSPITAL HealthcareStart: 02-25-2025 End: 30-93-2123Aqqsebj encounter procedureN[facility]S [facility] 230Start: 01-31-2025 Bacteria identified in Urine by CultureUrine [facility] Centertart: 48-95-8298Rgvnu [facility] Hospitaltart: 55-99-1459Qmdygcyahb A1c measurementDiabetes: Hemoglobin H5KVDQKMercy [facility], [facility] Start: 49-70-0428Yyudz [facility] Hospitaltart: 01-03-2025 Bacteria identified in Urine by CultureUrine [facility] Centertart: 32-75-4900Grbcbpulg vaccinationInfluenza Vaccine (#1)[facility] HealthcareStart: 06-18-2024 End: 99-30-8797Rqmajof encounter pyswadnfr32/07/2025 2:00 PM EST Office Visit [facility] [address] [place] [phone] Isidra Buckley, [address] [place] [address] [facility] 230Start: 38-83-6150Zzbhocbfki A1c measurementDiabetes: Hemoglobin U1ZFIYZ HealthcareStart: 15-26-7793Vqyncxxgs for malignant neoplasm of colonNOMS HealthcareStart: 20-20-8283Azmvcpdms for malignant neoplasm of breastMammogramNOMS HealthcareStart: 52-01-6403Joohutxpr for malignant neoplasm of cervixNOMS HealthcareStart: 74-39-7982Eisiifofm for malignant neoplasm of cervixPap SmearLDS HOSPITAL HealthcareStart: 53-07-1607Tsfgl screening for proteinDiabetes: Urine Protein ScreeningMercy Hospital South, formerly St. [facility]'s [facility] CenterStart: 42-92-1129Hbfzkvgnb for malignant neoplasm of colonMercy Hospital South, formerly [facility] Immunizations Immunization DateImmunizationNotesCare LwtzfrqjKozxtnag10-82-7071nnrdxvfel, injectable, madin winnie canine kidney, preservative freeAllison Petznick DO Work Phone: [facility] Medical CenterXmbajqkckf97-47-2585kdrhxevyy virus vaccine, unspecified formulationAllison Petznick DO Work Phone: [facility] Medical CenterFgchlatvjb31-21-7616Lbtowxzcf, injectable, Madin Winnie Canine Kidney, preservative free, quadrivalentAllison Petznick DO Work Phone: [facility] CenterMtesmrxxmz02-81-9908pqrnfnolz virus vaccine, unspecified formulationMohamad Mouchli [phone]-BvivfAshtabula County [facility] Center [facility] Pewdog68-57-8124 Influenza, injectable, Madin Winnie Canine Kidney, preservative free, quadrivalentAllison Petznick DO Work Phone: noCox SouthOhofpjjgwp50-43-0442cgfpwue toxoid, reduced diphtheria toxoid, and acellular pertussis vaccine, adsorbedMohamad Mouchli [phone]-UjjinAshtabula County Medical Center [facility]ive Ldzxsh15-01-7012 SARS-CoV-2 (COVID-19) mRNA1273 vaccineMohamad Mouchli [phone]-FnfptAshtabula County Medical Center Digestive HealthComment on above:Result Comment: 2023-12-18: DVL5068-12-7270zoscojsec virus vaccine, unspecified formulationMohamad Mouchli [phone]-VzijbAshtabula County Medical Center [facility] Qyheok30-15-6448 Influenza, injectable, Madin Winnie Canine Kidney, preservative free, quadrivalentAllison Petznick DO Work Phone: noCox SouthUhlfajmssf04-33-7430yfehvytih virus vaccine, unspecified formulationMohamad Mouchli [phone]-DzazxAshtabula County [facility] Azhipd14-25-8699 influenza, injectable, quadrivalent, contains preservativeAllison Petznick DO Work Phone: noms Ggerixdhit81-28-9049ITON-NhR-5 (COVID-19) mRNA- 1273 vaccineMohamad Mouchli [phone]-WucftAshtabula County Medical Center Dig[facility]ive [facility]riners HospitalComment on above:Result Comment: 2023-12-18: OBF5901-29-9198OSSH-FeF-9 (COVID-19) mRNA-1273 vaccineMohamad Mouchli [phone]-XrhjhAshtabula County Medical Center Dig[facility]ive [place] [facility]riners HospitalComment on above:Result Comment: 2023-12-18: EMB3523-48-9793gwgjifkso virus vaccine, unspecified formulationMohamad Mouchli [phone]-IddfbPremier Health Miami [facility] South10-27-2020 influenza, injectable, quadrivalent, preservative freeAllison Petznick DO Work Phone: noCox SouthYrluefkaga78-86-0443ypbwjkcqq virus vaccine, unspecified formulationMohamad Mouchli [phone]-OaozyPremier Health Miami [facility] South10-14-2020 influenza, seasonal, injectableAllison Petznick DO Work Phone: noCox SouthUsufnfhsri86-93-8688fsvclssjk virus vaccine, unspecified formulationMohamad Mouchli [phone]-QfijpAshtabula County Medical Center [facility] Udigbl25-73-2814 influenza, injectable, madin winnie canine kidney, preservative freeAllison Petznick DO Work Phone: noms Ucgfcxvzyl81-33-3616xbbtgxn toxoid, reduced diphtheria toxoid, and acellular pertussis vaccine, adsorbedMohamad Mouchli [phone]-ZyofrAshtabula County Medical Center [facility] Hcvmjd44-90-0262 influenza virus vaccine, H5N1, A/[place] (national stockpile)Isidra Petznick DO Work Phone: noms Bxestxcqyr68-60-4377nshgjhdfo virus vaccine, unspecified formulationAllison Petznick DO Work Phone: noCox SouthTyqldvscxz55-49-3707xllfxrxkh, unspecified formulationMohamad Mouchli [phone]-WabspAshtabula County Medical Center [facility]ive Wxjzdn01-41-4335 pneumococcal polysaccharide vaccine, 23 valentMohamad Mouchli [phone]-JmtbkAshtabula County [facility] Center [facility] Legbdr65-07-7369 influenza virus vaccine, H5N1, A/ (national stockpile)Isidra Petznick DO Work Phone: noCox SouthUbookorgec26-22-7839vdcwamdra virus vaccine, unspecified formulationAllison Petznick DO Work Phone: noCox SouthNodajhzndn14-07-9599hgidbcorm, unspecified formulationMohamad Mouchli [phone]-JttzpAshtabula County Medical Center [facility] Payers DatePayer CategoryPayerPolicy [id number]-[id number] Health [id number] 2..1.794753.3.57[id number] 2..1.112618.3.57[id number] 2..1.195757.3.57[id number] 2..1.044783.3.57[id number] 2..1.204295.3.57[id number] 2.0.1.839862.3.57[id number] 2.16.840.1.216623.3.57[id number] 2.16.840.1.754468.3.57[id number] 2..840.1.602063.3.57[id number] 2..840.1.054418.3.57[id number] 2..840.1.492285.3.57[id number] 2..840.1.441256.3.57[id number] 2.0.1.282032.3.57[id number] 2.840.1.200391.3.579.[id number] 3621z522-6724-26m9-8r56-k[id number] [id number]-o74d-[id number] 127286mb-9024-5447-0hc5-[id number] 2.840.1.558[id number] 2..1.481880.3.579.2.531 Social History DateTypeDetailFacilityTobacco smoking statusBarney Children's Medical Centertart: 09-13-2022 End: 89-62-8166Tdb Assigned At BirthFemalVeterans Health Administrationtart: 09-12-2022 End: 70-31-9168Mjorqdk smoking statusNever smoked tobacco (finding)[facility] HealthStart: 10-09-1770Suxtcnn smoking statusNever [facility] HealthStart: 22-78-3179Qcaubke use and exposureSmokeless tobacco non-userNOMS HealthcareStart: 02-17-2024 End: 72-91-5092Kspnwfqdq beverage intakeEx-drinker (finding)[facility] Start: 09-13-2022 End: 75-72-7753Hctvdvz of Social functionNOMS HealthcareWithin the last year, have you been afraid of your partner or ex-partner?NoNOMS HealthcareDo you belong to any clubs or organizations such as shinto groups, unions, fraternal or athletic groups, or school groups?YesNOMS HealthcareAre you now , , , , never or living with a partner?MarriedNOMS HealthcareHow often to you have a drink containing alcohol?NeverNOMS Healthcare (I/We) worried whether (my/our) food would run out before (I/we) got money to buy more.Never trueNORI HealthcareStart: 31-55-8094Zdt assigned at birthFemale [facility] HealthcareStart: 10-78-0707Rhjzwh identityIdentifies as female gender (finding)[facility] HealthcareStart: 96-06-7515RypEjsmbd (finding)[facility] HospitalTobacco smoking status NHISUnknown if ever smokedAdams County Hospital Work Phone: Medical Equipment Procedure CodeEquipment CodeEquipment Original TextEquipment IdentifierDates [id number], [id number]: 10-11-2016 End: 01-28-2025 Functional Status CjyjMqzdruyniaWxrxdaVanamurm03-85-6954Zkiwvrc Health Questionnaire 2 item (PHQ- 2) [Reported][facility] Medical CenterZfollmwsnw01-31-9701Hfrenwfaey StatusN/AFMansfield Hospital [facility] Clinical Notes 04-03-2022 to 12-07-2024 Note Date & HzvcGroiPhzyulbi82-43-0245 NoteGeneral Surgery Office/Clinic Note Chief Complaint consultation for colonoscopy HPI [...] polyp; abd operations significant for x 2, c holecystectomy, appendectomy, RIHR, and abd hysterectomy; on baby [...] swallowing difficulties, no hearing loss, no ear infection(s),no nose bleeds. Cardiovascular: normal blood pressure, no [...] (05/15/2023), EGD - esophagogastroduodenoscopy (01/2015), Colonoscopy (10/2012), Abdominalhysterectomy, Appendectomy, Breast biopsy sample, Breast reduction, Cervical [...] cap(s), Oral, Daily Prot (more content not included)...[facility] HospitalComment on above: Result Comment: Electronically Signed By: BETO YARBROUGH, Dony Farias\Date and Time Signed: 12/07/24 13:41 USB14-09-3209 History of Present illness Narrative* Isidra Buckley DO - 10/24/2024 8:05 PM EDTAssociated Problem(s): Type 1 diabetes mellitus without complication [...] at 12A and 8A, decrease at 11A. * Isidra Buckley DO - 10/22/2024 10:30 AM EDT Images from the original note [...] pump-LINKED- and Dexcom CGM on a daily basis.BG running higher overnight but then will drop [...] mass index (BMI) of35.0 to 35.9 in adult ([facility]-H[facility]) Type 1 diabetes mellitus without complication ([facility]) Unspecified mononeuropathy of right lower limb Dizziness [...] PUMP SUBCUTANEOUSLY SEE ADMINISTRATION INSTRUCTIONS, MAX 150 UNITSDAILY (100 UNIT/ML SOLN)-Discontinued INJECT 1 DOSE PER PUMP SUBCUTANEOUSLY SEE ADMINISTRATION INSTRUCTIONS, MAX 150 UNITS DAILY (100 UNIT/ML SOLN) Insulin Aspart Per pump (max daily 150 units) (100 UNIT/ML SOLN) Semaglutide 0.5 mg q7 days SC (2 MG/3ML SOPN) 0.5 mg q7 days SC (2 MG/3ML SOPN) Labs [facility] [place] HEMOGLOBIN A1C/HEMOGLOBIN.TOTAL:MFR:PT:BLD:QN: 7.0 Outpatient prescription Medication marked [...] 1.5 tablets before bedtime. CONTINUOUS GLUCOSE SENSOR (Missingames G7 SENSOR) MISC Inject 1 Device under the skin See administrationinstructions Change every 10 days ELDERBERRY PO Elderberry [...] with the patient today. documented in this encounterMercy Hospital [facility], formerly St. [facility]'s Medical CenterNfhxareynu40-97-3704 History of Present illness Narrative* Isidra Buckley DO - 02/17/2024 7:50 PM ESTAssociated Problem(s): Type 1 diabetes mellitus without complication ([facility]) During the appointment today all pertinent labs, [...] insulin as she goes up on ozempic. * Isidra Buckley DO - 02/17/2024 3:00 PM EST Images from the original note were not [...] pump-LINKED- and Dexcom CGM on a daily basis.Overall bg are running smooth and in range. Will sometimes dip down in the afternoon and occasionalrise in the evening but nothing is consistent. [...] meter and strips (accu-chek guide) sent to [employer]- that way she can double check with finger sticks. States using [employer] it would be free to her. SUBJECTIVE: PROBLEM LIST SOCIAL ALLERGIES: Patient Active Problem List Diagnosis Class 2 severe obesity due to excess calories with serious comorbidity and body mass index (BMI) of35.0 to 35.9 in adult ([facility]) Type 1 diabetes mellitus without complication ([facility]) Unspecified mononeuropathy of right lower limb Dizziness Hyperlipidemia ([facility]) Hypertensive disorder ([facility]) Anxiety disorder Panic disorder ([facility]) Age-related nuclear cataract of both eyes Social [...] PUMP SUBCUTANEOUSLY SEE ADMINISTRATION INSTRUCTIONS, MAX 150 UNITSDAILY (100 UNIT/ML SOLN) INJECT 1 DOSE PER PUMP SUBCUTANEOUSLY SEE ADMINISTRATION INSTRUCTIONS, APC497 UNITS DAILY (100 UNIT/ML SOLN) Semaglutide 0.25 [...] Visit Type 1 diabetes mellitus without complication (CMS/[facility]) During the appointment today all pertinent labs, [...] complication, with long-term current use of insulin ([facility]) Relevant Medications Semaglutide,0.25 or 0.5MG/DOS, (Ozempic, 0.25 [...] with the patient today. documented in this encounterMercy Hospital South, formerly St. [facility]'s Medical CenterCnhmhlzgyx38-71-9709 NotePROCEDURE: XR ANKLE RT MIN 3 VIEWS, XR [...] Electronically authenticated by: ADRIANNE RUANO Date: 2022-07-24 15:00[facility]04-12-2023 NotePROCEDURE: XR ANKLE RT MIN 3 VIEWS, XR [...] Electronically authenticated by: ADRIANNE RUANO Date: 2022-07-24 15:00[facility]02-14-2023 NotePROCEDURE: XR ANKLE RT MIN 3 VIEWS HISTORY: [...] Electronically authenticated by: ADRIANNE RUANO Date: 2022-05-28 14:43[facility]01-10-2023 NotePROCEDURE: XR ANKLE RT MIN 3 VIEWS COMPARISON: [...] Electronically authenticated by: JAMEY SANDHU Date: 2022-04-23 12:08[facility]12-21-2022 NotePROCEDURE: XR ANKLE RT MIN 3 VIEWS HISTORY: [...] Electronically authenticated by: ADRIANNE RUANO Date: 2022-04-03 16:49[facility]Evaluation [facility] note No data available for this section [facility]Evaluation + Plan note Future Appointments Appointment Date:01/01/2024 01:45:00 PM Scheduled Provider: Location:[facility] Appointment Type:Surgery FT [facility] Evaluation + Plan note Future Appointments Appointment Date:12/31/2024 09:30:00 AM Scheduled Provider: Location:[facility] Appointment Type:Surgery FT [facility] [place] Evaluation note* Diagnosis Severe obesity (BMI 35.0-39.9) [...] mass index (BMI) of35.0 to 35.9 in adult (CMS/HCC)- Primary Type 1 diabetes mellitus without complication (CMS/HCC) Type I (juvenile type) diabetes mellitus without mention of complication, not stated as uncontrolled Class 2 severe obesity due to excess calories with serious comorbidity and body mass index (BMI) of35.0 to 35.9 in adult (CMS/HCC)- Primary Type [...] of insulin (CMS/HCC) documented in this encounter [facility] HealthcareEvaluation note* Diagnosis Severe obesity [...] mass index (BMI) of35.0 to 35.9 in adult (CMS-HCC)- Primary Type 1 diabetes mellitus without complication (HCC) Type I (juvenile type) diabetes mellitus without mention of complication, not stated as uncontrolled Class 2 severe obesity due to excess calories with serious comorbidity and body mass index (BMI) of35.0 to 35.9 in adult (CMS-HCC)- Primary Type [...] stated as uncontrolled documented in this encounter [facility] HealthcareEvaluation noteNo assessment information availableSouthern [facility] Work Phone: Evaluation note* Diagnosis Severe obesity [...] mass index (BMI) of35.0 to 35.9 in adult- Primary Type 1 diabetes mellitus without complication (HCC) Type I (juvenile type) diabetes mellitus without mention of complication, not stated as uncontrolled Class 2 severe obesity due to excess calories with serious comorbidity and body mass index (BMI) of35.0 to 35.9 in adult- Primary Type 1 [...] FIBULA FRACTURE SURGERY Right 03/2020 HERNIA REPAIR 2011 HYSTERECTOMY NECK SURGERY release pinched nerve ROTATOR CUFF REPAIR 2011 x2 TRIGGER FINGER RELEASE Left 2020 ring finger documented in this encounterNOPemiscot Memorial [facility] Systemsspital Discharge instructions No data available for this section [facility] HospitalProgress note No data available for this section [facility] HospitalReason for referral (narrative)No reason for referral information availableSouthern [facility] Medical Center Ctr Work Phone: Summary Purpose Family History [...] and content) DATE CREATED AUTHOR 08/26/2022 [facility] DATE CREATED AUTHOR AUTHOR'S ORGANIZ ATION 12/21/2023 [facility] DATE CREATED AUTHOR AUTHOR'S ORGANIZ ATION 12/09/[address] [facility] DATE CREATED AUTHOR AUTHOR'S ORGANIZ ATION 01/30/2025 [facility] DATE CREATED AUTHOR AUTHOR'S ORGANIZ ATION 02/02/2025 [facility] Patient Care team informatio n (unrecognized section and content) Team MemberRelationshipSpecialtyStart DateEnd Date Uma Gauthier MD [address] [place] [address] [facility] - [facility]09/13/22 Isidra Buckley, [address] [place] [address] PCP - Medical [employer]04/14/2211Team MemberRelationshipSpecialty Start DateEnd Date Uma Gauthier MD [address] [place] [address] PCP - [facility] Medicine09/13/22 Isidra Buckley, [address] [place] [address] PCP - Medical [employer]04/14/2211 Team Status: Inactive Member Role Status Dates Uma Gauthier MD Attending Provider Active Sta rt: January 03, 2025 End: January 03, 2025Team MemberRelationshipSpecialtyStart DateEnd Date Uma Gauthier MD [address] [place] [address] PCP - [facility] Medicine09/13/22 Isidra Buckley, [address] [place] [address] PCP - Medical [employer]04/14/2211 Team Status: Inactive Member Role/Relationship Status Dates Uma Gauthier MD Attending Provider Active Sta rt: January 03, 2025 End: January 03, 2025 Team Status: Inactive Member Role/Relationship Status Dates Uma Gauthier MD Attending Provider Active Sta rt: January 31, 2025 End: January 31, 2025 Reason for Visit (unrecogniz ed section and content) ReasonCommentsDiabetesReasonCommentsSchedule colonoscopyLast one was done by Dr Ray [...] BE BASED ON THE PRIMARY CLINICAL RECORDS. [facility] [employer] provides no warranty or guarantee of the accuracy or completeness of information in this document.
--- NOTE | 2025-02-03 08:36 | US_ITS ---
The [address] [address] Patient Name: LINO SIU MRN: [id number] date: 1965 Sex: F Assigned Patient Location: US Current Patient Location: US Accession/Order Number: [id number] Exam Date: 02/03/2025 08:40 Report Date: 02/03/2025 09:38 At the request of: UMA NEGRO MD Procedure: US renal bladder BILATERAL RENAL AND BLADDER ULTRASOUND CLINICAL HISTORY: Urinary tract infection COMPARISON: None Estimation of renal size is approximately 9.2 cm on the right and 10.0 cm on the left. No shadowing calculi or hydronephrosis are identified. No renal mass lesions were imaged. There is no perinephric fluid. The urinary bladder is partially distended with a volume of 172 mL. No contour or intraluminal abnormalities are seen. Bilateral ureteral jets are present. The post void bladder residual is 8 mL. US/US renal bladder IMPRESSION: NO OBSTRUCTIVE UROPATHY. Impression dictated by: Sarah Kurtz M.D. 02/03/2025 9:38 AM Dictation Location: [place] [address] Electronically authenticated by: [id number] Y Date: 02/03/2025 09:38
== END 2025-02-03 08:24 | disposition home or self-care (01) ==
LOC: US 08:23
PROVIDERS: PCP Family Medicine; Visit Provider Family Medicine
DX: N28.9 Disorder of kidney and ureter, unspecified (principal)
CPT/HCPCS: 76770

== ENCOUNTER 2025-02-24 10:52 | Outpatient (OUT) | payer OTHER, SELFPAY ==
--- OUTSIDE RECORDS SUMMARY | 2025-02-24 10:54 | XMS_ITS | Clinical Summary ---
Author Organization [employer] [facility] Address [facility] [facility] [place] [address] Care Team Providers Care Geophysical E Logger Name Role Phone Unavailable Primary Care Provider Unavailabl e Social History Tobacco UseTypesPacks/DayYears UsedDateSmoking Tobacco: Never AssessedChildcare AnswerDate NhcmqtyyRuacjbktwIcggyib67/12/2019EmploymentAnswerDate Recorded GqxposrnedOdgonhe01/12/2019CommentsUnknownSex and Gender Information ValueDate RecordedSex Assigned at BirthNot on fileLegal TfmQnjoci62/06/2015 11:29 AM EDTGender IdentityNot on fileSexual OrientationNot on file Plan of Treatment Not on file Medical Devices Not on file
--- OUTSIDE RECORDS SUMMARY | 2025-02-24 10:54 | XMS_ITS | Clinical Summary ---
Author Organization [facility] Address [address] [place] [address] Care Team Providers Care Debarker Operator Name Role Phone Kostas Gauthier MD Primary Care Provider [phone] Isidra Allred DO Unavailable [phone] Allergies Active AllergyReactionsCriticalityNoted OdpkNvduniryCzbsuapuzhd79/08/2023 Other Reaction(s): Unknown Iodinated Contrast Media09/13/20227834Fjpanzvbzrsl89/08/2023 Other Reaction(s): Unknown Wteidcajkjtyc92/02/3987Jnadfdxsrbn34/05/2023 Other Reaction(s): Unknown SevxfyxqdorHbwyxdg09/08/2023Sulfamethoxazole-Xgsfnizybloj70/02/2023Wound Dressing Fcliscjh56/02/2023 Medications MedicationSigDispense QuantityRefillsLast FilledStart DateEnd DateStatus Multiple [...] Syringe U/F 31G X /16 0.5 ML [facility] 06/02/2022ctive Multiple Vitamins-Minerals (Vitamin D3 Complete) tablet [...] 2 tablets by mouth as needed at arfueex4010/18/2024tive Insulin Infusion Pump (T:slim Insulin Pump) device Indications:Type 1 diabetes mellitus without complication (HCC)Basal: 12A 2.5, 4A 2.1, 8A 2.2, 11A 1.7, ICR: 12A 3, ISF: 50, target: 110 1 each 5Active insulin aspart (NovoLOG) 100 UNIT/ML injection Indications:Type 1 diabetes mellitus without complication (HCC)Per pump (max daily 150 units) 140 mL 5Active Continuous Glucose Sensor (Dexcom G7 Sensor) [facility] Indications:Type 1 diabetes mellitus without complication (HCC)Inject 1 Device under the skin See administration instructions Change every 10 days 9 each 5Active Continuous Glucose Sensor (Dexcom G7 Sensor) [facility] Indications:Type 1 diabetes mellitus without complication (HCC)Inject [...] Active Problems ProblemNoted DateDiagnosed DateEncounter for screening csfuzudeaks17/17/2025ge- related nuclear cataract of both eyes05/07/2023lass 2 severe obesity due to excess calories with serious comorbidity and body mass index (BMI) of35.0 to 35.9 in adult08/16/2022Type 1 diabetes mellitus without jdwumzwbneztt25/05/2023 Assessment & Plan (10/24/2024 8:05 PM EDT): [...] numbers improve. Unspecified mononeuropathy of right lower limb7158Rdeddjhmb25/16/2021 Bfsmkqfclqdxqm40/12/2016Hypertensive jirvtjom60/12/2016Anxiety disorder 03/25/2016Panic mlrsrtod24/12/2016 Resolved Problems ProblemNoted DateDiagnosed DateResolved DateDiabetes nuymosdb23/12/2016 09/13/2022 Encounters DateTypeDepartmentCare RmzfYqsbovqlhlw36/05/5558Pbogio47/04/3000Ctxted40/20/2025 Orders Only [facility] [address] [place] [address] [address] [place] [address] Bhanu Forde MD 01/28/2025 9:45 AM EDTConsult [facility] [address] [place] [address] [address] [place] [address] Jose Freed, Encounter for screening colonoscopy (Primary Dx)01/28/20252851Tbvfvl59/16/2025Travel 01/24/20253779Oiaiyc83/24/6404Qoojpi96/09/5144Jaykrn53/05/2025Orders Only [facility] [address] [address] [place] [address] Bhanu Forde MD from Last 3 Months Immunizations ImmunizationAdministration DatesNext DueInfluenza, V5D1-984892/20/2017, 02/19/2016Influenza, Injectable, MDCK, preservative free02/06/2024,01/11/2019 Influenza, Zyapgpogycv85/26/2022,01/10/2021,12/13/2020,02/08/2020,01/26/2020, 01/11/2019,01/01/2017,02/19/2016Influenza, injectable, MDCK, preservative free, /20/2023,02/06/2022,01/10/2021Influenza, injectable, quadrivalent 12/13/2020Influenza, injectable, quadrivalent, preservative free02/08/2020 Influenza, seasonal, qyjinkebdl90/14/2020Pneumococcal Polysaccharide PPSV23 01/01/2017Tdap1,03/21/2018 Family History Medical HistoryRelationNameCommentsHeart diseaseBrotherHeart diseaseFatherRay RonskiHypertensionFatherRay RonskiCancerMotherBarb QuaintanceHyperlipidemia MotherBarb QuaintanceHypertensionMotherBarb QuaintanceSkin cancerMotherBarb QuaintanceThyroid diseaseMotherBarb QuaintanceHyperlipidemiaSister 1Hypertension Sister 2Patti CfscqyxAevrptjrHopoHttpiaBjsffsemInvtvwhXdswu1BfvpwiFli Ronski DeceasedMotherBarb QuaintanceAliveSister 6Jjcoo0Grkznd 2Patti LonswayAlive Social History Tobacco UseTypesPacks/DayYears UsedDateSmoking [...] times a week09/13/2022How often do you attend moravian or amish services?Patient totztfqx99/02/2023o you belong to any clubs or organizations such as moravian groups, unions, fraternal or athletic groups, or school groups?Yes09/13/2022How often do you attend meetings of the clubs or organizations you belong to?Patient jbonbmsf00/02/2023re you , , , , never , [...] at all 09/13/2022HQ-2AnswerDate RecordedPatient Health Questionnaire-2 Score0 10/22/2024[facility] [place] [facility] - Occupational Stress QuestionnaireAnswerDate RecordedDo you feel stress - tense, restless, nervous, or anxious, or unable to sleep at night because yourmind is troubled all the time - these days?Patient aylsrukb51/02/2023Exercise Vital SignAnswerDate RecordedOn average, how many days per week do you engage in moderate to strenuous exercise (like a brisk walk)?Patient mfyrmpkl17/02/2023On average, how many minutes do you engage in exercise at this level?Patient bmimobnb64/02/2023 Hunger Vital SignAnswerDate RecordedWithin the past 12 [...] steady place to sleep or slept in [facility] (including now)?No09/13/2022 CommentsUnknownSex and Gender InformationValueDate RecordedSex Assigned at TdituUrfdoq58/02/2023 9:07 AM EDTLegal QcoRfpoxb57/15/2023 7:13 PM EDTGender PjlltfdePiorto21/02/2023 9:07 AM EDTSexual OrientationNot on file Last Filed Vital Signs Vital SignReadingTime TakenCommentsBlood Ffnqyhhc791/7610/ 9:23 AM EDT Dpsty9412 10:36 AM ZAABinkpvzeroe32.8 ??C (98.2 ??F)10/22/2024 10:36 AM EDTRespiratory Rate--Oxygen Anitmljeqm67%10/22/2024 10:36 AM EDTInhaled Oxygen Concentration--Ulgudi14.5 kg (195 lb)01/28/2025 9:23 AM LKHTdgyak537 cm (5' 3 ) 01/28/2025 9:23 AM EDTBody Mass Index34.5401/28/2025 9:23 AM EDT Plan of Treatment DateTypeDepartmentCare Team (Latest Contact Info)Zfmfrsjvppo88/14/2025 10:45 AM ESTOffice Visit [facility] [address] [place] [address] Isidra Allred, DO [address] [place] [address] 03/15/2025 4:00 PM ESTOffice Visit [facility] [address] [place] [address] Jose Freed, DO [address] [place] [address] Health MaintenanceDue DateLast DoneCommentsCT Nabiapwmptjk60/04/1966FIT-DNA 1965FIT1965FOBT1965 2084Lncvffhbwbhqz92/04/1966Diabetes: Urine Protein Qrozekqlh32/04/1985Pap Smear1986Cervical Cancer Screening 1995HPV/Jbieaf1005/18/19954137Jrfmpoicn35/04/2006Pneumococcal Vaccine: Pediatrics (0 to 5 Years) and At-Risk Patients (6 to 64 Years) (2 of 2 - PCV) Colonoscopy/, 10/30/2012Colorectal Cancer Nilewduxn86/19/2023COVID-19 Vaccine (2024- season)/08/2021, 08/16/2020, 1Diabetes: Hemoglobin A1C/02/2025, 06/18/2024, 02/17/2024, Additional history existsDiabetes: Retinopathy Zhdremmnw76/03/2027 06/14/2024, 05/07/2023, 05/07/2023, Additional history existsInfluenza Vaccine Qfdjlzfxb29/20/2025, 02/06/2024, 01/01/2023, Additional history exists Procedures Procedure NamePriorityDate/TimeAssociated DiagnosisCommentsPOCT GLYCOSYLATED HEMOGLOBIN (HGB A1C)Tnaelfm2910/22/2024 10:52 AM EDT Type 1 diabetes mellitus without complication (HCC) DIABETIC RETINOPATHY SCREENING - OU - BOTH XJVVPcianra57/03/2025 8:39 AM EST UMGNDJHWKJMAgrcdtb33/19/2013 9:45 AM EDTfrom Last 3 Months or Most Recently Relevant to Health Maintenance Results * POCT glycosylated hemoglobin (Hb A1C) docked device (10/22/2024 10:52 AM EDT) ComponentValueRef RangeTest MethodAnalysis TimePerformed AtPathologist SignatureHemoglobin A1C7.0Specimen (Source)Anatomical Location / Laterality Collection Method / VolumeCollection TimeReceived TimeBloodVenous blood specimen / Nfadqof1510/22/2024 10:52 AM EDT Narrative Authorizing ProviderResult TypeResult StatusIsidra Allred DOPOINT OF CARE TEST ENTER/EDIT ORDERABLESFinal Result * Diabetic Retinopathy Screening - OU - Both Eyes (06/14/2024 8:39 AM EST) Anatomical RegionLateralityModalityHeadOther Narrative Authorizing ProviderResult TypeResult StatusUnknown Practice AOPHTH PHOTOGRAPHY Final Result * Colonoscopy (10/30/2012 9:45 AM EDT)Anatomical RegionLateralityModality Endoscopy Narrative Authorizing ProviderResult TypeResult StatusAlfred Samina Forde MDENDOSCOPY PROCEDURE ORDERABLESFinal Result from Last 3 Months or Most Recently Relevant to Health Maintenance Insurance Care Teams Team MemberRelationshipSpecialtyStart DateEnd Date Kostas Gauthier MD [address] [place] [phone] PCP - GeneralFamily Medicine09/13/22 Isidra Allred DO [address] [facility] [address] [place] [address] PCP - Medical [place] [employer]04/14/2211
--- OUTSIDE RECORDS SUMMARY | 2025-02-24 10:54 | XMS_ITS | Encounter Summary ---
Author Organization [facility] Address [address] [place] [address] Care Team Providers Care Insurance Sales Professional Name Role Phone Kostas Gauthier MD Primary Care Provider [phone] Isidra Allred DO Unavailable [phone] Encounter Details DateTypeDepartmentCare Team (Latest Contact Info)Sjqsfsutnuu70/04/2025Travel Social History Tobacco UseTypesPacks/DayYears UsedDateSmoking Tobacco: NeverSmokeless [...] times a week09/13/2022How often do you attend taoism or zoroastrian services?Patient vfidorud45/02/2023Do you belong to any clubs or organizations such as taoism groups, unions, fraternal or athletic groups, or school groups?Yes09/13/2022How often do you attend meetings of the clubs or organizations you belong to?Patient vodzizwy31/02/2023re you , , , , never , [...] at all 09/13/2022HQ-2AnswerDate RecordedPatient Health Questionnaire-2 Score0 10/22/2024[facility] - Occupational Stress QuestionnaireAnswerDate RecordedDo you feel stress - tense, restless, nervous, or anxious, or unable to sleep at night because yourmind is troubled all the time - these days?Patient ynxpegyf53/02/2023Exercise Vital SignAnswerDate RecordedOn average, how many days per week do you engage in moderate to strenuous exercise (like a brisk walk)?Patient /02/2023On average, how many minutes do you engage in exercise at this level?Patient xuddmnbq38/02/2023 Hunger Vital SignAnswerDate RecordedWithin the past 12 [...] CommentsUnknownSex and Gender InformationValueDate RecordedSex Assigned at QcrmvPjlhbk17/02/2023 9:07 AM EDTLegal PedMhukqw52/15/2023 7:13 PM EDTGender BaflihzmQazzds07/02/2023 9:07 AM EDTSexual OrientationNot on filedocumented as of this encounter Plan of Treatment DateTypeDepartmentCare Team (Latest Contact Info)Gczcfntbday90/14/2025 10:45 AM ESTOffice Visit [facility] [address] [place] [address] Isidra Allred DO [address] [place], [place] [phone] 03/15/2025 4:00 PM ESTOffice Visit [facility] [address] [facility] [address] [place] [address] Jose Freed, DO [address] [facility] [address] [place] [address] documented as of this encounter Visit Diagnoses Not on filedocumented in this encounter Care Teams Team MemberRelationshipSpecialtyStart DateEnd Date Kostas Gauthier MD [address] [facility] [place] [address] PCP - GeneralFamily Medicine09/13/22 Isidra Allred DO [address] [place] [address] PCP - Medical [employer]04/14/2211documented as of this encounter
--- OUTSIDE RECORDS SUMMARY | 2025-02-24 10:54 | XMS_ITS | Clinical Summary ---
Author Organization [facility] Address [address] [place] [address] Care Team Providers Care Public Relations Counselor Name Role Phone Unavailable Primary Care Provider Unavailabl e Medications MedicationSigDispense QuantityRefillsLast FilledStart DateEnd DateStatus nadolol (Corgard) 40 mg tablet Indications:Chest pain, unspecifiedTAKE 1 TABLET BY MOUTH TWICE A DAY 180 tablet 03/05/2022ctive Social History Tobacco UseTypesPacks/DayYears UsedDateSmoking Tobacco: Never Assessed CommentsUnknownSex and Gender InformationValueDate RecordedSex Assigned at Not on fileLegal OehEjcsdg96/29/2022 9:46 PM EDTGender IdentityNot on fileSexual OrientationNot on file Last Filed Vital Signs Vital SignReadingTime TakenCommentsBlood Zqjoykgz994/9107 2:12 PM EDT Mcvfm6565 9:30 AM ESTTemperature--Respiratory Rate--Oxygen Xhyhtokcnm61% 10/27/2020 2:08 PM EDTInhaled Oxygen Concentration--Xvkjrf20.8 kg (209 lb) 10/27/2020 2:04 PM KNCFhqfes155 cm (5' 3 )10/27/2020 2:01 PM EDTBody Mass Index 37.02010/27/2020 2:01 PM EDT Plan of Treatment Not on file
--- OUTSIDE RECORDS SUMMARY | 2025-02-24 10:54 | XMS_ITS | Encounter Summary ---
Author Organization [facility] Address [address] [place] [address] Care Team Providers Care Managing Supervisor Name Role Phone Kostas Gauthier MD Primary Care Provider [phone] Isidra Allred DO Unavailable [phone] Encounter Details DateTypeDepartmentCare Team (Latest Contact Info)Ftpctkalafy28/05/2025Travel Social History Tobacco UseTypesPacks/DayYears UsedDateSmoking Tobacco: NeverSmokeless [...] times a week09/13/2022How often do you attend mu-ism or hoahaoism services?Patient mxyfakdk75/02/2023Do you belong to any clubs or organizations such as mu-ism groups, unions, fraternal or athletic groups, or school groups?Yes09/13/2022How often do you attend meetings of the clubs or organizations you belong to?Patient puexaptd95/02/2023re you , , , , never , [...] at all 09/13/2022HQ-2AnswerDate RecordedPatient Health Questionnaire-2 Score0 10/22/2024[facility] - Occupational Stress QuestionnaireAnswerDate RecordedDo you feel stress - tense, restless, nervous, or anxious, or unable to sleep at night because yourmind is troubled all the time - these days?Patient dzcjrbgo83/02/2023Exercise Vital SignAnswerDate RecordedOn average, how many days per week do you engage in moderate to strenuous exercise (like a brisk walk)?Patient ibjscnrc47/02/2023On average, how many minutes do you engage in exercise at this level?Patient zqjzryxd29/02/2023 Hunger Vital SignAnswerDate RecordedWithin the past 12 [...] CommentsUnknownSex and Gender InformationValueDate RecordedSex Assigned at QncqzSuorjy89/02/2023 9:07 AM EDTLegal HhgOpbdvk79/15/2023 7:13 PM EDTGender QdgcczebHcfmao52/02/2023 9:07 AM EDTSexual OrientationNot on filedocumented as of this encounter Plan of Treatment DateTypeDepartmentCare Team (Latest Contact Info)Vibvtcadmgf12/14/2025 10:45 AM ESTOffice Visit [facility] [address] [place] [address] Isidra Allred DO [address] [place], [place] [phone] 03/15/2025 4:00 PM ESTOffice Visit [facility] [address] [facility] 150 [place] [address] Jose Freed, DO [address] [facility] 150 [place] [address] documented as of this encounter Visit Diagnoses Not on filedocumented in this encounter Care Teams Team MemberRelationshipSpecialtyStart DateEnd Date Kostas Gauthier MD [address] [facility] [place] [address] PCP - GeneralFamily Medicine09/13/22 Isidra Allred DO [address] [place] [address] PCP - Medical [place] [employer]04/14/2211documented as of this encounter
--- NOTE | 2025-02-24 10:57 | MM_ITS ---
Patient Name: LINO SIU MR#: [id number] : 1965 Exam Date: 02/24/2025 Ordering Doctor: DR UMA NEGRO . RADIOLOGY REPORT PROCEDURE: MM TOMOSYNTHESIS SCREENING BI COMPARISON: MM TOMOSYNTHESIS SCREENING BI, 02/24/2024. MG MAMM SCREEN 3D KASSANDRA CAD, 11/23/2020. MG MAMM SCREEN KASSANDRA W CAD, 02/16/2019. MG MAMM KASSANDRA SCRN W CAD DIG, 10/09/2012. INDICATIONS: screening Calculator Name NCI Breast Cancer Risk Assessment Tool 5 Year Breast Cancer Risk 1.80% Lifetime Breast Cancer Risk 9.80% Personal Breast Cancer No Personal Ovarian Cancer No Treatments None Family Cancers None LOCATION: [facility] BREAST COMPOSITION: The breasts are heterogeneously dense, which may obscure small masses. FINDINGS: RIGHT BREAST: No significant suspicious finding. LEFT BREAST: No significant suspicious finding. Vascular calcifications. DIAGNOSTIC CATEGORY 1--NEGATIVE. RECOMMENDATIONS: ROUTINE MAMMOGRAM AND CLINICAL EVALUATION IN 12 MONTHS. Dictated by: Blake De Jesus DO on 02/24/2025 at 14:33 Approved by: Blake De Jesus DO on 02/24/2025 at 15:00
== END 2025-02-24 10:53 | disposition home or self-care (01) ==
LOC: MAMMO 10:52
PROVIDERS: PCP Family Medicine; Visit Provider Family Medicine
DX: Z12.31 Encounter for screening mammogram for malignant neoplasm of breast (principal)
CPT/HCPCS: 77063; 77067

== ENCOUNTER 2025-03-09 16:03 | Outpatient (OUT) | payer OTHER, SELFPAY ==
--- OUTSIDE RECORDS SUMMARY | 2025-02-25 10:45 | XMS_ITS | Encounter Summary ---
Author Organization [facility] Address [address] [place] [address] Care Team Providers Care Hydrometer Tester Name Role Phone Kostas Gauthier MD Primary Care Provider [phone] Isidra Allred DO Unavailable [phone] Reason for Referral * Consultation (Routine) - AuthorizedSpecialtyDiagnoses / ProceduresReferred By ContactReferred To ContactUrology Diagnoses Recurrent UTI Procedures AL OFFICE/OUTPATIENT [facility] 60 MINUTES Isidra Allred DO [address] [place] [address] Phone: tel: fax: Chente Lyles MD [address] [place] [address] Phone: tel: fax: Referral IDStatusReasonStart DateExpiration DateVisits RequestedVisits [id number] Specialty Services Required / Reason for Visit * ReasonCommentsDiabetes Encounter Details DateTypeDepartmentCare Team (Latest Contact Info)Rcnpfcobfaa89/14/2025 10:45 AM ESTOffice Visit [facility] [address] [place] [address] Isidra Allred DO [address] [place] [address] Type 2 diabetes mellitus without complication, with long-term current use of insulin (HCC) (PrimaryDx); Type 1 diabetes mellitus without complications (HCC); Recurrent UTI Social History Tobacco UseTypesPacks/DayYears UsedDateSmoking Tobacco: NeverSmokeless [...] times a week09/13/2022How often do you attend faith or advent services?Patient pqjljerc08/02/2023o you belong to any clubs or organizations such as faith groups, unions, fraternal or athletic groups, or school groups?Yes09/13/2022How often do you attend meetings of the clubs or organizations you belong to?Patient moilphec22/02/2023re you , , , , never , [...] at all 09/13/2022HQ-2AnswerDate RecordedPatient Health Questionnaire-2 Score0 02/25/2025[facility] [place] of Occup[facility] - Occupational Stress QuestionnaireAnswerDate RecordedDo you feel stress - tense, restless, nervous, or anxious, or unable to sleep at night because yourmind is troubled all the time - these days?Patient kdhrcopw76/02/2023Exercise Vital SignAnswerDate RecordedOn average, how many days per week do you engage in moderate to strenuous exercise (like a brisk walk)?Patient ijgbcwqy40/02/2023On average, how many minutes do you engage in exercise at this level?Patient xmtxuoqx85/02/2023 Hunger Vital SignAnswerDate RecordedWithin the past 12 [...] CommentsUnknownSex and Gender InformationValueDate RecordedSex Assigned at ArdpeQijaig45/02/2023 9:07 AM EDTLegal KntSwcayb80/15/2023 7:13 PM EDTGender LxuvjcskXlnmjl03/02/2023 9:07 AM EDTSexual OrientationNot on filedocumented as of this encounter Last Filed Vital Signs Vital SignReadingTime TakenCommentsBlood Ozfunguq857/7602/25/2025 10:55 AM EST Txbzy121802/25/2025 10:55 AM MFFFqwlistdaxp90.7 ??C (98.1 ??F)02/25/2025 10:55 AM ESTRespiratory Rate--Oxygen Jpbytaxzzo70%02/25/2025 10:55 AM ESTInhaled Oxygen Concentration--Ldfcdl44 kg (194 lb)02/25/2025 10:55 AM XHBHdihhx302 cm (5' 3 ) 02/25/2025 10:55 AM ESTBody Mass Index34.37104/27/2024 10:55 AM ESTdocumented in this encounter Functional Status * Over the past 2 weeks, how often have you been bothered by any of the following problems?QuestionAnswerDate of AssessmentAuthorLittle interest or pleasure in doing thingsNot at all02/25/2025 10:55 AM Chelle Sykes LPN Feeling down, depressed, or hopelessNot at all02/25/2025 10:55 AM Chelle Sykes LPNPatient Health Questionnaire-2 Rcqpw66204/27/2024 10:55 AM Chelle Hampton LPN documented as of this encounter Progress Notes * Isidra Allred, DO - 02/27/2025 6:46 PM ESTAssociated Problem(s): Type 2 diabetes mellitus without complication, with long-term current use ofinsulin (HCC) During the appointment today all pertinent [...] at least the last 60 days , Discussed dietary changes at length. Encouraged to limit simple carbs and focus more on healthy protein/fat with all meals and snacks. They should also avoid any sugary drinks. , Instructed on the importance of taking insulin before eating. If it has been more than 30-45 min since eating they should notgive the meal dose but should just give a correction insulin dose. , Instructions given today include: Insulin instructions and Dietary education. Will increase ozempic. Will decrease basal rate at 6A and 11A. Loosen carb ratio for her meals. * Isidra Allred DO - 02/25/2025 10:45 AM EST Images from the original note were not included. Rosio Bryan is a 59 y.o. female presents with chief complaint of Diabetes HPI: Diabetes Mellitus Follow-up: Rosio Bryan is here for follow-up evaluation of diabetes mellitus. The initial diagnosis of Type 1 diabetes was made in 1990 Diabetes complications: none Hx of diabetes medications tried: none She has been checking her blood glucose with a Tandem pump-LINKED- and Dexcom CGM on a daily basis.Bg dropping some overnight and in the afternoon between meals. She doesn't feel much appetite suppression from ozempic. Last A1c: 7.0 (10/22/24) Last eye exam: 06/14/2024 Current concerns include: She had labs done from her PCP for yearly labs. UA was done showing a UTI she was started on an abx. She went back to the office on 01/31 still complaining of fatigue and a repeat ua was done. TSH was high and he reduced thyroid medication to 100 mcg Still showing she had a uti and was switch to a different abx US kidney and bladder was normal Colonoscopy is scheduled for next needs insulin instructions Bg levels: morning numbers are rising as she gets up, still some fluctuations during the day Diet: counting carbs and calories, limiting portion sizes Drinks: water, coffee with a little sweetened creamer, sugar free ice tea, occasional diet pop Exercise: none Hypoglycemia: couple times a week after meal and after taking a correction dose SUBJECTIVE: PROBLEM LIST SOCIAL ALLERGIES: Problem List[1] Social History[2] Allergies[3] 02/25/2025 Antidiabetic medications Insulin Aspart Per pump (max daily 150 units) (100 UNIT/ML SOLN) Semaglutide 0.5 mg q7 days SC (2 MG/3ML SOPN) -Discontinued Semaglutide 1 mg Weekly SC Labs [facility] HEMOGLOBIN A1C/HEMOGLOBIN.TOTAL:MFR:PT:BLD:QN: 6.4 Outpatient prescription Medication marked as long-term The ASCVD Risk score (Jamison NEUMANN, et al., 2019) failed to calculate for the following reasons: Cannot find a previous HDL lab Cannot find a previous total cholesterol lab * - Cholesterol units were assumed REVIEW OF SYMPTOMS: Review of Systems Constitutional: Negative for appetite change, fatigue and unexpected weight change. Eyes: Negative for visual disturbance. Respiratory: Negative for cough, shortness of breath and wheezing. Cardiovascular: Negative for chest pain, palpitations and leg swelling. Genitourinary: Positive for difficulty urinating and urgency. Negative for dysuria, flank pain and hematuria. Neurological: Negative for numbness. Endocrine: Negative for polydipsia, polyphagia and polyuria. OBJECTIVE: 02/25/2025 10:55 AM 01/28/2025 9:23 AM 10/22/2024 10:36 AM Vitals BMI 34.37 kg/m2 34.54 kg/m2 33.65 kg/m2 Systolic 124 120 126 Diastolic 76 76 74 Heart Rate 65 71 Temp 98.1 ??F 98.2 ??F Height (in) 5' 3 5' 3 5' 3.5 Weight (lb) 194 195 193 Visit Report Report Report Physical Exam Constitutional: General: [...] This Visit Type 1 diabetes mellitus without complications (HCC) Relevant Orders POCT glycosylated hemoglobin (Hb A1C) docked device (Completed) Type 2 diabetes mellitus without complication, with long-term current use of insulin (HCC) - Primary During the appointment today [...] at least the last 60 days , Discussed dietary changes at length. Encouraged to limit simple carbs and focus more on healthy protein/fat with all meals and snacks. They should also avoid any sugary drinks. , Instructed on the importance of taking insulin before eating. If it has been more than 30-45 min since eating they should notgive the meal dose but should just give a correction insulin dose. , Instructions given today include: Insulin instructions and Dietary education. Will increase ozempic. Will decrease basal rate at 6A and 11A. Loosen carb ratio for her meals. Relevant Medications semaglutide (Ozempic, 1 MG/DOSE,) 4 MG/3ML solution pen-injector Other Visit Diagnoses Recurrent UTI Relevant Orders Ambulatory referral to Urology She is getting recurrent UTI's and admits to having a hard time starting her stream. I suspect she has urethral stenosis. Will refer to urology for this. Follow up with Dr. Isidra Allred in about 4 months (around 06/25/2025). Patient's Medications New Prescriptions SEMAGLUTIDE (OZEMPIC, 1 MG/DOSE,) 4 MG/3ML SOLUTION PEN-INJECTOR Inject 1 mg under the skin 1 (one)time per week Previous Medications ASPIRIN (ASPIR) 81 MG EC TABLET 1 (one) time each day at the same time ATORVASTATIN (LIPITOR) 40 MG TABLET 1 (one) time each day at the same time BD INSULIN SYRINGE U/F 31G X 08/27 0.5 ML MISC BIOTIN 1 MG CAPSULE 1 (one) time each day at the same time BLOOD GLUCOSE MONITORING SUPPL (ACCU-CHEK GUIDE) W/DEVICE KIT 1 each See administration instructions CLONAZEPAM (KLONOPIN) 1 MG TABLET Take 1.5 tablets by mouth in the morning and 1.5 tablets before bedtime. CONTINUOUS GLUCOSE SENSOR (DEXCOM G7 SENSOR) MISC Inject 1 Device under the skin See administrationinstructions Change every 10 days CONTINUOUS GLUCOSE SENSOR (DEXCOM G7 SENSOR) MISC Inject 1 Device under the skin See administrationinstructions Change every 10 days CRANBERRY 125 MG TABLET ELDERBERRY PO FEXOFENADINE (DEONNA ALLERGY) 60 MG TABLET prn GLUCOSE BLOOD (ACCU-CHEK GUIDE) TEST STRIP Fsbs daily HYOSCYAMINE (LEVSIN) 0.125 MG TABLET every 4 (four) hours if needed INSULIN ASPART (NOVOLOG) 100 UNIT/ML INJECTION Per pump (max daily 150 units) LEVOTHYROXINE (SYNTHROID, LEVOXYL) 100 MCG TABLET Take 100 mcg by mouth in the morning. Take beforemeals. LOSARTAN (COZAAR) 100 MG TABLET 1 (one) time each day at the same time MAGNESIUM 500 (27 MG) MG TABLET METOPROLOL SUCCINATE XL (TOPROL-XL) 50 MG 24 HR TABLET Take 50 mg by mouth Daily MULTIPLE VITAMINS-MINERALS (AIRBORNE PO) MULTIPLE VITAMINS-MINERALS (VITAMIN D3 COMPLETE) TABLET Take by mouth PANTOPRAZOLE (PROTONIX) 40 MG EC TABLET 40 mg in the morning. Take before meals. PROBIOTIC PRODUCT (PROBIOTIC & ACIDOPHILUS EX ST PO) every 12 (twelve) hours TIZANIDINE (ZANAFLEX) 4 MG TABLET Take 2 tablets by mouth as needed at bedtime Modified Medications Modified Medication Previous Medication INSULIN INFUSION PUMP (T:SLIM INSULIN PUMP) DEVICE Insulin Infusion Pump (T:slim Insulin Pump) device Basal: 12A 2.5, 6A 2.0, 11A 1.5, ICR: 12A 4, ISF: 50, target: 110 Basal: 12A 2.5, 4A 2.1, 8A 2.2, 11A 1.7, ICR: 12A 3, ISF: 50, target: 110 Discontinued Medications SEMAGLUTIDE,0.25 OR 0.5MG/DOS, (OZEMPIC, 0.25 OR 0.5 MG/DOSE,) 2 MG/3ML SOLUTION PEN-INJECTOR Inject 0.5 mg under the skin every 7 (seven) days I have reviewed and reconciled the history and medication list with the patient today. [1] Patient Active Problem List Diagnosis Class 2 severe obesity due to excess calories with serious comorbidity and body mass index (BMI) of35.0 to 35.9 in adult Type 1 diabetes mellitus without complications (HCC) Unspecified mononeuropathy of right lower limb Type 2 diabetes mellitus without complication, with long-term current use of insulin (HCC) Dizziness Hyperlipidemia Hypertensive disorder Anxiety disorder Panic disorder Age-related nuclear cataract of both eyes Encounter for screening colonoscopy [2] Social History Tobacco Use Smoking status: Never Smokeless tobacco: Never Substance Use Topics Alcohol use: Not Currently Drug use: Never [3] Allergies Allergen Reactions Amoxicillin Other Reaction(s): Unknown Iodinated Contrast Media Levofloxacin Other Reaction(s): Unknown Metronidazole Pentazocine Other Reaction(s): Unknown Pravastatin Unknown Sulfamethoxazole-Trimethoprim Wound Dressing Adhesive documented in this encounter Plan of Treatment DateTypeDepartmentCare Team (Latest Contact Info)Jptjjlhmuma25/02/2025 4:00 PM ESTOffice Visit [facility] [address] [place] [address] Jose Freed DO [address] [place] [address] 06/24/2025 11:15 AM EDTOffice Visit [facility] [address] [place] [address] Isidra Allred DO [address] [place] [address] NameTypePriorityAssociated DiagnosesOrder ScheduleAmbulatory referral to Urology Outpatient ReferralRoutine Recurrent UTI Expected: 02/25/2025 (Approximate), Expires: 08/25/2025documented as of this encounter Procedures Procedure NamePriorityDate/TimeAssociated DiagnosisCommentsPOCT GLYCOSYLATED HEMOGLOBIN (HGB A1C)Cgnvbct8202/25/2025 11:10 AM EST Type 1 diabetes mellitus without complications (HCC) documented in this encounter Results * POCT glycosylated hemoglobin (Hb A1C) docked device (02/25/2025 11:10 AM EST) ComponentValueRef RangeTest MethodAnalysis TimePerformed AtPathologist SignatureHemoglobin A1C6.4Specimen (Source)Anatomical Location / Laterality Collection Method / VolumeCollection TimeReceived TimeBloodVenous blood specimen / Yozvvck5802/25/2025 11:10 AM EST Narrative Authorizing ProviderResult TypeResult StatusIsidra Allred DOPOINT OF CARE TEST ENTER/EDIT ORDERABLESFinal Result documented in this encounter Visit Diagnoses Diagnosis Type 2 diabetes mellitus without complication, with long-term current use of insulin (HCC)- Primary Type 1 diabetes mellitus without complications (HCC) Recurrent UTI Urinary tract infection, site not specified documented in this encounter Care Teams Team MemberRelationshipSpecialtyStart DateEnd Date Kostas Gauthier MD [address] [place] [address] PCP - GeneralFamily Medicine09/13/22 Isidra Allred DO [address] [facility] [address] [place] [address] PCP - Medical [place] [employer]04/14/2211documented as of this encounter
--- OUTSIDE RECORDS SUMMARY | 2025-03-09 16:07 | XMS_ITS | Encounter Summary ---
Author Organization [facility] Address [address] [place] [address] Care Team Providers Care Tapering Machine Operator Name Role Phone Kostas Gauthier MD Primary Care Provider [phone] Isirda Allred DO Unavailable [phone] Encounter Details DateTypeDepartmentCare Team (Latest Contact Info)Jiitaplzsbv99/14/2025Travel Social History Tobacco UseTypesPacks/DayYears UsedDateSmoking Tobacco: NeverSmokeless [...] times a week09/13/2022How often do you attend hoahaoism or restoration services?Patient gfxsrpin94/02/2023Do you belong to any clubs or organizations such as hoahaoism groups, unions, fraternal or athletic groups, or school groups?Yes09/13/2022How often do you attend meetings of the clubs or organizations you belong to?Patient bsmnmjuu05/02/2023re you , , , , never , [...] at all 09/13/2022HQ-2AnswerDate RecordedPatient Health Questionnaire-2 Score0 02/25/2025[facility] [place] of Occupational Health - Occupational Stress QuestionnaireAnswerDate RecordedDo you feel stress - tense, restless, nervous, or anxious, or unable to sleep at night because yourmind is troubled all the time - these days?Patient ltknqdme14/02/2023Exercise Vital SignAnswerDate RecordedOn average, how many days per week do you engage in moderate to strenuous exercise (like a brisk walk)?Patient wrkphfcu13/02/2023On average, how many minutes do you engage in exercise at this level?Patient oxhhcijz99/02/2023 Hunger Vital SignAnswerDate RecordedWithin the past 12 [...] CommentsUnknownSex and Gender InformationValueDate RecordedSex Assigned at LlaecLpidxx93/02/2023 9:07 AM EDTLegal RepFgxxpg96/15/2023 7:13 PM EDTGender UshkkmvpZpshii47/02/2023 9:07 AM EDTSexual OrientationNot on filedocumented as of this encounter Functional Status * Over the past 2 weeks, how often have you been bothered by any of the following problems?QuestionAnswerDate of AssessmentAuthorLittle interest or pleasure in doing thingsNot at all02/25/2025 10:55 AM Chelle Sykes LPN Feeling down, depressed, or hopelessNot at all02/25/2025 10:55 AM Chelle Sykes LPNPatient Health Questionnaire-2 Tfmwm24904/27/2024 10:55 AM Chelle Hampton LPN documented as of this encounter Plan of Treatment DateTypeDepartmentCare Team (Latest Contact Info)Ncfjapbpgav93/02/2025 4:00 PM ESTOffice Visit [facility] [address] [place] [phone] Jose Freed, DO [address] [place] [address] 06/24/2025 11:15 AM EDTOffice Visit [facility] [address] [place] [address] Isidra Allred, DO [address] [place] [address] documented as of this encounter Visit Diagnoses Not on filedocumented in this encounter Care Teams Team MemberRelationshipSpecialtyStart DateEnd Kostas Gauthier MD [address] [place] [address] PCP - GeneralFamily Medicine09/13/22 Isidra Allred DO [address] [facility] [address] [place] [address] PCP - Medical [place] [employer] [employer]04/14/2211documented as of this encounter
--- OUTSIDE RECORDS SUMMARY | 2025-03-09 16:07 | XMS_ITS | Encounter Summary ---
Author Organization [facility] Address [address] [place] [address] Care Team Providers Care Document Controller Name Role Phone Kostas Gauthier MD Primary Care Provider [phone] Isidra Allred DO Unavailable [phone] Encounter Details DateTypeDepartmentCare Team (Latest Contact Info)Cxqavnteqcb92/14/2025amboo flowsheet [facility] [address] [place] [address] Isidra Allred, DO [address] [place] [address] Social History Tobacco UseTypesPacks/DayYears UsedDateSmoking Tobacco: NeverSmokeless [...] times a week09/13/2022How often do you attend religious or lutheran services?Patient tnuhufec44/02/2023o you belong to any clubs or organizations such as religious groups, unions, fraternal or athletic groups, or school groups?Yes09/13/2022How often do you attend meetings of the clubs or organizations you belong to?Patient /02/2023re you , , , , never , [...] at all 09/13/2022HQ-2AnswerDate RecordedPatient Health Questionnaire-2 Score0 02/25/2025[facility] [place] of Occupational Health - Occupational Stress QuestionnaireAnswerDate RecordedDo you feel stress - tense, restless, nervous, or anxious, or unable to sleep at night because yourmind is troubled all the time - these days?Patient ymtcyvxi34/02/2023Exercise Vital SignAnswerDate RecordedOn average, how many days per week do you engage in moderate to strenuous exercise (like a brisk walk)?Patient omnnzkfi09/02/2023On average, how many minutes do you engage in exercise at this level?Patient tyytrnmy64/02/2023 Hunger Vital SignAnswerDate RecordedWithin the past 12 [...] CommentsUnknownSex and Gender InformationValueDate RecordedSex Assigned at KiviqOgqqyv02/02/2023 9:07 AM EDTLegal QzgAfgvox66/15/2023 7:13 PM EDTGender GrwnctciLxstgp58/02/2023 9:07 AM EDTSexual OrientationNot on filedocumented as of this encounter Plan of Treatment DateTypeDepartmentCare Team (Latest Contact Info)Himoojvtmdl46/02/2025 4:00 PM ESTOffice Visit [facility] [address] [facility] [address] [place] [phone] Jose Freed, DO [address] [facility] [address] [place] [address] 06/24/2025 11:15 AM EDTOffice Visit [facility] [address] [place] [address] Isidra Allred, DO [address] [place] [address] documented as of this encounter Visit Diagnoses Not on filedocumented in this encounter Care Teams Team MemberRelationshipSpecialtyStart DateEnd Date Kostas Gauthier MD [address] [facility] [place] [address] PCP - GeneralFamily Medicine09/13/22 Isidra Allred DO [address] [facility] [address] [place] [address] PCP - Medical [place] [employer]04/14/2211documented as of this encounter
--- OUTSIDE RECORDS SUMMARY | 2025-03-09 16:07 | XMS_ITS | Clinical Summary ---
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Active BD Insulin Syringe U/F 31G X 08/27 0.5 ML [facility] 3Active Multiple Vitamins-Minerals (Vitamin D3 Complete) tablet Take by mouthActive Blood Glucose Monitoring Suppl (Accu-Chek Guide) w/Device kit Indications:Type 1 diabetes mellitus without complication (HCC)1 each See administration instructions 1 kit 02/17/2024ctive glucose blood (Accu-Chek Guide) test strip Indications:Type 1 diabetes mellitus without complication (HCC)Fsbs daily 100 strip ctive metoprolol succinate XL (Toprol-XL) 50 MG 24 hr tablet Take 50 mg by mouth Daily03/31/2024ctive tiZANidine (Zanaflex) 4 MG tablet Take 2 tablets by mouth as needed at rnsarmn06/07/2025Active insulin aspart (NovoLOG) 100 UNIT/ML injection Indications:Type 1 diabetes mellitus without complication (HCC)Per pump (max daily 150 units) 140 mL 5Active Continuous Glucose Sensor (Dexcom G7 Sensor) [facility] Indications:Type 1 diabetes mellitus without complication (HCC)Inject 1 Device under the skin See administration instructions Change every 10 days 9 each 5Active Continuous Glucose Sensor (Dexcom G7 Sensor) [facility] Indications:Type 1 diabetes mellitus without complication (HCC)Inject 1 Device under the skin See administration instructions Change every 10 days 9 each 5Active Cranberry 125 MG tablet Active semaglutide (Ozempic, 1 MG/DOSE,) 4 MG/3ML solution pen-injector Indications:Type 2 diabetes mellitus without complication, with long-term current use of insulin (HCC)Inject 1 mg under the skin 1 (one) time per week 9 mL ctive Insulin Infusion Pump (T:slim Insulin Pump) device Basal: 12A 2.5, 6A 2.0, 11A 1.5, ICR: 12A 4, ISF: 50, target: 110 1 each 5Active Semaglutide,0.25 or 0.5MG/DOS, (Ozempic, 0.25 or 0.5 MG/DOSE,) 2 MG/3ML solution pen-injector Indications:Type 2 diabetes mellitus without complication, with long-term current use of insulin (HCC)Inject 0.5 mg under the skin every 7 (seven) days 6 mL /411/Discontinued Insulin Infusion Pump (T:slim Insulin Pump) device Indications:Type 1 diabetes mellitus without complication (HCC)Basal: 12A 2.5, 4A 2.1, 8A 2.2, 11A 1.7, ICR: 12A 3, ISF: 50, target: 110 1 each Discontinued(Dose adjustment) Active Problems ProblemNoted DateDiagnosed DateEncounter for screening bryhjuudzqz66/17/2025ge- related nuclear cataract of both eyes05/07/2023lass 2 severe obesity due to excess calories with serious comorbidity and body mass index (BMI) of35.0 to 35.9 in adult08/16/2022Type 1 diabetes mellitus without pqjtmawjtuqjh28/05/2023 Assessment & Plan (10/24/2024 8:05 PM EDT): [...] numbers improve. Unspecified mononeuropathy of right lower limb6117Jjxiavjnp77/16/2021Type 2 diabetes mellitus without complication, with long-term current use of insulin 03/25/2016 Assessment & Plan (02/27/2025 6:46 PM EST): During the appointment today all [...] 11A. Loosen carb ratio for her meals. Omtzjeldxjkeuy53/12/2016Hypertensive ebjgsdnf42/12/2016Anxiety disorder 03/25/2016Panic ehbeoznq64/12/2016 Encounters DateTypeDepartmentCare ByrsVbwkctaulhh77/14/2025 10:45 AM ESTOffice Visit [facility] [address] [place] [phone] Isidra Allred, DO Type 2 diabetes mellitus without complication, with long-term current use of insulin (HCC) (PrimaryDx); Type 1 diabetes mellitus without complications (HCC); Recurrent UTI02/25/2025amboo flowsheet [facility] [address] [place] [address] Isidra Allred, DO 02/25/20256218Uabbxz43/05/5710Wwfosv15/04/5128Gdnuvi90/20/2025Orders Only [facility] [address] [place] [phone] Bhanu Forde MD 01/28/2025 9:45 AM EDTConsult [facility] [address] [place] [phone] Jose Freed, DO Encounter for screening colonoscopy (Primary Dx)01/28/20254741Cbrsms86/16/2025Travel 01/24/20257709Ggxtlp44/24/1562Bjefnh342786Stskcv88Orders Only [facility] [address] [address] Bhanu Forde MD from Last 3 Months Immunizations ImmunizationAdministration DatesNext DueInfluenza, P7X7-922083/20/2017, 02/19/2016Influenza, Injectable, MDCK, preservative free02/06/2024,01/11/2019 Influenza, Zlugxqldviv73/26/2022,01/10/2021,12/13/2020,02/08/2020,01/26/2020, 01/11/2019,01/01/2017,02/19/2016Influenza, injectable, MDCK, preservative free, uxfgxqfqlbrg20/20/2023,02/06/2022,01/10/2021Influenza, injectable, quadrivalent 12/13/2020Influenza, injectable, quadrivalent, preservative free02/08/2020 Influenza, seasonal, lcbvoyyfry48/14/2020Pneumococcal Polysaccharide PPSV23 01/01/2017Tdap1,03/21/2018 Family History Medical HistoryRelationNameCommentsHeart diseaseBrotherHeart diseaseFatherRay RonskiHypertensionFatherRay RonskiCancerMotherBarb QuaintanceHyperlipidemia MotherBarb QuaintanceHypertensionMotherBarb QuaintanceSkin cancerMotherBarb QuaintanceThyroid diseaseMotherBarb QuaintanceHyperlipidemiaSister 1Hypertension Sister 2Patti MwbmvyeLakkurmbZhmxFvudwmKwgyecbxZfaivqzXhjmq8GwhkbyGsa Ronski DeceasedMotherBarb QuaintanceAliveSister 5Extvz8Xpncmq 2Patti LonswayAlive Social History Tobacco UseTypesPacks/DayYears UsedDateSmoking [...] times a week09/13/2022How often do you attend sikh or sikhism services?Patient gqphfytp36/02/2023o you belong to any clubs or organizations such as sikh groups, unions, fraternal or athletic groups, or school groups?Yes09/13/2022How often do you attend meetings of the clubs or organizations you belong to?Patient cegpfefl27/02/2023re you , , , , never , [...] at all 09/13/2022HQ-2AnswerDate RecordedPatient Health Questionnaire-2 Score0 02/25/2025Finblue [facility] hospital, inc[facility] of Occupational [facility] - Occupational Stress QuestionnaireAnswerDate RecordedDo you feel stress - tense, restless, nervous, or anxious, or unable to sleep at night because yourmind is troubled all the time - these days?Patient uegchmkd62/02/2023Exercise Vital SignAnswerDate RecordedOn average, how many days per week do you engage in moderate to strenuous exercise (like a brisk walk)?Patient eoktuaff96/02/2023On average, how many minutes do you engage in exercise at this level?Patient cdtwsako54/02/2023 Hunger Vital SignAnswerDate RecordedWithin the past 12 [...] steady place to sleep or slept in [facility] (including now)?No09/13/2022 CommentsUnknownSex and Gender InformationValueDate RecordedSex Assigned at TaykiPegbqc58/02/2023 9:07 AM EDTLegal FsgQxnnty43/15/2023 7:13 PM EDTGender MgppaisgQyihzg06/02/2023 9:07 AM EDTSexual OrientationNot on file Last Filed Vital Signs Vital SignReadingTime TakenCommentsBlood Qgztztfq564/7602/25/2025 10:55 AM EST Mmnwm784302/25/2025 10:55 AM GNBSwbyiqxrybq02.7 ??C (98.1 ??F)02/25/2025 10:55 AM ESTRespiratory Rate--Oxygen Lxoyzozdtl69%02/25/2025 10:55 AM ESTInhaled Oxygen Concentration--Iytxoi50 kg (194 lb)02/25/2025 10:55 AM JZSXhepus694 cm (5' 3 ) 02/25/2025 10:55 AM ESTBody Mass Index34.37104/27/2024 10:55 AM EST Plan of Treatment DateTypeDepartmentCare Team (Latest Contact Info)Gquilmyqrrd00/02/2025 4:00 PM ESTOffice Visit [facility] [address] [place] [address] Jose Freed, DO [address] [place] [address] 06/24/2025 11:15 AM EDTOffice Visit [facility] [address] [place] [address] Isidra Allrde, DO [address] [place] [address] Health MaintenanceDue DateLast DoneCommentsCT Uouisslfwqus11/04/1966FIT-DNA 1965FIT1965FOBT1965 1199Otbjngapxqtle49/04/1966Diabetes: Urine Protein Lmrcbbxeb50/04/1985Pap Smear1986Cervical Cancer Screening 1995HPV/Pwscbl0005/18/19952303Ucnzdnneh19/04/2006Pneumococcal Vaccine: Pediatrics (0 to 5 Years) and At-Risk Patients (6 to 64 Years) (2 of 2 - PCV) Colonoscopy, 10/30/2012Colorectal Cancer Akotqkljc42/19/2023COVID-19 Vaccine (2024- season), 08/16/2020, 1Diabetes: Hemoglobin A1C, 10/22/2024, 06/18/2024, Additional history existsDiabetes: Retinopathy Odcyvkhps76/03/2027 06/14/2024, 05/07/2023, 05/07/2023, Additional history existsInfluenza Vaccine Skosekrug16/20/2025, 02/06/2024, 01/01/2023, Additional history exists Procedures Procedure NamePriorityDate/TimeAssociated DiagnosisCommentsPOCT GLYCOSYLATED HEMOGLOBIN (HGB A1C)Pgxcmmu9802/25/2025 11:10 AM EST Type 1 diabetes mellitus without complications (HCC) DIABETIC RETINOPATHY SCREENING - OU - BOTH MGHBFrzrkhj48/03/2025 8:39 AM EST MHMLMUNFBFRIaznftq93/19/2013 9:45 AM EDTfrom Last 3 Months or Most Recently Relevant to Health Maintenance Results * POCT glycosylated hemoglobin (Hb A1C) docked device (02/25/2025 11:10 AM EST) ComponentValueRef RangeTest MethodAnalysis TimePerformed AtPathologist SignatureHemoglobin A1C6.4Specimen (Source)Anatomical Location / Laterality Collection Method / VolumeCollection TimeReceived TimeBloodVenous blood specimen / Ujpbnli4502/25/2025 11:10 AM EST Narrative Authorizing ProviderResult TypeResult [...] DateEnd Date Kostas Gauthier MD [address] [place] [address] PCP - GeneralFamily Medicine09/13/22 Isidra Allred DO [address] [address] PCP - [facility]04/14/2211
--- OUTSIDE RECORDS SUMMARY | 2025-03-09 16:07 | XMS_ITS | Clinical Summary ---
Author Organization [facility] Address [id number] [facility] [place] [address] Care Team Providers Care Pig Machine Supervisor Name Role Phone Unavailable Primary Care Provider Unavailabl e Social History Tobacco UseTypesPacks/DayYears UsedDateSmoking Tobacco: Never AssessedChildcare AnswerDate TalagokqIwdmsgjscXruylol15/12/2019EmploymentAnswerDate Recorded ChhcvfywhrTzbjegh35/12/2019CommentsUnknownSex and Gender Information ValueDate RecordedSex Assigned at BirthNot on fileLegal MulLhqqvw36/06/2015 11:29 AM EDTGender IdentityNot on fileSexual OrientationNot on file Plan of Treatment Not on file Medical Devices Not on file
--- OUTSIDE RECORDS SUMMARY | 2025-03-09 16:07 | XMS_ITS | Clinical Summary ---
Author Organization [facility] Address [address] [place] [address] Care Team Providers Care Hosiery Mater Name Role Phone Unavailable Primary Care Provider Unavailabl e Medications MedicationSigDispense QuantityRefillsLast FilledStart DateEnd DateStatus nadolol (Corgard) 40 mg tablet Indications:Chest pain, unspecifiedTAKE 1 TABLET BY MOUTH TWICE A DAY 180 tablet 03/05/2022ctive Social History Tobacco UseTypesPacks/DayYears UsedDateSmoking Tobacco: Never Assessed CommentsUnknownSex and Gender InformationValueDate RecordedSex Assigned at Not on fileLegal XshZuspgu54/29/2022 9:46 PM EDTGender IdentityNot on fileSexual OrientationNot on file Last Filed Vital Signs Vital SignReadingTime TakenCommentsBlood Ikitsyaw235/9107 2:12 PM EDT Awhlu4275 9:30 AM ESTTemperature--Respiratory Rate--Oxygen Tkovmoduea97% 10/27/2020 2:08 PM EDTInhaled Oxygen Concentration--Quqljj95.8 kg (209 lb) 10/27/2020 2:04 PM NZORyntdg286 cm (5' 3 )10/27/2020 2:01 PM EDTBody Mass Index 37.02010/27/2020 2:01 PM EDT Plan of Treatment Not on file
[2025-03-09 16:26] LABS: Glucose Urine UA NEGATIVE (NEGATIVE)
[2025-03-09 16:57] LABS: Free T3 2.44 pg/mL (2.18-3.98); Thyroid Stimulating Hormone 0.086 uIU/mL (0.358-3.740)
[2025-03-09 17:09] LABS: Cast Seen? NONE SEEN #/LPF (NONE SEEN); Crystals Seen? None Seen #/HPF (None Seen)
== END 2025-03-09 16:04 | disposition home or self-care (01) ==
LOC: LAB 16:05
PROVIDERS: PCP Family Medicine; Visit Provider Family Medicine
DX: N39.0 Urinary tract infection, site not specified (principal); E06.3 Autoimmune thyroiditis
CPT/HCPCS: 36415; 81001; 84436; 84443; 84481; 87086